=== PATIENT | male | born 1965 | race Caucasian/White ===

== ENCOUNTER 2017-06-10 13:47 | Observation (INO) | payer MEDICAID ==
[2017-06-10] MEDS ORDERED: Ondansetron 4 MG/2 ML SDV IVPUSH ONE (14:48)
[2017-06-10] MEDS ORDERED: HYDROmorphone 0.5 MG/0.5 ML Syringe IVPUSH ONE ×2 (14:48→16:19)
[2017-06-10] MEDS ORDERED: LORazepam 2 MG/ML SDV IVPUSH ONE (14:49)
--- NOTE | 2017-06-10 14:57 | EDM.PDOC ---
ED HPI GENERAL MEDICAL PROBLEM - General Chief Complaint: Abdominal Pain Stated Complaint: [facility] Time Seen by Provider: 06/10/17 14:57 Source of Information: Reports: Patient History Limitations: Reports: No Limitations - History of Present Illness INITIAL COMMENTS - FREE TEXT/NARRATIVE: pt was diagnosed with influ b 6-7 days ago and is just finishing his tamaflu. He also has been drinking very heavily He has pain in the rt upper abdoman. He was doing some vomiting. He feels quite ill. He has not run a temp recently. Onset: Gradual Duration: Day(s):, Other (pt had not drank since wed am. ) Location: Reports: Abdomen, Other (Pt is having pain in the rt upper abdoman. ) Associated Symptoms: Reports: Nausea/Vomiting Right Upper Abdomen Pain Score (Numeric/FACES): 8 - Related Data Allergies Allergy/AdvReac Type Severity Reaction Status Date / Time No Known Allergies Allergy Verified 06/10/17 14:15 Home Meds: Home Meds Ferrous Sulfate 325 mg PO TID 06/10/17 [History] Insulin Glarg,Human.Rec.Analog [Lantus] 18 unit SUBCUT DAILY 06/10/17 [History] Insulin Lispro [Humalog] 6 - 8 unit SQ TIDMEALS 06/10/17 [History] Pantoprazole [ProTONIX] 40 mg PO DAILY 06/10/17 [History] Pregabalin [Lyrica] 150 mg PO BID 06/10/17 [History] Propranolol [Inderal] 20 mg PO BID 06/10/17 [History] Past Medical History Cardiovascular History: Reports: Hypertension, MT, Stents Gastrointestinal History: Reports: Pancreatitis, Other (See Below) Other Gastrointestinal History: barrets esophageous, esophageal varisies Neurological History: Reports: Neuropathy, Diabetic Psychiatric History: Reports: Addiction Endocrine/Metabolic History: Reports: Diabetes, Type I Hematologic History: Reports: Blood Transfusion(s) Oncologic (Cancer) History: Reports: Renal - Past Surgical History Cardiovascular Surgical History: Reports: Coronary Artery Stent GI Surgical History: Reports: Cholecystectomy, Colonoscopy, EGD, Small Bowel, Other (See Below) Other GI Surgeries/Procedures: spleenectomy Male Surgical History: Reports: Other (See Below) Other Male Surgeries/Procedures: partial nephrectomy Social & Family History - Tobacco Use Smoking Status *Q: Never Smoker - Caffeine Use Caffeine Use: Reports: Coffee - Alcohol Use Date of Last Drink: 06/09/17 Time of Last Drink: 01:00 - Recreational Drug Use Recreational Drug Use: No ED ROS GENERAL - Review of Systems Review Of Systems: See Below Constitutional: Reports: No Symptoms HEENT: Reports: No Symptoms Respiratory: Reports: No Symptoms Cardiovascular: Reports: No Symptoms Endocrine: Reports: No Symptoms GI/Abdominal: Reports: Abdominal Pain, Other (pt love pain in the rt upper abdoman. ) : Reports: No Symptoms Musculoskeletal: Reports: No Symptoms ED EXAM, GI/ABD - Physical Exam Exam: See Below Text/Narrative:: pt arrived with pain in the rt upper abdoman, history of influ b. He has not finished his tamaflu. He has batsheva doing some vomiting. Exam Limited By: No Limitations General Appearance: Alert, Anxious, Moderate Distress Ears: Normal TMs Nose: Normal Inspection Throat/Mouth: Normal Inspection Head: Atraumatic Neck: Normal Inspection Respiratory/Chest: No Respiratory Distress Cardiovascular: Regular Rate, Rhythm GI/Abdominal Exam: Tender, Other (pt has tenderness in the rt upper abdoman. ) Course - Vital Signs Last Recorded V/S: Last Vital Signs Temp 36.4 C 06/10/17 14:09 Pulse 60 06/10/17 14:09 Resp 16 06/10/17 14:09 BP 151/118 H 06/10/17 17:28 Pulse Ox 96 06/10/17 14:09 - Orders/Labs/Meds Orders: Active Orders 24 hr Category Date Time Status Abdomen Pelvis w Cont [CT] Stat Exams 06/10/17 14:50 Taken DRUG SCREEN, URINE [URCHEM] Stat Lab 06/10/17 15:53 Ordered UA W/MICROSCOPIC [URIN] Urgent Lab 06/10/17 15:53 Ordered Iopamidol [Isovue-300 (61%)] Med 06/10/17 14:59 Active 100 ml IV . DIRECTED PRN LORazepam [Ativan] Med 06/10/17 17:48 Once 0.5 mg PO ONETIME ONE MVI, Adult with Vitamin K [Infuvite Adult] 10 ml Med 06/10/17 18:00 Ordered Thiamine [Vitamin B-1] 100 mg Folic Acid 1 mg Magnesium Sulfate [Magnesium Sulfate 50%] 3 gm Sodium Chloride 0.9% [Normal Saline] 1,000 ml IV ASDIRECTED Sodium Chloride 0.9% [Normal Saline] 1,000 ml Med 06/10/17 15:00 Active IV ASDIRECTED Sodium Chloride 0.9% [Normal Saline] 70 ml Med 06/10/17 15:00 Active IV ASDIRECTED Sodium Chloride 0.9% [Saline Flush] Med 06/10/17 14:59 Active 10 ml FLUSH ONETIME PRN Medication Orders Sodium Chloride (Normal Saline) 1,000 mls @ 999 mls/hr IV ASDIRECTED BORA Last Admin: 06/10/17 15:41 Dose: 999 mls/hr Sodium Chloride (Normal Saline) 70 mls @ 3 mls/sec IV ASDIRECTED BORA Stop: 06/10/17 23:00 Last Admin: 06/10/17 15:29 Dose: 3 mls/sec Multivitamins/Minerals 10 ml/Thiamine HCl 100 mg/ Folic Acid 1 mg/ Magnesium Sulfate 3 gm/ Sodium Chloride 1,017.2 mls @ 250 drops/min IV ASDIRECTED BORA Iopamidol (Isovue-300 (61%)) 100 ml IV . DIRECTED PRN PRN Reason: RADIOLOGY EXAM Stop: 06/11/17 15:00 Last Admin: 06/10/17 15:29 Dose: 100 ml Sodium Chloride (Saline Flush) 10 ml FLUSH ONETIME PRN PRN Reason: per radiology protocol Stop: 06/10/17 23:00 Last Admin: 06/10/17 15:29 Dose: 10 ml Labs: Laboratory Tests 06/10/17 06/10/17 06/10/17 Range/Units 14:00 14:00 14:00 WBC 8.1 (4.5-11.0) K/uL RBC 5.14 (4.30-5.90) M/uL Hgb 15.5 H (12.0-15.0) g/dL Hct 44.6 (40.0-54.0) % MCV 87 (80-98) fL MCH 30 (27-31) pg MCHC 35 (32-36) % Plt Count 206 (150-400) K/uL Neut % (Auto) 72 H (36-66) % Lymph % (Auto) 17 L (24-44) % [place] % (Auto) 9 H (2-6) % Eos % (Auto) 1 L (2-4) % Baso % (Auto) 1 (0-1) % Sodium 136 L (140-148) mmol/L Potassium 4.1 (3.6-5.2) mmol/L Chloride 99 L (100-108) mmol/L Carbon Dioxide 27 (21-32) mmol/L Anion Gap 14.1 H (5.0-14.0) mmol/L BUN 13 (7-18) mg/dL Creatinine 0.8 (0.8-1.3) mg/dL Est Cr Clr Drug Dosing 109.62 mL/min Estimated GFR (MDRD) > 60 (>60) Glucose 249 H (74-106) mg/dL Calcium 8.7 (8.5-10.1) mg/dL Total Bilirubin 1.1 H (0.2-1.0) mg/dL AST 359 H (15-37) U/L ALT 200 H (12-78) U/L Alkaline Phosphatase 264 H (46-116) U/L C-Reactive Protein 0.16 (0.0-0.3) mg/dL Total Protein 7.2 (6.4-8.2) g/dL Albumin 3.2 L (3.4-5.0) g/dL Globulin 4.0 H (2.3-3.5) g/dL Albumin/Globulin Ratio 0.8 L (1.2-2.2) Lipase (73-393) U/L Urine Color Urine Appearance Urine pH (4.5-8.0) Ur Specific [place] (1.008-1.030) Urine Protein (NEGATIVE) mg/dL Urine Glucose (UA) (NEGATIVE) mg/dL Urine Ketones (NEGATIVE) mg/dL Urine Occult Blood (NEGATIVE) Urine Nitrite (NEGAITVE) Urine Bilirubin (NEGATIVE) Urine Urobilinogen (NORMAL) mg/dL Ur Leukocyte Esterase (NEGATIVE) Urine RBC (0-5) Urine WBC (0-5) Ur Epithelial Cells Amorphous Sediment Urine Bacteria Urine Mucus Urine Opiates Screen (NEGATIVE) Ur Oxycodone Screen (NEGATIVE) Urine Methadone Screen (NEGATIVE) Ur Propoxyphene Screen (NEGATIVE) Ur Barbiturates Screen (NEGATIVE) Ur Tricyclics Screen (NEGATIVE) Ur Phencyclidine Scrn (NEGATIVE) Ur Amphetamine Screen (NEGATIVE) U Methamphetamines Scrn (NEGATIVE) Urine MDMA Screen (NEGATIVE) U Benzodiazepines Scrn (NEGATIVE) U Cocaine Metab Screen (NEGATIVE) U Marijuana (THC) Screen (NEGATIVE) Ethyl Alcohol mg/dL 06/10/17 06/10/17 06/10/17 Range/Units 14:00 14:48 15:53 WBC (4.5-11.0) K/uL RBC (4.30-5.90) M/uL Hgb (12.0-15.0) g/dL Hct (40.0-54.0) % MCV (80-98) fL MCH (27-31) pg MCHC (32-36) % Plt Count (150-400) K/uL Neut % (Auto) (36-66) % Lymph % (Auto) (24-44) % [place] % (Auto) (2-6) % Eos % (Auto) (2-4) % Baso % (Auto) (0-1) % Sodium (140-148) mmol/L Potassium (3.6-5.2) mmol/L Chloride (100-108) mmol/L Carbon Dioxide (21-32) mmol/L Anion Gap (5.0-14.0) mmol/L BUN (7-18) mg/dL Creatinine (0.8-1.3) mg/dL Est Cr Clr Drug Dosing mL/min Estimated GFR (MDRD) (>60) Glucose (74-106) mg/dL Calcium (8.5-10.1) mg/dL Total Bilirubin (0.2-1.0) mg/dL AST (15-37) U/L ALT (12-78) U/L Alkaline Phosphatase (46-116) U/L C-Reactive Protein (0.0-0.3) mg/dL Total Protein (6.4-8.2) g/dL Albumin (3.4-5.0) g/dL Globulin (2.3-3.5) g/dL Albumin/Globulin Ratio (1.2-2.2) Lipase 32 L (73-393) U/L Urine Color Yellow Urine Appearance Clear Urine pH 6.0 (4.5-8.0) Ur Specific [place] 1.020 (1.008-1.030) Urine Protein Negative (NEGATIVE) mg/dL Urine Glucose (UA) 1000 H (NEGATIVE) mg/dL Urine Ketones 15 H (NEGATIVE) mg/dL Urine Occult Blood Negative (NEGATIVE) Urine Nitrite Negative (NEGAITVE) Urine Bilirubin Small (NEGATIVE) Urine Urobilinogen 4 (NORMAL) mg/dL Ur Leukocyte Esterase Negative (NEGATIVE) Urine RBC Not seen (0-5) Urine WBC Not seen (0-5) Ur Epithelial Cells Few Amorphous Sediment Not seen Urine Bacteria Rare Urine Mucus Not seen Urine Opiates Screen (NEGATIVE) Ur Oxycodone Screen (NEGATIVE) Urine Methadone Screen (NEGATIVE) Ur Propoxyphene Screen (NEGATIVE) Ur Barbiturates Screen (NEGATIVE) Ur Tricyclics Screen (NEGATIVE) Ur Phencyclidine Scrn (NEGATIVE) Ur Amphetamine Screen (NEGATIVE) U Methamphetamines Scrn (NEGATIVE) Urine MDMA Screen (NEGATIVE) U Benzodiazepines Scrn (NEGATIVE) U Cocaine Metab Screen (NEGATIVE) U Marijuana (THC) Screen (NEGATIVE) Ethyl Alcohol < 3 mg/dL 06/10/17 Range/Units 15:53 WBC (4.5-11.0) K/uL RBC (4.30-5.90) M/uL Hgb (12.0-15.0) g/dL Hct (40.0-54.0) % MCV (80-98) fL MCH (27-31) pg MCHC (32-36) % Plt Count (150-400) K/uL Neut % (Auto) (36-66) % Lymph % (Auto) (24-44) % [place] % (Auto) (2-6) % Eos % (Auto) (2-4) % Baso % (Auto) (0-1) % Sodium (140-148) mmol/L Potassium (3.6-5.2) mmol/L Chloride (100-108) mmol/L Carbon Dioxide (21-32) mmol/L Anion Gap (5.0-14.0) mmol/L BUN (7-18) mg/dL Creatinine (0.8-1.3) mg/dL Est Cr Clr Drug Dosing mL/min Estimated GFR (MDRD) (>60) Glucose (74-106) mg/dL Calcium (8.5-10.1) mg/dL Total Bilirubin (0.2-1.0) mg/dL AST (15-37) U/L ALT (12-78) U/L Alkaline Phosphatase (46-116) U/L C-Reactive Protein (0.0-0.3) mg/dL Total Protein (6.4-8.2) g/dL Albumin (3.4-5.0) g/dL Globulin (2.3-3.5) g/dL Albumin/Globulin Ratio (1.2-2.2) Lipase (73-393) U/L Urine Color Urine Appearance Urine pH (4.5-8.0) Ur Specific [place] (1.008-1.030) Urine Protein (NEGATIVE) mg/dL Urine Glucose (UA) (NEGATIVE) mg/dL Urine Ketones (NEGATIVE) mg/dL Urine Occult Blood (NEGATIVE) Urine Nitrite (NEGAITVE) Urine Bilirubin (NEGATIVE) Urine Urobilinogen (NORMAL) mg/dL Ur Leukocyte Esterase (NEGATIVE) Urine RBC (0-5) Urine WBC (0-5) Ur Epithelial Cells Amorphous Sediment Urine Bacteria Urine Mucus Urine Opiates Screen Negative (NEGATIVE) Ur Oxycodone Screen Negative (NEGATIVE) Urine Methadone Screen Negative (NEGATIVE) Ur Propoxyphene Screen Negative (NEGATIVE) Ur Barbiturates Screen Negative (NEGATIVE) Ur Tricyclics Screen Negative (NEGATIVE) Ur Phencyclidine Scrn Negative (NEGATIVE) Ur Amphetamine Screen Negative (NEGATIVE) U Methamphetamines Scrn Negative (NEGATIVE) Urine MDMA Screen Negative (NEGATIVE) U Benzodiazepines Scrn Negative (NEGATIVE) U Cocaine Metab Screen Negative (NEGATIVE) U Marijuana (THC) Screen Negative (NEGATIVE) Ethyl Alcohol mg/dL Meds: Medications Generic Name Dose Route Start Last Admin Trade Name Freq PRN Reason Stop Dose Admin Sodium Chloride 1,000 mls @ 999 mls/hr 06/10/17 15:00 06/10/17 15:41 Normal Saline IV 999 mls/hr ASDIRECTED BORA Administration Sodium Chloride 70 mls @ 3 mls/sec 06/10/17 15:00 06/10/17 15:29 Normal Saline IV 06/10/17 23:00 3 mls/sec ASDIRECTED BORA Administration Multivitamins/Minerals 10 ml/ 1,017.2 mls @ 250 drops/min 06/10/17 18:00 Thiamine HCl 100 mg/ Folic IV Acid 1 mg/ Magnesium Sulfate 3 ASDIRECTED BORA gm/ Sodium Chloride Iopamidol 100 ml 06/10/17 14:59 06/10/17 15:29 Isovue-300 (61%) IV 06/11/17 15:00 100 ml . DIRECTED PRN Administration RADIOLOGY EXAM Sodium Chloride 10 ml 06/10/17 14:59 06/10/17 15:29 Saline Flush FLUSH 06/10/17 23:00 10 ml ONETIME PRN Administration per radiology protocol Discontinued Medications Generic Name Dose Route Start Last Admin Trade Name Freq PRN Reason Stop Dose Admin Hydromorphone HCl 0.5 mg 06/10/17 14:48 06/10/17 15:22 Dilaudid IVPUSH 06/10/17 14:49 0.5 mg ONETIME ONE Administration Hydromorphone HCl 0.5 mg 06/10/17 16:19 06/10/17 16:54 Dilaudid IVPUSH 06/10/17 16:20 0.5 mg ONETIME ONE Administration Lorazepam 0.5 mg 06/10/17 14:49 06/10/17 15:18 Ativan IVPUSH 06/10/17 14:50 0.5 mg ONETIME ONE Administration Ondansetron HCl 4 mg 06/10/17 14:48 06/10/17 15:43 Zofran IVPUSH 06/10/17 14:49 4 mg ONETIME ONE Administration - Re-Assessments/Exams Free Text/Narrative Re-Assessment/Exam: 06/10/17 17:50 pt arrived with pain in rt upper abdoman. His cat scan was neg for acute findings. His liver enzymes were all elevated. His lipase and amylase were not elevated. Departure - Departure Time of Disposition: 17:51 Disposition: Admitted As Inpatient 65 Condition: Fair Clinical Impression: Dehydration, Influenza B, Hypertension, ETOH abuse - Discharge Information Referrals: PCP,None [Primary Care Provider] - Forms: ED Department Discharge Care Plan Goals: admit to Dr Farnsworth. - My Orders Last 24 Hours: My Active Orders 06/10/17 14:50 Abdomen Pelvis w Cont [CT] Stat 06/10/17 14:59 Iopamidol [Isovue-300 (61%)] 100 ml IV . DIRECTED PRN Sodium Chloride 0.9% [Saline Flush] 10 ml FLUSH ONETIME PRN 06/10/17 15:00 Sodium Chloride 0.9% [Normal Saline] 1,000 ml IV ASDIRECTED Sodium Chloride 0.9% [Normal Saline] 70 ml IV ASDIRECTED 06/10/17 15:53 DRUG SCREEN, URINE [URCHEM] Stat UA W/MICROSCOPIC [URIN] Urgent 06/10/17 17:48 LORazepam [Ativan] 0.5 mg PO ONETIME ONE 06/10/17 18:00 MVI, Adult with Vitamin K [Infuvite Adult] 10 ml Thiamine [Vitamin B-1] 100 mg Folic Acid 1 mg Magnesium Sulfate [Magnesium Sulfate 50%] 3 gm Sodium Chloride 0.9% [Normal Saline] 1,000 ml IV ASDIRECTED - Assessment/Plan Last 24 Hours: My Active Orders 06/10/17 14:50 Abdomen Pelvis w Cont [CT] Stat 06/10/17 14:59 Iopamidol [Isovue-300 (61%)] 100 ml IV . DIRECTED PRN Sodium Chloride 0.9% [Saline Flush] 10 ml FLUSH ONETIME PRN 06/10/17 15:00 Sodium Chloride 0.9% [Normal Saline] 1,000 ml IV ASDIRECTED Sodium Chloride 0.9% [Normal Saline] 70 ml IV ASDIRECTED 06/10/17 15:53 DRUG SCREEN, URINE [URCHEM] Stat UA W/MICROSCOPIC [URIN] Urgent 06/10/17 17:48 LORazepam [Ativan] 0.5 mg PO ONETIME ONE 06/10/17 18:00 MVI, Adult with Vitamin K [Infuvite Adult] 10 ml Thiamine [Vitamin B-1] 100 mg Folic Acid 1 mg Magnesium Sulfate [Magnesium Sulfate 50%] 3 gm Sodium Chloride 0.9% [Normal Saline] 1,000 ml IV ASDIRECTED
[2017-06-10] MEDS ORDERED: Sodium Chloride 0.9% 10 ML Syringe FLUSH PRN ×2 (14:59→20:05)
[2017-06-10] MEDS ORDERED: Iopamidol 612 MG/ML 100 ML Bottle IV PRN (14:59)
[2017-06-10] MEDS ORDERED: Sodium Chloride 0.9% 1,000 ML IV SCH (15:00)
[2017-06-10] MEDS ORDERED: LORazepam 0.5 MG Tab PO ONE (17:48)
[2017-06-10] MEDS ORDERED: MVI, Adult with Vitamin K 10 ML, Thiamine 100 MG, Folic Acid 1 MG, Magnesium Sulfate 3 ... IV SCH ×5 (18:00)
--- NOTE | 2017-06-10 18:51 | PCM.HP ---
H&P History of Present Illness - General Date of Service: 06/10/17 Admit Problem/Dx: Admission Diagnosis/Problem Admission Diagnosis/Problem Right upper quadrant abdominal pain Source of Information: Patient, Provider, RN Notes Reviewed History Limitations: Reports: No Limitations - History of Present Illness Initial Comments - Free Text/Narative: Mr. Munguia severe 52-year-old gentleman who is admitted through the emergency department to observation status with right upper quadrant abdominal pain. He has a long-standing history of alcohol abuse and dependence, reports that he was abstinent for 2 years up until 5 days prior to admission when he went on a 4 day drinking binge. Prior to the drinking binge had been diagnosed with influenza B and received a course of Tamiflu. Over the past 24 hours has felt somewhat weak and unsteady and in addition has developed right upper quadrant abdominal pain. He has had this pain intermittently in the past, with no specific etiology identified. 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 CT scan of the abdomen shows old findings but nothing acute to explain his current symptoms. Right Upper Abdomen Pain Score (Numeric/FACES): 8 - Related Data Allergies/Adverse Reactions: Allergies Allergy/AdvReac Type Severity Reaction Status Date / Time No Known Allergies Allergy Verified 06/10/17 14:15 Home Medications: Home Meds Ferrous Sulfate 325 mg PO TID 06/10/17 [History] Insulin Glarg,Human.Rec.Analog [Lantus] 18 unit SUBCUT DAILY 06/10/17 [History] Insulin Lispro [Humalog] 6 - 8 unit SQ TIDMEALS 06/10/17 [History] Pantoprazole [ProTONIX] 40 mg PO DAILY 06/10/17 [History] Pregabalin [Lyrica] 150 mg PO BID 06/10/17 [History] Propranolol [Inderal] 20 mg PO BID 06/10/17 [History] Past Medical History Cardiovascular History: Reports: Hypertension, [place], Stents Gastrointestinal History: Reports: Pancreatitis, Other (See Below) Other Gastrointestinal History: barrets esophageous, esophageal varisies Neurological History: Reports: Neuropathy, Diabetic Psychiatric History: Reports: Addiction Endocrine/Metabolic History: Reports: Diabetes, Type I Hematologic History: Reports: Blood Transfusion(s) Oncologic (Cancer) History: Reports: Renal - Past Surgical History Cardiovascular Surgical History: Reports: Coronary Artery Stent GI Surgical History: Reports: Cholecystectomy, Colonoscopy, EGD, Small Bowel, Other (See Below) Other GI Surgeries/Procedures: spleenectomy Male Surgical History: Reports: Other (See Below) Other Male Surgeries/Procedures: partial nephrectomy Social & Family History - Tobacco Use Smoking Status *Q: Never Smoker - Caffeine Use Caffeine Use: Reports: Coffee - Alcohol Use Date of Last Drink: 06/09/17 Time of Last Drink: 01:00 - Recreational Drug Use Recreational Drug Use: No H&P Review of Systems - Review of Systems: Review Of Systems: See Below General: Reports: Weakness. Denies: Fever, Chills, Fatigue HEENT: Reports: No Symptoms Pulmonary: Reports: No Symptoms Cardiovascular: Reports: No Symptoms Gastrointestinal: Reports: Abdominal Pain. Denies: Black Stool, Bloody Stool, Constipation, Diarrhea, Difficulty Swallowing, Distension, Nausea, Vomiting Genitourinary: Reports: No Symptoms Musculoskeletal: Reports: No Symptoms Skin: Reports: No Symptoms Psychiatric: Reports: No Symptoms Neurological: Reports: No Symptoms Hematologic/Lymphatic: Reports: No Symptoms Immunologic: Reports: No Symptoms Exam - Exam Exam: See Below - Vital Signs Vital Signs: Last Vital Signs Temp 97.5 F 06/10/17 14:09 Pulse 60 06/10/17 14:09 Resp 16 06/10/17 14:09 BP 151/118 H 06/10/17 17:28 Pulse Ox 96 06/10/17 14:09 Weight: 160 lb - Exam Quality Assessment: DVT Prophylaxis General: Alert, Oriented, Cooperative, Mild Distress HEENT: Conjunctiva Clear, Hearing Intact, Mucosa Moist & [place], Normal Nasal Septum, Posterior Pharynx Clear, Pupils Equal Neck: Supple, Trachea Midline, +2 Carotid Pulse wo Bruit Lungs: Clear to Auscultation, Normal Respiratory Effort Cardiovascular: Regular Rate, Regular Rhythm, Normal S1, Normal S2. No: Systolic Murmur, Diastolic Murmur GI/Abdominal Exam: Soft, Non-Tender, No Organomegaly, No Distention Back Exam: Normal Inspection, Full Range of Motion Extremities: Non-Tender, No Pedal Edema Skin: Warm, Dry, Intact Neurological: Cranial Nerves Intact, Strength Equal Bilateral, Normal Speech, Normal Tone, Sensation Intact. No: Focal Deficit Neuro Extensive - Mental Status: Alert, Oriented x3, Normal Mood/Affect, Normal Cognition, Memory Intact - Patient Data Lab Results Last 24 hrs: Laboratory Results - last 24 hr 06/10/17 06/10/17 06/10/17 Range/Units 14:00 14:00 14:00 WBC 8.1 (4.5-11.0) K/uL RBC 5.14 (4.30-5.90) M/uL Hgb 15.5 H (12.0-15.0) g/dL Hct 44.6 (40.0-54.0) % MCV 87 (80-98) fL MCH 30 (27-31) pg MCHC 35 (32-36) % Plt Count 206 (150-400) K/uL Neut % (Auto) 72 H (36-66) % Lymph % (Auto) 17 L (24-44) % [place] % (Auto) 9 H (2-6) % Eos % (Auto) 1 L (2-4) % Baso % (Auto) 1 (0-1) % Sodium 136 L (140-148) mmol/L Potassium 4.1 (3.6-5.2) mmol/L Chloride 99 L (100-108) mmol/L Carbon Dioxide 27 (21-32) mmol/L Anion Gap 14.1 H (5.0-14.0) mmol/L BUN 13 (7-18) mg/dL Creatinine 0.8 (0.8-1.3) mg/dL Est Cr Clr Drug Dosing 109.62 mL/min Estimated GFR (MDRD) > 60 (>60) Glucose 249 H (74-106) mg/dL Calcium 8.7 (8.5-10.1) mg/dL Total Bilirubin 1.1 H (0.2-1.0) mg/dL AST 359 H (15-37) U/L ALT 200 H (12-78) U/L Alkaline Phosphatase 264 H (46-116) U/L C-Reactive Protein 0.16 (0.0-0.3) mg/dL Total Protein 7.2 (6.4-8.2) g/dL Albumin 3.2 L (3.4-5.0) g/dL Globulin 4.0 H (2.3-3.5) g/dL Albumin/Globulin Ratio 0.8 L (1.2-2.2) Lipase (73-393) U/L Urine Color Urine Appearance Urine pH (4.5-8.0) Ur Specific [place] (1.008-1.030) Urine Protein (NEGATIVE) mg/dL Urine Glucose (UA) (NEGATIVE) mg/dL Urine Ketones (NEGATIVE) mg/dL Urine Occult Blood (NEGATIVE) Urine Nitrite (NEGAITVE) Urine Bilirubin (NEGATIVE) Urine Urobilinogen (NORMAL) mg/dL Ur Leukocyte Esterase (NEGATIVE) Urine RBC (0-5) Urine WBC (0-5) Ur Epithelial Cells Amorphous Sediment Urine Bacteria Urine Mucus Urine Opiates Screen (NEGATIVE) Ur Oxycodone Screen (NEGATIVE) Urine Methadone Screen (NEGATIVE) Ur Propoxyphene Screen (NEGATIVE) Ur Barbiturates Screen (NEGATIVE) Ur Tricyclics Screen (NEGATIVE) Ur Phencyclidine Scrn (NEGATIVE) Ur Amphetamine Screen (NEGATIVE) U Methamphetamines Scrn (NEGATIVE) Urine MDMA Screen (NEGATIVE) U Benzodiazepines Scrn (NEGATIVE) U Cocaine Metab Screen (NEGATIVE) U Marijuana (THC) Screen (NEGATIVE) Ethyl Alcohol mg/dL 06/10/17 06/10/17 06/10/17 Range/Units 14:00 14:48 15:53 WBC (4.5-11.0) K/uL RBC (4.30-5.90) M/uL Hgb (12.0-15.0) g/dL Hct (40.0-54.0) % MCV (80-98) fL MCH (27-31) pg MCHC (32-36) % Plt Count (150-400) K/uL Neut % (Auto) (36-66) % Lymph % (Auto) (24-44) % [place] % (Auto) (2-6) % Eos % (Auto) (2-4) % Baso % (Auto) (0-1) % Sodium (140-148) mmol/L Potassium (3.6-5.2) mmol/L Chloride (100-108) mmol/L Carbon Dioxide (21-32) mmol/L Anion Gap (5.0-14.0) mmol/L BUN (7-18) mg/dL Creatinine (0.8-1.3) mg/dL Est Cr Clr Drug Dosing mL/min Estimated GFR (MDRD) (>60) Glucose (74-106) mg/dL Calcium (8.5-10.1) mg/dL Total Bilirubin (0.2-1.0) mg/dL AST (15-37) U/L ALT (12-78) U/L Alkaline Phosphatase (46-116) U/L C-Reactive Protein (0.0-0.3) mg/dL Total Protein (6.4-8.2) g/dL Albumin (3.4-5.0) g/dL Globulin (2.3-3.5) g/dL Albumin/Globulin Ratio (1.2-2.2) Lipase 32 L (73-393) U/L Urine Color Yellow Urine Appearance Clear Urine pH 6.0 (4.5-8.0) Ur Specific [place] 1.020 (1.008-1.030) Urine Protein Negative (NEGATIVE) mg/dL Urine Glucose (UA) 1000 H (NEGATIVE) mg/dL Urine Ketones 15 H (NEGATIVE) mg/dL Urine Occult Blood Negative (NEGATIVE) Urine Nitrite Negative (NEGAITVE) Urine Bilirubin Small (NEGATIVE) Urine Urobilinogen 4 (NORMAL) mg/dL Ur Leukocyte Esterase Negative (NEGATIVE) Urine RBC Not seen (0-5) Urine WBC Not seen (0-5) Ur Epithelial Cells Few Amorphous Sediment Not seen Urine Bacteria Rare Urine Mucus Not seen Urine Opiates Screen (NEGATIVE) Ur Oxycodone Screen (NEGATIVE) Urine Methadone Screen (NEGATIVE) Ur Propoxyphene Screen (NEGATIVE) Ur Barbiturates Screen (NEGATIVE) Ur Tricyclics Screen (NEGATIVE) Ur Phencyclidine Scrn (NEGATIVE) Ur Amphetamine Screen (NEGATIVE) U Methamphetamines Scrn (NEGATIVE) Urine MDMA Screen (NEGATIVE) U Benzodiazepines Scrn (NEGATIVE) U Cocaine Metab Screen (NEGATIVE) U Marijuana (THC) Screen (NEGATIVE) Ethyl Alcohol < 3 mg/dL 06/10/17 Range/Units 15:53 WBC (4.5-11.0) K/uL RBC (4.30-5.90) M/uL Hgb (12.0-15.0) g/dL Hct (40.0-54.0) % MCV (80-98) fL MCH (27-31) pg MCHC (32-36) % Plt Count (150-400) K/uL Neut % (Auto) (36-66) % Lymph % (Auto) (24-44) % [place] % (Auto) (2-6) % Eos % (Auto) (2-4) % Baso % (Auto) (0-1) % Sodium (140-148) mmol/L Potassium (3.6-5.2) mmol/L Chloride (100-108) mmol/L Carbon Dioxide (21-32) mmol/L Anion Gap (5.0-14.0) mmol/L BUN (7-18) mg/dL Creatinine (0.8-1.3) mg/dL Est Cr Clr Drug Dosing mL/min Estimated GFR (MDRD) (>60) Glucose (74-106) mg/dL Calcium (8.5-10.1) mg/dL Total Bilirubin (0.2-1.0) mg/dL AST (15-37) U/L ALT (12-78) U/L Alkaline Phosphatase (46-116) U/L C-Reactive Protein (0.0-0.3) mg/dL Total Protein (6.4-8.2) g/dL Albumin (3.4-5.0) g/dL Globulin (2.3-3.5) g/dL Albumin/Globulin Ratio (1.2-2.2) Lipase (73-393) U/L Urine Color Urine Appearance Urine pH (4.5-8.0) Ur Specific [place] (1.008-1.030) Urine Protein (NEGATIVE) mg/dL Urine Glucose (UA) (NEGATIVE) mg/dL Urine Ketones (NEGATIVE) mg/dL Urine Occult Blood (NEGATIVE) Urine Nitrite (NEGAITVE) Urine Bilirubin (NEGATIVE) Urine Urobilinogen (NORMAL) mg/dL Ur Leukocyte Esterase (NEGATIVE) Urine RBC (0-5) Urine WBC (0-5) Ur Epithelial Cells Amorphous Sediment Urine Bacteria Urine Mucus Urine Opiates Screen Negative (NEGATIVE) Ur Oxycodone Screen Negative (NEGATIVE) Urine Methadone Screen Negative (NEGATIVE) Ur Propoxyphene Screen Negative (NEGATIVE) Ur Barbiturates Screen Negative (NEGATIVE) Ur Tricyclics Screen Negative (NEGATIVE) Ur Phencyclidine Scrn Negative (NEGATIVE) Ur Amphetamine Screen Negative (NEGATIVE) U Methamphetamines Scrn Negative (NEGATIVE) Urine MDMA Screen Negative (NEGATIVE) U Benzodiazepines Scrn Negative (NEGATIVE) U Cocaine Metab Screen Negative (NEGATIVE) U Marijuana (THC) Screen Negative (NEGATIVE) Ethyl Alcohol mg/dL Result Diagrams: 06/10/17 14:00 06/10/17 14:00 *Q Meaningful Use (ADM) - VTE Risk Assess *Q Each Risk Factor Represents 1 Point: Age 41 - 59 years Total Score 1 Point Risk Factors: 1 Each Risk Factor Represents 2 Points: None Total Score 2 Point Risk Factors: 0 Each Risk Factor Represents 3 Points: None Total Score 3 Point Risk Factors: 0 Each Risk Factor Represents 5 Points: None Total Score 5 Point Risk Factors: 0 Venous Thromboembolism Risk Factor Score *Q: 1 Problem List Initiated/Reviewed/Updated: Yes Orders Last 24hrs: Active Orders 24 hr Category Date Time Status Patient Status Manage Transfer [TRANSFER] Routine ADT 06/10/17 18:27 Ordered Abdomen Pelvis w Cont [CT] Stat Exams 06/10/17 14:50 Taken DRUG SCREEN, URINE [URCHEM] Stat Lab 06/10/17 15:53 Ordered UA W/MICROSCOPIC [URIN] Urgent Lab 06/10/17 15:53 Ordered Iopamidol [Isovue-300 (61%)] Med 06/10/17 14:59 Active 100 ml IV . DIRECTED PRN MVI, Adult with Vitamin K [Infuvite Adult] 10 ml Med 06/10/17 18:00 Active Thiamine [Vitamin B-1] 100 mg Folic Acid 1 mg Magnesium Sulfate [Magnesium Sulfate 50%] 3 gm Sodium Chloride 0.9% [Normal Saline] 1,000 ml IV ASDIRECTED Sodium Chloride 0.9% [Normal Saline] 1,000 ml Med 06/10/17 15:00 Active IV ASDIRECTED Sodium Chloride 0.9% [Normal Saline] 70 ml Med 06/10/17 15:00 Active IV ASDIRECTED Sodium Chloride 0.9% [Saline Flush] Med 06/10/17 14:59 Active 10 ml FLUSH ONETIME PRN Resuscitation Status Routine Resus Stat 06/10/17 18:32 Ordered Medication Orders Sodium Chloride (Normal Saline) 1,000 mls @ 999 mls/hr IV ASDIRECTED BORA Last Admin: 06/10/17 15:41 Dose: 999 mls/hr Sodium Chloride (Normal Saline) 70 mls @ 3 mls/sec IV ASDIRECTED BORA Stop: 06/10/17 23:00 Last Admin: 06/10/17 15:29 Dose: 3 mls/sec Multivitamins/Minerals 10 ml/Thiamine HCl 100 mg/ Folic Acid 1 mg/ Magnesium Sulfate 3 gm/ Sodium Chloride 1,017.2 mls @ 250 drops/min IV ASDIRECTED BORA Iopamidol (Isovue-300 (61%)) 100 ml IV . DIRECTED PRN PRN Reason: RADIOLOGY EXAM Stop: 06/11/17 15:00 Last Admin: 06/10/17 15:29 Dose: 100 ml Sodium Chloride (Saline Flush) 10 ml FLUSH ONETIME PRN PRN Reason: per radiology protocol Stop: 06/10/17 23:00 Last Admin: 06/10/17 15:29 Dose: 10 ml Assessment/Plan Comment:: ASSESSMENT AND PLAN RIGHT UPPER QUADRANT ABDOMINAL PAIN-likely secondary to gastritis/duodenitis versus hepatic inflammation from alcohol use. No other specific etiology identified on relatively extensive evaluation in the emergency department -Protonix 40 mg by mouth twice a day -pain medication and antiemetic therapy as needed HYPERTENSION-blood pressure significantly elevated during emergency room visit -discontinue propranolol -Metoprolol 50 mg by mouth twice a day TYPE 2 DIABETES MELLITUS -continue usual dose of long-acting insulin -NovoLog 6 units with meals -NovoLog sliding scale low-dose -4 times a day glucometers ALCOHOL ABUSE -alcohol withdrawal protocol MAINTENANCE ISSUES -DVT prophylaxis; ambulation -GI prophylaxis;Protonix as above -Touss[place] catheter; not indicated -Nutrition; regular diet -Nicotine dependence; not required CODE STATUS-FULL CODE ADMISSION STATUS-this patient will be admitted to observation status, expect no more than a one night hospital stay for evaluation and management of problems as outlined above. DISPOSITION-anticipate discharge to home after the hospital stay. PRIMARY CARE PROVIDER-
[2017-06-10] MEDS ORDERED: oxyCODONE 5 MG Tab PO PRN (20:05)
[2017-06-10] MEDS ORDERED: 50% Dextrose in Water 50 ML Syringe IV PRN (20:05)
[2017-06-10] MEDS ORDERED: Glucose Gel 15 GM in 37.5 GM Tube PO PRN (20:05)
[2017-06-10] MEDS ORDERED: LORazepam 1 MG Tab PO SCH (20:05)
[2017-06-10] MEDS ORDERED: Pantoprazole 40 MG Tab.CR PO SCH (21:00)
[2017-06-10] MEDS: Thiamine 100 MG Tab PO SCH (21:08)
[2017-06-10] MEDS: Folic Acid 1 MG Tab PO SCH (21:09)
[2017-06-10] MEDS: Metoprolol Tartrate 50 MG Tab PO SCH (21:10)
[2017-06-10] MEDS: Acetaminophen 325 MG Tab PO PRN (21:11)
[2017-06-10] MEDS: Insulin Aspart 100 Units/ML 3 ML Pen SUBCUT SCH (21:13)
[2017-06-10] MEDS: Ondansetron 4 MG/2 ML SDV IV PRN (21:23)
[2017-06-10] MEDS ORDERED: oxyCODONE 5 MG Tab PO ONE (22:20)
[2017-06-10] MEDS: Pregabalin 75 MG Cap PO SCH (22:26)
[2017-06-11] MEDS: oxyCODONE 5 MG Tab PO PRN ×3 (02:28→11:39)
[2017-06-11] MEDS: Acetaminophen 325 MG Tab PO PRN (02:29)
[2017-06-11] MEDS ORDERED: diphenhydrAMINE 25 MG Cap PO PRN (02:41)
[2017-06-11] MEDS: Ondansetron 4 MG/2 ML SDV IV PRN ×2 (02:53→06:54)
[2017-06-11] MEDS ORDERED: Pantoprazole 40 MG Tab.CR PO SCH (08:00)
[2017-06-11] MEDS: Insulin Aspart 100 Units/ML 3 ML Pen SUBCUT SCH ×4 (08:14→11:54)
[2017-06-11] MEDS: Pregabalin 75 MG Cap PO SCH (08:26)
[2017-06-11] MEDS: Folic Acid 1 MG Tab PO SCH (08:26)
[2017-06-11] MEDS: Thiamine 100 MG Tab PO SCH (08:26)
[2017-06-11] MEDS: Metoprolol Tartrate 50 MG Tab PO SCH (08:26)
[2017-06-11] MEDS ORDERED: Insulin Detemir 100 Units/ML 3 ML Pen SUBCUT SCH ×2 (09:00)
--- NOTE | 2017-06-11 12:13 | PCM.DCSUM1 ---
Discharge Summary - Hospital Course Brief History: Mr. Munguia is a 52-year-old gentleman who was admitted to observation status through the emergency department with possible alcohol withdrawal and right upper quadrant abdominal pain. - Discharge Data Discharge Date: 06/11/17 Discharge Disposition: Home, Self-Care 01 Condition: Stable - Discharge Diagnosis/Problem(s) (1) Dehydration SNOMED Code(s): 28565620 ICD Code: E86.0 - DEHYDRATION Status: Acute Current Visit: Yes (2) Hypertension SNOMED Code(s): 11161171 ICD Code: I10 - ESSENTIAL (PRIMARY) HYPERTENSION Status: Acute Current Visit: Yes (3) ETOH abuse SNOMED Code(s): 07087708 ICD Code: F10.10 - ALCOHOL ABUSE, UNCOMPLICATED Status: Acute Current Visit: Yes - Patient Summary/Data Hospital Course: Mr. Munguia severe 52-year-old gentleman who is admitted through the emergency department to observation status with right upper quadrant abdominal pain. He has a long-standing history of alcohol abuse and dependence, reports that he was abstinent for 2 years up until 5 days prior to admission when he went on a 4 day drinking binge. Prior to the drinking binge had been diagnosed with influenza B and received a course of Tamiflu. Over the past 24 hours has felt somewhat weak and unsteady and in addition has developed right upper quadrant abdominal pain. He has had this pain intermittently in the past, with no specific etiology identified. 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 CT scan of the abdomen shows old findings but nothing acute to explain his current symptoms. He received IV fluids in the emergency department for hydration, at the time of admission was not felt that he required further fluids as he was eating and drinking without significant difficulty. He remained stable throughout the course of his overnight hospital stay. On the day of discharge continued to experience nasal congestion, postnasal drainage, and upper respiratory symptoms. Right upper quadrant abdominal pain had improved but not totally resolved. Was felt likely secondary to liver inflammation versus gastritis to tinnitus related to alcohol use. He will be discharged home on his usual therapy with Protonix. He is instructed to avoid all alcohol use in the future. Activity will be as tolerated and he will resume his usual diet. Appointment will be scheduled with primary care provider within one week. - Patient Instructions Diet: Usual Diet as Tolerated Diet, Other: Avoid all alcohol use Activity: As Tolerated Other/Special Instructions: Schedule follow-up appointment with primary care provider within one week. - Discharge Plan Home Medications: Home Meds Ferrous Sulfate 325 mg PO TID 06/10/17 [History] Insulin Glarg,Human.Rec.Analog [Lantus] 18 unit SUBCUT DAILY 06/10/17 [History] Insulin Lispro [Humalog] 6 - 8 unit SQ TIDMEALS 06/10/17 [History] Pantoprazole [ProTONIX] 40 mg PO DAILY 06/10/17 [History] Pregabalin [Lyrica] 150 mg PO BID 06/10/17 [History] Propranolol [Inderal] 20 mg PO BID 06/10/17 [History] Forms: ED Department Discharge Referrals: PCP,None [Primary Care Provider] - - Discharge Summary/Plan Comment DC Time >30 min.: No - Patient Data Vitals - Most Recent: Last Vital Signs Temp 95.7 F 06/11/17 08:00 Pulse 62 06/11/17 08:26 Resp 16 06/11/17 08:00 BP 165/102 H 06/11/17 08:26 Pulse Ox 98 06/11/17 08:00 Weight - Most Recent: 158 lb 15.993 oz I&O - Last 24 hours: Intake & Output 06/10/17 06/11/17 06/11/17 22:59 06:59 14:59 Intake Total 740 Balance 740 Lab Results - Last 24 hrs: Laboratory Results - last 24 hr 06/10/17 06/10/17 06/10/17 Range/Units 14:00 14:00 14:00 WBC 8.1 (4.5-11.0) K/uL RBC 5.14 (4.30-5.90) M/uL Hgb 15.5 H (12.0-15.0) g/dL Hct 44.6 (40.0-54.0) % MCV 87 (80-98) fL MCH 30 (27-31) pg MCHC 35 (32-36) % Plt Count 206 (150-400) K/uL Neut % (Auto) 72 H (36-66) % Lymph % (Auto) 17 L (24-44) % [place] % (Auto) 9 H (2-6) % Eos % (Auto) 1 L (2-4) % Baso % (Auto) 1 (0-1) % Sodium 136 L (140-148) mmol/L Potassium 4.1 (3.6-5.2) mmol/L Chloride 99 L (100-108) mmol/L Carbon Dioxide 27 (21-32) mmol/L Anion Gap 14.1 H (5.0-14.0) mmol/L BUN 13 (7-18) mg/dL Creatinine 0.8 (0.8-1.3) mg/dL Est Cr Clr Drug Dosing 109.62 mL/min Estimated GFR (MDRD) > 60 (>60) Glucose 249 H (74-106) mg/dL Calcium 8.7 (8.5-10.1) mg/dL Total Bilirubin 1.1 H (0.2-1.0) mg/dL AST 359 H (15-37) U/L ALT 200 H (12-78) U/L Alkaline Phosphatase 264 H (46-116) U/L C-Reactive Protein 0.16 (0.0-0.3) mg/dL Total Protein 7.2 (6.4-8.2) g/dL Albumin 3.2 L (3.4-5.0) g/dL Globulin 4.0 H (2.3-3.5) g/dL Albumin/Globulin Ratio 0.8 L (1.2-2.2) Lipase (73-393) U/L Urine Color Urine Appearance Urine pH (4.5-8.0) Ur Specific [place] (1.008-1.030) Urine Protein (NEGATIVE) mg/dL Urine Glucose (UA) (NEGATIVE) mg/dL Urine Ketones (NEGATIVE) mg/dL Urine Occult Blood (NEGATIVE) Urine Nitrite (NEGAITVE) Urine Bilirubin (NEGATIVE) Urine Urobilinogen (NORMAL) mg/dL Ur Leukocyte Esterase (NEGATIVE) Urine RBC (0-5) Urine WBC (0-5) Ur Epithelial Cells Amorphous Sediment Urine Bacteria Urine Mucus Urine Opiates Screen (NEGATIVE) Ur Oxycodone Screen (NEGATIVE) Urine Methadone Screen (NEGATIVE) Ur Propoxyphene Screen (NEGATIVE) Ur Barbiturates Screen (NEGATIVE) Ur Tricyclics Screen (NEGATIVE) Ur Phencyclidine Scrn (NEGATIVE) Ur Amphetamine Screen (NEGATIVE) U Methamphetamines Scrn (NEGATIVE) Urine MDMA Screen (NEGATIVE) U Benzodiazepines Scrn (NEGATIVE) U Cocaine Metab Screen (NEGATIVE) U Marijuana (THC) Screen (NEGATIVE) Ethyl Alcohol mg/dL 06/10/17 06/10/17 06/10/17 Range/Units 14:00 14:48 15:53 WBC (4.5-11.0) K/uL RBC (4.30-5.90) M/uL Hgb (12.0-15.0) g/dL Hct (40.0-54.0) % MCV (80-98) fL MCH (27-31) pg MCHC (32-36) % Plt Count (150-400) K/uL Neut % (Auto) (36-66) % Lymph % (Auto) (24-44) % [place] % (Auto) (2-6) % Eos % (Auto) (2-4) % Baso % (Auto) (0-1) % Sodium (140-148) mmol/L Potassium (3.6-5.2) mmol/L Chloride (100-108) mmol/L Carbon Dioxide (21-32) mmol/L Anion Gap (5.0-14.0) mmol/L BUN (7-18) mg/dL Creatinine (0.8-1.3) mg/dL Est Cr Clr Drug Dosing mL/min Estimated GFR (MDRD) (>60) Glucose (74-106) mg/dL Calcium (8.5-10.1) mg/dL Total Bilirubin (0.2-1.0) mg/dL AST (15-37) U/L ALT (12-78) U/L Alkaline Phosphatase (46-116) U/L C-Reactive Protein (0.0-0.3) mg/dL Total Protein (6.4-8.2) g/dL Albumin (3.4-5.0) g/dL Globulin (2.3-3.5) g/dL Albumin/Globulin Ratio (1.2-2.2) Lipase 32 L (73-393) U/L Urine Color Yellow Urine Appearance Clear Urine pH 6.0 (4.5-8.0) Ur Specific [place] 1.020 (1.008-1.030) Urine Protein Negative (NEGATIVE) mg/dL Urine Glucose (UA) 1000 H (NEGATIVE) mg/dL Urine Ketones 15 H (NEGATIVE) mg/dL Urine Occult Blood Negative (NEGATIVE) Urine Nitrite Negative (NEGAITVE) Urine Bilirubin Small (NEGATIVE) Urine Urobilinogen 4 (NORMAL) mg/dL Ur Leukocyte Esterase Negative (NEGATIVE) Urine RBC Not seen (0-5) Urine WBC Not seen (0-5) Ur Epithelial Cells Few Amorphous Sediment Not seen Urine Bacteria Rare Urine Mucus Not seen Urine Opiates Screen (NEGATIVE) Ur Oxycodone Screen (NEGATIVE) Urine Methadone Screen (NEGATIVE) Ur Propoxyphene Screen (NEGATIVE) Ur Barbiturates Screen (NEGATIVE) Ur Tricyclics Screen (NEGATIVE) Ur Phencyclidine Scrn (NEGATIVE) Ur Amphetamine Screen (NEGATIVE) U Methamphetamines Scrn (NEGATIVE) Urine MDMA Screen (NEGATIVE) U Benzodiazepines Scrn (NEGATIVE) U Cocaine Metab Screen (NEGATIVE) U Marijuana (THC) Screen (NEGATIVE) Ethyl Alcohol < 3 mg/dL 06/10/17 Range/Units 15:53 WBC (4.5-11.0) K/uL RBC (4.30-5.90) M/uL Hgb (12.0-15.0) g/dL Hct (40.0-54.0) % MCV (80-98) fL MCH (27-31) pg MCHC (32-36) % Plt Count (150-400) K/uL Neut % (Auto) (36-66) % Lymph % (Auto) (24-44) % [place] % (Auto) (2-6) % Eos % (Auto) (2-4) % Baso % (Auto) (0-1) % Sodium (140-148) mmol/L Potassium (3.6-5.2) mmol/L Chloride (100-108) mmol/L Carbon Dioxide (21-32) mmol/L Anion Gap (5.0-14.0) mmol/L BUN (7-18) mg/dL Creatinine (0.8-1.3) mg/dL Est Cr Clr Drug Dosing mL/min Estimated GFR (MDRD) (>60) Glucose (74-106) mg/dL Calcium (8.5-10.1) mg/dL Total Bilirubin (0.2-1.0) mg/dL AST (15-37) U/L ALT (12-78) U/L Alkaline Phosphatase (46-116) U/L C-Reactive Protein (0.0-0.3) mg/dL Total Protein (6.4-8.2) g/dL Albumin (3.4-5.0) g/dL Globulin (2.3-3.5) g/dL Albumin/Globulin Ratio (1.2-2.2) Lipase (73-393) U/L Urine Color Urine Appearance Urine pH (4.5-8.0) Ur Specific [place] (1.008-1.030) Urine Protein (NEGATIVE) mg/dL Urine Glucose (UA) (NEGATIVE) mg/dL Urine Ketones (NEGATIVE) mg/dL Urine Occult Blood (NEGATIVE) Urine Nitrite (NEGAITVE) Urine Bilirubin (NEGATIVE) Urine Urobilinogen (NORMAL) mg/dL Ur Leukocyte Esterase (NEGATIVE) Urine RBC (0-5) Urine WBC (0-5) Ur Epithelial Cells Amorphous Sediment Urine Bacteria Urine Mucus Urine Opiates Screen Negative (NEGATIVE) Ur Oxycodone Screen Negative (NEGATIVE) Urine Methadone Screen Negative (NEGATIVE) Ur Propoxyphene Screen Negative (NEGATIVE) Ur Barbiturates Screen Negative (NEGATIVE) Ur Tricyclics Screen Negative (NEGATIVE) Ur Phencyclidine Scrn Negative (NEGATIVE) Ur Amphetamine Screen Negative (NEGATIVE) U Methamphetamines Scrn Negative (NEGATIVE) Urine MDMA Screen Negative (NEGATIVE) U Benzodiazepines Scrn Negative (NEGATIVE) U Cocaine Metab Screen Negative (NEGATIVE) U Marijuana (THC) Screen Negative (NEGATIVE) Ethyl Alcohol mg/dL Med Orders - Current: Current Medications Acetaminophen (Tylenol) 650 mg PO Q4H PRN PRN Reason: Pain (Mild 1-3)/fever Last Admin: 06/11/17 02:29 Dose: 650 mg Dextrose (Glutose 15) 15 gm PO ONETIME PRN PRN Reason: Hypoglycemia Dextrose/Water (Dextrose 50% In Water) 50 ml IV ONETIME PRN PRN Reason: Hypoglycemia Diphenhydramine HCl (Benadryl) 25 mg PO Q6H PRN PRN Reason: Allergies Last Admin: 06/11/17 02:53 Dose: 25 mg Folic Acid (Folic Acid) 1 mg PO DAILY [facility] Last Admin: 06/11/17 08:26 Dose: 1 mg Insulin Aspart (Novolog) 0 unit SUBCUT QIDACANDBED [facility]; Protocol Last Admin: 06/11/17 11:54 Dose: Not Given Insulin Aspart (Novolog) 6 unit SUBCUT TIDMEALS [facility] Last Admin: 06/11/17 11:54 Dose: Not Given Insulin Detemir (Levemir) 9 unit SUBCUT BID [facility] Last Admin: 06/11/17 08:27 Dose: 9 units Lorazepam (Ativan) 0 mg PO ASDIRECTED [facility]; Protocol Last Admin: 06/10/17 21:07 Dose: 1 mg Metoprolol Tartrate (Lopressor) 50 mg PO BID [facility] Last Admin: 06/11/17 08:26 Dose: 50 mg Ondansetron HCl (Zofran) 4 mg IV Q4H PRN PRN Reason: Nausea/Vomiting Last Admin: 06/11/17 06:54 Dose: 4 mg Oxycodone HCl (Oxycodone) 5 - 10 mg PO Q4H PRN PRN Reason: Pain Last Admin: 06/11/17 11:39 Dose: 10 mg [facility] Admin: 06/11/17 08:26 Dose: 40 mg Pregabalin (Lyrica) 150 mg PO BID [facility] Last Admin: 06/11/17 08:26 Dose: 150 mg Sodium Chloride (Saline Flush) 10 ml FLUSH ASDIRECTED PRN PRN Reason: Keep Vein Open Thiamine HCl (Vitamin B-1) 100 mg PO DAILY [facility] Last Admin: 06/11/17 08:26 Dose: 100 mg Discontinued Medications Hydromorphone HCl (Dilaudid) 0.5 mg IVPUSH ONETIME ONE Stop: 06/10/17 14:49 Last Admin: 06/10/17 15:22 Dose: 0.5 mg Hydromorphone HCl (Dilaudid) 0.5 mg IVPUSH ONETIME ONE Stop: 06/10/17 16:20 Last Admin: 06/10/17 16:54 Dose: 0.5 mg Sodium Chloride (Normal Saline) 1,000 mls @ 999 mls/hr IV ASDIRECTED [facility] Last Admin: 06/10/17 15:41 Dose: 999 mls/hr Sodium Chloride (Normal Saline) 70 mls @ 3 mls/sec IV ASDIRECTED [facility] Stop: 06/10/17 23:00 Last Admin: 06/10/17 15:29 Dose: 3 mls/sec Multivitamins/Minerals 10 ml/Thiamine HCl 100 mg/ Folic Acid 1 mg/ Magnesium Sulfate 3 gm/ Sodium Chloride 1,017.2 mls @ 250 drops/min IV ASDIRECTED [facility] Last Admin: 06/10/17 18:56 Dose: 250 drops/min Iopamidol (Isovue-300 (61%)) 100 ml IV . DIRECTED PRN PRN Reason: RADIOLOGY EXAM Stop: 06/11/17 15:00 Last Admin: 06/10/17 15:29 Dose: 100 ml Lorazepam (Ativan) 0.5 mg IVPUSH ONETIME ONE Stop: 06/10/17 14:50 Last Admin: 06/10/17 15:18 Dose: 0.5 mg Lorazepam (Ativan) 0.5 mg PO ONETIME ONE Stop: 06/10/17 17:49 Last Admin: 06/10/17 18:30 Dose: 0.5 mg Ondansetron HCl (Zofran) 4 mg IVPUSH ONETIME ONE Stop: 06/10/17 14:49 Last Admin: 06/10/17 15:43 Dose: 4 mg Oxycodone HCl (Oxycodone) 5 mg PO Q4H PRN PRN Reason: Pain (moderate 4-6) Last Admin: 06/10/17 21:09 Dose: 5 mg Oxycodone HCl (Oxycodone) 5 mg PO ONETIME ONE Stop: 06/10/17 22:21 Last Admin: 06/10/17 22:38 Dose: 5 mg Pantoprazole Sodium (Protonix) 40 mg PO BID [facility] Last Admin: 06/10/17 22:25 Dose: 40 mg Sodium Chloride (Saline Flush) 10 ml FLUSH ONETIME PRN PRN Reason: per radiology protocol Stop: 06/10/17 23:00 Last Admin: 06/10/17 15:29 Dose: 10 ml - Exam General: Reports: Alert, Oriented, Cooperative, No Acute Distress Lungs: Reports: Clear to Auscultation, Normal Respiratory Effort Cardiovascular: Reports: Regular Rate, Regular Rhythm, No Murmurs GI/Abdominal Exam: Soft, No Organomegaly, No Distention, Tender (Mild right upper quadrant tenderness)
== END 2017-06-11 12:20 | disposition home or self-care (01) ==
LOC: JP.ED 13:47 → JP.MS 18:27
PROVIDERS: ADMIT Hospitalist; ATTEND Hospitalist
DX: R10.11 Right upper quadrant pain (principal); F10.20 Alcohol dependence, uncomplicated; E86.0 Dehydration; I10 Essential (primary) hypertension; Y90.0 Blood alcohol level of less than 20 mg/100 ml; I25.2 Old myocardial infarction; E11.40 Type 2 diabetes mellitus with diabetic neuropathy, unspecified; Z79.4 Long term (current) use of insulin; Z79.899 Other long term (current) drug therapy; Z95.5 Presence of coronary angioplasty implant and graft; Z90.49 Acquired absence of other specified parts of digestive tract; Z90.81 Acquired absence of spleen; Z90.5 Acquired absence of kidney
CPT/HCPCS: 36415; 74177; 80053; 80305; 81001; 82962; 83690; 85025; 86140; 96374; 96375; 96376; 99285; A9270; G0480; J1170; J2060; J2405; J3411; J3475; J7030; J7040; J7050; Q9967; J3490

== ENCOUNTER 2017-06-21 20:53 | Inpatient (IN) | payer MEDICAID ==
[2017-06-21] MEDS ORDERED: MVI, Adult with Vitamin K 10 ML, Thiamine 200 MG, Folic Acid 1 MG, Magnesium Sulfate 2 ... IV ONE ×5 (21:34)
[2017-06-21] MEDS ORDERED: HYDROmorphone 1 MG/ML Syringe IM ONE (21:34)
[2017-06-21] MEDS ORDERED: LORazepam 2 MG/ML SDV IVPUSH ONE (21:35)
--- NOTE | 2017-06-21 21:45 | EDM.PDOC ---
ED HPI GENERAL MEDICAL PROBLEM - General Chief Complaint: Drug or Alcohol Abuse Stated Complaint: ILLNESS Time Seen by Provider: 06/21/17 21:29 Source of Information: Reports: Patient, RN Notes Reviewed History Limitations: Reports: No Limitations - History of Present Illness INITIAL COMMENTS - FREE TEXT/NARRATIVE: 52-year-old gentleman presents emergency department today with alcohol withdrawal he has been on a for 5 day ferrell of alcohol has had some issues with blood sugar EMS services were called initial sugar in the 40s was provided sugar on scene. 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, he is quite anxious, EtOH on scene was 390 Right Flank Pain Score (Numeric/FACES): 9 - Related Data Allergies Allergy/AdvReac Type Severity Reaction Status Date / Time ibuprofen Allergy Bleeding Verified 06/21/17 20:56 Home Meds: Home Meds Ferrous Sulfate 325 mg PO TID 06/10/17 [History] Insulin Glarg,Human.Rec.Analog [Lantus] 18 unit SUBCUT QAM 06/10/17 [History] Insulin Lispro [Humalog] 6 - 8 unit SQ TIDMEALS 06/10/17 [History] Pantoprazole [ProTONIX] 40 mg PO DAILY 06/10/17 [History] Pregabalin [Lyrica] 150 mg PO BID 06/10/17 [History] Propranolol [Inderal] 20 mg PO BID 06/10/17 [History] Past Medical History Cardiovascular History: Reports: CAD, Hypertension, AL, Stents Gastrointestinal History: Reports: Pancreatitis, Other (See Below) Other Gastrointestinal History: barrets esophageous, esophageal varisies Neurological History: Reports: Neuropathy, Diabetic, Seizure Psychiatric History: Reports: Addiction Endocrine/Metabolic History: Reports: Diabetes, Type I Hematologic History: Reports: Blood Transfusion(s) Oncologic (Cancer) History: Reports: Renal - Past Surgical History Cardiovascular Surgical History: Reports: Coronary Artery Stent GI Surgical History: Reports: Cholecystectomy, Colonoscopy, EGD, Small Bowel, Other (See Below) Other GI Surgeries/Procedures: spleenectomy Male Surgical History: Reports: Other (See Below) Other Male Surgeries/Procedures: partial nephrectomy Social & Family History - Tobacco Use Smoking Status *Q: Current Some Day Smoker Years of Tobacco use: 1 Packs/Tins Daily: 0 Used Tobacco, but Quit: No Second Hand Smoke Exposure: No - Caffeine Use Caffeine Use: Reports: None Caffeine Use Comment: couple cups of coffee each da - Alcohol Use Days Per Week of Alcohol Use: 0 Date of Last Drink: 06/21/17 - Recreational Drug Use Recreational Drug Use: No ED ROS GENERAL - Review of Systems Review Of Systems: See Below Constitutional: Reports: No Symptoms HEENT: Reports: No Symptoms Respiratory: Reports: No Symptoms Cardiovascular: Reports: No Symptoms GI/Abdominal: Reports: Abdominal Pain. Denies: Nausea, Vomiting : Reports: No Symptoms Musculoskeletal: Reports: No Symptoms Skin: Reports: No Symptoms Neurological: Reports: No Symptoms ED EXAM, GENERAL - Physical Exam Exam: See Below Free Text/Narrative:: General: Male, moderate discomfort secondary to abdominal pain, alert and oriented x3 HEENT: head is atraumatic normocephalic, eyes pupils equal round reactive to light, sclera clear no conjunctivitis appreciated. Ears tympanic membranes clear and garza landmarks and light reflex are present bilaterally canals are clear. Nose no septal deviation, nares are clear, no blood present. Mouth mucosa is moist and pink no erythema or exudate noted in soft palate, tongue is midline uvula is midline, dentition is intact. Neck: Supple no thyromegaly no tracheal deviation. Nodes: Cervical nodes subclavicular nodes nontender no palpable lymphadenopathy noted. Lungs: clear to auscultation bilaterally with symmetrical respirations, no adventitious noise appreciated. CV: Regular rate and rhythm S1 and S2 appreciated no murmurs rubs or gallops noted. Abdomen: Soft, generalized tenderness to palpation, no palpable masses or organomegaly appreciated, no distention no guarding bowel sounds are present, multiple surgical scars clean dry and intact. Neuro: Cranial nerves II through XII grossly intact Skin: Warm and dry, intact Extremities: No lower extremity edema appreciated, pedal pulse is +2. Course - Vital Signs Last Recorded V/S: Last Vital Signs Temp 97.5 F 06/21/17 23:56 Pulse 94 06/21/17 23:56 Resp 16 06/21/17 23:56 BP 124/87 06/21/17 23:56 Pulse Ox 95 06/21/17 23:56 - Orders/Labs/Meds Orders: Active Orders 24 hr Category Date Time Status Abdomen Pelvis w Cont [CT] Stat Exams 06/21/17 21:45 Taken UA W/MICROSCOPIC [URIN] Urgent Lab 06/21/17 21:34 Ordered Iopamidol [Isovue-300 (61%)] Med 06/21/17 23:15 Active 100 ml IV . DIRECTED Sodium Chloride 0.9% [Normal Saline] 80 ml Med 06/21/17 23:15 Active IV ASDIRECTED Medication Orders Sodium Chloride (Normal Saline) 80 mls @ 3 mls/sec IV ASDIRECTED [facility] Last Admin: 06/21/17 23:18 Dose: 3 mls/sec Iopamidol (Isovue-300 (61%)) 100 ml IV . DIRECTED [facility] Last Admin: 06/21/17 23:18 Dose: 100 ml Labs: Laboratory Tests 06/21/17 06/21/17 06/21/17 Range/Units 21:50 21:50 21:50 WBC 5.8 (4.5-11.0) K/uL RBC 5.28 (4.30-5.90) M/uL Hgb 15.9 H (12.0-15.0) g/dL Hct 46.2 (40.0-54.0) % MCV 88 (80-98) fL MCH 30 (27-31) pg MCHC 34 (32-36) % Plt Count 229 (150-400) K/uL Neut % (Auto) 70 H (36-66) % Lymph % (Auto) 21 L (24-44) % [place] % (Auto) 7 H (2-6) % Eos % (Auto) 0 L (2-4) % Baso % (Auto) 2 H (0-1) % PT 12.0 (9.5-12.0) sec INR 1.12 (0.80-1.20) Sodium 141 (140-148) mmol/L Potassium 4.3 (3.6-5.2) mmol/L Chloride 100 (100-108) mmol/L Carbon Dioxide 15 L (21-32) mmol/L Anion Gap 30.3 H (5.0-14.0) mmol/L BUN 12 (7-18) mg/dL Creatinine 0.8 (0.8-1.3) mg/dL Est Cr Clr Drug Dosing 109.62 mL/min Estimated GFR (MDRD) > 60 (>60) Glucose 130 H (74-106) mg/dL Lactic Acid (0.4-2.0) mmol/L Calcium 7.3 L D (8.5-10.1) mg/dL Total Bilirubin 0.7 (0.2-1.0) mg/dL AST 304 H (15-37) U/L ALT 145 H (12-78) U/L Alkaline Phosphatase 209 H (46-116) U/L Troponin I (0.000-0.056) ng/mL Total Protein 7.0 (6.4-8.2) g/dL Albumin 2.9 L (3.4-5.0) g/dL Globulin 4.1 H (2.3-3.5) g/dL Albumin/Globulin Ratio 0.7 L (1.2-2.2) Lipase 43 L (73-393) U/L Ethyl Alcohol mg/dL 06/21/17 06/21/17 06/21/17 Range/Units 21:50 21:50 21:50 WBC (4.5-11.0) K/uL RBC (4.30-5.90) M/uL Hgb (12.0-15.0) g/dL Hct (40.0-54.0) % MCV (80-98) fL MCH (27-31) pg MCHC (32-36) % Plt Count (150-400) K/uL Neut % (Auto) (36-66) % Lymph % (Auto) (24-44) % [place] % (Auto) (2-6) % Eos % (Auto) (2-4) % Baso % (Auto) (0-1) % PT (9.5-12.0) sec INR (0.80-1.20) Sodium (140-148) mmol/L Potassium (3.6-5.2) mmol/L Chloride (100-108) mmol/L Carbon Dioxide (21-32) mmol/L Anion Gap (5.0-14.0) mmol/L BUN (7-18) mg/dL Creatinine (0.8-1.3) mg/dL Est Cr Clr Drug Dosing mL/min Estimated GFR (MDRD) (>60) Glucose (74-106) mg/dL Lactic Acid 5.7 H (0.4-2.0) mmol/L Calcium (8.5-10.1) mg/dL Total Bilirubin (0.2-1.0) mg/dL AST (15-37) U/L ALT (12-78) U/L Alkaline Phosphatase (46-116) U/L Troponin I < 0.017 (0.000-0.056) ng/mL Total Protein (6.4-8.2) g/dL Albumin (3.4-5.0) g/dL Globulin (2.3-3.5) g/dL Albumin/Globulin Ratio (1.2-2.2) Lipase (73-393) U/L Ethyl Alcohol 380 mg/dL Meds: Medications Generic Name Dose Route Start Last Admin Trade Name Freq PRN Reason Stop Dose Admin Sodium Chloride 80 mls @ 3 mls/sec 06/21/17 23:15 06/21/17 23:18 Normal Saline IV 3 mls/sec ASDIRECTED [facility] Administration Iopamidol 100 ml 06/21/17 23:15 06/21/17 23:18 Isovue-300 (61%) IV 100 ml . DIRECTED [facility] Administration Discontinued Medications Generic Name Dose Route Start Last Admin Trade Name Freq PRN Reason Stop Dose Admin Hydromorphone HCl 1 mg 06/21/17 21:34 06/21/17 22:05 Dilaudid IM 06/21/17 21:35 Not Given ONETIME ONE Hydromorphone HCl 1 mg 06/21/17 21:49 06/21/17 21:50 Dilaudid IVPUSH 06/21/17 21:50 1 mg ONETIME ONE Administration Hydromorphone HCl 1 mg 06/21/17 23:45 06/21/17 23:53 Dilaudid IVPUSH 06/21/17 23:46 1 mg ONETIME ONE Administration Multivitamins/Minerals 10 ml/ 1,016.2 mls @ 500 mls/hr 06/21/17 21:34 22:46 Thiamine HCl 200 mg/ Folic IV 06/21/17 23:35 500 mls/hr Acid 1 mg/ Magnesium Sulfate 2 ONETIME ONE Administration gm/ Dextrose/Lactated Ringer' s Lorazepam 1 mg 06/21/17 21:35 06/21/17 22:00 Ativan IVPUSH 06/21/17 21:36 1 mg ONETIME ONE Administration Lorazepam 1 mg 06/22/17 01:02 06/22/17 01:11 Ativan IVPUSH 06/22/17 01:03 1 mg ONETIME ONE Administration Departure - Departure Time of Disposition: 01:43 Disposition: Admitted As Inpatient 65 Condition: Fair Clinical Impression: ETOH abuse Abdominal pain Qualifiers: Abdominal location: generalized Qualified Code(s): R10.84 - Generalized abdominal pain - Discharge Information Referrals: PCP,None [Primary Care Provider] - Forms: ED Department Discharge - My Orders Last 24 Hours: My Active Orders 06/21/17 21:34 UA W/MICROSCOPIC [URIN] Urgent 06/21/17 21:45 Abdomen Pelvis w Cont [CT] Stat 06/21/17 23:15 Iopamidol [Isovue-300 (61%)] 100 ml IV . DIRECTED Sodium Chloride 0.9% [Normal Saline] 80 ml IV ASDIRECTED - Assessment/Plan Last 24 Hours: My Active Orders 06/21/17 21:34 UA W/MICROSCOPIC [URIN] Urgent 06/21/17 21:45 Abdomen Pelvis w Cont [CT] Stat 06/21/17 23:15 Iopamidol [Isovue-300 (61%)] 100 ml IV . DIRECTED Sodium Chloride 0.9% [Normal Saline] 80 ml IV ASDIRECTED Plan: Assessment Acuity = acute Site and laterality = abdominal pain complicated patient with known history of alcohol abuse and dependence Etiology = unclear etiology Manifestations = none Location of injury = Home Lab values = CBC unremarkable, INR within normal limits, lactic acid elevated at 5.7 consistent with lactic acidosis but probably related to alcohol use, AST elevated 304 ALTs elevated 145 consists with elevated liver enzymes, albumin low at 2.9 consistent with hypoalbuminemia, EtOH 380, CT scan describes thickened rugae gastric area with antrum sparing cannot rule out neoplasm Plan Called and discussed case with hospitalist on-call they agreed to come and evaluate the patient emergency department for admission This note was dictated using [employer] voice recognition software please call with any questions on syntax or [email or web address].
[2017-06-21] MEDS ORDERED: HYDROmorphone 1 MG/ML Syringe IVPUSH ONE ×2 (21:49→23:45)
[2017-06-21] MEDS ORDERED: Iopamidol 612 MG/ML 100 ML Bottle IV SCH (23:15)
[2017-06-21] MEDS ORDERED: Sodium Chloride 0.9% 80 ML IV SCH (23:15)
[2017-06-22] MEDS ORDERED: LORazepam 2 MG/ML SDV IVPUSH ONE ×2 (01:02→03:51)
[2017-06-22] MEDS ORDERED: HYDROmorphone 1 MG/ML Syringe IVPUSH ONE (02:08)
--- NOTE | 2017-06-22 02:26 | PCM.HP ---
H&P History of Present Illness - General Date of Service: 06/21/17 Admit Problem/Dx: Admission Diagnosis/Problem Admission Diagnosis/Problem Abdominal pain of unknown cause Source of Information: Patient History Limitations: Reports: No Limitations - History of Present Illness Initial Comments - Free Text/Narative: ER progress 52-year-old gentleman presents emergency department today with alcohol withdrawal he has been on a for 5 day ferrell of alcohol has had some issues with blood sugar EMS services were called initial sugar in the 40s was provided sugar on scene. 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 daily for the 5 to 6 days) Associated Symptoms: Reports: Weakness Right Flank Pain Score (Numeric/FACES): 9 - Related Data Allergies/Adverse Reactions: Allergies Allergy/AdvReac Type Severity Reaction Status Date / Time ibuprofen Allergy Bleeding Verified 06/21/17 20:56 Home Medications: Home Meds Ferrous Sulfate 325 mg PO TID 06/10/17 [History] Insulin Glarg,Human.Rec.Analog [Lantus] 18 unit SUBCUT QAM 06/10/17 [History] Insulin Lispro [Humalog] 6 - 8 unit SQ TIDMEALS 06/10/17 [History] Pantoprazole [ProTONIX] 40 mg PO DAILY 06/10/17 [History] Pregabalin [Lyrica] 150 mg PO BID 06/10/17 [History] Propranolol [Inderal] 20 mg PO BID 06/10/17 [History] Past Medical History Cardiovascular History: Reports: CAD, Hypertension, CT, Stents Gastrointestinal History: Reports: Pancreatitis, Other (See Below) Other Gastrointestinal History: barrets esophageous, esophageal varisies Neurological History: Reports: Neuropathy, Diabetic, Seizure Psychiatric History: Reports: Addiction Endocrine/Metabolic History: Reports: Diabetes, Type I Hematologic History: Reports: Blood Transfusion(s) Oncologic (Cancer) History: Reports: Renal - Past Surgical History Cardiovascular Surgical History: Reports: Coronary Artery Stent GI Surgical History: Reports: Cholecystectomy, Colonoscopy, EGD, Small Bowel, Other (See Below) Other GI Surgeries/Procedures: spleenectomy Male Surgical History: Reports: Other (See Below) Other Male Surgeries/Procedures: partial nephrectomy Social & Family History - Tobacco Use Smoking Status *Q: Current Some Day Smoker Years of Tobacco use: 1 Packs/Tins Daily: 0 Used Tobacco, but Quit: No Second Hand Smoke Exposure: No - Caffeine Use Caffeine Use: Reports: None Caffeine Use Comment: couple cups of coffee each da - Alcohol Use Days Per Week of Alcohol Use: 0 Date of Last Drink: 06/21/17 - Recreational Drug Use Recreational Drug Use: No - Living Situation & Occupation Living situation: Reports: Single ( from of 30 years, recent moved to [facility] from [place], [place].) H&P Review of Systems - Review of Systems: Review Of Systems: See Below General: Reports: Other (report severe abdominal pain) HEENT: Reports: No Symptoms Pulmonary: Reports: No Symptoms Cardiovascular: Reports: No Symptoms Gastrointestinal: Reports: Abdominal Pain Genitourinary: Reports: No Symptoms Musculoskeletal: Reports: No Symptoms Skin: Reports: No Symptoms Psychiatric: Reports: Anxiety, Other (acute and chronic alcohol abuse. report sober for a long time then drank for 5 or 6 days continue. 1.1 liter of vodka ) Neurological: Reports: No Symptoms Hematologic/Lymphatic: Reports: No Symptoms Immunologic: Reports: No Symptoms Exam - Exam Exam: See Below - Vital Signs Vital Signs: Last Vital Signs Temp 36.4 C 06/21/17 23:56 Pulse 94 06/21/17 23:56 Resp 16 06/21/17 23:56 BP 124/87 06/21/17 23:56 Pulse Ox 95 06/21/17 23:56 Weight: 72.575 kg - Exam General: Alert, Oriented, Cooperative, Mild Distress HEENT: PERRLA, Conjunctiva Clear, EACs Clear, EOMI, Hearing Intact, Pupils Equal , Pupils Reactive, TMs Clear Neck: Supple, Trachea Midline Lungs: Clear to Auscultation, Normal Respiratory Effort Cardiovascular: Regular Rate, Regular Rhythm GI/Abdominal Exam: Normal Bowel Sounds, Soft, Tender (generalized abdominal pain ) (Male) Exam: Deferred Rectal (Males) Exam: Deferred Back Exam: Normal Inspection, Full Range of Motion, NT Extremities: Normal Inspection, Normal Range of Motion, Non-Tender, No Pedal Edema, Normal Capillary Refill Skin: Warm, Dry, Intact Neurological: Reflexes Equal Bilateral, Strength Equal Bilateral, Normal Speech , Normal Tone Neuro Extensive - Mental Status: Alert, Oriented x3, Normal Mood/Affect, Normal Cognition Psychiatric: Alert, Anxious - Patient Data Lab Results Last 24 hrs: Laboratory Results - last 24 hr 06/21/17 06/21/17 06/21/17 Range/Units 21:50 21:50 21:50 WBC 5.8 (4.5-11.0) K/uL RBC 5.28 (4.30-5.90) M/uL Hgb 15.9 H (12.0-15.0) g/dL Hct 46.2 (40.0-54.0) % MCV 88 (80-98) fL MCH 30 (27-31) pg MCHC 34 (32-36) % Plt Count 229 (150-400) K/uL Neut % (Auto) 70 H (36-66) % Lymph % (Auto) 21 L (24-44) % Bonner % (Auto) 7 H (2-6) % Eos % (Auto) 0 L (2-4) % Baso % (Auto) 2 H (0-1) % PT 12.0 (9.5-12.0) sec INR 1.12 (0.80-1.20) Sodium 141 (140-148) mmol/L Potassium 4.3 (3.6-5.2) mmol/L Chloride 100 (100-108) mmol/L Carbon Dioxide 15 L (21-32) mmol/L Anion Gap 30.3 H (5.0-14.0) mmol/L BUN 12 (7-18) mg/dL Creatinine 0.8 (0.8-1.3) mg/dL Est Cr Clr Drug Dosing 109.62 mL/min Estimated GFR (MDRD) > 60 (>60) Glucose 130 H (74-106) mg/dL Lactic Acid (0.4-2.0) mmol/L Calcium 7.3 L D (8.5-10.1) mg/dL Total Bilirubin 0.7 (0.2-1.0) mg/dL AST 304 H (15-37) U/L ALT 145 H (12-78) U/L Alkaline Phosphatase 209 H (46-116) U/L Troponin I (0.000-0.056) ng/mL Total Protein 7.0 (6.4-8.2) g/dL Albumin 2.9 L (3.4-5.0) g/dL Globulin 4.1 H (2.3-3.5) g/dL Albumin/Globulin Ratio 0.7 L (1.2-2.2) Lipase 43 L (73-393) U/L Ethyl Alcohol mg/dL 06/21/17 06/21/17 06/21/17 Range/Units 21:50 21:50 21:50 WBC (4.5-11.0) K/uL RBC (4.30-5.90) M/uL Hgb (12.0-15.0) g/dL Hct (40.0-54.0) % MCV (80-98) fL MCH (27-31) pg MCHC (32-36) % Plt Count (150-400) K/uL Neut % (Auto) (36-66) % Lymph % (Auto) (24-44) % Bonner % (Auto) (2-6) % Eos % (Auto) (2-4) % Baso % (Auto) (0-1) % PT (9.5-12.0) sec INR (0.80-1.20) Sodium (140-148) mmol/L Potassium (3.6-5.2) mmol/L Chloride (100-108) mmol/L Carbon Dioxide (21-32) mmol/L Anion Gap (5.0-14.0) mmol/L BUN (7-18) mg/dL Creatinine (0.8-1.3) mg/dL Est Cr Clr Drug Dosing mL/min Estimated GFR (MDRD) (>60) Glucose (74-106) mg/dL Lactic Acid 5.7 H (0.4-2.0) mmol/L Calcium (8.5-10.1) mg/dL Total Bilirubin (0.2-1.0) mg/dL AST (15-37) U/L ALT (12-78) U/L Alkaline Phosphatase (46-116) U/L Troponin I < 0.017 (0.000-0.056) ng/mL Total Protein (6.4-8.2) g/dL Albumin (3.4-5.0) g/dL Globulin (2.3-3.5) g/dL Albumin/Globulin Ratio (1.2-2.2) Lipase (73-393) U/L Ethyl Alcohol 380 mg/dL Result Diagrams: 06/21/17 21:50 06/21/17 21:50 - Problem List (1) Abdominal pain SNOMED Code(s): 79244179 ICD Code: R10.9 - UNSPECIFIED ABDOMINAL PAIN Status: Acute Priority: High Current Visit: Yes Qualifiers: Abdominal location: generalized Qualified Code(s): R10.84 - Generalized abdominal pain (2) ETOH abuse SNOMED Code(s): 73549602 ICD Code: F10.10 - ALCOHOL ABUSE, UNCOMPLICATED Status: Acute Priority: High Current Visit: Yes (3) Diabetes mellitus type 2, insulin dependent SNOMED Code(s): 872875337 ICD Code: E11.9 - TYPE 2 DIABETES MELLITUS WITHOUT COMPLICATIONS; Z79.4 - [employer] (CURRENT) USE OF INSULIN Status: Acute Priority: Medium Current Visit: Yes Problem List Initiated/Reviewed/Updated: Yes Orders Last 24hrs: Active Orders 24 hr Category Date Time Status Patient Status Manage Transfer [TRANSFER] Routine ADT 06/22/17 02:10 Ordered Abdomen Pelvis w Cont [CT] Stat Exams 06/21/17 21:45 Taken UA W/MICROSCOPIC [URIN] Urgent Lab 06/21/17 21:34 Ordered Iopamidol [Isovue-300 (61%)] Med 06/21/17 23:15 Active 100 ml IV . DIRECTED Sodium Chloride 0.9% [Normal Saline] 80 ml Med 06/21/17 23:15 Active IV ASDIRECTED Resuscitation Status Routine Resus Stat 06/22/17 02:11 Ordered Medication Orders Sodium Chloride (Normal Saline) 80 mls @ 3 mls/sec IV ASDIRECTED BORA Last Admin: 06/21/17 23:18 Dose: 3 mls/sec Iopamidol (Isovue-300 (61%)) 100 ml IV . DIRECTED [facility] Last Admin: 06/21/17 23:18 Dose: 100 ml Assessment/Plan Comment:: ASSESSMENT AND PLAN - 52-year-old gentleman presents emergency department today with alcohol withdrawal he has been on a for 5 day ferrell of alcohol has had some issues with blood sugar EMS services were called initial sugar in the 40s was provided sugar on scene. 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 further evaluation iw endoscopy is recommended to exclude menetrier disease or gastric neoplasm. The ascending colon s collapsed and difficult to evaluate but there is suspected mild wall thickening present. clinical correlation is recommended to exclude colitis or inflammatory bowel disease. -Pain control -IV fluids -consider consult to Surgery service Diabetes Type 2, insulin dependent Hypoglycemia - poor intake recently. -Lantus 18units subcut -medium dose sliding scale coverage acute and chronic ETOH use/abuse -CIWAA protocol Maintenance issues - - DVT prophylaxis - SCD - GI prophylaxis - PPI - Nutrition - Nothing by mouth for now, can have sips or ice chips - Toussaint catheter - Not indicated at this time but could be considered -consult to [facility] Care CODE STATUS - Full code Admission justification - This patient will be admitted for inpatient services and is medically appropriate meeting medical necessity for inpatient admission as outlined in my documentation. I reasonably expect the patient will require inpatient services that span a period time over 2 midnights. I reasonably expect this patient to be discharged or transferred within 96 hours [facility]. Disposition - Anticipate discharge to home after the hospital stay or Treatment Center Primary care physician - none listed, receives care from [place], [place] Hospitalist: Otto Farnsworth M.D.
[2017-06-22] MEDS ORDERED: Albuterol 0.083% 2.5 MG/3 ML Neb Soln NEB PRN (03:23)
[2017-06-22] MEDS ORDERED: HYDROmorphone/Normal Saline 15 MG/30 ML PCA IV PRN (03:23)
[2017-06-22] MEDS ORDERED: Ondansetron 4 MG/2 ML SDV IV PRN (03:23)
[2017-06-22] MEDS ORDERED: Naloxone 0.4 MG/ML SDV IVPUSH PRN (03:23)
[2017-06-22] MEDS ORDERED: Acetaminophen 325 MG Tab PO PRN (03:23)
[2017-06-22] MEDS ORDERED: Ondansetron 4 MG Tab.DIS PO PRN (03:23)
[2017-06-22] MEDS ORDERED: Zolpidem 5 MG Tab PO PRN (03:23)
[2017-06-22] MEDS ORDERED: Sodium Chloride 0.9% 1,000 ML IV SCH ×3 (03:23→16:30)
[2017-06-22] MEDS ORDERED: Pantoprazole 40 MG Vial ONE (04:07)
[2017-06-22] MEDS ORDERED: fentaNYL 100 MCG/2 ML SDV ONE (07:45)
[2017-06-22] MEDS ORDERED: Propofol 200 MG/20 ML SDV ONE (07:46)
[2017-06-22] MEDS ORDERED: Midazolam 1 MG/ML 2 ML SDV ONE (07:46)
[2017-06-22] MEDS: Insulin Aspart 100 Units/ML 3 ML Pen SUBCUT SCH ×4 (07:57→20:49)
[2017-06-22] MEDS: oxyCODONE 5 MG Tab PO PRN ×4 (08:03→20:55)
[2017-06-22] MEDS ORDERED: Pantoprazole 40 MG Vial IV SCH (09:00)
[2017-06-22] MEDS ORDERED: Pregabalin 75 MG Cap PO SCH (09:00)
[2017-06-22] MEDS ORDERED: Pregabalin 50 MG Cap PO SCH (09:00)
[2017-06-22] MEDS ORDERED: Insulin Detemir 100 Units/ML 3 ML Pen SUBCUT SCH (09:00)
[2017-06-22] MEDS ORDERED: Glycopyrrolate 0.2 MG/ML 2 ML SDV IVPUSH ONE (09:00)
[2017-06-22] MEDS: LORazepam 1 MG Tab PO SCH ×4 (09:23→20:54)
[2017-06-22] MEDS: Propranolol 10 MG Tab PO SCH ×2 (10:04→20:56)
[2017-06-22] MEDS: Ferrous Sulfate 325 MG Tab PO SCH ×3 (12:04→20:55)
[2017-06-22] MEDS: Thiamine 100 MG Tab PO SCH (12:04)
[2017-06-22] MEDS: Folic Acid 1 MG Tab PO SCH (12:04)
[2017-06-22] MEDS: Enoxaparin 40 MG/0.4 ML Syringe SUBCUT SCH (12:17)
[2017-06-22] MEDS: Gabapentin 400 MG Cap PO SCH ×2 (12:17→20:38)
[2017-06-22] MEDS: Insulin Detemir 100 Units/ML 3 ML Pen SUBCUT SCH (12:18)
--- NOTE | 2017-06-22 12:35 | PCM.PN ---
- General Info Date of Service: 06/22/17 Subjective Update: Mr. Munguia is a 52-year-old gentleman who was admitted through the emergency department last night with epigastric abdominal pain, nausea vomiting, and alcohol intoxication. Since admission he has developed evidence of alcohol withdrawal, requiring management per alcohol withdrawal protocol. EGD was performed today by Dr. Grimes and shows evidence of gastritis and duodenitis likely related to his alcohol use. Lactic acid level noted to be elevated, no evidence of infection or sepsis. Likely secondary to alcohol use and dehydration. Functional Status: Reports: New Symptoms (Alcohol withdrawal) - Review of Systems General: Reports: Weakness. Denies: Fever, Chills Pulmonary: Reports: No Symptoms Cardiovascular: Reports: No Symptoms Gastrointestinal: Reports: Abdominal Pain, Decreased Appetite, Nausea. Denies: Difficulty Swallowing, Hematochezia, Melena, Vomiting - Patient Data Vitals - Most Recent: Last Vital Signs Temp 97.0 F 06/22/17 11:29 Pulse 85 06/22/17 12:15 Resp 16 06/22/17 12:15 BP 171/98 H 06/22/17 12:15 Pulse Ox 97 06/22/17 12:15 Weight - Most Recent: 151 lb 12.789 oz I&O - Last 24 Hours: Intake & Output 06/21/17 06/22/17 06/22/17 22:59 06:59 14:59 Output Total 100 350 Balance -100 -350 Lab Results Last 24 Hours: Laboratory Results - last 24 hr 06/21/17 06/21/17 06/21/17 Range/Units 21:50 21:50 21:50 WBC 5.8 (4.5-11.0) K/uL RBC 5.28 (4.30-5.90) M/uL Hgb 15.9 H (12.0-15.0) g/dL Hct 46.2 (40.0-54.0) % MCV 88 (80-98) fL MCH 30 (27-31) pg MCHC 34 (32-36) % Plt Count 229 (150-400) K/uL Neut % (Auto) 70 H (36-66) % Lymph % (Auto) 21 L (24-44) % Scott % (Auto) 7 H (2-6) % Eos % (Auto) 0 L (2-4) % Baso % (Auto) 2 H (0-1) % PT 12.0 (9.5-12.0) sec INR 1.12 (0.80-1.20) Sodium 141 (140-148) mmol/L Potassium 4.3 (3.6-5.2) mmol/L Chloride 100 (100-108) mmol/L Carbon Dioxide 15 L (21-32) mmol/L Anion Gap 30.3 H (5.0-14.0) mmol/L BUN 12 (7-18) mg/dL Creatinine 0.8 (0.8-1.3) mg/dL Est Cr Clr Drug Dosing 109.62 mL/min Estimated GFR (MDRD) > 60 (>60) Glucose 130 H (74-106) mg/dL Lactic Acid (0.4-2.0) mmol/L Calcium 7.3 L D (8.5-10.1) mg/dL Total Bilirubin 0.7 (0.2-1.0) mg/dL AST 304 H (15-37) U/L ALT 145 H (12-78) U/L Alkaline Phosphatase 209 H (46-116) U/L Troponin I (0.000-0.056) ng/mL Total Protein 7.0 (6.4-8.2) g/dL Albumin 2.9 L (3.4-5.0) g/dL Globulin 4.1 H (2.3-3.5) g/dL Albumin/Globulin Ratio 0.7 L (1.2-2.2) Lipase 43 L (73-393) U/L Urine Color Urine Appearance Urine pH (4.5-8.0) Ur Specific [place] (1.008-1.030) Urine Protein (NEGATIVE) mg/dL Urine Glucose (UA) (NEGATIVE) mg/dL Urine Ketones (NEGATIVE) mg/dL Urine Occult Blood (NEGATIVE) Urine Nitrite (NEGAITVE) Urine Bilirubin (NEGATIVE) Urine Urobilinogen (NORMAL) mg/dL Ur Leukocyte Esterase (NEGATIVE) Urine RBC (0-5) Urine WBC (0-5) Ur Epithelial Cells Amorphous Sediment Urine Bacteria Urine Mucus Urine Other Ethyl Alcohol mg/dL 06/21/17 06/21/17 06/21/17 Range/Units 21:50 21:50 21:50 WBC (4.5-11.0) K/uL RBC (4.30-5.90) M/uL Hgb (12.0-15.0) g/dL Hct (40.0-54.0) % MCV (80-98) fL MCH (27-31) pg MCHC (32-36) % Plt Count (150-400) K/uL Neut % (Auto) (36-66) % Lymph % (Auto) (24-44) % Scott % (Auto) (2-6) % Eos % (Auto) (2-4) % Baso % (Auto) (0-1) % PT (9.5-12.0) sec INR (0.80-1.20) Sodium (140-148) mmol/L Potassium (3.6-5.2) mmol/L Chloride (100-108) mmol/L Carbon Dioxide (21-32) mmol/L Anion Gap (5.0-14.0) mmol/L BUN (7-18) mg/dL Creatinine (0.8-1.3) mg/dL Est Cr Clr Drug Dosing mL/min Estimated GFR (MDRD) (>60) Glucose (74-106) mg/dL Lactic Acid 5.7 H (0.4-2.0) mmol/L Calcium (8.5-10.1) mg/dL Total Bilirubin (0.2-1.0) mg/dL AST (15-37) U/L ALT (12-78) U/L Alkaline Phosphatase (46-116) U/L Troponin I < 0.017 (0.000-0.056) ng/mL Total Protein (6.4-8.2) g/dL Albumin (3.4-5.0) g/dL Globulin (2.3-3.5) g/dL Albumin/Globulin Ratio (1.2-2.2) Lipase (73-393) U/L Urine Color Urine Appearance Urine pH (4.5-8.0) Ur Specific [place] (1.008-1.030) Urine Protein (NEGATIVE) mg/dL Urine Glucose (UA) (NEGATIVE) mg/dL Urine Ketones (NEGATIVE) mg/dL Urine Occult Blood (NEGATIVE) Urine Nitrite (NEGAITVE) Urine Bilirubin (NEGATIVE) Urine Urobilinogen (NORMAL) mg/dL Ur Leukocyte Esterase (NEGATIVE) Urine RBC (0-5) Urine WBC (0-5) Ur Epithelial Cells Amorphous Sediment Urine Bacteria Urine Mucus Urine Other Ethyl Alcohol 380 mg/dL 06/22/17 06/22/17 06/22/17 Range/Units 04:00 04:30 04:30 WBC 7.4 (4.5-11.0) K/uL RBC 5.32 (4.30-5.90) M/uL Hgb 16.3 H (12.0-15.0) g/dL Hct 46.5 (40.0-54.0) % MCV 87 (80-98) fL MCH 31 (27-31) pg MCHC 35 (32-36) % Plt Count 225 (150-400) K/uL Neut % (Auto) 57 (36-66) % Lymph % (Auto) 36 (24-44) % Scott % (Auto) 6 (2-6) % Eos % (Auto) 0 L (2-4) % Baso % (Auto) 1 (0-1) % PT (9.5-12.0) sec INR (0.80-1.20) Sodium 141 (140-148) mmol/L Potassium 4.4 (3.6-5.2) mmol/L Chloride 99 L (100-108) mmol/L Carbon Dioxide 21 (21-32) mmol/L Anion Gap 25.4 H (5.0-14.0) mmol/L BUN 11 (7-18) mg/dL Creatinine 0.8 (0.8-1.3) mg/dL Est Cr Clr Drug Dosing 104.00 mL/min Estimated GFR (MDRD) > 60 (>60) Glucose 264 H (74-106) mg/dL Lactic Acid 4.0 H (0.4-2.0) mmol/L Calcium 7.4 L (8.5-10.1) mg/dL Total Bilirubin (0.2-1.0) mg/dL AST (15-37) U/L ALT (12-78) U/L Alkaline Phosphatase (46-116) U/L Troponin I (0.000-0.056) ng/mL Total Protein (6.4-8.2) g/dL Albumin (3.4-5.0) g/dL Globulin (2.3-3.5) g/dL Albumin/Globulin Ratio (1.2-2.2) Lipase (73-393) U/L Urine Color Urine Appearance Urine pH (4.5-8.0) Ur Specific [place] (1.008-1.030) Urine Protein (NEGATIVE) mg/dL Urine Glucose (UA) (NEGATIVE) mg/dL Urine Ketones (NEGATIVE) mg/dL Urine Occult Blood (NEGATIVE) Urine Nitrite (NEGAITVE) Urine Bilirubin (NEGATIVE) Urine Urobilinogen (NORMAL) mg/dL Ur Leukocyte Esterase (NEGATIVE) Urine RBC (0-5) Urine WBC (0-5) Ur Epithelial Cells Amorphous Sediment Urine Bacteria Urine Mucus Urine Other Ethyl Alcohol mg/dL 06/22/17 Range/Units 09:47 WBC (4.5-11.0) K/uL RBC (4.30-5.90) M/uL Hgb (12.0-15.0) g/dL Hct (40.0-54.0) % MCV (80-98) fL MCH (27-31) pg MCHC (32-36) % Plt Count (150-400) K/uL Neut % (Auto) (36-66) % Lymph % (Auto) (24-44) % Scott % (Auto) (2-6) % Eos % (Auto) (2-4) % Baso % (Auto) (0-1) % PT (9.5-12.0) sec INR (0.80-1.20) Sodium (140-148) mmol/L Potassium (3.6-5.2) mmol/L Chloride (100-108) mmol/L Carbon Dioxide (21-32) mmol/L Anion Gap (5.0-14.0) mmol/L BUN (7-18) mg/dL Creatinine (0.8-1.3) mg/dL Est Cr Clr Drug Dosing mL/min Estimated GFR (MDRD) (>60) Glucose (74-106) mg/dL Lactic Acid (0.4-2.0) mmol/L Calcium (8.5-10.1) mg/dL Total Bilirubin (0.2-1.0) mg/dL AST (15-37) U/L ALT (12-78) U/L Alkaline Phosphatase (46-116) U/L Troponin I (0.000-0.056) ng/mL Total Protein (6.4-8.2) g/dL Albumin (3.4-5.0) g/dL Globulin (2.3-3.5) g/dL Albumin/Globulin Ratio (1.2-2.2) Lipase (73-393) U/L Urine Color Yellow Urine Appearance Slightly cloudy Urine pH 5.0 (4.5-8.0) Ur Specific [place] 1.020 (1.008-1.030) Urine Protein 30 H (NEGATIVE) mg/dL Urine Glucose (UA) 250 H (NEGATIVE) mg/dL Urine Ketones 50 H (NEGATIVE) mg/dL Urine Occult Blood Negative (NEGATIVE) Urine Nitrite Negative (NEGAITVE) Urine Bilirubin Small (NEGATIVE) Urine Urobilinogen 4 (NORMAL) mg/dL Ur Leukocyte Esterase Negative (NEGATIVE) Urine RBC 0-5 (0-5) Urine WBC Not seen (0-5) Ur Epithelial Cells Rare Amorphous Sediment Not seen Urine Bacteria Not seen Urine Mucus Many Urine Other Ethyl Alcohol mg/dL Med Orders - Current: Current Medications Acetaminophen (Tylenol) 650 mg PO Q4H PRN PRN Reason: Pain (Mild 1-3)/fever Albuterol (Proventil Neb Soln) 2.5 mg NEB Q4H PRN PRN Reason: Shortness Of Breath/wheezing Enoxaparin Sodium (Lovenox) 40 mg SUBCUT DAILY [facility] Last Admin: 06/22/17 12:17 Dose: 40 mg Ferrous Sulfate (Ferrous Sulfate) 325 mg PO TID [facility] Last Admin: 06/22/17 12:04 Dose: 325 mg Folic Acid (Folic Acid) 1 mg PO DAILY [facility] Last Admin: 06/22/17 12:04 Dose: 1 mg Gabapentin (Neurontin) 400 mg PO Q8H [facility] Last Admin: 06/22/17 12:17 Dose: 400 mg Insulin Aspart (Novolog) 0 unit SUBCUT QIDACANDBED [facility]; Protocol Last Admin: 06/22/17 07:57 Dose: 5 units Insulin Detemir (Levemir) 18 unit SUBCUT QAM [facility] Last Admin: 06/22/17 12:18 Dose: 18 unit Lorazepam (Ativan) 0 mg IV ASDIRECTED [facility]; Protocol Lorazepam (Ativan) 0 mg PO ASDIRECTED [facility]; Protocol Last Admin: 06/22/17 12:10 Dose: 1 mg Naloxone HCl (Narcan) 0.4 mg IVPUSH Q2M PRN PRN Reason: Respiratory Distress Ondansetron HCl (Zofran Odt) 4 mg PO Q6H PRN PRN Reason: Nausea able to take PO Ondansetron HCl (Zofran) 4 mg IV Q4H PRN PRN Reason: Nausea/Vomiting Last Admin: 06/22/17 08:08 Dose: 4 mg Oxycodone HCl (Oxycodone) 5 mg PO Q4H PRN PRN Reason: Pain (moderate 4-6) Last Admin: 06/22/17 08:03 Dose: 5 mg Pantoprazole Sodium (Protonix Iv) 40 mg IV Q12H [facility] Propranolol HCl (Inderal) 20 mg PO BID B[facility] Last Admin: 06/22/17 10:04 Dose: 20 mg Thiamine HCl (Vitamin B-1) 100 mg PO DAILY [facility] Last Admin: 06/22/17 12:04 Dose: 100 mg Zolpidem Tartrate (Ambien) 5 mg PO BEDTIME PRN PRN Reason: Sleep Discontinued Medications Fentanyl (Sublimaze) Confirm Administered Dose 100 mcg .ROUTE .STK-MED ONE Stop: 06/22/17 07:46 Glycopyrrolate (Glycopyrrolate) 0.4 mg IVPUSH ONCALL ONE Stop: 06/22/17 09:01 Last Admin: 06/22/17 11:05 Dose: 0.4 mg Hydromorphone HCl (Dilaudid) 1 mg IM ONETIME ONE Stop: 06/21/17 21:35 Last Admin: 06/21/17 22:05 Dose: Not Given Hydromorphone HCl (Dilaudid) 1 mg IVPUSH ONETIME ONE Stop: 06/21/17 21:50 Last Admin: 06/21/17 21:50 Dose: 1 mg Hydromorphone HCl (Dilaudid) 1 mg IVPUSH ONETIME ONE Stop: 06/21/17 23:46 Last Admin: 06/21/17 23:53 Dose: 1 mg Hydromorphone HCl (Dilaudid) 1 mg IVPUSH ONETIME ONE Stop: 06/22/17 02:09 Last Admin: 06/22/17 02:19 Dose: 1 mg Hydromorphone HCl (Dilaudid Proofsheet Corrector 15 Mg In Ns 30 Ml) 0 mg IV ASDIRECTED PRN; Protocol PRN Reason: Pain Last Admin: 06/22/17 03:50 Dose: 15 mg Multivitamins/Minerals 10 ml/Thiamine HCl 200 mg/ Folic Acid 1 mg/ Magnesium Sulfate 2 gm/ Dextrose/Lactated Ringer' s 1,016.2 mls @ 500 mls/hr IV ONETIME ONE Stop: 06/21/17 23:35 Last Admin: 06/21/17 22:46 Dose: 500 mls/hr Sodium Chloride (Normal Saline) 80 mls @ 3 mls/sec IV ASDIRECTED [facility] Last Admin: 06/21/17 23:18 Dose: 3 mls/sec Sodium Chloride (Normal Saline) 1,000 mls @ 125 mls/hr IV ASDIRECTED [facility] Last Admin: 06/22/17 04:13 Dose: 125 mls/hr Iopamidol (Isovue-300 (61%)) 100 ml IV . DIRECTED [facility] Last Admin: 06/21/17 23:18 Dose: 100 ml Lorazepam (Ativan) 1 mg IVPUSH ONETIME ONE Stop: 06/21/17 21:36 Last Admin: 06/21/17 22:00 Dose: 1 mg Lorazepam (Ativan) 1 mg IVPUSH ONETIME ONE Stop: 06/22/17 01:03 Last Admin: 06/22/17 01:11 Dose: 1 mg Lorazepam (Ativan) 2 mg IVPUSH ONETIME ONE Stop: 06/22/17 03:52 Last Admin: 06/22/17 04:21 Dose: 2 mg Midazolam HCl (Versed 1 Mg/Ml) Confirm Administered Dose 2 mg .ROUTE .STK-MED ONE Stop: 06/22/17 07:47 Pantoprazole Sodium (Protonix Iv) 40 mg IV DAILY [facility] Pantoprazole Sodium (Protonix Iv) Confirm Administered Dose 40 mg .ROUTE .STK -MED ONE Stop: 06/22/17 04:08 Last Admin: 06/22/17 04:17 Dose: 40 mg Pregabalin (Lyrica) 150 mg PO BID [facility] Last Admin: 06/22/17 12:28 Dose: Not Given Propofol (Diprivan 20 Ml) Confirm Administered Dose 200 mg .ROUTE .STK-MED ONE Stop: 06/22/17 07:47 - Exam Quality Assessment: DVT Prophylaxis General: Alert, Oriented, Cooperative, Mild Distress Lungs: Clear to Auscultation, Normal Respiratory Effort Cardiovascular: Regular Rhythm, No Murmurs, Tachycardia GI/Abdominal Exam: Soft, No Organomegaly, Tender. No: Distended, Guarding, Rigid, Rebound Extremities: Non-Tender, No Pedal Edema Skin: Warm, Dry, Intact Psy/Mental Status: Hallucinations, Other (Tremulous) - Problem List Review Problem List Initiated/Reviewed/Updated: Yes - My Orders Last 24 Hours: My Active Orders 06/22/17 07:06 Consult to Physician [CONS] Routine 06/22/17 07:09 Notify Provider Consults [RC] ASDIRECTED 06/22/17 08:00 LORazepam [Ativan] See Protocol IV ASDIRECTED LORazepam [Ativan] See Protocol PO ASDIRECTED 06/22/17 09:00 Folic Acid 1 mg PO DAILY Thiamine [Vitamin B-1] 100 mg PO DAILY 06/22/17 11:30 Enoxaparin [Lovenox] 40 mg SUBCUT DAILY 06/22/17 12:00 Gabapentin [Neurontin] 400 mg PO Q8H 06/22/17 12:12 Convert IV to Saline Lock [OM.PC] Routine 06/22/17 16:00 Pantoprazole [ProTONIX IV] 40 mg IV Q12H 06/22/17 Lunch GI Soft Low Fiber [Soft Diet] [DIET] - Plan Plan:: ASSESSMENT AND PLAN Acute and chronic abdominal pain - CT scan severe rugal fold thickening is seen within the fundus and body of the stomach with relative sparing of the gastric antrum. EGD performed today shows evidence of gastritis and duodenitis. -Pain control -IV fluids -Protonix 40 mg IV every 12 hours Diabetes Type 2, insulin dependent Hypoglycemia - poor intake recently. -Lantus 18units subcut -medium dose sliding scale coverage Lactic acidosis-likely secondary to dehydration and alcohol use, lactic acid level has improved modestly since admission but remains elevated. No evidence of underlying infection or sepsis -Continue vigorous IV fluid replacement -Recheck lactic acid later today and again in a.m. acute and chronic ETOH use/abuse -CIWAA protocol -Gabapentin 400 mg by mouth every 8 hours 4 days, then 200 mg by mouth every 8 hours 4 days -Transfer to ICU for more aggressive management of alcohol withdrawal Maintenance issues - - DVT prophylaxis - SCD - GI prophylaxis - PPI - Nutrition - Nothing by mouth for now, can have sips or ice chips - Toussaint catheter - Not indicated at this time but could be considered -consult to Spiritual Care CODE STATUS - Full code Admission justification - This patient will be admitted for inpatient services and is medically appropriate meeting medical necessity for inpatient admission as outlined in my documentation. I reasonably expect the patient will require inpatient services that span a period time over 2 midnights. I reasonably expect this patient to be discharged or transferred within 96 hours after admission to the [facility]. Disposition - Anticipate discharge to home after the hospital stay or Treatment Center Primary care physician - none listed, receives care from [place], [place] Hospitalist: Otto Farnsworth M.D.
[2017-06-22] MEDS: LORazepam 2 MG/ML SDV IV SCH ×2 (14:26→15:50)
[2017-06-22] MEDS: Metoclopramide 10 MG/2 ML SDV IVPUSH SCH ×2 (14:43→20:38)
[2017-06-22] MEDS: Pantoprazole 40 MG Vial IV SCH (15:25)
[2017-06-22] MEDS: Sucralfate Suspension 1 GM/10 ML Cup PO SCH ×2 (16:27→20:38)
[2017-06-22] MEDS: LORazepam 2 MG/ML SDV IVPUSH PRN ×2 (18:00→23:23)
[2017-06-22] MEDS: Sodium Chloride 0.9% 1,000 ML IV SCH (18:39)
[2017-06-22] MEDS ORDERED: 50% Dextrose in Water 50 ML Syringe IVPUSH ONE (19:51)
[2017-06-23] MEDS: LORazepam 1 MG Tab PO SCH ×2 (01:36→05:12)
[2017-06-23] MEDS: Metoclopramide 10 MG/2 ML SDV IVPUSH SCH ×3 (01:36→13:52)
[2017-06-23] MEDS: Sodium Chloride 0.9% 1,000 ML IV SCH (02:48)
[2017-06-23] MEDS: Pantoprazole 40 MG Vial IV SCH (05:12)
[2017-06-23] MEDS: Gabapentin 400 MG Cap PO SCH ×2 (05:12→12:29)
[2017-06-23] MEDS: Sucralfate Suspension 1 GM/10 ML Cup PO SCH ×2 (07:16→11:34)
[2017-06-23] MEDS: Insulin Aspart 100 Units/ML 3 ML Pen SUBCUT SCH ×2 (07:20→11:34)
[2017-06-23] MEDS: Ferrous Sulfate 325 MG Tab PO SCH ×2 (08:09→13:52)
[2017-06-23] MEDS: Thiamine 100 MG Tab PO SCH (08:09)
[2017-06-23] MEDS: Propranolol 10 MG Tab PO SCH (08:09)
[2017-06-23] MEDS: Folic Acid 1 MG Tab PO SCH (08:09)
[2017-06-23] MEDS: Enoxaparin 40 MG/0.4 ML Syringe SUBCUT SCH (08:09)
[2017-06-23] MEDS: Insulin Detemir 100 Units/ML 3 ML Pen SUBCUT SCH (08:19)
[2017-06-23] MEDS ORDERED: Magnesium Sulfate/Water 2 GM in Premix Bag 1 BAG IV SCH (09:00)
[2017-06-23] MEDS ORDERED: Magnesium Oxide 400 MG Tab PO SCH (09:00)
--- NOTE | 2017-06-23 10:30 | PCM.DCSUM1 ---
Discharge Summary - Hospital Course Brief History: Mr. Munguia is a 52-year-old gentleman who was admitted through the emergency department with alcohol intoxication, upper abdominal pain, nausea and vomiting. - Discharge Data Discharge Date: 06/23/17 Discharge Disposition: Home, Self-Care 01 Condition: Fair - Discharge Diagnosis/Problem(s) (1) Gastritis and duodenitis SNOMED Code(s): 502373560 ICD Code: K29.90 - GASTRODUODENITIS, UNSPECIFIED, WITHOUT BLEEDING Status: Acute Current Visit: Yes (2) Alcohol withdrawal delirium SNOMED Code(s): 4730430 ICD Code: F10.231 - ALCOHOL DEPENDENCE WITH WITHDRAWAL DELIRIUM Status: Acute Current Visit: Yes (3) Diabetes mellitus type 2, insulin dependent SNOMED Code(s): 262037766 ICD Code: E11.9 - TYPE 2 DIABETES MELLITUS WITHOUT COMPLICATIONS; Z79.4 - [employer]ING [employer]HER (CURRENT) USE OF INSULIN Status: Chronic Priority: Medium Current Visit: No (4) ETOH abuse SNOMED Code(s): 16040363 ICD Code: F10.10 - ALCOHOL ABUSE, UNCOMPLICATED Status: Chronic Priority : High Current Visit: No - Patient Summary/Data Consults: Consultations 06/22/17 03:23 Consult to Spiritual Care [CONS] Routine 06/22/17 07:06 Consult to Physician [CONS] Routine Consulting Provider: Abel Grimes Call Completed to Consulting Physician: Yes Reason for Consult: RUQ abdominal pain, stomach abnl on CT Hospital Course: Mr. Munguia is a 52-year-old gentleman who was admitted through the emergency department with epigastric abdominal pain, nausea vomiting, and alcohol intoxication. He has a history of long-standing alcohol use and abuse. He was hospitalized at this facility within the past few weeks with similar symptoms. Since discharge from that admission he has continued to consume alcohol and now has developed significant abdominal pain over the past few days associated with nausea and vomiting. Alcohol level was significantly elevated in the emergency department. CT scan was obtained and showed no new or acute findings. He was admitted to the hospital and given IV fluids for hydration as well as pain medication as needed via [employer]. Alcohol withdrawal protocol was initiated and he was started on gabapentin 400 mg every 8 hours. He was seen and evaluated on the day after admission by Dr. Grimes and EGD was performed which showed evidence of diffuse gastritis and duodenitis likely secondary to alcohol use. He had been treated with Protonix 40 mg IV twice daily on admission. Symptoms improved over the next 24 hours and he was able to tolerate a soft diet prior to discharge. He did require management per alcohol withdrawal protocol and was transferred to the intensive care unit when it appeared that he was going to develop more intense withdrawal. He stabilized relatively quickly after transfer and did not require further aggressive management. He was offered placement in detox unit after discharge which he refused. He has been given information concerning community resources including AA groups. He will be discharged on Protonix twice daily as well as gabapentin 400 mg 3 times a day for an additional 3 days, followed by 200 mg 3 times a day for 4 days. Follow-up appointment will be scheduled with his primary care provider within one week. Glucose levels were monitored during his hospital stay and he was treated with supplemental insulins as needed. Activity will be as tolerated and he will resume his usual diet. He is strongly encouraged to avoid all future alcohol use. - Patient Instructions Diet: Diabetic Diet Activity: As Tolerated Other/Special Instructions: Please schedule follow-up appointment with primary care provider within one week. - Discharge Plan Prescriptions/Med Rec: Gabapentin [Neurontin] 400 mg PO Q8H #60 capsule Pantoprazole [ProTONIX] 40 mg PO BID #30 tab.cr Home Medications: Home Meds Ferrous Sulfate 325 mg PO TID 06/10/17 [History] Insulin Glarg,Human.Rec.Analog [Lantus] 18 unit SUBCUT QAM 06/10/17 [History] Insulin Lispro [Humalog] 6 - 8 unit SQ TIDMEALS 06/10/17 [History] Pregabalin [Lyrica] 150 mg PO BID 06/10/17 [History] Propranolol [Inderal] 20 mg PO BID 06/10/17 [History] Gabapentin [Neurontin] 400 mg PO Q8H #60 capsule 06/23/17 [Rx] Pantoprazole [ProTONIX] 40 mg PO BID #30 tab.cr 06/23/17 [Rx] Forms: ED Department Discharge Referrals: Dorie Lloyd PA [Ordering Only Provider] - 06/28/17 11:00 am - Discharge Summary/Plan Comment DC Time >30 min.: No - Patient Data Vitals - Most Recent: Last Vital Signs Temp 96.9 F 06/23/17 07:00 Pulse 81 06/23/17 09:00 Resp 16 06/23/17 09:00 BP 142/76 H 06/23/17 09:00 Pulse Ox 91 L 06/23/17 09:00 Weight - Most Recent: 151 lb 12.789 oz I&O - Last 24 hours: Intake & Output 06/22/17 06/23/17 06/23/17 22:59 06:59 14:59 Intake Total 2265 2125 360 Output Total 350 1000 Balance 1915 1125 360 Lab Results - Last 24 hrs: Laboratory Results - last 24 hr 06/22/17 06/22/17 06/23/17 Range/Units 15:58 21:55 05:19 WBC (4.5-11.0) K/uL RBC (4.30-5.90) M/uL Hgb (12.0-15.0) g/dL Hct (40.0-54.0) % MCV (80-98) fL MCH (27-31) pg MCHC (32-36) % Plt Count (150-400) K/uL Neut % (Auto) (36-66) % Lymph % (Auto) (24-44) % [place] % (Auto) (2-6) % Eos % (Auto) (2-4) % Baso % (Auto) (0-1) % Sodium (140-148) mmol/L Potassium (3.6-5.2) mmol/L Chloride (100-108) mmol/L Carbon Dioxide (21-32) mmol/L Anion Gap (5.0-14.0) mmol/L BUN (7-18) mg/dL Creatinine (0.8-1.3) mg/dL Est Cr Clr Drug Dosing mL/min Estimated GFR (MDRD) (>60) Glucose (74-106) mg/dL Lactic Acid 5.0 H 1.7 0.8 (0.4-2.0) mmol/L Calcium (8.5-10.1) mg/dL Magnesium (1.8-2.4) mg/dL Total Bilirubin (0.2-1.0) mg/dL AST (15-37) U/L ALT (12-78) U/L Alkaline Phosphatase (46-116) U/L Total Protein (6.4-8.2) g/dL Albumin (3.4-5.0) g/dL Globulin (2.3-3.5) g/dL Albumin/Globulin Ratio (1.2-2.2) 06/23/17 06/23/17 Range/Units 05:19 05:19 WBC 6.7 (4.5-11.0) K/uL RBC 4.49 (4.30-5.90) M/uL Hgb 13.3 D (12.0-15.0) g/dL Hct 39.8 L (40.0-54.0) % MCV 89 (80-98) fL MCH 30 (27-31) pg MCHC 33 (32-36) % Plt Count 164 (150-400) K/uL Neut % (Auto) 69 H (36-66) % Lymph % (Auto) 22 L (24-44) % [place] % (Auto) 7 H (2-6) % Eos % (Auto) 1 L (2-4) % Baso % (Auto) 1 (0-1) % Sodium 140 (140-148) mmol/L Potassium 3.8 (3.6-5.2) mmol/L Chloride 103 (100-108) mmol/L Carbon Dioxide 33 H (21-32) mmol/L Anion Gap 7.8 (5.0-14.0) mmol/L BUN 6 L (7-18) mg/dL Creatinine 0.6 L (0.8-1.3) mg/dL Est Cr Clr Drug Dosing 138.67 mL/min Estimated GFR (MDRD) > 60 (>60) Glucose 64 L (74-106) mg/dL Lactic Acid (0.4-2.0) mmol/L Calcium 7.8 L (8.5-10.1) mg/dL Magnesium 1.4 L (1.8-2.4) mg/dL Total Bilirubin 1.1 H D (0.2-1.0) mg/dL AST 133 H (15-37) U/L ALT 88 H (12-78) U/L Alkaline Phosphatase 159 H (46-116) U/L Total Protein 5.8 L (6.4-8.2) g/dL Albumin 2.5 L (3.4-5.0) g/dL Globulin 3.3 (2.3-3.5) g/dL Albumin/Globulin Ratio 0.8 L (1.2-2.2) Med Orders - Current: Current Medications Acetaminophen (Tylenol) 650 mg PO Q4H PRN PRN Reason: Pain (Mild 1-3)/fever Last Admin: 06/22/17 16:55 Dose: 650 mg Albuterol (Proventil Neb Soln) 2.5 mg NEB Q4H PRN PRN Reason: Shortness Of Breath/wheezing Enoxaparin Sodium (Lovenox) 40 mg SUBCUT DAILY [facility] Last Admin: 06/23/17 08:09 Dose: 40 mg Ferrous Sulfate (Ferrous Sulfate) 325 mg PO TID [facility] Last Admin: 06/23/17 08:09 Dose: 325 mg Folic Acid (Folic Acid) 1 mg PO DAILY [facility] Last Admin: 06/23/17 08:09 Dose: 1 mg Gabapentin (Neurontin) 400 mg PO Q8H [facility] Last Admin: 06/23/17 05:12 Dose: 400 mg Sodium Chloride (Normal Saline) 1,000 mls @ 125 mls/hr IV ASDIRECTED [facility] Last Admin: 06/23/17 02:48 Dose: 125 mls/hr Magnesium Sulfate 2 gm/ Premix 50 mls @ 25 mls/hr IV Q6H [facility] Stop: 06/23/17 16:59 Last Admin: 06/23/17 08:29 Dose: 25 mls/hr Insulin Aspart (Novolog) 0 unit SUBCUT QIDACANDBED [facility]; Protocol Last Admin: 06/23/17 07:20 Dose: Not Given Insulin Detemir (Levemir) 18 unit SUBCUT QAM [facility] Last Admin: 06/23/17 08:19 Dose: Not Given Lorazepam (Ativan) 0 mg IV ASDIRECTED [facility]; Protocol Last Admin: 06/22/17 15:50 Dose: 1 mg Lorazepam (Ativan) 0 mg PO ASDIRECTED [facility]; Protocol Last Admin: 06/23/17 05:12 Dose: 1 mg Lorazepam (Ativan) 2 mg IVPUSH Q1H PRN PRN Reason: Other Last Admin: 06/22/17 23:23 Dose: 2 mg Magnesium Oxide (Magnesium Oxide) 400 mg PO BID [facility] Last Admin: 06/23/17 08:29 Dose: 400 mg Metoclopramide HCl (Reglan) 10 mg IVPUSH Q6H [facility] Last Admin: 06/23/17 07:16 Dose: 10 mg Naloxone HCl (Narcan) 0.4 mg IVPUSH Q2M PRN PRN Reason: Respiratory Distress Ondansetron HCl (Zofran Odt) 4 mg PO Q6H PRN PRN Reason: Nausea able to take PO Last Admin: 06/22/17 15:46 Dose: 4 mg Ondansetron HCl (Zofran) 4 mg IV Q4H PRN PRN Reason: Nausea/Vomiting Last Admin: 06/22/17 08:08 Dose: 4 mg Oxycodone HCl (Oxycodone) 5 mg PO Q4H PRN PRN Reason: Pain (moderate 4-6) Last Admin: 06/22/17 20:55 Dose: 5 mg Pantoprazole Sodium (Protonix Iv) 40 mg IV Q12H [facility] Last Admin: 06/23/17 05:12 Dose: 40 mg Propranolol HCl (Inderal) 20 mg PO BID [facility] Last Admin: 06/23/17 08:09 Dose: 20 mg Sucralfate (Carafate) 1 gm PO QIDACANDBED [facility] Last Admin: 06/23/17 07:16 Dose: 1 gm Thiamine HCl (Vitamin B-1) 100 mg PO DAILY [facility] Last Admin: 06/23/17 08:09 Dose: 100 mg Zolpidem Tartrate (Ambien) 5 mg PO BEDTIME PRN PRN Reason: Sleep Discontinued Medications Dextrose/Water (Dextrose 50% In Water) 25 ml IVPUSH ONETIME ONE Stop: 06/22/17 19:52 Last Admin: 06/22/17 20:01 Dose: 25 ml Fentanyl (Sublimaze) Confirm Administered Dose 100 mcg .ROUTE .STK-MED ONE Stop: 06/22/17 07:46 Glycopyrrolate (Glycopyrrolate) 0.4 mg IVPUSH ONCALL ONE Stop: 06/22/17 09:01 Last Admin: 06/22/17 11:05 Dose: 0.4 mg Hydromorphone HCl (Dilaudid) 1 mg IM ONETIME ONE Stop: 06/21/17 21:35 Last Admin: 06/21/17 22:05 Dose: Not Given Hydromorphone HCl (Dilaudid) 1 mg IVPUSH ONETIME ONE Stop: 06/21/17 21:50 Last Admin: 06/21/17 21:50 Dose: 1 mg Hydromorphone HCl (Dilaudid) 1 mg IVPUSH ONETIME ONE Stop: 06/21/17 23:46 Last Admin: 06/21/17 23:53 Dose: 1 mg Hydromorphone HCl (Dilaudid) 1 mg IVPUSH ONETIME ONE Stop: 06/22/17 02:09 Last Admin: 06/22/17 02:19 Dose: 1 mg Hydromorphone HCl (Dilaudid Scarf And Anneal Operator 15 Mg In Ns 30 Ml) 0 mg IV ASDIRECTED PRN; Protocol PRN Reason: Pain Last Admin: 06/22/17 03:50 Dose: 15 mg Multivitamins/Minerals 10 ml/Thiamine HCl 200 mg/ Folic Acid 1 mg/ Magnesium Sulfate 2 gm/ Dextrose/Lactated Ringer' s 1,016.2 mls @ 500 mls/hr IV ONETIME ONE Stop: 06/21/17 23:35 Last Admin: 06/21/17 22:46 Dose: 500 mls/hr Sodium Chloride (Normal Saline) 80 mls @ 3 mls/sec IV ASDIRECTED [facility] Last Admin: 06/21/17 23:18 Dose: 3 mls/sec Sodium Chloride (Normal Saline) 1,000 mls @ 125 mls/hr IV ASDIRECTED [facility] Last Admin: 06/22/17 04:13 Dose: 125 mls/hr Sodium Chloride (Normal Saline) 1,000 mls @ 125 mls/hr IV ASDIRECTED [facility] Sodium Chloride (Normal Saline) 1,000 mls @ 500 mls/hr IV ASDIRECTED [facility] Stop: 06/22/17 18:31 Last Admin: 06/22/17 16:44 Dose: 500 mls/hr Iopamidol (Isovue-300 (61%)) 100 ml IV . DIRECTED [facility] Last Admin: 06/21/17 23:18 Dose: 100 ml Lorazepam (Ativan) 1 mg IVPUSH ONETIME ONE Stop: 06/21/17 21:36 Last Admin: 06/21/17 22:00 Dose: 1 mg Lorazepam (Ativan) 1 mg IVPUSH ONETIME ONE Stop: 06/22/17 01:03 Last Admin: 06/22/17 01:11 Dose: 1 mg Lorazepam (Ativan) 2 mg IVPUSH ONETIME ONE Stop: 06/22/17 03:52 Last Admin: 06/22/17 04:21 Dose: 2 mg Midazolam HCl (Versed 1 Mg/Ml) Confirm Administered Dose 2 mg .ROUTE .STK-MED ONE Stop: 06/22/17 07:47 Pantoprazole Sodium (Protonix Iv) 40 mg IV DAILY [facility] Pantoprazole Sodium (Protonix Iv) Confirm Administered Dose 40 mg .ROUTE .STK -MED ONE Stop: 06/22/17 04:08 Last Admin: 06/22/17 04:17 Dose: 40 mg Pregabalin (Lyrica) 150 mg PO BID [facility] Last Admin: 06/22/17 12:28 Dose: Not Given Propofol (Diprivan 20 Ml) Confirm Administered Dose 200 mg .ROUTE .STK-MED ONE Stop: 06/22/17 07:47 - Exam General: Reports: Alert, Oriented, Cooperative, Mild Distress Lungs: Reports: Clear to Auscultation, Normal Respiratory Effort Cardiovascular: Reports: Regular Rate, Regular Rhythm, No Murmurs GI/Abdominal Exam: Soft, No Organomegaly, Tender. No: Distended, Guarding, Rigid, Rebound Extremities: Non-Tender, No Pedal Edema Skin: Reports: Warm, Dry, Intact
--- NOTE | 2017-07-01 22:57 | OR ---
DATE OF PROCEDURE: 06/22/2017 PREOPERATIVE DIAGNOSIS: Probable recent upper gastrointestinal bleeding. POSTOPERATIVE DIAGNOSES: 1. Severe diffuse esophagitis, severe diffuse gastritis, and moderate duodenitis involving the duodenal bulb. 2. A large amount of "coffee-ground" type fluid in the stomach (around 600 mL). OPERATIVE PROCEDURES: Esophagogastroduodenoscopy with 1. Evacuation of large volume gastric fluid. 2. Biopsies of antrum for CLOtest. ANESTHESIA: IV sedation. INDICATIONS FOR PROCEDURE: This is a 52-year-old admitted with some probable GI blood loss. He is having some upper abdominal discomfort, the plan was to proceed with upper GI endoscopy with biopsies as indicated. Potential risks including bleeding and perforation were discussed, and the patient wished to proceed. DETAILS OF PROCEDURE: The patient was taken to the operating room and placed in a left lateral decubitus position. IV sedation was administered, after which the upper GI endoscope was passed orally through the length of the esophagus and into the stomach with retroflexion view of the fundus, and thereafter through the pyloric channel and into the proximal duodenum. Findings included quite extensive esophagitis beginning in the mid-esophagus. This was dissected, then continued down toward the EG junction. There were extensive erosions and ulceration present. No active bleeding was seen. These areas were covered with a fibrinous exudate. In the stomach, there was a severe diffuse gastritis with multiple erosions present. These were actively bleeding, but there was a large amount of coffee-ground type material in the stomach. Around 600 mL of this fluid was evacuated. The duodenum showed some [id number] duodenitis in the duodenal bulb with duodenal findings normalizing beyond that point. Following completion of evacuation of fluid, biopsies were obtained from the antrum and sent for CLOtest for H. pylori. Minimal bleeding from the biopsy sites was seen. The procedure was then concluded. CONDITION: The patient was taken to the recovery room in a satisfactory condition. RECOMMENDATIONS: It will be best to treat the patient with proton pump inhibitors. He probably should have a repeat endoscopy in 4 to 6 weeks while on medical management to ascertain whether or not healing has been occurring. Abel Grimes MD /[id number]
== END 2017-06-23 15:00 | disposition home or self-care (01) | DRG 327 ==
LOC: JP.ED 20:53 → JP.MS 06-22 02:10 → JP.ICU 06-22 17:15
PROVIDERS: ADMIT Hospitalist; ATTEND Hospitalist
PROC: 0DB68ZX Excision of Stomach, Via Natural or Artificial Opening Endoscopic, Diagnostic (ICD-10-PCS; principal; 2017-06-22)
PROC: 0D968ZZ Drainage of Stomach, Via Natural or Artificial Opening Endoscopic (ICD-10-PCS; 2017-06-22)
DX: K29.90 Gastroduodenitis, unspecified, without bleeding (principal); F10.231 Alcohol dependence with withdrawal delirium; E87.2 Acidosis; F10.229 Alcohol dependence with intoxication, unspecified; K29.20 Alcoholic gastritis without bleeding; K20.9 Esophagitis, unspecified; Y90.8 Blood alcohol level of 240 mg/100 ml or more; I10 Essential (primary) hypertension; I25.10 Atherosclerotic heart disease of native coronary artery without angina pectoris; Z95.5 Presence of coronary angioplasty implant and graft; E11.40 Type 2 diabetes mellitus with diabetic neuropathy, unspecified; Z79.4 Long term (current) use of insulin; F17.210 Nicotine dependence, cigarettes, uncomplicated; Z85.528 Personal history of other malignant neoplasm of kidney; Z88.6 Allergy status to analgesic agent; Z90.5 Acquired absence of kidney; Z90.81 Acquired absence of spleen
CPT/HCPCS: 36415; 74177; 80048; 80053; 81001; 82962; 83605; 83690; 83735; 84484; 85025; 85610; 87081; 96365; 96366; 96375; 96376; 99284; 99285-25; A9270-GY; C9113; G0480; J1170; J1650; J2060; J2250; J2405; J2704; J2765; J3010; J3411; J3475; J3490; J7030; J7040; J7042; Q9967

== ENCOUNTER 2017-08-15 00:16 | Emergency (ER) | payer MEDICAID ==
--- NOTE | 2017-08-15 01:13 | EDM.PDOC ---
ED HPI GENERAL MEDICAL PROBLEM - General Chief Complaint: Drug or Alcohol Abuse Stated Complaint: MEDICAL [facility] Time Seen by Provider: 08/15/17 00:37 Source of Information: Reports: Patient, RN Notes Reviewed History Limitations: Reports: Intoxication - History of Present Illness INITIAL COMMENTS - FREE TEXT/NARRATIVE: 52-year-old gentleman presents to the emergency department with complaint of abdominal pain by EMS, he has known history of alcohol abuse and dependence states he has been consuming alcohol today he has had abdominal pain for the last couple of days however due to his intoxication it's difficult to get a good history or review of systems from, he states he does not want treatment and does not want to go to detox RUQ Pain Score (Numeric/FACES): 9 - Related Data Allergies Allergy/AdvReac Type Severity Reaction Status Date / Time ibuprofen Allergy Bleeding Verified 08/15/17 00:24 Home Meds: Home Meds Ferrous Sulfate 325 mg PO TID 06/10/17 [History] Insulin Glarg,Human.Rec.Analog [Lantus] 18 unit SUBCUT QAM 06/10/17 [History] Insulin Lispro [Humalog] 6 - 8 unit SQ TIDMEALS 06/10/17 [History] Pregabalin [Lyrica] 150 mg PO BID 06/10/17 [History] Propranolol [Inderal] 20 mg PO BID 06/10/17 [History] Pantoprazole [ProTONIX] 40 mg PO BID #30 tab.cr 06/23/17 [Rx] Past Medical History Cardiovascular History: Reports: CAD, Hypertension, [place], Stents Gastrointestinal History: Reports: Pancreatitis, Other (See Below) Other Gastrointestinal History: barrets esophageous, esophageal varisies Neurological History: Reports: Neuropathy, Diabetic, Seizure Psychiatric History: Reports: Addiction Endocrine/Metabolic History: Reports: Diabetes, Type I Hematologic History: Reports: Blood Transfusion(s) Oncologic (Cancer) History: Reports: Renal - Infectious Disease History Infectious Disease History: Reports: Chicken Pox, Influenza - Past Surgical History Cardiovascular Surgical History: Reports: Coronary Artery Stent GI Surgical History: Reports: Cholecystectomy, Colonoscopy, EGD, Small Bowel, Other (See Below) Other GI Surgeries/Procedures: spleenectomy Male Surgical History: Reports: Other (See Below) Other Male Surgeries/Procedures: partial nephrectomy Social & Family History - Family History Family Medical History: Noncontributory - Tobacco Use Smoking Status *Q: Current Some Day Smoker Years of Tobacco use: 25 Packs/Tins Daily: 0.1 - Caffeine Use Caffeine Use: Reports: Coffee Caffeine Use Comment: couple cups of coffee each da - Alcohol Use Days Per Week of Alcohol Use: 7 Number of Drinks Per Day: 10 Total Drinks Per Week: 70 - Recreational Drug Use Recreational Drug Use: No - Living Situation & Occupation Living situation: Reports: Single ( from of 30 years, recent moved to [place], [place]. from [place], [place] ED ROS GENERAL - Review of Systems Review Of Systems: Unable To Obtain ED EXAM, GI/ABD - Physical Exam Exam: See Below Text/Narrative:: General: Male, intoxicated but not in any distress, alert and oriented x3 HEENT: head is atraumatic normocephalic, eyes pupils equal round reactive to light, sclera clear no conjunctivitis appreciated. Ears tympanic membranes blocked by cerumen bilaterally canals are clear. Nose no septal deviation, nares are clear , no blood present. Mouth mucosa is moist and pink no erythema or exudate noted in soft palate, tongue is midline uvula is midline, dentition is intact. Neck: Supple no thyromegaly no tracheal deviation. Nodes: Cervical nodes subclavicular nodes nontender no palpable lymphadenopathy noted. Lungs: clear to auscultation bilaterally with symmetrical respirations, no adventitious noise appreciated. CV: Regular rate and rhythm S1 and S2 appreciated no murmurs rubs or gallops noted. Abdomen: Soft, tender right upper quadrant, no palpable masses or organomegaly appreciated, no distention no guarding bowel sounds are present, multiple surgical scars present. Neuro: Cranial nerves II through XII grossly intact Skin: Warm and dry, intact Extremities: No lower extremity edema appreciated, Course - Vital Signs Last Recorded V/S: Last Vital Signs Temp 96 F 08/15/17 02:46 Pulse 68 08/15/17 03:30 Resp 16 08/15/17 03:30 BP 135/78 08/15/17 03:30 Pulse Ox 93 L 08/15/17 03:30 - Orders/Labs/Meds Orders: Active Orders 24 hr Category Date Time Status Abdomen Pelvis w Cont [CT] Urgent Exams 08/15/17 01:01 Taken DRUG SCREEN, URINE [URCHEM] Urgent Lab 08/15/17 01:21 Ordered UA W/MICROSCOPIC [URIN] Urgent Lab 08/15/17 01:21 Ordered Iopamidol [Isovue-300 (61%)] Med 08/15/17 01:15 Active 100 ml IV . DIRECTED Lactated Ringers [Ringers, Lactated] 1,000 ml Med 08/15/17 01:15 Active IV ASDIRECTED Sodium Chloride 0.9% [Normal Saline] 80 ml Med 08/15/17 01:15 Active IV ASDIRECTED Sodium Chloride 0.9% [Saline Flush] Med 08/15/17 01:11 Active 10 ml FLUSH ASDIRECTED PRN Medication Orders Lactated Ringer's (Ringers, Lactated) 1,000 mls @ 999 mls/hr IV ASDIRECTED BORA Last Admin: 08/15/17 01:16 Dose: 999 mls/hr Sodium Chloride (Normal Saline) 80 mls @ 3 mls/sec IV ASDIRECTED BORA Last Admin: 08/15/17 01:55 Dose: 3 mls/sec Iopamidol (Isovue-300 (61%)) 100 ml IV . DIRECTED BORA Last Admin: 08/15/17 01:55 Dose: 100 ml Sodium Chloride (Saline Flush) 10 ml FLUSH ASDIRECTED PRN PRN Reason: Keep Vein Open Last Admin: 08/15/17 01:55 Dose: 10 ml Admin: 08/15/17 01:22 Dose: 10 ml Labs: Laboratory Tests 08/15/17 08/15/17 08/15/17 Range/Units 01:20 01:20 01:20 WBC 5.0 (4.5-11.0) K/uL RBC 4.32 (4.30-5.90) M/uL Hgb 15.0 (12.0-15.0) g/dL Hct 42.4 (40.0-54.0) % MCV 98 (80-98) fL MCH 35 H (27-31) pg MCHC 35 (32-36) % Plt Count 340 (150-400) K/uL Neut % (Auto) 47 (36-66) % Lymph % (Auto) 39 (24-44) % [place] % (Auto) 11 H (2-6) % Eos % (Auto) 1 L (2-4) % Baso % (Auto) 3 H (0-1) % Sodium 139 L (140-148) mmol/L Potassium 4.2 (3.6-5.2) mmol/L Chloride 104 (100-108) mmol/L Carbon Dioxide 23 (21-32) mmol/L Anion Gap 16.2 H (5.0-14.0) mmol/L BUN 4 L (7-18) mg/dL Creatinine 0.7 L (0.8-1.3) mg/dL Est Cr Clr Drug Dosing 125.28 mL/min Estimated GFR (MDRD) > 60 (>60) Glucose 342 H (74-106) mg/dL Lactic Acid 4.1 H (0.4-2.0) mmol/L Calcium 7.7 L (8.5-10.1) mg/dL Total Bilirubin 0.5 D (0.2-1.0) mg/dL AST 142 H (15-37) U/L ALT 82 H (12-78) U/L Alkaline Phosphatase 190 H (46-116) U/L Troponin I (0.000-0.056) ng/mL Total Protein 6.8 (6.4-8.2) g/dL Albumin 2.4 L (3.4-5.0) g/dL Globulin 4.4 H (2.3-3.5) g/dL Albumin/Globulin Ratio 0.6 L (1.2-2.2) Lipase 24 L (73-393) U/L Urine Color Urine Appearance Urine pH (4.5-8.0) Ur Specific [place] (1.008-1.030) Urine Protein (NEGATIVE) mg/dL Urine Glucose (UA) (NEGATIVE) mg/dL Urine Ketones (NEGATIVE) mg/dL Urine Occult Blood (NEGATIVE) Urine Nitrite (NEGAITVE) Urine Bilirubin (NEGATIVE) Urine Urobilinogen (NORMAL) mg/dL Ur Leukocyte Esterase (NEGATIVE) Urine RBC (0-5) Urine WBC (0-5) Ur Epithelial Cells Amorphous Sediment Urine Bacteria Urine Mucus Urine Opiates Screen (NEGATIVE) Ur Oxycodone Screen (NEGATIVE) Urine Methadone Screen (NEGATIVE) Ur Propoxyphene Screen (NEGATIVE) Ur Barbiturates Screen (NEGATIVE) Ur Tricyclics Screen (NEGATIVE) Ur Phencyclidine Scrn (NEGATIVE) Ur Amphetamine Screen (NEGATIVE) U Methamphetamines Scrn (NEGATIVE) Urine MDMA Screen (NEGATIVE) U Benzodiazepines Scrn (NEGATIVE) U Cocaine Metab Screen (NEGATIVE) U Marijuana (THC) Screen (NEGATIVE) Ethyl Alcohol mg/dL 08/15/17 08/15/17 08/15/17 Range/Units 01:20 01:20 01:21 WBC (4.5-11.0) K/uL RBC (4.30-5.90) M/uL Hgb (12.0-15.0) g/dL Hct (40.0-54.0) % MCV (80-98) fL MCH (27-31) pg MCHC (32-36) % Plt Count (150-400) K/uL Neut % (Auto) (36-66) % Lymph % (Auto) (24-44) % [place] % (Auto) (2-6) % Eos % (Auto) (2-4) % Baso % (Auto) (0-1) % Sodium (140-148) mmol/L Potassium (3.6-5.2) mmol/L Chloride (100-108) mmol/L Carbon Dioxide (21-32) mmol/L Anion Gap (5.0-14.0) mmol/L BUN (7-18) mg/dL Creatinine (0.8-1.3) mg/dL Est Cr Clr Drug Dosing mL/min Estimated GFR (MDRD) (>60) Glucose (74-106) mg/dL Lactic Acid (0.4-2.0) mmol/L Calcium (8.5-10.1) mg/dL Total Bilirubin (0.2-1.0) mg/dL AST (15-37) U/L ALT (12-78) U/L Alkaline Phosphatase (46-116) U/L Troponin I < 0.017 (0.000-0.056) ng/mL Total Protein (6.4-8.2) g/dL Albumin (3.4-5.0) g/dL Globulin (2.3-3.5) g/dL Albumin/Globulin Ratio (1.2-2.2) Lipase (73-393) U/L Urine Color Yellow Urine Appearance Clear Urine pH 6.0 (4.5-8.0) Ur Specific [place] 1.010 (1.008-1.030) Urine Protein Negative (NEGATIVE) mg/dL Urine Glucose (UA) >1000 H (NEGATIVE) mg/dL Urine Ketones Negative (NEGATIVE) mg/dL Urine Occult Blood Negative (NEGATIVE) Urine Nitrite Negative (NEGAITVE) Urine Bilirubin Negative (NEGATIVE) Urine Urobilinogen Normal (NORMAL) mg/dL Ur Leukocyte Esterase Negative (NEGATIVE) Urine RBC 0-5 (0-5) Urine WBC 0-5 (0-5) Ur Epithelial Cells Rare Amorphous Sediment Not seen Urine Bacteria Few Urine Mucus Not seen Urine Opiates Screen (NEGATIVE) Ur Oxycodone Screen (NEGATIVE) Urine Methadone Screen (NEGATIVE) Ur Propoxyphene Screen (NEGATIVE) Ur Barbiturates Screen (NEGATIVE) Ur Tricyclics Screen (NEGATIVE) Ur Phencyclidine Scrn (NEGATIVE) Ur Amphetamine Screen (NEGATIVE) U Methamphetamines Scrn (NEGATIVE) Urine MDMA Screen (NEGATIVE) U Benzodiazepines Scrn (NEGATIVE) U Cocaine Metab Screen (NEGATIVE) U Marijuana (THC) Screen (NEGATIVE) Ethyl Alcohol 350 mg/dL 08/15/17 Range/Units 01:21 WBC (4.5-11.0) K/uL RBC (4.30-5.90) M/uL Hgb (12.0-15.0) g/dL Hct (40.0-54.0) % MCV (80-98) fL MCH (27-31) pg MCHC (32-36) % Plt Count (150-400) K/uL Neut % (Auto) (36-66) % Lymph % (Auto) (24-44) % [place] % (Auto) (2-6) % Eos % (Auto) (2-4) % Baso % (Auto) (0-1) % Sodium (140-148) mmol/L Potassium (3.6-5.2) mmol/L Chloride (100-108) mmol/L Carbon Dioxide (21-32) mmol/L Anion Gap (5.0-14.0) mmol/L BUN (7-18) mg/dL Creatinine (0.8-1.3) mg/dL Est Cr Clr Drug Dosing mL/min Estimated GFR (MDRD) (>60) Glucose (74-106) mg/dL Lactic Acid (0.4-2.0) mmol/L Calcium (8.5-10.1) mg/dL Total Bilirubin (0.2-1.0) mg/dL AST (15-37) U/L ALT (12-78) U/L Alkaline Phosphatase (46-116) U/L Troponin I (0.000-0.056) ng/mL Total Protein (6.4-8.2) g/dL Albumin (3.4-5.0) g/dL Globulin (2.3-3.5) g/dL Albumin/Globulin Ratio (1.2-2.2) Lipase (73-393) U/L Urine Color Urine Appearance Urine pH (4.5-8.0) Ur Specific [place] (1.008-1.030) Urine Protein (NEGATIVE) mg/dL Urine Glucose (UA) (NEGATIVE) mg/dL Urine Ketones (NEGATIVE) mg/dL Urine Occult Blood (NEGATIVE) Urine Nitrite (NEGAITVE) Urine Bilirubin (NEGATIVE) Urine Urobilinogen (NORMAL) mg/dL Ur Leukocyte Esterase (NEGATIVE) Urine RBC (0-5) Urine WBC (0-5) Ur Epithelial Cells Amorphous Sediment Urine Bacteria Urine Mucus Urine Opiates Screen Negative (NEGATIVE) Ur Oxycodone Screen Negative (NEGATIVE) Urine Methadone Screen Negative (NEGATIVE) Ur Propoxyphene Screen Negative (NEGATIVE) Ur Barbiturates Screen Negative (NEGATIVE) Ur Tricyclics Screen Negative (NEGATIVE) Ur Phencyclidine Scrn Negative (NEGATIVE) Ur Amphetamine Screen Negative (NEGATIVE) U Methamphetamines Scrn Negative (NEGATIVE) Urine MDMA Screen Negative (NEGATIVE) U Benzodiazepines Scrn Negative (NEGATIVE) U Cocaine Metab Screen Negative (NEGATIVE) U Marijuana (THC) Screen Negative (NEGATIVE) Ethyl Alcohol mg/dL Meds: Medications Generic Name Dose Route Start Last Admin Trade Name Deedee PRN Reason Stop Dose Admin Lactated Ringer's 1,000 mls @ 999 mls/hr 08/15/17 01:15 08/15/17 01:16 Ringers, Lactated IV 999 mls/hr ASDIRECTED BORA Administration Sodium Chloride 80 mls @ 3 mls/sec 08/15/17 01:15 08/15/17 01:55 Normal Saline IV 3 mls/sec ASDIRECTED BORA Administration Iopamidol 100 ml 08/15/17 01:15 08/15/17 01:55 Isovue-300 (61%) IV 100 ml . DIRECTED BORA Administration Sodium Chloride 10 ml 08/15/17 01:11 08/15/17 01:55 Saline Flush FLUSH 10 ml ASDIRECTED PRN Administration Keep Vein Open Discontinued Medications Generic Name Dose Route Start Last Admin Trade Name Deedee PRN Reason Stop Dose Admin Fentanyl 50 mcg 08/15/17 01:21 08/15/17 01:31 Sublimaze IVPUSH 08/15/17 01:22 50 mcg ONETIME ONE Administration Hydromorphone HCl 1 mg 08/15/17 02:40 08/15/17 02:43 Dilaudid IVPUSH 08/15/17 02:41 1 mg ONETIME ONE Administration Hydromorphone HCl Confirm 08/15/17 02:41 08/15/17 03:35 Dilaudid Administered 08/15/17 02:42 Not Given Dose 1 mg .ROUTE .STK-MED ONE Ondansetron HCl 4 mg 08/15/17 01:21 08/15/17 01:29 Zofran IVPUSH 08/15/17 01:22 4 mg ONETIME ONE Administration Departure - Departure Time of Disposition: 03:44 Disposition: DC/Tfer to Acute Hospital 02 Condition: Fair Clinical Impression: Abdominal abscess - Discharge Information Referrals: PCP,None [Primary Care Provider] - Forms: ED Department Discharge - My Orders Last 24 Hours: My Active Orders 08/15/17 01:01 Abdomen Pelvis w Cont [CT] Urgent 08/15/17 01:11 Sodium Chloride 0.9% [Saline Flush] 10 ml FLUSH ASDIRECTED PRN 08/15/17 01:15 Iopamidol [Isovue-300 (61%)] 100 ml IV . DIRECTED Lactated Ringers [Ringers, Lactated] 1,000 ml IV ASDIRECTED Sodium Chloride 0.9% [Normal Saline] 80 ml IV ASDIRECTED 08/15/17 01:21 DRUG SCREEN, URINE [URCHEM] Urgent UA W/MICROSCOPIC [URIN] Urgent - Assessment/Plan Last 24 Hours: My Active Orders 08/15/17 01:01 Abdomen Pelvis w Cont [CT] Urgent 08/15/17 01:11 Sodium Chloride 0.9% [Saline Flush] 10 ml FLUSH ASDIRECTED PRN 08/15/17 01:15 Iopamidol [Isovue-300 (61%)] 100 ml IV . DIRECTED Lactated Ringers [Ringers, Lactated] 1,000 ml IV ASDIRECTED Sodium Chloride 0.9% [Normal Saline] 80 ml IV ASDIRECTED 08/15/17 01:21 DRUG SCREEN, URINE [URCHEM] Urgent UA W/MICROSCOPIC [URIN] Urgent Plan: Assessment Acuity = acute Site and laterality = 2 cm abscess at the anastomosis of small bowel Etiology = unclear etiology Manifestations = abdominal pain Location of injury = Home Lab values = glucose elevated 342 consistent with hyperglycemia lactic acid elevated at 4.1 consistent with lactic acidosis, calcium low at 7.7 consistent hypocalcemia AST elevated 142 ALTs elevated at 87 consistent with elevated liver enzymes, urine drug screen and urinalysis unremarkable, EtOH elevated [address] scan describes abscess above Plan Discussed case with Dr. Wallace general surgery and Dr. Bro hospitalist on-call at [facility] felt his abscess would best be handled by interventional radiology kindly accepted patient in transport he'll be transported via EMS ground This note was dictated using [employer] voice recognition software please call with any questions on syntax or grammar.
[2017-08-15] MEDS ORDERED: Lactated Ringers 1,000 ML IV SCH (01:15)
[2017-08-15] MEDS ORDERED: Iopamidol 612 MG/ML 100 ML Bottle IV SCH (01:15)
[2017-08-15] MEDS ORDERED: Sodium Chloride 0.9% 80 ML IV SCH (01:15)
[2017-08-15] MEDS ORDERED: fentaNYL 100 MCG/2 ML SDV IVPUSH ONE (01:21)
[2017-08-15] MEDS ORDERED: Ondansetron 4 MG/2 ML SDV IVPUSH ONE (01:21)
[2017-08-15] MEDS: Sodium Chloride 0.9% 10 ML Syringe FLUSH PRN ×2 (01:22→01:55)
[2017-08-15] MEDS ORDERED: HYDROmorphone 1 MG/ML Syringe IVPUSH ONE (02:40)
[2017-08-15] MEDS ORDERED: HYDROmorphone 1 MG/ML Syringe ONE (02:41)
[2017-08-15] MEDS ORDERED: Lactated Ringers 1,000 ML IV ONE (03:49)
== END 2017-08-15 04:16 ==
LOC: JP.ED 00:16
DX: L02.211 Cutaneous abscess of abdominal wall (principal); F10.229 Alcohol dependence with intoxication, unspecified; Y90.8 Blood alcohol level of 240 mg/100 ml or more; I10 Essential (primary) hypertension; I25.2 Old myocardial infarction; E10.40 Type 1 diabetes mellitus with diabetic neuropathy, unspecified; F17.210 Nicotine dependence, cigarettes, uncomplicated; Z88.6 Allergy status to analgesic agent; Z79.899 Other long term (current) drug therapy
CPT/HCPCS: 36415; 74177; 80053; 80305; 81001; 83605; 83690; 84484; 85025; 96361; 96374; 96375; 99285; G0480; J1170; J2405; J3010; J7030; J7050; J7120; Q9967

== ENCOUNTER 2018-08-10 19:16 | Emergency (ER) | payer MEDICAID ==
[2018-08-10] MEDS ORDERED: fentaNYL 100 MCG/2 ML SDV IVPUSH ONE (20:03)
--- NOTE | 2018-08-10 20:06 | EDM.PDOC ---
ED HPI GENERAL MEDICAL PROBLEM - General Chief Complaint: Abdominal Pain Stated Complaint: MED[facility] Time Seen by Provider: 08/10/18 20:03 Source of Information: Reports: Patient, EMS, RN Notes Reviewed History Limitations: Reports: No Limitations - History of Present Illness INITIAL COMMENTS - FREE TEXT/NARRATIVE: 53-year-old gentleman presents to the emergency department today via EMS services for abdominal pain and weakness, he states the pain just started earlier today has progressively gotten worse he has has chest pain as well no shortness of breath no fevers felt nauseated in route was given aspirin and Zofran right side abd Pain Score (Numeric/FACES): 9 - Related Data Allergies Allergy/AdvReac Type Severity Reaction Status Date / Time ibuprofen AdvReac Bleeding Verified 08/10/18 19:18 Home Meds: Home Meds Ferrous Sulfate 325 mg PO TID 06/10/17 [History] Insulin Glarg,Human.Rec.Analog [Lantus] 18 unit SUBCUT QAM 06/10/17 [History] Insulin Lispro [Humalog] 6 - 8 unit SQ TIDMEALS 06/10/17 [History] Propranolol [Inderal] 20 mg PO BID 06/10/17 [History] Pantoprazole [ProTONIX] 40 mg PO BID #30 tab.cr 06/23/17 [Rx] Gabapentin [Neurontin] 300 mg PO BEDTIME 08/10/18 [History] Gabapentin [Neurontin] 800 mg PO TID 08/10/18 [History] Past Medical History Cardiovascular History: Reports: CAD, Hypertension, [place], Stents Gastrointestinal History: Reports: Pancreatitis, Other (See Below) Other Gastrointestinal History: barrets esophageous, esophageal varisies Neurological History: Reports: Neuropathy, Diabetic, Seizure Psychiatric History: Reports: Addiction Endocrine/Metabolic History: Reports: Diabetes, Type I Hematologic History: Reports: Blood Transfusion(s) Oncologic (Cancer) History: Reports: Renal - Infectious Disease History Infectious Disease History: Reports: Chicken Pox - Past Surgical History Cardiovascular Surgical History: Reports: Coronary Artery Stent GI Surgical History: Reports: Cholecystectomy, Colonoscopy, EGD, Small Bowel, Other (See Below) Other GI Surgeries/Procedures: spleenectomy Male Surgical History: Reports: Other (See Below) Other Male Surgeries/Procedures: partial nephrectomy Social & Family History - Family History Family Medical History: Noncontributory - Caffeine Use Caffeine Use: Reports: Coffee Caffeine Use Comment: couple cups of coffee each da - Living Situation & Occupation Living situation: Reports: Single ( from of 30 years, recent moved to [place], [place]. from [place], [place].) ED ROS GENERAL - Review of Systems Review Of Systems: See Below Constitutional: Reports: Weakness. Denies: Fever, Chills HEENT: Reports: No Symptoms Respiratory: Reports: No Symptoms Cardiovascular: Reports: Chest Pain GI/Abdominal: Reports: Abdominal Pain, Flatus, Nausea. Denies: Vomiting : Reports: No Symptoms Musculoskeletal: Reports: No Symptoms Skin: Reports: No Symptoms ED EXAM, GI/ABD - Physical Exam Exam: See Below Text/Narrative:: General: Male, not in any distress, alert and oriented x3 HEENT: head is atraumatic normocephalic, eyes pupils equal round reactive to light, sclera clear no conjunctivitis appreciated. Ears tympanic membranes clear and garza landmarks and light reflex are present bilaterally canals are clear. Nose no septal deviation, nares are clear, no blood present. Mouth mucosa is moist and pink no erythema or exudate noted in soft palate, tongue is midline uvula is midline, dentition is intact. Neck: Supple no thyromegaly no tracheal deviation. Nodes: Cervical nodes subclavicular nodes nontender no palpable lymphadenopathy noted. Lungs: clear to auscultation bilaterally with symmetrical respirations, no adventitious noise appreciated. CV: Regular rate and rhythm S1 and S2 appreciated no murmurs rubs or gallops noted. Abdomen: Soft, tender right upper quadrant, no palpable masses or organomegaly appreciated, no distention no guarding bowel sounds are present, Neuro: GCS of 15 Skin: Warm and dry, intact Extremities: No lower extremity edema appreciated, pedal pulse is +2. Course - Vital Signs Last Recorded V/S: Last Vital Signs Temp 96.4 F 08/10/18 21:14 Pulse 67 08/10/18 21:14 Resp 11 L 08/10/18 21:14 BP 146/99 H 08/10/18 21:14 Pulse Ox 99 08/10/18 21:14 - Orders/Labs/Meds Orders: Active Orders 24 hr Category Date Time Status UA W/MICROSCOPIC [URIN] Urgent Lab 08/10/18 20:03 Ordered Iopamidol [Isovue-300 (61%)] Med 08/10/18 21:45 Active 100 ml IV . DIRECTED Sodium Chloride 0.9% [Normal Saline] 1,000 ml Med 08/10/18 20:15 Active IV ASDIRECTED Sodium Chloride 0.9% [Normal Saline] 80 ml Med 08/10/18 21:45 Active IV ASDIRECTED Sodium Chloride 0.9% [Saline Flush] Med 08/10/18 21:39 Active 10 ml FLUSH ASDIRECTED PRN Medication Orders Sodium Chloride (Normal Saline) 1,000 mls @ 500 mls/hr IV ASDIRECTED BORA Last Admin: 08/10/18 21:10 Dose: 500 mls/hr Sodium Chloride (Normal Saline) 80 mls @ 3 mls/sec IV ASDIRECTED BORA Last Admin: 08/10/18 21:48 Dose: 3 mls/sec Iopamidol (Isovue-300 (61%)) 100 ml IV . DIRECTED BORA Last Admin: 08/10/18 21:48 Dose: 100 ml Sodium Chloride (Saline Flush) 10 ml FLUSH ASDIRECTED PRN PRN Reason: Keep Vein Open Last Admin: 08/10/18 21:48 Dose: 10 ml Labs: Laboratory Tests 08/10/18 08/10/18 08/10/18 Range/Units 20:10 20:10 20:10 WBC 7.4 (4.5-11.0) K/uL RBC 4.73 (4.30-5.90) M/uL Hgb 14.2 D (12.0-15.0) g/dL Hct 41.9 (40.0-54.0) % MCV 89 (80-98) fL MCH 30 (27-31) pg MCHC 34 (32-36) % Plt Count 390 (150-400) K/uL Neut % (Auto) 73 H (36-66) % Lymph % (Auto) 17 L (24-44) % [place] % (Auto) 8 H (2-6) % Eos % (Auto) 0 L (2-4) % Baso % (Auto) 1 (0-1) % PT 11.8 (9.5-12.0) sec INR 1.08 (0.80-1.20) Sodium 127 L (140-148) mmol/L Potassium 4.1 (3.6-5.2) mmol/L Chloride 87 L (100-108) mmol/L Carbon Dioxide 22 (21-32) mmol/L Anion Gap 22.1 H (5.0-14.0) mmol/L BUN 11 D (7-18) mg/dL Creatinine 0.8 (0.8-1.3) mg/dL Est Cr Clr Drug Dosing 94.81 mL/min Estimated GFR (MDRD) > 60 (>60) Glucose 363 H (74-106) mg/dL Lactic Acid (0.4-2.0) mmol/L Calcium 9.0 D (8.5-10.1) mg/dL Total Bilirubin 1.2 H (0.2-1.0) mg/dL AST 154 H (15-37) U/L ALT 116 H (12-78) U/L Alkaline Phosphatase 139 H (46-116) U/L Troponin I < 0.017 (0.000-0.056) ng/mL Total Protein 7.4 (6.4-8.2) g/dL Albumin 3.0 L (3.4-5.0) g/dL Globulin 4.4 H (2.3-3.5) g/dL Albumin/Globulin Ratio 0.7 L (1.2-2.2) Lipase 45 L (73-393) U/L 08/10/18 Range/Units 20:10 WBC (4.5-11.0) K/uL RBC (4.30-5.90) M/uL Hgb (12.0-15.0) g/dL Hct (40.0-54.0) % MCV (80-98) fL MCH (27-31) pg MCHC (32-36) % Plt Count (150-400) K/uL Neut % (Auto) (36-66) % Lymph % (Auto) (24-44) % [place] % (Auto) (2-6) % Eos % (Auto) (2-4) % Baso % (Auto) (0-1) % PT (9.5-12.0) sec INR (0.80-1.20) Sodium (140-148) mmol/L Potassium (3.6-5.2) mmol/L Chloride (100-108) mmol/L Carbon Dioxide (21-32) mmol/L Anion Gap (5.0-14.0) mmol/L BUN (7-18) mg/dL Creatinine (0.8-1.3) mg/dL Est Cr Clr Drug Dosing mL/min Estimated GFR (MDRD) (>60) Glucose (74-106) mg/dL Lactic Acid 1.2 (0.4-2.0) mmol/L Calcium (8.5-10.1) mg/dL Total Bilirubin (0.2-1.0) mg/dL AST (15-37) U/L ALT (12-78) U/L Alkaline Phosphatase (46-116) U/L Troponin I (0.000-0.056) ng/mL Total Protein (6.4-8.2) g/dL Albumin (3.4-5.0) g/dL Globulin (2.3-3.5) g/dL Albumin/Globulin Ratio (1.2-2.2) Lipase (73-393) U/L Meds: Medications Generic Name Dose Route Start Last Admin Trade Name Freq PRN Reason Stop Dose Admin Sodium Chloride 1,000 mls @ 500 mls/hr 08/10/18 20:15 08/10/18 21:10 Normal Saline IV 500 mls/hr ASDIRECTED BORA Administration Sodium Chloride 80 mls @ 3 mls/sec 08/10/18 21:45 08/10/18 21:48 Normal Saline IV 3 mls/sec ASDIRECTED BORA Administration Iopamidol 100 ml 08/10/18 21:45 08/10/18 21:48 Isovue-300 (61%) IV 100 ml . DIRECTED BORA Administration Sodium Chloride 10 ml 08/10/18 21:39 08/10/18 21:48 Saline Flush FLUSH 10 ml ASDIRECTED PRN Administration Keep Vein Open Discontinued Medications Generic Name Dose Route Start Last Admin Trade Name Freq PRN Reason Stop Dose Admin Fentanyl 50 mcg 08/10/18 20:03 08/10/18 20:22 Sublimaze IVPUSH 08/10/18 20:04 50 mcg ONETIME ONE Administration Hydromorphone HCl 1 mg 08/10/18 21:00 08/10/18 21:11 Dilaudid IVPUSH 08/10/18 21:01 1 mg ONETIME ONE Administration Hydromorphone HCl 1 mg 08/10/18 22:39 Dilaudid IVPUSH 08/10/18 22:40 ONETIME ONE Ketorolac Tromethamine 60 mg 08/10/18 22:31 Toradol IM 08/10/18 22:32 ONETIME ONE Ondansetron HCl 4 mg 08/10/18 21:00 08/10/18 21:09 Zofran IVPUSH 08/10/18 21:01 4 mg ONETIME ONE Administration Departure - Departure Time of Disposition: 22:45 Disposition: Home, Self-Care 01 Condition: Poor Clinical Impression: Pancreatitis Qualifiers: Chronicity: chronic Pancreatitis type: alcohol induced Qualified Code(s): K86.0 - Alcohol-induced chronic pancreatitis Gastritis Qualifiers: Gastritis type: alcoholic Chronicity: chronic Gastritis bleeding: without bleeding Qualified Code(s): K29.20 - Alcoholic gastritis without bleeding - Discharge Information Referrals: PCP,None [Primary Care Provider] - Forms: ED Department Discharge Additional Instructions: Continue with your regular medications, please follow-up with your primary care and her GI specialist in the next 3-5 days for reevaluation - My Orders Last 24 Hours: My Active Orders 08/10/18 20:03 UA W/MICROSCOPIC [URIN] Urgent 08/10/18 20:15 Sodium Chloride 0.9% [Normal Saline] 1,000 ml IV ASDIRECTED 08/10/18 21:39 Sodium Chloride 0.9% [Saline Flush] 10 ml FLUSH ASDIRECTED PRN 08/10/18 21:45 Iopamidol [Isovue-300 (61%)] 100 ml IV . DIRECTED Sodium Chloride 0.9% [Normal Saline] 80 ml IV ASDIRECTED - Assessment/Plan Last 24 Hours: My Active Orders 08/10/18 20:03 UA W/MICROSCOPIC [URIN] Urgent 08/10/18 20:15 Sodium Chloride 0.9% [Normal Saline] 1,000 ml IV ASDIRECTED 08/10/18 21:39 Sodium Chloride 0.9% [Saline Flush] 10 ml FLUSH ASDIRECTED PRN 08/10/18 21:45 Iopamidol [Isovue-300 (61%)] 100 ml IV . DIRECTED Sodium Chloride 0.9% [Normal Saline] 80 ml IV ASDIRECTED Plan: Assessment Acuity = acute on chronic Site and laterality = pancreatitis and gastritis Etiology = probably secondary to alcohol use Manifestations = continued abdominal pain Location of injury = Home Lab values = CBC unremarkable, sodium low at 127 consistent hyponatremia glucose elevated at 363 consistent hyperglycemia total bilirubin elevated 1.2 consistent hyperbilirubinemia AST elevated 154 AOT elevated [address] scan describes process above Plan I did review lab work CT scan results with him plan is discharge home have a follow-up with primary care he is also following with a GI specialist This note was dictated using [employer] voice recognition software please call with any questions on syntax or grammar.
[2018-08-10] MEDS ORDERED: Sodium Chloride 0.9% 1,000 ML IV SCH (20:15)
[2018-08-10] MEDS ORDERED: HYDROmorphone 1 MG/ML Syringe IVPUSH ONE ×2 (21:00→22:39)
[2018-08-10] MEDS ORDERED: Ondansetron 4 MG/2 ML SDV IVPUSH ONE (21:00)
[2018-08-10] MEDS ORDERED: Sodium Chloride 0.9% 10 ML Syringe FLUSH PRN (21:39)
[2018-08-10] MEDS ORDERED: Iopamidol 612 MG/ML 100 ML Bottle IV SCH (21:45)
[2018-08-10] MEDS ORDERED: Sodium Chloride 0.9% 80 ML IV SCH (21:45)
--- NOTE | 2018-08-10 22:21 | CRLCT ---
INDICATION: Right upper quadrant pain TECHNIQUE: CT abdomen and pelvis acquired with 100 cc Isovue-300 intravenous contrast. COMPARISON: Abdomen and pelvis CT 09/20/2017 FINDINGS: Lower chest: Prominent coronary atherosclerosis. Liver: Diffusely decreased in density without focal lesion. Metal density redemonstrated within the liver. Gallbladder and bile ducts: Status post cholecystectomy. Common duct normal in diameter. Pancreas: Status post resection of the body and tail of the pancreas with prominent calcifications within the residual head consistent with chronic pancreatitis. Spleen: Status post splenectomy. Adrenal glands: Unremarkable. No nodules. Kidneys: Symmetric renal enhancement with exophytic cyst at the lower pole of the left kidney. GI tract: Prominent gastric fold thickening redemonstrated prominent involving the fundus and body of the stomach. Small bowel anastomosis noted within the right flank with the nondilated loops of large or small intestine. Mild colonic diverticulosis noted. Vasculature: Atherosclerosis without abdominal aortic aneurysm. Omentum/Peritoneum/Abdominal Wall: Small gastroesophageal varices. Pelvis: Unremarkable. Bones: Mild degenerative disc disease lumbar spine. IMPRESSION: 1. Status post small bowel resection without evidence of obstruction. 2. Prominent gastric fold thickening involving the body and fundus of the stomach which is similar to the prior examination. Differential diagnosis includes chronic gastritis or Menetrier`s disease. 3. Colonic diverticulosis without marleny diverticulitis. 4. Chronic pancreatitis status post splenectomy and distal pancreatectomy. 5. Status post cholecystectomy. 6. Fatty infiltration of the liver. Please note that all CT scans at this facility use dose modulation, iterative reconstruction, and/or weight-based dosing when appropriate to reduce radiation dose to as low as reasonably achievable. Dictated by Yonis Astudillo MD @ Aug 10 2018 10:01PM Signed by Dr. Yonis Astudillo @ Aug 10 2018 10:20PM
[2018-08-10] MEDS ORDERED: Ketorolac 60 MG/2 ML SDV IM ONE (22:31)
== END 2018-08-11 10:00 | disposition home or self-care (01) ==
LOC: JP.ED 19:16
DX: K86.0 Alcohol-induced chronic pancreatitis (principal); K29.20 Alcoholic gastritis without bleeding; I10 Essential (primary) hypertension; I25.2 Old myocardial infarction; I25.10 Atherosclerotic heart disease of native coronary artery without angina pectoris; E10.40 Type 1 diabetes mellitus with diabetic neuropathy, unspecified; Z79.899 Other long term (current) drug therapy; Z88.6 Allergy status to analgesic agent
CPT/HCPCS: 36415; 74177; 80053; 83605; 83690; 84484; 85025; 85610; 96361; 96374; 96375; 96376; 99284; J1170; J2405; J3010; J7030; Q9967

== ENCOUNTER 2018-10-01 13:08 | Emergency (ER) | payer MEDICAID ==
[2018-10-01] MEDS ORDERED: Insulin Regular, Human 100 Units/ML 3 ML Vial SUBCUT ONE ×2 (14:00→14:54)
[2018-10-01] MEDS ORDERED: HYDROmorphone 0.5 MG/0.5 ML Syringe IVPUSH ONE (14:01)
--- NOTE | 2018-10-01 14:07 | EDM.PDOC ---
ED HPI GENERAL MEDICAL PROBLEM - General Chief Complaint: Neuro Symptoms/Deficits Stated Complaint: SEIZURE Time Seen by Provider: 10/01/18 13:50 Source of Information: Reports: Patient, EMS, Old Records History Limitations: Reports: No Limitations - History of Present Illness INITIAL COMMENTS - FREE TEXT/NARRATIVE: 53 yo male with IDDM, epilepsy, and chronic, recurrent pancreatitis was transported from his neighbors apartment today by EMS after a 1.5 min duration generalized seizure. EMS noted that his BS was 400 en route. He is complaining of RUQ pain now that he is here in the ER. Was incontinent of stool with his seizure. Doesn't think he's eaten yet today. His last seizure was 1-1.5 yrs ago. No recent alcohol consumption for over a month. Onset: Today Onset Date: 10/01/18 Onset Time: 12:55 Duration: Minutes: (1.5), Resolved Prior to Arrival Location: Reports: Generalized Quality: Reports: Burning, Other (RUQ pain, burning) Severity: Moderate Improves with: Reports: None Worsens with: Reports: None Context: Reports: Other (Hx of seizures and pancreatitis) Associated Symptoms: Reports: Seizure. 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: Other (see below) (none) Abdominal Pain Score (Numeric/FACES): 8 - Related Data Allergies Allergy/AdvReac Type Severity Reaction Status Date / Time ibuprofen AdvReac Bleeding Verified 08/10/18 19:18 Home Meds: Home Meds Ferrous Sulfate 325 mg PO TID 06/10/17 [History] Insulin Glarg,Human.Rec.Analog [Lantus] 18 unit SUBCUT QAM 06/10/17 [History] Insulin Lispro [Humalog] 6 - 8 unit SQ TIDMEALS 06/10/17 [History] Propranolol [Inderal] 20 mg PO BID 06/10/17 [History] Pantoprazole [ProTONIX] 40 mg PO BID #30 tab.cr 06/23/17 [Rx] Gabapentin [Neurontin] 300 mg PO BEDTIME 08/10/18 [History] Gabapentin [Neurontin] 800 mg PO TID 08/10/18 [History] Past Medical History Cardiovascular History: Reports: CAD, Hypertension, [place], Stents Gastrointestinal History: Reports: Pancreatitis, Other (See Below) Other Gastrointestinal History: barrets esophageous, esophageal varisies Neurological History: Reports: Neuropathy, Diabetic, Seizure Psychiatric History: Reports: Addiction Endocrine/Metabolic History: Reports: Diabetes, Type I Hematologic History: Reports: Blood Transfusion(s) Oncologic (Cancer) History: Reports: Renal - Infectious Disease History Infectious Disease History: Reports: Chicken Pox - Past Surgical History Cardiovascular Surgical History: Reports: Coronary Artery Stent GI Surgical History: Reports: Cholecystectomy, Colonoscopy, EGD, Small Bowel, Other (See Below) Other GI Surgeries/Procedures: spleenectomy Male Surgical History: Reports: Other (See Below) Other Male Surgeries/Procedures: partial nephrectomy Social & Family History - Family History Family Medical History: Noncontributory - Tobacco Use Smoking Status *Q: Unknown Ever Smoked - Caffeine Use Caffeine Use: Reports: Coffee Other Caffeine Use: 2-3 cups per day Caffeine Use Comment: couple cups of coffee each da - Living Situation & Occupation Living situation: Reports: Single ( from of 30 years, recent moved to [facility] from [place], [place].) ED ROS GENERAL - Review of Systems Review Of Systems: See Below Constitutional: Reports: No Symptoms HEENT: Reports: No Symptoms Respiratory: Reports: No Symptoms Cardiovascular: Reports: No Symptoms Endocrine: Reports: High Glucose GI/Abdominal: Reports: Abdominal Pain (RUQ), Stool Incontinence (with seizure). Denies: Black Stool, Bloody Stool, Constipation, Diarrhea, Decreased Appetite , Distension, Flatus, Hematemesis, Hematochezia, Melena, Vomiting : Reports: No Symptoms Musculoskeletal: Reports: No Symptoms Skin: Reports: No Symptoms Neurological: Reports: Seizure - Physical Exam Exam: See Below Exam Limited By: No Limitations General Appearance: Alert, WD/WN, No Apparent Distress Eye Exam: Bilateral Eye: Normal Inspection Ears: Normal External Exam, Normal Canal, Hearing Grossly Normal, Normal TMs Nose: Normal Inspection, No Blood Throat/Mouth: Normal Inspection, Normal Lips, Normal Oropharynx, No Airway Compromise, Other (tongue atraumatic) Head Exam: Atraumatic, Normocephalic Neck: Normal Inspection Respiratory/Chest: No Respiratory Distress, Lungs Clear, Normal Breath Sounds, No Accessory Muscle Use, Chest Non-Tender Cardiovascular: Regular Rate, Rhythm, No Edema GI/Abdominal: Normal Bowel Sounds, Soft, No Distention, Tender (under R anterior ribs). No: Non-Tender, Distended, Guarding, Rigid, Rebound Neuro Exam (Abbreviated): Alert, Oriented, CN II-XII Intact, Normal Cognition, No Motor/Sensory Deficits Back Exam: Normal Inspection. No: CVA Tenderness (R), CVA Tenderness (L) Extremities: Normal Inspection, Normal Range of Motion, Non-Tender, No Pedal Edema Psychiatric: Normal Affect, Normal Mood Skin Exam: Warm, Dry, Intact, Normal Color, No Rash Course - Vital Signs Last Recorded V/S: Last Vital Signs Temp 36.6 C 10/01/18 13:15 Pulse 78 10/01/18 15:29 Resp 16 10/01/18 15:29 BP 134/82 10/01/18 15:29 Pulse Ox 99 10/01/18 15:29 - Orders/Labs/Meds Orders: Active Orders 24 hr Category Date Time Status Orthostatic Vital Signs [RC] ASDIRECTED Care 10/01/18 14:10 Inactive UA W/MICROSCOPIC [URIN] Stat Lab 10/01/18 15:25 Received Labs: Laboratory Tests 10/01/18 10/01/18 Range/Units 14:16 14:16 WBC 10.4 (4.5-11.0) K/uL RBC 4.37 (4.30-5.90) M/uL Hgb 13.7 (12.0-15.0) g/dL Hct 39.7 L (40.0-54.0) % MCV 91 (80-98) fL MCH 31 (27-31) pg MCHC 35 (32-36) % Plt Count 399 (150-400) K/uL Sodium 131 L (140-148) mmol/L Potassium 3.9 (3.6-5.2) mmol/L Chloride 95 L (100-108) mmol/L Carbon Dioxide 26 (21-32) mmol/L Anion Gap 13.9 (5.0-14.0) mmol/L BUN 9 (7-18) mg/dL Creatinine 0.8 (0.8-1.3) mg/dL Est Cr Clr Drug Dosing 94.81 mL/min Estimated GFR (MDRD) > 60 (>60) Glucose 249 H (74-106) mg/dL Calcium 8.5 (8.5-10.1) mg/dL Total Bilirubin 1.2 H (0.2-1.0) mg/dL AST 79 H (15-37) U/L ALT 59 (12-78) U/L Alkaline Phosphatase 138 H (46-116) U/L Total Protein 7.5 (6.4-8.2) g/dL Albumin 3.1 L (3.4-5.0) g/dL Globulin 4.4 H (2.3-3.5) g/dL Albumin/Globulin Ratio 0.7 L (1.2-2.2) Lipase 23 L (73-393) U/L Meds: Medications Discontinued Medications Generic Name Dose Route Start Last Admin Trade Name Freq PRN Reason Stop Dose Admin Hydromorphone HCl 0.5 mg 10/01/18 14:01 10/01/18 14:06 Dilaudid IVPUSH 10/01/18 14:02 0.5 mg ONETIME ONE Administration Insulin Human Regular 12 unit 10/01/18 14:00 10/01/18 15:10 Humulin R SUBCUT 10/01/18 14:01 Not Given ONETIME ONE Insulin Human Regular 3 unit 10/01/18 14:54 10/01/18 14:57 Humulin R SUBCUT 10/01/18 14:55 3 units ONETIME ONE Administration Ketorolac Tromethamine 30 mg 10/01/18 14:54 10/01/18 15:00 Toradol IVPUSH 10/01/18 14:55 30 mg ONETIME ONE Administration Departure - Departure Time of Disposition: 15:45 Disposition: Home, Self-Care 01 Condition: Fair Clinical Impression: Seizure, Elevated blood sugar, RUQ abdominal pain - Discharge Information *PRESCRIPTION DRUG MONITORING PROGRAM REVIEWED*: No *COPY OF PRESCRIPTION DRUG MONITORING REPORT IN PATIENT FABIOLA: No Referrals: PCP,None [Primary Care Provider] - Forms: ED Department Discharge Additional Instructions: No driving until cleared by your provider. Use acetaminophen OR [place] for pain relief as needed. Recheck in the [facility] early this next week, return as needed. Watch your blood sugars and adjust your insulin accordingly. - My Orders Last 24 Hours: My Active Orders 10/01/18 14:10 Orthostatic Vital Signs [RC] ASDIRECTED 10/01/18 15:25 UA W/MICROSCOPIC [URIN] Stat - Assessment/Plan Last 24 Hours: My Active Orders 10/01/18 14:10 Orthostatic Vital Signs [RC] ASDIRECTED 10/01/18 15:25 UA W/MICROSCOPIC [URIN] Stat
[2018-10-01] MEDS ORDERED: Ketorolac 30 MG/ML SDV IVPUSH ONE (14:54)
== END 2018-10-01 17:04 | disposition home or self-care (01) ==
LOC: JP.ED 13:08
DX: G40.909 Epilepsy, unspecified, not intractable, without status epilepticus (principal); R10.11 Right upper quadrant pain; E10.40 Type 1 diabetes mellitus with diabetic neuropathy, unspecified; I10 Essential (primary) hypertension; I25.10 Atherosclerotic heart disease of native coronary artery without angina pectoris; Z88.6 Allergy status to analgesic agent; Z79.899 Other long term (current) drug therapy; Z95.5 Presence of coronary angioplasty implant and graft; Z90.49 Acquired absence of other specified parts of digestive tract
CPT/HCPCS: 36415; 80053; 81001; 83690; 85027; 96374; 96375; 99284; J1170; J1815; J1885

== ENCOUNTER 2018-12-05 15:09 | Emergency (ER) | payer MEDICAID ==
[2018-12-05] MEDS ORDERED: Ketorolac 60 MG/2 ML SDV IM ONE (16:28)
[2018-12-05] MEDS ORDERED: Acetaminophen/HYDROcodone 325-5 MG Tab PO ONE ×2 (16:29→20:41)
--- NOTE | 2018-12-05 16:54 | EDM.PDOC ---
<Theresa Webber - Last Filed: 12/05/18 17:49> ED HPI GENERAL MEDICAL PROBLEM - General Chief Complaint: General Stated Complaint: BODY PAIN ABD LOWER BACK Time Seen by Provider: 12/05/18 16:54 Source of Information: Reports: Patient History Limitations: Reports: No Limitations - History of Present Illness INITIAL COMMENTS - FREE TEXT/NARRATIVE: pt arrived hurting all over. He is particularly having pain in the lower extremities. He is a diabetic and does deal with neuropathy. Onset: Other ( The pain is worse today. ) Duration: Hour(s): Location: Reports: Lower Extremity, Left, Lower Extremity, Right, Generalized Associated Symptoms: Reports: Weakness Generalized Pain Score (Numeric/FACES): 9 - Related Data Allergies Allergy/AdvReac Type Severity Reaction Status Date / Time ibuprofen AdvReac Bleeding Verified 12/05/18 15:53 Home Meds: Home Meds Ferrous Sulfate 325 mg PO TID 06/10/17 [History] Insulin Glarg,Human.Rec.Analog [Lantus] 18 unit SUBCUT QAM 06/10/17 [History] Insulin Lispro [Humalog] 6 - 8 unit SQ TIDMEALS 06/10/17 [History] Propranolol [Inderal] 20 mg PO BID 06/10/17 [History] Pantoprazole [ProTONIX] 40 mg PO BID #30 tab.cr 06/23/17 [Rx] Gabapentin [Neurontin] 300 mg PO BEDTIME 08/10/18 [History] Gabapentin [Neurontin] 800 mg PO TID 08/10/18 [History] FLUoxetine HCl [Prozac] 40 mg PO DAILY 12/05/18 [History] Past Medical History HEENT History: Reports: Impaired Vision Cardiovascular History: Reports: CAD, Hypertension, [place], Stents Gastrointestinal History: Reports: Pancreatitis, Other (See Below) Other Gastrointestinal History: barrets esophageous, esophageal varisies Genitourinary History: Reports: Diabetic Nephropathy Musculoskeletal History: Reports: Arthritis Neurological History: Reports: Neuropathy, Diabetic, Seizure Psychiatric History: Reports: Addiction Endocrine/Metabolic History: Reports: Diabetes, Type I Hematologic History: Reports: Blood Transfusion(s) Oncologic (Cancer) History: Reports: Renal Dermatologic History: Reports: Other (See Below) - Infectious Disease History Infectious Disease History: Reports: Chicken Pox - Past Surgical History Head Surgeries/Procedures: Reports: None Cardiovascular Surgical History: Reports: Coronary Artery Stent GI Surgical History: Reports: Cholecystectomy, Colonoscopy, EGD, Small Bowel, Other (See Below) Other GI Surgeries/Procedures: spleenectomy Male Surgical History: Reports: Other (See Below) Other Male Surgeries/Procedures: partial nephrectomy Endocrine Surgical History: Reports: None Neurological Surgical History: Reports: None Musculoskeletal Surgical History: Reports: None Oncologic Surgical History: Reports: None Dermatological Surgical History: Reports: None Social & Family History - Family History Family Medical History: Noncontributory - Tobacco Use Smoking Status *Q: Current Every Day Smoker Years of Tobacco use: 2 Packs/Tins Daily: 1 Used Tobacco, but Quit: No - Caffeine Use Caffeine Use: Reports: Coffee Other Caffeine Use: 2-3 cups per day Caffeine Use Comment: couple cups of coffee each da - Recreational Drug Use Recreational Drug Use: No - Living Situation & Occupation Living situation: Reports: Single ( from of 30 years, recent moved to [place], [place]. from [place], [place].) ED ROS GENERAL - Review of Systems Review Of Systems: See Below Constitutional: Reports: Weakness, Fatigue HEENT: Reports: No Symptoms Respiratory: Reports: No Symptoms Cardiovascular: Reports: No Symptoms Endocrine: Reports: High Glucose, Other (pt has a bs over 500. ) GI/Abdominal: Reports: No Symptoms : Reports: No Symptoms Musculoskeletal: Reports: Hand Pain, Muscle Stiffness, Other (pt has generalized muscle pain He describes a burning sensation. ) Neurological: Reports: Tingling, Other ( burning sensation. ) Psychiatric: Reports: Anxiety ED EXAM, GENERAL - Physical Exam Exam: See Below Free Text/Narrative:: pt is a pt that just moved to the area. He is from his . He has a history of addiction. He has a history of neuropathy and muscle pain. Exam Limited By: No Limitations General Appearance: Alert, Anxious, Moderate Distress, Other (pupils equal and reactive. ) Ears: Normal TMs Nose: Normal Inspection Throat/Mouth: Normal Inspection Head: Atraumatic Neck: Normal Inspection Respiratory/Chest: No Respiratory Distress Cardiovascular: Regular Rate, Rhythm GI/Abdominal: Soft, Other ( diffuse tenderness no true guarding. ) (Male) Exam: Deferred Rectal (Males) Exam: Deferred Back Exam: Normal Inspection Extremities: Other (increased pain) Neurological: Alert, Normal Cognition Course - Vital Signs Last Recorded V/S: Last Vital Signs Temp 37.0 C 12/05/18 15:56 Pulse 76 12/05/18 15:56 Resp 18 12/05/18 15:56 BP 118/82 12/05/18 15:56 Pulse Ox 99 12/05/18 15:56 - Orders/Labs/Meds Orders: Active Orders 24 hr Category Date Time Status HUMAN GRANULOCYTIC GERARD-HGE Stat Lab 12/05/18 16:03 Received LYME, TOTAL AB TEST/REFLEX Stat Lab 12/05/18 16:03 Received Magnesium Sulfate/Water [Magnesium Sulfate in Water Med 12/05/18 17:43 Active Premix] 2 gm Premix Bag 1 bag IV ONETIME Sodium Chloride 0.9% [Normal Saline] 1,000 ml Med 12/05/18 17:45 Active IV ASDIRECTED Medication Orders Sodium Chloride (Normal Saline) 1,000 mls @ 999 mls/hr IV ASDIRECTED BORA Last Admin: 12/05/18 18:26 Dose: 999 mls/hr Magnesium Sulfate 2 gm/ Premix 50 mls @ 12.5 mls/hr IV ONETIME ONE Stop: 12/05/18 21:42 Last Admin: 12/05/18 18:28 Dose: 12.5 mls/hr Labs: Laboratory Tests 12/05/18 12/05/18 12/05/18 Range/Units 16:05 16:05 16:05 WBC 7.6 (4.5-11.0) K/uL RBC 4.20 L (4.30-5.90) M/uL Hgb 12.7 (12.0-15.0) g/dL Hct 39.1 L (40.0-54.0) % MCV 93 (80-98) fL MCH 30 (27-31) pg MCHC 33 (32-36) % Plt Count 363 (150-400) K/uL Neut % (Auto) 62 (36-66) % Lymph % (Auto) 23 L (24-44) % [place] % (Auto) 11 H (2-6) % Eos % (Auto) 2 (2-4) % Baso % (Auto) 2 H (0-1) % Sodium 130 L (140-148) mmol/L Potassium 4.5 (3.6-5.2) mmol/L Chloride 97 L (100-108) mmol/L Carbon Dioxide 24 (21-32) mmol/L Anion Gap 13.5 (5.0-14.0) mmol/L BUN 9 (7-18) mg/dL Creatinine 0.9 (0.8-1.3) mg/dL Est Cr Clr Drug Dosing 88.79 mL/min Estimated GFR (MDRD) > 60 (>60) Glucose 515 H* (74-106) mg/dL Calcium 8.6 (8.5-10.1) mg/dL Magnesium (1.8-2.4) mg/dL Total Bilirubin 0.4 D (0.2-1.0) mg/dL AST 96 H (15-37) U/L ALT 76 (12-78) U/L Alkaline Phosphatase 230 H (46-116) U/L C-Reactive Protein 0.07 (0.0-0.3) mg/dL Total Protein 7.4 (6.4-8.2) g/dL Albumin 3.0 L (3.4-5.0) g/dL Globulin 4.4 H (2.3-3.5) g/dL Albumin/Globulin Ratio 0.7 L (1.2-2.2) Lipase (73-393) U/L TSH, Ultra Sensitive (0.358-3.740) uIU/mL Urine Color (YELLOW) Urine Appearance (CLEAR) Urine pH (5.0-8.0) Ur Specific [place] (1.008-1.030) Urine Protein (NEGATIVE) mg/dL Urine Glucose (UA) (NEGATIVE) mg/dL Urine Ketones (NEGATIVE) mg/dL Urine Occult Blood (NEGATIVE) Urine Nitrite (NEGATIVE) Urine Bilirubin (NEGATIVE) Urine Urobilinogen (0.2-1.0) EU/dL Ur Leukocyte Esterase (NEGATIVE) Urine RBC (0-5) Urine WBC (0-5) Ur Epithelial Cells Amorphous Sediment Urine Bacteria Urine Mucus Urine Opiates Screen (NEGATIVE) Ur Oxycodone Screen (NEGATIVE) Urine Methadone Screen (NEGATIVE) Ur Propoxyphene Screen (NEGATIVE) Ur Barbiturates Screen (NEGATIVE) Ur Tricyclics Screen (NEGATIVE) Ur Phencyclidine Scrn (NEGATIVE) Ur Amphetamine Screen (NEGATIVE) U Methamphetamines Scrn (NEGATIVE) Urine MDMA Screen (NEGATIVE) U Benzodiazepines Scrn (NEGATIVE) U Cocaine Metab Screen (NEGATIVE) U Marijuana (THC) Screen (NEGATIVE) 12/05/18 12/05/18 12/05/18 Range/Units 16:06 16:22 16:51 WBC (4.5-11.0) K/uL RBC (4.30-5.90) M/uL Hgb (12.0-15.0) g/dL Hct (40.0-54.0) % MCV (80-98) fL MCH (27-31) pg MCHC (32-36) % Plt Count (150-400) K/uL Neut % (Auto) (36-66) % Lymph % (Auto) (24-44) % [place] % (Auto) (2-6) % Eos % (Auto) (2-4) % Baso % (Auto) (0-1) % Sodium (140-148) mmol/L Potassium (3.6-5.2) mmol/L Chloride (100-108) mmol/L Carbon Dioxide (21-32) mmol/L Anion Gap (5.0-14.0) mmol/L BUN (7-18) mg/dL Creatinine (0.8-1.3) mg/dL Est Cr Clr Drug Dosing mL/min Estimated GFR (MDRD) (>60) Glucose (74-106) mg/dL Calcium (8.5-10.1) mg/dL Magnesium 1.5 L (1.8-2.4) mg/dL Total Bilirubin (0.2-1.0) mg/dL AST (15-37) U/L ALT (12-78) U/L Alkaline Phosphatase (46-116) U/L C-Reactive Protein (0.0-0.3) mg/dL Total Protein (6.4-8.2) g/dL Albumin (3.4-5.0) g/dL Globulin (2.3-3.5) g/dL Albumin/Globulin Ratio (1.2-2.2) Lipase 21 L (73-393) U/L TSH, Ultra Sensitive (0.358-3.740) uIU/mL Urine Color Yellow (YELLOW) Urine Appearance Clear (CLEAR) Urine pH 5.5 (5.0-8.0) Ur Specific [place] 1.010 (1.008-1.030) Urine Protein Negative (NEGATIVE) mg/dL Urine Glucose (UA) 500 H (NEGATIVE) mg/dL Urine Ketones Negative (NEGATIVE) mg/dL Urine Occult Blood Negative (NEGATIVE) Urine Nitrite Negative (NEGATIVE) Urine Bilirubin Negative (NEGATIVE) Urine Urobilinogen 0.2 (0.2-1.0) EU/dL Ur Leukocyte Esterase Negative (NEGATIVE) Urine RBC Not seen (0-5) Urine WBC Not seen (0-5) Ur Epithelial Cells Not seen Amorphous Sediment Rare Urine Bacteria Not seen Urine Mucus Not seen Urine Opiates Screen (NEGATIVE) Ur Oxycodone Screen (NEGATIVE) Urine Methadone Screen (NEGATIVE) Ur Propoxyphene Screen (NEGATIVE) Ur Barbiturates Screen (NEGATIVE) Ur Tricyclics Screen (NEGATIVE) Ur Phencyclidine Scrn (NEGATIVE) Ur Amphetamine Screen (NEGATIVE) U Methamphetamines Scrn (NEGATIVE) Urine MDMA Screen (NEGATIVE) U Benzodiazepines Scrn (NEGATIVE) U Cocaine Metab Screen (NEGATIVE) U Marijuana (THC) Screen (NEGATIVE) 12/05/18 12/05/18 Range/Units 17:42 17:47 WBC (4.5-11.0) K/uL RBC (4.30-5.90) M/uL Hgb (12.0-15.0) g/dL Hct (40.0-54.0) % MCV (80-98) fL MCH (27-31) pg MCHC (32-36) % Plt Count (150-400) K/uL Neut % (Auto) (36-66) % Lymph % (Auto) (24-44) % [place] % (Auto) (2-6) % Eos % (Auto) (2-4) % Baso % (Auto) (0-1) % Sodium (140-148) mmol/L Potassium (3.6-5.2) mmol/L Chloride (100-108) mmol/L Carbon Dioxide (21-32) mmol/L Anion Gap (5.0-14.0) mmol/L BUN (7-18) mg/dL Creatinine (0.8-1.3) mg/dL Est Cr Clr Drug Dosing mL/min Estimated GFR (MDRD) (>60) Glucose (74-106) mg/dL Calcium (8.5-10.1) mg/dL Magnesium (1.8-2.4) mg/dL Total Bilirubin (0.2-1.0) mg/dL AST (15-37) U/L ALT (12-78) U/L Alkaline Phosphatase (46-116) U/L C-Reactive Protein (0.0-0.3) mg/dL Total Protein (6.4-8.2) g/dL Albumin (3.4-5.0) g/dL Globulin (2.3-3.5) g/dL Albumin/Globulin Ratio (1.2-2.2) Lipase (73-393) U/L TSH, Ultra Sensitive 1.840 (0.358-3.740) uIU/mL Urine Color (YELLOW) Urine Appearance (CLEAR) Urine pH (5.0-8.0) Ur Specific [place] (1.008-1.030) Urine Protein (NEGATIVE) mg/dL Urine Glucose (UA) (NEGATIVE) mg/dL Urine Ketones (NEGATIVE) mg/dL Urine Occult Blood (NEGATIVE) Urine Nitrite (NEGATIVE) Urine Bilirubin (NEGATIVE) Urine Urobilinogen (0.2-1.0) EU/dL Ur Leukocyte Esterase (NEGATIVE) Urine RBC (0-5) Urine WBC (0-5) Ur Epithelial Cells Amorphous Sediment Urine Bacteria Urine Mucus Urine Opiates Screen Negative (NEGATIVE) Ur Oxycodone Screen Negative (NEGATIVE) Urine Methadone Screen Negative (NEGATIVE) Ur Propoxyphene Screen Negative (NEGATIVE) Ur Barbiturates Screen Negative (NEGATIVE) Ur Tricyclics Screen Negative (NEGATIVE) Ur Phencyclidine Scrn Negative (NEGATIVE) Ur Amphetamine Screen Negative (NEGATIVE) U Methamphetamines Scrn Negative (NEGATIVE) Urine MDMA Screen Negative (NEGATIVE) U Benzodiazepines Scrn Negative (NEGATIVE) U Cocaine Metab Screen Negative (NEGATIVE) U Marijuana (THC) Screen Negative (NEGATIVE) Meds: Medications Generic Name Dose Route Start Last Admin Trade Name Freq PRN Reason Stop Dose Admin Sodium Chloride 1,000 mls @ 999 mls/hr 12/05/18 17:45 12/05/18 18:26 Normal Saline IV 999 mls/hr ASDIRECTED BORA Administration Magnesium Sulfate 2 gm/ Premix 50 mls @ 12.5 mls/hr 12/05/18 17:43 12/05/18 18:28 IV 12/05/18 21:42 12.5 mls/hr ONETIME ONE Administration Discontinued Medications Generic Name Dose Route Start Last Admin Trade Name Freq PRN Reason Stop Dose Admin Hydrocodone Bitart/Acetaminophen 1 tab 12/05/18 16:29 12/05/18 16:35 [place] 325-5 Mg PO 12/05/18 16:30 1 tab ONETIME ONE Administration Hydrocodone Bitart/Acetaminophen 1 tab 12/05/18 20:41 [place] 325-5 Mg PO 12/05/18 20:42 ONETIME ONE Hydromorphone HCl 0.5 mg 12/05/18 17:40 12/05/18 18:27 Dilaudid IM 12/05/18 17:41 0.5 mg ONETIME ONE Administration Insulin Human Regular 6 unit 12/05/18 16:56 12/05/18 18:35 Humulin R SUBCUT 12/05/18 16:57 6 units ONETIME ONE Administration Ketorolac Tromethamine 60 mg 12/05/18 16:28 12/05/18 16:36 Toradol IM 12/05/18 16:29 60 mg ONETIME ONE Administration Magnesium Oxide 800 mg 12/05/18 17:43 12/05/18 18:26 Magnesium Oxide PO 12/05/18 17:44 800 mg ONETIME ONE Administration Departure - Departure Disposition: Home, Self-Care 01 Clinical Impression: Peripheral neuropathy, Polyarthralgia - Discharge Information Referrals: PCP,None [Primary Care Provider] - Forms: ED Department Discharge Additional Instructions: Continue your usual medications. Contact your Dr. tomorrow. When you see the doctor be sure to bring your lab work <Moise Uribe - Last Filed: 12/05/18 21:14> Course - Re-Assessments/Exams Free Text/Narrative Re-Assessment/Exam: 12/05/18 21:05 Blood sugar 157 at 1835. Glucose by lab at 1857 was 394. The 1835 was probably erroneous. Patient asking for something for pain before being discharged. He says he has neuropathy and now his joints or beginning to hurt. Departure - Departure Time of Disposition: 21:13 Condition: Fair
[2018-12-05] MEDS ORDERED: Insulin Regular, Human 100 Units/ML 3 ML Vial SUBCUT ONE (16:56)
[2018-12-05] MEDS ORDERED: HYDROmorphone 0.5 MG/0.5 ML Syringe IM ONE (17:40)
[2018-12-05] MEDS ORDERED: Magnesium Oxide 400 MG Tab PO ONE (17:43)
[2018-12-05] MEDS ORDERED: Magnesium Sulfate/Water 2 GM in Premix Bag 1 BAG IV ONE (17:43)
[2018-12-05] MEDS ORDERED: Sodium Chloride 0.9% 1,000 ML IV SCH (17:45)
[2018-12-05] MEDS ORDERED: HYDROmorphone 1 MG/ML Syringe IVPUSH ONE (21:14)
[2018-12-08 10:09] LABS: LYME IGG/IGM AB <0.91 ISR (0.00-0.90)
[2018-12-08 13:09] LABS: HGE IGG TITER Negative (Neg:<1:64); HGE IGM TITER Negative (Neg:<1:20)
== END 2018-12-05 21:27 | disposition home or self-care (01) ==
LOC: JP.ED 15:09
DX: E10.42 Type 1 diabetes mellitus with diabetic polyneuropathy (principal); M25.549 Pain in joints of unspecified hand; I25.10 Atherosclerotic heart disease of native coronary artery without angina pectoris; I10 Essential (primary) hypertension; I25.2 Old myocardial infarction; E10.21 Type 1 diabetes mellitus with diabetic nephropathy; F17.210 Nicotine dependence, cigarettes, uncomplicated; Z88.6 Allergy status to analgesic agent; Z79.4 Long term (current) use of insulin; Z95.5 Presence of coronary angioplasty implant and graft; Z79.899 Other long term (current) drug therapy
CPT/HCPCS: 36415; 80053; 80305; 81001; 82962; 83690; 83735; 84443; 85025; 86140; 86666; 96365; 96366; 96372; 96375; 99284; A9270; J1170; J1885; J3475; J7030; 86618; J1815-GY

== ENCOUNTER 2019-04-17 18:06 | Emergency (ER) | payer MEDICAID ==
[2019-04-17] MEDS ORDERED: Lactated Ringers 1,000 ML IV SCH (18:45)
[2019-04-17] MEDS ORDERED: HYDROmorphone 1 MG/ML Syringe IVPUSH ONE (18:46)
[2019-04-17] MEDS ORDERED: Ondansetron 4 MG/2 ML SDV IVPUSH ONE (18:46)
--- NOTE | 2019-04-17 18:51 | EDM.PDOC ---
ED HPI GENERAL MEDICAL PROBLEM - General Chief Complaint: Gastrointestinal Problem Stated Complaint: abd pain Time Seen by Provider: 04/17/19 18:38 Source of Information: Reports: Patient, RN Notes Reviewed History Limitations: Reports: No Limitations - History of Present Illness INITIAL COMMENTS - FREE TEXT/NARRATIVE: 54-year-old gentleman presents emergency department today complaint of abdominal pain. He states he was doing fine this morning and then about noon the pain started to increase it has progressively gotten worse he arrived by EMS services. No nausea or vomiting no shortness of breath or chest pain does have a history of multiple abdominal surgeries, did receive 1 mg Dilaudid by EMS which he states it did not provide any relief for his pain Abdomen Pain Score (Numeric/FACES): 8 - Related Data Allergies Allergy/AdvReac Type Severity Reaction Status Date / Time ibuprofen AdvReac Bleeding Verified 04/17/19 18:11 Home Meds: Home Meds Ferrous Sulfate 325 mg PO TID 06/10/17 [History] Insulin Glarg,Human.Rec.Analog [Lantus] 18 unit SUBCUT QAM 06/10/17 [History] Insulin Lispro [Humalog] 6 - 8 unit SQ TIDMEALS 06/10/17 [History] Propranolol [Inderal] 20 mg PO BID 06/10/17 [History] Gabapentin [Neurontin] 300 mg PO BEDTIME 08/10/18 [History] Gabapentin [Neurontin] 800 mg PO TID 08/10/18 [History] Omeprazole 40 mg PO ACBREAKFAST 04/17/19 [History] Past Medical History HEENT History: Reports: Impaired Vision Cardiovascular History: Reports: CAD, Hypertension, NE, Stents Gastrointestinal History: Reports: Pancreatitis, Other (See Below) Other Gastrointestinal History: barrets esophageous, esophageal varisies Genitourinary History: Reports: Diabetic Nephropathy Musculoskeletal History: Reports: Arthritis Neurological History: Reports: Neuropathy, Diabetic, Seizure Psychiatric History: Reports: Addiction Endocrine/Metabolic History: Reports: Diabetes, Type I Hematologic History: Reports: Blood Transfusion(s) Oncologic (Cancer) History: Reports: Renal Dermatologic History: Reports: Eczema, Other (See Below) Other Dermatologic History: rash on arm - Infectious Disease History Infectious Disease History: Reports: Chicken Pox - Past Surgical History Head Surgeries/Procedures: Reports: None HEENT Surgical History: Reports: None Cardiovascular Surgical History: Reports: Coronary Artery Stent GI Surgical History: Reports: Cholecystectomy, Colonoscopy, EGD, Small Bowel, Other (See Below) Other GI Surgeries/Procedures: spleenectomy Male Surgical History: Reports: Other (See Below) Other Male Surgeries/Procedures: partial nephrectomy Endocrine Surgical History: Reports: None Neurological Surgical History: Reports: None Musculoskeletal Surgical History: Reports: None Oncologic Surgical History: Reports: None Dermatological Surgical History: Reports: None Social & Family History - Family History Family Medical History: Noncontributory - Tobacco Use Smoking Status *Q: Never Smoker - Caffeine Use Caffeine Use: Reports: Coffee, Soda, Tea Other Caffeine Use: 2-3 cups per day Caffeine Use Comment: couple cups of coffee each da - Recreational Drug Use Recreational Drug Use: No - Living Situation & Occupation Living situation: Reports: Single ( from of 30 years, recent moved to [facility] from [facility]) ED ROS GENERAL - Review of Systems Review Of Systems: See Below Constitutional: Denies: Fever, Chills HEENT: Reports: No Symptoms Respiratory: Reports: No Symptoms Cardiovascular: Reports: No Symptoms GI/Abdominal: Reports: Abdominal Pain, Flatus. Denies: Nausea, Vomiting : Reports: No Symptoms ED EXAM, GI/ABD - Physical Exam Exam: See Below Exam Limited By: No Limitations General Appearance: Alert, WD/WN, No Apparent Distress, Other (Resting comfortably states his pain is 8 out of 10) Neck: Normal Inspection, Supple, Non-Tender, Full Range of Motion Respiratory/Chest: No Respiratory Distress, Lungs Clear, Normal Breath Sounds, No Accessory Muscle Use, Chest Non-Tender Cardiovascular: Regular Rate, Rhythm, No Murmur GI/Abdominal Exam: Guarding, Rigid, Tender (Right upper quadrant) Back Exam: Normal Inspection, Full Range of Motion. No: CVA Tenderness (R), CVA Tenderness (L) Extremities: Normal Inspection, No Pedal Edema Course - Vital Signs Last Recorded V/S: Last Vital Signs Temp 95.1 F L 04/17/19 18:07 Pulse 74 04/17/19 18:07 Resp 16 04/17/19 18:07 BP 116/74 04/17/19 18:07 Pulse Ox 100 04/17/19 18:07 - Orders/Labs/Meds Orders: Active Orders 24 hr Category Date Time Status Iopamidol [Isovue-300 (61%)] Med 04/17/19 19:00 Active 100 ml IV . DIRECTED Lactated Ringers [Ringers, Lactated] 1,000 ml Med 04/17/19 18:45 Active IV ASDIRECTED Sodium Chloride 0.9% [Normal Saline] 80 ml Med 04/17/19 19:00 Active IV ASDIRECTED Sodium Chloride 0.9% [Saline Flush] Med 04/17/19 18:55 Active 10 ml FLUSH ASDIRECTED PRN Medication Orders Lactated Ringer's (Ringers, Lactated) 1,000 mls @ 999 mls/hr IV ASDIRECTED BORA Last Admin: 04/17/19 18:54 Dose: 999 mls/hr Sodium Chloride (Normal Saline) 80 mls @ 3 mls/sec IV ASDIRECTED BORA Last Admin: 04/17/19 19:24 Dose: 3 mls/sec Iopamidol (Isovue-300 (61%)) 100 ml IV . DIRECTED BORA Last Admin: 04/17/19 19:24 Dose: 100 ml Sodium Chloride (Saline Flush) 10 ml FLUSH ASDIRECTED PRN PRN Reason: Keep Vein Open Last Admin: 04/17/19 21:13 Dose: 10 ml Admin: 04/17/19 19:24 Dose: 10 ml Labs: Laboratory Tests 04/17/19 04/17/19 04/17/19 Range/Units 18:58 18:58 18:58 WBC 5.7 (4.5-11.0) K/uL RBC 3.33 L (4.30-5.90) M/uL Hgb 8.1 L D (12.0-15.0) g/dL Hct 26.8 L (40.0-54.0) % MCV 81 (80-98) fL MCH 24 L (27-31) pg MCHC 30 L (32-36) % Plt Count 617 H (150-400) K/uL Neut % (Auto) 60 (36-66) % Lymph % (Auto) 25 (24-44) % [place] % (Auto) 12 H (2-6) % Eos % (Auto) 1 L (2-4) % Baso % (Auto) 2 H (0-1) % Sodium 137 L (140-148) mmol/L Potassium 3.5 L (3.6-5.2) mmol/L Chloride 98 L (100-108) mmol/L Carbon Dioxide 29 (21-32) mmol/L Anion Gap 13.5 (5.0-14.0) mmol/L BUN 5 L (7-18) mg/dL Creatinine 0.6 L (0.8-1.3) mg/dL Est Cr Clr Drug Dosing 126.73 mL/min Estimated GFR (MDRD) > 60 (>60) Glucose 66 L (74-106) mg/dL Lactic Acid 1.9 (0.4-2.0) mmol/L Calcium 7.9 L (8.5-10.1) mg/dL Total Bilirubin 0.6 (0.2-1.0) mg/dL AST 83 H (15-37) U/L ALT 54 (12-78) U/L Alkaline Phosphatase 150 H (46-116) U/L Troponin I (0.000-0.056) ng/mL Total Protein 6.7 (6.4-8.2) g/dL Albumin 2.8 L (3.4-5.0) g/dL Globulin 3.9 H (2.3-3.5) g/dL Albumin/Globulin Ratio 0.7 L (1.2-2.2) Lipase 16 L (73-393) U/L Urine Color (YELLOW) Urine Appearance (CLEAR) Urine pH (5.0-8.0) Ur Specific [place] (1.008-1.030) Urine Protein (NEGATIVE) mg/dL Urine Glucose (UA) (NEGATIVE) mg/dL Urine Ketones (NEGATIVE) mg/dL Urine Occult Blood (NEGATIVE) Urine Nitrite (NEGATIVE) Urine Bilirubin (NEGATIVE) Urine Urobilinogen (0.2-1.0) EU/dL Ur Leukocyte Esterase (NEGATIVE) Urine RBC (0-5) Urine WBC (0-5) Ur Epithelial Cells Amorphous Sediment Urine Bacteria Urine Mucus Urine Other Ethyl Alcohol mg/dL 04/17/19 04/17/19 04/17/19 Range/Units 18:58 18:58 21:03 WBC (4.5-11.0) K/uL RBC (4.30-5.90) M/uL Hgb (12.0-15.0) g/dL Hct (40.0-54.0) % MCV (80-98) fL MCH (27-31) pg MCHC (32-36) % Plt Count (150-400) K/uL Neut % (Auto) (36-66) % Lymph % (Auto) (24-44) % [place] % (Auto) (2-6) % Eos % (Auto) (2-4) % Baso % (Auto) (0-1) % Sodium (140-148) mmol/L Potassium (3.6-5.2) mmol/L Chloride (100-108) mmol/L Carbon Dioxide (21-32) mmol/L Anion Gap (5.0-14.0) mmol/L BUN (7-18) mg/dL Creatinine (0.8-1.3) mg/dL Est Cr Clr Drug Dosing mL/min Estimated GFR (MDRD) (>60) Glucose (74-106) mg/dL Lactic Acid (0.4-2.0) mmol/L Calcium (8.5-10.1) mg/dL Total Bilirubin (0.2-1.0) mg/dL AST (15-37) U/L ALT (12-78) U/L Alkaline Phosphatase (46-116) U/L Troponin I < 0.017 (0.000-0.056) ng/mL Total Protein (6.4-8.2) g/dL Albumin (3.4-5.0) g/dL Globulin (2.3-3.5) g/dL Albumin/Globulin Ratio (1.2-2.2) Lipase (73-393) U/L Urine Color Yellow (YELLOW) Urine Appearance Clear (CLEAR) Urine pH 7.0 (5.0-8.0) Ur Specific [place] 1.015 (1.008-1.030) Urine Protein Negative (NEGATIVE) mg/dL Urine Glucose (UA) 100 H (NEGATIVE) mg/dL Urine Ketones Negative (NEGATIVE) mg/dL Urine Occult Blood Negative (NEGATIVE) Urine Nitrite Negative (NEGATIVE) Urine Bilirubin Negative (NEGATIVE) Urine Urobilinogen 1.0 (0.2-1.0) EU/dL Ur Leukocyte Esterase Negative (NEGATIVE) Urine RBC 0-5 (0-5) Urine WBC 0-5 (0-5) Ur Epithelial Cells Rare Amorphous Sediment Not seen Urine Bacteria Not seen Urine Mucus Not seen Urine Other Ethyl Alcohol < 3 mg/dL Meds: Medications Generic Name Dose Route Start Last Admin Trade Name Freq PRN Reason Stop Dose Admin Lactated Ringer's 1,000 mls @ 999 mls/hr 04/17/19 18:45 04/17/19 18:54 Ringers, Lactated IV 999 mls/hr ASDIRECTED BORA Administration Sodium Chloride 80 mls @ 3 mls/sec 04/17/19 19:00 04/17/19 19:24 Normal Saline IV 3 mls/sec ASDIRECTED BORA Administration Iopamidol 100 ml 04/17/19 19:00 04/17/19 19:24 Isovue-300 (61%) IV 100 ml . DIRECTED BORA Administration Sodium Chloride 10 ml 04/17/19 18:55 04/17/19 21:13 Saline Flush FLUSH 10 ml ASDIRECTED PRN Administration Keep Vein Open Discontinued Medications Generic Name Dose Route Start Last Admin Trade Name Freq PRN Reason Stop Dose Admin Dextrose/Water 50 ml 04/17/19 20:08 04/17/19 20:11 Dextrose 50% In Water IVPUSH 04/17/19 20:09 50 ml ONETIME ONE Administration Dextrose/Water Confirm 04/17/19 20:10 04/17/19 20:17 Dextrose 50% In Water Administered 04/17/19 20:11 Not Given Dose 50 ml .ROUTE .STK-MED ONE Hydromorphone HCl 1 mg 04/17/19 18:46 04/17/19 18:55 Dilaudid IVPUSH 04/17/19 18:47 1 mg ONETIME ONE Administration Hydromorphone HCl 0.5 mg 04/17/19 20:53 04/17/19 21:12 Dilaudid IVPUSH 04/17/19 20:54 0.5 mg ONETIME ONE Administration Hydromorphone HCl 0.5 mg 04/17/19 21:45 Dilaudid IVPUSH 04/17/19 21:46 ONETIME ONE Ondansetron HCl 4 mg 04/17/19 18:46 04/17/19 18:56 Zofran IVPUSH 04/17/19 18:47 4 mg ONETIME ONE Administration Departure - Departure Time of Disposition: 21:50 Disposition: Home, Self-Care 01 Condition: Poor Clinical Impression: Pancreatitis, chronic Qualifiers: Pancreatitis type: unspecified pancreatitis type Qualified Code(s): K86.1 - Other chronic pancreatitis - Discharge Information Instructions: Chronic Pancreatitis Referrals: PCP,None [Primary Care Provider] - Forms: ED Department Discharge Additional Instructions: Use Percocet as needed for pain control, please follow-up with your primary care in the next 2 to 3 days for reevaluation of your chronic medical conditions Sepsis Event Note - Evaluation Sepsis Screening Result: No Definite Risk - Focused Exam Vital Signs: Vital Signs Temp Pulse Resp BP Pulse Ox 04/17/19 18:07 95.1 F L 74 16 116/74 100 Date Exam was Performed: 04/17/19 Time Exam was Performed: 21:48 - My Orders Last 24 Hours: My Active Orders 04/17/19 18:45 Lactated Ringers [Ringers, Lactated] 1,000 ml IV ASDIRECTED 04/17/19 18:55 Sodium Chloride 0.9% [Saline Flush] 10 ml FLUSH ASDIRECTED PRN 04/17/19 19:00 Iopamidol [Isovue-300 (61%)] 100 ml IV . DIRECTED Sodium Chloride 0.9% [Normal Saline] 80 ml IV ASDIRECTED - Assessment/Plan Last 24 Hours: My Active Orders 04/17/19 18:45 Lactated Ringers [Ringers, Lactated] 1,000 ml IV ASDIRECTED 04/17/19 18:55 Sodium Chloride 0.9% [Saline Flush] 10 ml FLUSH ASDIRECTED PRN 04/17/19 19:00 Iopamidol [Isovue-300 (61%)] 100 ml IV . DIRECTED Sodium Chloride 0.9% [Normal Saline] 80 ml IV ASDIRECTED Plan: Assessment Acuity = acute Site and laterality = chronic pancreatitis Etiology = unknown suspicious for underlying alcohol Manifestations = none Location of injury = Home Lab values = hemoglobin low at 8.1 consistent with normochromic anemia platelets elevated 617 consistent with thrombocytosis sodium low at 137 consistent hyponatremia potassium low at 3.5 consistent hypokalemia troponin was negative urinalysis negative CT scan shows no acute process alcohol was negative Plan I did review lab work with him he is reluctant to go home asked to be admitted to the hospital for observation however I do not have a medical reason to admit him to the hospital. He arrived by EMS and is having difficulty finding his ride back to [place]. I did provide him Percocet 5/ 1 tab p.o. 3 times daily total #6 for pain control with his chronic pancreatitis rest and follow- up with his primary care in the next 2 to 3 days for further evaluation of his chronic medical conditions This note was dictated using Clear[employer] voice recognition software please call with any questions on syntax or grammar.
[2019-04-17] MEDS ORDERED: Sodium Chloride 0.9% 80 ML IV SCH (19:00)
[2019-04-17] MEDS ORDERED: Iopamidol 612 MG/ML 100 ML Bottle IV SCH (19:00)
[2019-04-17] MEDS: Sodium Chloride 0.9% 10 ML Syringe FLUSH PRN ×2 (19:24→21:13)
[2019-04-17] MEDS ORDERED: 50% Dextrose in Water 50 ML Syringe IVPUSH ONE (20:08)
[2019-04-17] MEDS ORDERED: 50% Dextrose in Water 50 ML Syringe ONE (20:10)
--- NOTE | 2019-04-17 20:15 | CRLCT ---
INDICATION: Right upper quadrant abdominal pain. Multiple surgeries. COMPARISON: 08/10/2018. TECHNIQUE: CT abdomen and pelvis with IV contrast. 100 cc of Isovue-300. FINDINGS: Imaged lung bases are unremarkable. Severe hepatic steatosis is again present. Status post cholecystectomy. 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 Pancreatic parenchymal calcifications in the residual pancreatic head are again noted likely sequelae of chronic pancreatitis. Extensive gastric fold thickening in the body and fundus of the stomach is similar to prior exam. Circumscribed hypoattenuating renal lesions are stable, some of which are consistent with cysts and some of which are too small to characterize. No obstructing renal calculus or hydronephrosis. Adrenal glands are unremarkable. Atherosclerosis of the abdominal aorta which is nonaneurysmal. No free fluid or free air. Prostate is mildly enlarged. Urinary bladder is unremarkable. Colonic diverticulosis. Appendix is not visualized but no secondary evidence of acute appendicitis. Small bowel anastomosis is again present. No lymphadenopathy in the abdomen or pelvis. Degenerative changes in the spine most pronounced at L4-L5 and L5-S1. IMPRESSION: 1. Severe hepatic steatosis, similar to prior. 2. Redemonstration of changes status post small bowel resection. No evidence of bowel obstruction. 3. Redemonstration of gastric fold thickening, similar to prior examination. This could be due to chronic gastritis or Menetrier`s disease. 4. Mild colonic diverticulosis, similar to prior. 5. Chronic pancreatitis, and changes status post distal pancreatectomy/splenectomy, similar to prior. Please note that all CT scans at this facility use dose modulation, iterative reconstruction, and/or weight-based dosing when appropriate to reduce radiation dose to as low as reasonably achievable. Dictated by Yefri Guerrero MD @ Apr 17 2019 7:57PM Signed by Dr. Yefri Guerrero @ Apr 17 2019 8:13PM
[2019-04-17] MEDS ORDERED: HYDROmorphone 0.5 MG/0.5 ML Syringe IVPUSH ONE ×2 (20:53→21:45)
== END 2019-04-17 22:04 | disposition home or self-care (01) ==
LOC: JP.ED 18:06
DX: K86.1 Other chronic pancreatitis (principal); I10 Essential (primary) hypertension; E10.21 Type 1 diabetes mellitus with diabetic nephropathy; E10.42 Type 1 diabetes mellitus with diabetic polyneuropathy; I25.10 Atherosclerotic heart disease of native coronary artery without angina pectoris; Z79.899 Other long term (current) drug therapy; Z88.6 Allergy status to analgesic agent
CPT/HCPCS: 36415; 74177; 80053; 80307; 81001; 82962; 83605; 83690; 84484; 85025; 96361; 96374; 96375; 96376; 99285; J1170; J2405; J7050; J7120; Q9967

== ENCOUNTER 2019-05-05 14:51 | Inpatient (IN) | payer MEDICAID ==
[2019-05-05] MEDS ORDERED: HYDROmorphone 1 MG/ML Syringe IVPUSH ONE (15:05)
--- NOTE | 2019-05-05 15:13 | EDM.PDOC ---
ED HPI GENERAL MEDICAL PROBLEM - General Chief Complaint: Abdominal Pain Stated Complaint: [facility] Time Seen by Provider: 05/05/19 15:00 Source of Information: Reports: Patient, Old Records, Provider History Limitations: Reports: No Limitations - History of Present Illness INITIAL COMMENTS - FREE TEXT/NARRATIVE: 54 yo male with chronic pancreatitis presents via EMS from the [facility] for abdominal pain and low BP. Patient relates that he has had no diarrhea, fever or vomiting and has been drinking well. EMS gave 500 ml of IV fluids en route with a significant improvement in his BP. Was seen here 2.5 weeks ago for an exacerbation of his chronic pancreatitis. Onset: Today Onset Date: 05/05/19 Duration: Hour(s): Location: Reports: Abdomen Quality: Reports: Ache Severity: Moderate Improves with: Reports: Medication Worsens with: Reports: Other (uncertain) Context: Reports: Other (See HPI) Associated Symptoms: Reports: Other (light-headed). 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 (see below) (NS 500 ml IV) - Related Data Allergies Allergy/AdvReac Type Severity Reaction Status Date / Time ibuprofen AdvReac Mild Bleeding Verified 05/05/19 14:54 Home Meds: Home Meds Insulin Glarg,Human.Rec.Analog [Lantus] 20 unit SUBCUT QAM 06/10/17 [History] Propranolol [Inderal] 20 mg PO TID 06/10/17 [History] Gabapentin [Neurontin] 300 mg PO BEDTIME 08/10/18 [History] Gabapentin [Neurontin] 800 mg PO TID 08/10/18 [History] Omeprazole 40 mg PO ACBREAKFAST 04/17/19 [History] Amitriptyline [Elavil] 25 mg PO BEDTIME PRN 05/05/19 [History] Amylase/Lipase/Protease [Shawna MATTHEWS 24,000 Unit] 3 cap PO TIDAC 05/05/19 [History] DULoxetine [Cymbalta] 60 mg PO DAILY 05/05/19 [History] Ferrous Gluconate 240 mg PO BID 05/05/19 [History] Folic Acid 1 mg PO DAILY 05/05/19 [History] Furosemide [Lasix] 20 mg PO DAILY PRN 05/05/19 [History] Insulin Aspart [NovoLOG] 0 unit SUBCUT WITHMEALSANDBED 05/05/19 [History] Magnesium Chloride [Mag-64] 128 mg PO BID 05/05/19 [History] Melatonin/Pyridoxine HCl (B6) [Melatonin 5 mg Tablet] 1 each PO BEDTIME PRN [History] Thiamine [Vitamin B-1] 100 mg PO DAILY 05/05/19 [History] amLODIPine [Norvasc] 5 mg PO DAILY 05/05/19 [History] diphenhydrAMINE [Benadryl] 25 mg PO BEDTIME PRN 05/05/19 [History] Past Medical History HEENT History: Reports: Impaired Vision Cardiovascular History: Reports: CAD, Hypertension, [place], Stents Gastrointestinal History: Reports: Pancreatitis, Other (See Below) Other Gastrointestinal History: barrets esophageous, esophageal varisies Genitourinary History: Reports: Diabetic Nephropathy Musculoskeletal History: Reports: Arthritis Neurological History: Reports: Neuropathy, Diabetic, Seizure Psychiatric History: Reports: Addiction Endocrine/Metabolic History: Reports: Diabetes, Type I Hematologic History: Reports: Blood Transfusion(s) Oncologic (Cancer) History: Reports: Renal Dermatologic History: Reports: Eczema, Other (See Below) Other Dermatologic History: rash on arm - Infectious Disease History Infectious Disease History: Reports: Chicken Pox - Past Surgical History Head Surgeries/Procedures: Reports: None HEENT Surgical History: Reports: None Cardiovascular Surgical History: Reports: Coronary Artery Stent GI Surgical History: Reports: Cholecystectomy, Colonoscopy, EGD, Small Bowel, Other (See Below) Other GI Surgeries/Procedures: spleenectomy Male Surgical History: Reports: Other (See Below) Other Male Surgeries/Procedures: partial nephrectomy Endocrine Surgical History: Reports: None Neurological Surgical History: Reports: None Musculoskeletal Surgical History: Reports: None Oncologic Surgical History: Reports: None Dermatological Surgical History: Reports: None Social & Family History - Family History Family Medical History: Noncontributory - Caffeine Use Caffeine Use: Reports: Coffee, Soda, Tea Other Caffeine Use: 2-3 cups per day Caffeine Use Comment: couple cups of coffee each da - Living Situation & Occupation Living situation: Reports: Single ( from of 30 years, recent moved to [facility] from [place], [place].) ED ROS GENERAL - Review of Systems Review Of Systems: See Below Constitutional: Reports: No Symptoms HEENT: Reports: No Symptoms Respiratory: Reports: No Symptoms Cardiovascular: Reports: Lightheadedness GI/Abdominal: Reports: Abdominal Pain. Denies: Black Stool, Bloody Stool, Diarrhea, Distension, Hematemesis, Hematochezia, Nausea, Vomiting : Reports: No Symptoms Musculoskeletal: Reports: No Symptoms Skin: Reports: No Symptoms Neurological: Reports: No Symptoms ED EXAM, GI/ABD - Physical Exam Exam: See Below Exam Limited By: No Limitations General Appearance: Alert, WD/WN, No Apparent Distress Eyes: Bilateral: Normal Appearance Ears: Normal External Exam, Normal Canal, Hearing Grossly Normal, Normal TMs Nose: Normal Inspection, No Blood Throat/Mouth: Normal Inspection, Normal Lips, Normal Oropharynx, Normal Voice, No Airway Compromise Head: Atraumatic, Normocephalic Neck: Normal Inspection, Non-Tender. No: Lymphadenopathy (R), Lymphadenopathy ( L) Respiratory/Chest: No Respiratory Distress, Lungs Clear, Normal Breath Sounds, No Accessory Muscle Use Cardiovascular: Regular Rate, Rhythm, No Edema GI/Abdominal Exam: Soft, No Distention, Tender (central/epigastric), Abnormal Bowel Sounds (decreased). No: Non-Tender, Distended Extremities: Normal Inspection, Normal Range of Motion, Non-Tender, No Pedal Edema Neurological: Alert, Oriented, CN II-XII Intact, Normal Cognition, No Motor/ Sensory Deficits Psychiatric: Normal Affect, Normal Mood Skin Exam: Warm, Dry, Intact, Normal Color, No Rash Course - Vital Signs Text/Narrative:: Dr. Sandoval called @ 1615h Last Recorded V/S: Last Vital Signs Temp 36.6 C 05/05/19 15:13 Pulse 70 05/05/19 15:13 Resp 16 05/05/19 15:13 BP 116/70 05/05/19 15:13 Pulse Ox 98 05/05/19 15:13 - Orders/Labs/Meds Orders: Active Orders 24 hr Category Date Time Status UA W/MICROSCOPIC [URIN] Stat Lab 05/05/19 14:57 Ordered Magnesium Sulfate/Water [Magnesium Sulfate in Water Med 05/05/19 16:10 Active Premix] 2 gm Premix Bag 1 bag IV ONETIME NS + KCl 20mEq/L [Normal Saline with 20 mEq KCl] 1,000 Med 05/05/19 16:00 Active ml IV ASDIRECTED Medication Orders Potassium Chloride/Sodium Chloride (Normal Saline With 20 Meq Kcl) 1,000 mls @ 1,000 mls/hr IV ASDIRECTED BORA Last Admin: 05/05/19 16:16 Dose: 1,000 mls/hr Magnesium Sulfate 2 gm/ Premix 50 mls @ 12.5 mls/hr IV ONETIME ONE Stop: 05/05/19 20:09 Labs: Laboratory Tests 05/05/19 05/05/19 05/05/19 Range/Units 14:57 14:57 14:58 WBC 5.2 (4.5-11.0) K/uL RBC 3.22 L (4.30-5.90) M/uL Hgb 7.7 L (12.0-15.0) g/dL Hct 25.6 L (40.0-54.0) % MCV 80 (80-98) fL MCH 24 L (27-31) pg MCHC 30 L (32-36) % Plt Count 236 (150-400) K/uL Sodium 131 L (140-148) mmol/L Potassium 2.9 L* (3.6-5.2) mmol/L Chloride 96 L (100-108) mmol/L Carbon Dioxide 27 (21-32) mmol/L Anion Gap 10.9 (5.0-14.0) mmol/L BUN 3 L (7-18) mg/dL Creatinine 0.7 L (0.8-1.3) mg/dL Est Cr Clr Drug Dosing 107.10 mL/min Estimated GFR (MDRD) > 60 (>60) Glucose 258 H (74-106) mg/dL Calcium 7.5 L (8.5-10.1) mg/dL Magnesium (1.8-2.4) mg/dL Lipase 18 L (73-393) U/L 05/05/19 Range/Units 15:54 WBC (4.5-11.0) K/uL RBC (4.30-5.90) M/uL Hgb (12.0-15.0) g/dL Hct (40.0-54.0) % MCV (80-98) fL MCH (27-31) pg MCHC (32-36) % Plt Count (150-400) K/uL Sodium (140-148) mmol/L Potassium (3.6-5.2) mmol/L Chloride (100-108) mmol/L Carbon Dioxide (21-32) mmol/L Anion Gap (5.0-14.0) mmol/L BUN (7-18) mg/dL Creatinine (0.8-1.3) mg/dL Est Cr Clr Drug Dosing mL/min Estimated GFR (MDRD) (>60) Glucose (74-106) mg/dL Calcium (8.5-10.1) mg/dL Magnesium 1.1 L (1.8-2.4) mg/dL Lipase (73-393) U/L Meds: Medications Generic Name Dose Route Start Last Admin Trade Name Freq PRN Reason Stop Dose Admin Potassium Chloride/Sodium Chloride 1,000 mls @ 1,000 mls/hr 05/05/19 16:00 16:16 Normal Saline With 20 Meq Kcl IV 1,000 mls/hr ASDIRECTED BORA Administration Magnesium Sulfate 2 gm/ Premix 50 mls @ 12.5 mls/hr 05/05/19 16:10 IV 05/05/19 20:09 ONETIME ONE Discontinued Medications Generic Name Dose Route Start Last Admin Trade Name Freq PRN Reason Stop Dose Admin Hydromorphone HCl 1 mg 05/05/19 15:05 05/05/19 15:19 Dilaudid IVPUSH 05/05/19 15:06 1 mg ONETIME ONE Administration Magnesium Oxide 800 mg 05/05/19 16:10 Magnesium Oxide PO 05/05/19 16:11 ONETIME ONE Potassium Chloride 40 meq 05/05/19 15:47 05/05/19 15:58 Potassium Chloride PO 05/05/19 15:48 40 meq ONETIME ONE Administration Departure - Departure Time of Disposition: 16:40 Disposition: Refer to Observation Condition: Fair Clinical Impression: Hypokalemia, Hypomagnesemia Chronic pancreatitis Qualifiers: Pancreatitis type: unspecified pancreatitis type Qualified Code(s): K86.1 - Other chronic pancreatitis Anemia Qualifiers: Anemia type: unspecified type Qualified Code(s): D64.9 - Anemia, unspecified - Discharge Information *PRESCRIPTION DRUG MONITORING PROGRAM REVIEWED*: Not Applicable *COPY OF PRESCRIPTION DRUG MONITORING REPORT IN PATIENT FABIOLA: Not Applicable Referrals: PCP,None [Primary Care Provider] - Forms: ED Department Discharge Sepsis Event Note - Focused Exam Vital Signs: Vital Signs Temp Pulse Resp BP Pulse Ox 05/05/19 15:13 36.6 C 70 16 116/70 98 05/05/19 14:52 36.6 C 70 16 116/70 98 Date Exam was Performed: 05/05/19 Time Exam was Performed: 16:21 - My Orders Last 24 Hours: My Active Orders 05/05/19 14:57 UA W/MICROSCOPIC [URIN] Stat 05/05/19 16:00 NS + KCl 20mEq/L [Normal Saline with 20 mEq KCl] 1,000 ml IV ASDIRECTED 05/05/19 16:10 Magnesium Sulfate/Water [Magnesium Sulfate in Water Premix] 2 gm Premix Bag 1 bag IV ONETIME - Assessment/Plan Last 24 Hours: My Active Orders 05/05/19 14:57 UA W/MICROSCOPIC [URIN] Stat 05/05/19 16:00 NS + KCl 20mEq/L [Normal Saline with 20 mEq KCl] 1,000 ml IV ASDIRECTED 05/05/19 16:10 Magnesium Sulfate/Water [Magnesium Sulfate in Water Premix] 2 gm Premix Bag 1 bag IV ONETIME
[2019-05-05] MEDS ORDERED: Potassium Chloride 10 MEQ Cap.ER PO ONE (15:47)
[2019-05-05] MEDS ORDERED: NS + KCl 20mEq/L 1,000 ML IV SCH (16:00)
[2019-05-05] MEDS ORDERED: Magnesium Oxide 400 MG Tab PO ONE (16:10)
[2019-05-05] MEDS ORDERED: Magnesium Sulfate/Water 2 GM in Premix Bag 1 BAG IV ONE (16:10)
[2019-05-05] MEDS: HYDROmorphone 0.5 MG/0.5 ML Syringe IVPUSH ONE ×2 (16:31→16:32)
[2019-05-05] MEDS ORDERED: Pantoprazole 40 MG Vial IVPUSH ONE (17:12)
[2019-05-05] MEDS ORDERED: HYDROmorphone 0.5 MG/0.5 ML Syringe IVPUSH ONE (17:12)
--- NOTE | 2019-05-05 17:29 | PCM.HP.2 ---
H&P History of Present Illness - General Date of Service: 05/05/19 Admit Problem/Dx: Admission Diagnosis/Problem Admission Diagnosis/Problem Anemia due to blood loss Source of Information: Patient, Provider History Limitations: Reports: No Limitations - History of Present Illness Initial Comments - Free Text/Narative: CC: I was wobbly HPI: Bautista presents to the emergency room today with weakness fatigue and acute on chronic right-sided abdominal pain. Weakness has been off and on over the past few days but more impressive over the past 24 hours. He has had several falls at home because of the unsteadiness/dizziness. He feels lightheaded but does not have the sensation of vertigo. His legs have given out on him on several occasions. He does not have any pain in his legs and does not have an increase in his neuropathy symptoms. No headache or blurry vision. He has noted that his right-sided abdominal pain which usually runs about 3 out of 10 on the pain scale has increased to 7 or 8. This is a deep achy pain with some sharp shooting pains. It radiates from the right upper quadrant to the epigastrium and around to the back. No obvious triggers to make it worse. Seems to come and go in waves. The IV pain medications have helped reduce the pain. This feels like his usual chronic pancreatitis pain only worse. He has not had any nausea, vomiting or diarrhea. No fevers or chills. He has had excellent intake of both solid foods and liquids. No sick contacts. He has not noticed any blood in his stool or melena. He was initially seen in the clinic today and his blood pressure was noted to be in the upper 70s for systolic pressure. An ambulance was summoned. Blood pressure did improve after a 500 mL fluid bolus in the ambulance. In the emergency room he was found to be borderline hypotensive but improving with IV fluids. Potassium was quite low and his hemoglobin is only 7.7. Magnesium is also very low at 1.1. He will be admitted for electrolyte replacement as well as work-up and management of his anemia that is suspected to be related to GI losses. Right Abdomen Pain Score (Numeric/FACES): 7 - Related Data Allergies/Adverse Reactions: Allergies Allergy/AdvReac Type Severity Reaction Status Date / Time ibuprofen AdvReac Mild Bleeding Verified 05/05/19 14:54 Home Medications: Home Meds Insulin Glarg,Human.Rec.Analog [Lantus] 20 unit SUBCUT QAM 06/10/17 [History] Propranolol [Inderal] 20 mg PO TID 06/10/17 [History] Gabapentin [Neurontin] 300 mg PO BEDTIME 08/10/18 [History] Gabapentin [Neurontin] 800 mg PO TID 08/10/18 [History] Omeprazole 40 mg PO ACBREAKFAST 04/17/19 [History] Amitriptyline [Elavil] 25 mg PO BEDTIME PRN 05/05/19 [History] Amylase/Lipase/Protease [Shawna MATTHEWS 24,000 Unit] 3 cap PO TIDAC 05/05/19 [History] DULoxetine [Cymbalta] 60 mg PO DAILY 05/05/19 [History] Ferrous Gluconate 240 mg PO BID 05/05/19 [History] Folic Acid 1 mg PO DAILY 05/05/19 [History] Furosemide [Lasix] 20 mg PO DAILY PRN 05/05/19 [History] Insulin Aspart [NovoLOG] 0 unit SUBCUT WITHMEALSANDBED 05/05/19 [History] Magnesium Chloride [Mag-64] 128 mg PO BID 05/05/19 [History] Melatonin/Pyridoxine HCl (B6) [Melatonin 5 mg Tablet] 1 each PO BEDTIME PRN [History] Thiamine [Vitamin B-1] 100 mg PO DAILY 05/05/19 [History] amLODIPine [Norvasc] 5 mg PO DAILY 05/05/19 [History] diphenhydrAMINE [Benadryl] 25 mg PO BEDTIME PRN 05/05/19 [History] Past Medical History HEENT History: Reports: Impaired Vision Cardiovascular History: Reports: CAD, Hypertension, [place], Stents Gastrointestinal History: Reports: Pancreatitis, Other (See Below) Other Gastrointestinal History: barrets esophageous, esophageal varisies Genitourinary History: Reports: Diabetic Nephropathy Musculoskeletal History: Reports: Arthritis Neurological History: Reports: Neuropathy, Diabetic, Seizure Psychiatric History: Reports: Addiction Endocrine/Metabolic History: Reports: Diabetes, Type I Hematologic History: Reports: Blood Transfusion(s) Oncologic (Cancer) History: Reports: Renal Dermatologic History: Reports: Eczema, Other (See Below) Other Dermatologic History: rash on arm - Infectious Disease History Infectious Disease History: Reports: Chicken Pox - Past Surgical History Head Surgeries/Procedures: Reports: None HEENT Surgical History: Reports: None Cardiovascular Surgical History: Reports: Coronary Artery Stent GI Surgical History: Reports: Cholecystectomy, Colonoscopy, EGD, Small Bowel, Other (See Below) Other GI Surgeries/Procedures: spleenectomy Male Surgical History: Reports: Other (See Below) Other Male Surgeries/Procedures: partial nephrectomy Endocrine Surgical History: Reports: None Neurological Surgical History: Reports: None Musculoskeletal Surgical History: Reports: None Oncologic Surgical History: Reports: None Dermatological Surgical History: Reports: None Social & Family History - Family History Family Medical History: Noncontributory - Tobacco Use Smoking Status *Q: Current Every Day Smoker Years of Tobacco use: 2 Packs/Tins Daily: 0 Used Tobacco, but Quit: No Second Hand Smoke Exposure: No - Caffeine Use Caffeine Use: Reports: Coffee, Soda, Tea Other Caffeine Use: 2-3 cups per day Caffeine Use Comment: couple cups of coffee each da - Alcohol Use Alcohol Use History: Yes Date/Time of Last Drink Comment: no alcohol for a year - Recreational Drug Use Recreational Drug Use: No - Living Situation & Occupation Living situation: Reports: Single ( from of 30 years, recent moved to [place], [place]. from [place], [place].) H&P Review of Systems - Review of Systems: Review Of Systems: See Below Free Text/Narrative: A complete 12 point review of systems was obtained. Pertinent positives and negatives are noted in the history of present illness. All other systems were reviewed and were negative except as noted. Exam - Exam Exam: See Below - Vital Signs Vital Signs: Last Vital Signs Temp 36.6 C 05/05/19 15:13 Pulse 70 05/05/19 15:13 Resp 16 05/05/19 15:13 BP 116/70 05/05/19 15:13 Pulse Ox 98 05/05/19 15:13 Weight: 63.503 kg - Exam Quality Assessment: No: Supplemental Oxygen General: Alert, Oriented, Cooperative. No: Mild Distress HEENT: Conjunctiva Clear, Mucosa Moist & [place]. No: Scleral Icterus Neck: Supple, Trachea Midline. No: Lymphadenopathy Lungs: Clear to Auscultation, Normal Respiratory Effort Cardiovascular: Regular Rate, Regular Rhythm, Systolic Murmur GI/Abdominal Exam: Normal Bowel Sounds, Soft, No Distention, Tender (moderate RUQ and epigastrium ) Extremities: No Pedal Edema. No: Increased Warmth Peripheral Pulses: 2+: Dorsalis Pedis (L), Dorsalis Pedis (R) Skin: Warm, Dry Neuro Extensive - Mental Status: Alert, Oriented x3, Nl Response to Commands Neuro Extensive - Motor, Sensory, Reflexes: No: Dysarthria, Abnormal Motor, Tremor Psychiatric: Alert, Normal Affect - Patient Data Lab Results Last 24 hrs: Laboratory Results - last 24 hr 05/05/19 05/05/19 05/05/19 Range/Units 14:57 14:57 14:57 WBC 5.2 (4.5-11.0) K/uL RBC 3.22 L (4.30-5.90) M/uL Hgb 7.7 L (12.0-15.0) g/dL Hct 25.6 L (40.0-54.0) % MCV 80 (80-98) fL MCH 24 L (27-31) pg MCHC 30 L (32-36) % Plt Count 236 (150-400) K/uL Sodium 131 L (140-148) mmol/L Potassium 2.9 L* (3.6-5.2) mmol/L Chloride 96 L (100-108) mmol/L Carbon Dioxide 27 (21-32) mmol/L Anion Gap 10.9 (5.0-14.0) mmol/L BUN 3 L (7-18) mg/dL Creatinine 0.7 L (0.8-1.3) mg/dL Est Cr Clr Drug Dosing 107.10 mL/min Estimated GFR (MDRD) > 60 (>60) Glucose 258 H (74-106) mg/dL Calcium 7.5 L (8.5-10.1) mg/dL Magnesium (1.8-2.4) mg/dL Lipase (73-393) U/L Urine Color Yellow (YELLOW) Urine Appearance Clear (CLEAR) Urine pH 6.5 (5.0-8.0) Ur Specific [place] 1.010 (1.008-1.030) Urine Protein Negative (NEGATIVE) mg/dL Urine Glucose (UA) Negative (NEGATIVE) mg/dL Urine Ketones Negative (NEGATIVE) mg/dL Urine Occult Blood Negative (NEGATIVE) Urine Nitrite Negative (NEGATIVE) Urine Bilirubin Negative (NEGATIVE) Urine Urobilinogen 2.0 H (0.2-1.0) EU/dL Ur Leukocyte Esterase Negative (NEGATIVE) Urine RBC Not seen (0-5) Urine WBC Not seen (0-5) Ur Epithelial Cells Rare Amorphous Sediment Not seen Urine Bacteria Not seen Urine Mucus Not seen 05/05/19 05/05/19 Range/Units 14:58 15:54 WBC (4.5-11.0) K/uL RBC (4.30-5.90) M/uL Hgb (12.0-15.0) g/dL Hct (40.0-54.0) % MCV (80-98) fL MCH (27-31) pg MCHC (32-36) % Plt Count (150-400) K/uL Sodium (140-148) mmol/L Potassium (3.6-5.2) mmol/L Chloride (100-108) mmol/L Carbon Dioxide (21-32) mmol/L Anion Gap (5.0-14.0) mmol/L BUN (7-18) mg/dL Creatinine (0.8-1.3) mg/dL Est Cr Clr Drug Dosing mL/min Estimated GFR (MDRD) (>60) Glucose (74-106) mg/dL Calcium (8.5-10.1) mg/dL Magnesium 1.1 L (1.8-2.4) mg/dL Lipase 18 L (73-393) U/L Urine Color (YELLOW) Urine Appearance (CLEAR) Urine pH (5.0-8.0) Ur Specific [place] (1.008-1.030) Urine Protein (NEGATIVE) mg/dL Urine Glucose (UA) (NEGATIVE) mg/dL Urine Ketones (NEGATIVE) mg/dL Urine Occult Blood (NEGATIVE) Urine Nitrite (NEGATIVE) Urine Bilirubin (NEGATIVE) Urine Urobilinogen (0.2-1.0) EU/dL Ur Leukocyte Esterase (NEGATIVE) Urine RBC (0-5) Urine WBC (0-5) Ur Epithelial Cells Amorphous Sediment Urine Bacteria Urine Mucus Result Diagrams: 05/05/19 14:57 05/05/19 14:57 Hong Results Last 24 hrs: Microbiology 05/05/19 15:33 Stool Occult Blood (HONG) - Final Stool / Feces - Stool, Formed Sepsis Event Note - Evaluation Sepsis Screening Result: No Definite Risk - Focused Exam Vital Signs: Vital Signs Temp Pulse Resp BP Pulse Ox 05/05/19 15:13 36.6 C 70 16 116/70 98 05/05/19 14:52 36.6 C 70 16 116/70 98 Date Exam was Performed: 05/05/19 Time Exam was Performed: 17:35 *Q Meaningful Use (ADM) - VTE *Q VTE Pharmacological Contraindications *Q: Active Hemorrhage - VTE Risk Assess *Q Each Risk Factor Represents 1 Point: Age 41 - 59 years Total Score 1 Point Risk Factors: 1 Each Risk Factor Represents 2 Points: None Total Score 2 Point Risk Factors: 0 Each Risk Factor Represents 3 Points: None Total Score 3 Point Risk Factors: 0 Each Risk Factor Represents 5 Points: None Total Score 5 Point Risk Factors: 0 Venous Thromboembolism Risk Factor Score *Q: 1 - Problem List (1) Anemia due to blood loss, acute SNOMED Code(s): 576755314 ICD Code: D62 - ACUTE POSTHEMORRHAGIC ANEMIA Status: Acute Current Visit : Yes (2) Hypokalemia SNOMED Code(s): 35452220 ICD Code: E87.6 - HYPOKALEMIA Status: Acute Current Visit: Yes (3) Hypomagnesemia SNOMED Code(s): 736386808 ICD Code: E83.42 - HYPOMAGNESEMIA Status: Acute Current Visit: Yes (4) Pancreatitis, chronic SNOMED Code(s): 777873183 ICD Code: K86.1 - OTHER CHRONIC PANCREATITIS Status: Chronic Current Visit: Yes Qualifiers: Pancreatitis type: alcohol induced Qualified Code(s): K86.0 - Alcohol- induced chronic pancreatitis (5) IDDM (insulin dependent diabetes mellitus) SNOMED Code(s): 61042457 ICD Code: [id number] - Status: Chronic Current Visit: Yes Problem List Initiated/Reviewed/Updated: Yes Orders Last 24hrs: Active Orders 24 hr Category Date Time Status Patient Status Manage Transfer [TRANSFER] Routine ADT 05/05/19 17:14 Ordered FERRITIN [CHEM] Stat Lab 05/05/19 16:31 Ordered IRON/TIBC [CHEM] Stat Lab 05/05/19 16:31 Ordered Magnesium Sulfate/Water [Magnesium Sulfate in Water Med 05/05/19 16:10 Active Premix] 2 gm Premix Bag 1 bag IV ONETIME NS + KCl 20mEq/L [Normal Saline with 20 mEq KCl] 1,000 Med 05/05/19 16:00 Active ml IV ASDIRECTED Resuscitation Status Routine Resus Stat 05/05/19 17:17 Ordered Medication Orders Potassium Chloride/Sodium Chloride (Normal Saline With 20 Meq Kcl) 1,000 mls @ 1,000 mls/hr IV ASDIRECTED [facility] Last Admin: 05/05/19 16:16 Dose: 1,000 mls/hr Magnesium Sulfate 2 gm/ Premix 50 mls @ 12.5 mls/hr IV ONETIME ONE Stop: 05/05/19 20:09 Last Admin: 05/05/19 16:39 Dose: 12.5 mls/hr Assessment/Plan Comment:: ASSESSMENT AND PLAN - Anemia due to blood loss, suspected-history of gastritis and duodenitis. Also history of bleeding esophageal varices but these were treated with embolectomy years ago. No varices seen on the last EGD 2 years ago. Hemoglobin has dropped from 12 down to around 8 over the past several months with no obvious source of bleeding but I suspect he has a gastrointestinal source. I believe he is significantly symptomatic from his anemia and would benefit from a blood transfusion. -Transfuse 1 unit of packed red blood cells -Check iron and ferritin prior to transfusion -IV PPI -EGD with Dr. Lowery in the morning -Repeat hemoglobin in the morning after transfusion Acute on chronic pancreatitis-increase in pain from baseline. Recent CT was unremarkable. Feels like usual pancreatitis pain. -Symptomatic management -IV fluids Hypokalemia-significant decrease in his potassium from baseline with no obvious cause. Could be poor absorption. Intake has been reported to be adequate. No obvious source of loss. He has received 60 mEq in the emergency room. -IV fluids with potassium overnight -Repeat level in the morning Hypomagnesemia-no recent diarrhea. May be poor intake or poor absorption. He received 2 g in the emergency room. -Supplement over the next 24 hours Insulin-dependent diabetes mellitus-sugars have been acceptable recently. -Continue long-acting insulin in the morning -Sliding scale insulin per carbohydrate count -4 times daily Accu-Cheks Maintenance issues - - DVT prophylaxis -mechanical with active hemorrhage suspected - GI prophylaxis -IV PPI - Nutrition - full liquids today, nothing by mouth after midnight - Toussaint catheter -not indicated CODE STATUS -full code Admission justification -this patient will be admitted for inpatient services and is medically appropriate meeting medical necessity for inpatient admission as outlined in my documentation. I reasonably expect the patient will require inpatient services that span a period time over 2 midnights. I reasonably expect this patient to be discharged or transferred within 96 hours after admission to the [facility]. Disposition -anticipate discharge home after the hospital stay Primary care physician -Dorie Sandoval M.D. - Mortality Measure Prognosis:: Good
[2019-05-05] MEDS ORDERED: Amitriptyline 25 MG Tab PO PRN (18:08)
[2019-05-05] MEDS ORDERED: Ondansetron 4 MG/2 ML SDV IV PRN (18:08)
[2019-05-05] MEDS ORDERED: LORazepam 2 MG/ML SDV IVPUSH PRN (18:08)
[2019-05-05] MEDS ORDERED: Melatonin 3 MG Tab PO PRN (18:08)
[2019-05-05] MEDS ORDERED: Albuterol 0.083% 2.5 MG/3 ML Neb Soln NEB PRN (18:08)
[2019-05-05] MEDS ORDERED: Ondansetron 4 MG Tab.DIS PO PRN (18:08)
[2019-05-05] MEDS ORDERED: Magnesium Hydroxide 400 MG/5 ML Susp 30 ML Cup PO PRN (18:08)
[2019-05-05] MEDS ORDERED: Acetaminophen 325 MG Tab PO PRN (18:08)
[2019-05-05] MEDS: Sodium Chloride 0.9% with KCl 1,000 ML IV SCH (18:53)
[2019-05-05] MEDS: Insulin Lispro 100 Unit/ML 3 ML KwikPen SUBCUT SCH (20:08)
[2019-05-05] MEDS: Gabapentin 300 MG Cap PO SCH (20:10)
[2019-05-05] MEDS: HYDROmorphone 1 MG/ML Syringe IVPUSH PRN ×2 (20:22→23:31)
[2019-05-05] MEDS ORDERED: Hypromellose 0.3% Ophth Soln 15 ML Bottle EYEBOTH PRN (20:31)
[2019-05-05] MEDS: Magnesium Sulfate/Water 2 GM in Premix Bag 1 BAG IV SCH (21:47)
[2019-05-06] MEDS ORDERED: diphenhydrAMINE 50 MG/ML SDV IVPUSH PRN (00:25)
[2019-05-06] MEDS: Magnesium Sulfate/Water 2 GM in Premix Bag 1 BAG IV SCH ×3 (03:29→17:14)
[2019-05-06] MEDS: Sodium Chloride 0.9% with KCl 1,000 ML IV SCH (03:33)
[2019-05-06] MEDS: HYDROmorphone 1 MG/ML Syringe IVPUSH PRN ×4 (03:42→11:20)
[2019-05-06] MEDS ORDERED: Pantoprazole 40 MG Vial IV SCH ×2 (07:00→08:00)
[2019-05-06] MEDS ORDERED: Gabapentin 400 MG Cap PO SCH (08:00)
[2019-05-06] MEDS ORDERED: Propofol 200 MG/20 ML SDV ONE (08:47)
[2019-05-06] MEDS ORDERED: fentaNYL 100 MCG/2 ML SDV ONE (08:47)
[2019-05-06] MEDS ORDERED: Midazolam 1 MG/ML 2 ML SDV ONE (08:47)
[2019-05-06] MEDS: Amylase/Lipase/Protease 12,000 Unit Cap.CR PO SCH ×3 (08:56→17:13)
[2019-05-06] MEDS: DULoxetine 30 MG Cap PO SCH ×2 (08:56→11:34)
[2019-05-06] MEDS: Folic Acid 1 MG Tab PO SCH (08:56)
[2019-05-06] MEDS: Thiamine 100 MG Tab PO SCH (08:56)
[2019-05-06] MEDS: Gabapentin 400 MG Cap PO SCH ×3 (08:56→17:15)
[2019-05-06] MEDS ORDERED: Lactated Ringers 1,000 ML ONE (09:50)
--- NOTE | 2019-05-06 11:09 | PCM.PN ---
- General Info Date of Service: 05/06/19 Subjective Update: No acute events overnight. No episodes of hematemesis or melena. Hemoglobin did improve after blood transfusion yesterday. Abdominal pain is slightly more intense today. No nausea or vomiting. EGD revealed some duodenal varices but was otherwise unremarkable with no source of active or recent bleeding identified. Functional Status: Reports: Pain Controlled - Review of Systems General: Denies: Fever Gastrointestinal: Reports: Abdominal Pain. Denies: Diarrhea, Nausea - Patient Data Vitals - Most Recent: Last Vital Signs Temp 35.9 C L 05/06/19 10:33 Pulse 71 05/06/19 10:33 Resp 18 05/06/19 10:33 BP 139/83 05/06/19 10:33 Pulse Ox 96 05/06/19 10:33 Weight - Most Recent: 72.575 kg I&O - Last 24 Hours: Intake & Output 05/05/19 05/06/19 05/06/19 22:59 06:59 14:59 Intake Total 530 1495 Output Total 250 700 Balance 530 1245 -700 Lab Results Last 24 Hours: Laboratory Results - last 24 hr 05/05/19 05/05/19 05/05/19 Range/Units 14:57 14:57 14:57 WBC 5.2 (4.5-11.0) K/uL RBC 3.22 L (4.30-5.90) M/uL Hgb 7.7 L (12.0-15.0) g/dL Hct 25.6 L (40.0-54.0) % MCV 80 (80-98) fL MCH 24 L (27-31) pg MCHC 30 L (32-36) % Plt Count 236 (150-400) K/uL Sodium 131 L (140-148) mmol/L Potassium 2.9 L* (3.6-5.2) mmol/L Chloride 96 L (100-108) mmol/L Carbon Dioxide 27 (21-32) mmol/L Anion Gap 10.9 (5.0-14.0) mmol/L BUN 3 L (7-18) mg/dL Creatinine 0.7 L (0.8-1.3) mg/dL Est Cr Clr Drug Dosing 107.10 mL/min Estimated GFR (MDRD) > 60 (>60) Glucose 258 H (74-106) mg/dL Calcium 7.5 L (8.5-10.1) mg/dL Magnesium (1.8-2.4) mg/dL Iron (65-175) ug/dL TIBC (250-450) ug/dl % Saturation (20-55) % Ferritin (8-388) ng/ml Lipase (73-393) U/L Urine Color Yellow (YELLOW) Urine Appearance Clear (CLEAR) Urine pH 6.5 (5.0-8.0) Ur Specific [place] 1.010 (1.008-1.030) Urine Protein Negative (NEGATIVE) mg/dL Urine Glucose (UA) Negative (NEGATIVE) mg/dL Urine Ketones Negative (NEGATIVE) mg/dL Urine Occult Blood Negative (NEGATIVE) Urine Nitrite Negative (NEGATIVE) Urine Bilirubin Negative (NEGATIVE) Urine Urobilinogen 2.0 H (0.2-1.0) EU/dL Ur Leukocyte Esterase Negative (NEGATIVE) Urine RBC Not seen (0-5) Urine WBC Not seen (0-5) Ur Epithelial Cells Rare Amorphous Sediment Not seen Urine Bacteria Not seen Urine Mucus Not seen Blood Type Gel Antibody Screen Crossmatch 05/05/19 05/05/19 05/05/19 Range/Units 14:58 15:54 16:31 WBC (4.5-11.0) K/uL RBC (4.30-5.90) M/uL Hgb (12.0-15.0) g/dL Hct (40.0-54.0) % MCV (80-98) fL MCH (27-31) pg MCHC (32-36) % Plt Count (150-400) K/uL Sodium (140-148) mmol/L Potassium (3.6-5.2) mmol/L Chloride (100-108) mmol/L Carbon Dioxide (21-32) mmol/L Anion Gap (5.0-14.0) mmol/L BUN (7-18) mg/dL Creatinine (0.8-1.3) mg/dL Est Cr Clr Drug Dosing mL/min Estimated GFR (MDRD) (>60) Glucose (74-106) mg/dL Calcium (8.5-10.1) mg/dL Magnesium 1.1 L (1.8-2.4) mg/dL Iron 10 L (65-175) ug/dL TIBC 317 (250-450) ug/dl % Saturation 3 L (20-55) % Ferritin (8-388) ng/ml Lipase 18 L (73-393) U/L Urine Color (YELLOW) Urine Appearance (CLEAR) Urine pH (5.0-8.0) Ur Specific [place] (1.008-1.030) Urine Protein (NEGATIVE) mg/dL Urine Glucose (UA) (NEGATIVE) mg/dL Urine Ketones (NEGATIVE) mg/dL Urine Occult Blood (NEGATIVE) Urine Nitrite (NEGATIVE) Urine Bilirubin (NEGATIVE) Urine Urobilinogen (0.2-1.0) EU/dL Ur Leukocyte Esterase (NEGATIVE) Urine RBC (0-5) Urine WBC (0-5) Ur Epithelial Cells Amorphous Sediment Urine Bacteria Urine Mucus Blood Type Gel Antibody Screen Crossmatch 05/05/19 05/05/19 05/06/19 Range/Units 16:31 17:15 04:10 WBC 6.1 (4.5-11.0) K/uL RBC 3.86 L (4.30-5.90) M/uL Hgb 9.3 L (12.0-15.0) g/dL Hct 30.6 L (40.0-54.0) % MCV 79 L (80-98) fL MCH 24 L (27-31) pg MCHC 30 L (32-36) % Plt Count (150-400) K/uL Sodium (140-148) mmol/L Potassium (3.6-5.2) mmol/L Chloride (100-108) mmol/L Carbon Dioxide (21-32) mmol/L Anion Gap (5.0-14.0) mmol/L BUN (7-18) mg/dL Creatinine (0.8-1.3) mg/dL Est Cr Clr Drug Dosing mL/min Estimated GFR (MDRD) (>60) Glucose (74-106) mg/dL Calcium (8.5-10.1) mg/dL Magnesium (1.8-2.4) mg/dL Iron (65-175) ug/dL TIBC (250-450) ug/dl % Saturation (20-55) % Ferritin 45 (8-388) ng/ml Lipase (73-393) U/L Urine Color (YELLOW) Urine Appearance (CLEAR) Urine pH (5.0-8.0) Ur Specific [place] (1.008-1.030) Urine Protein (NEGATIVE) mg/dL Urine Glucose (UA) (NEGATIVE) mg/dL Urine Ketones (NEGATIVE) mg/dL Urine Occult Blood (NEGATIVE) Urine Nitrite (NEGATIVE) Urine Bilirubin (NEGATIVE) Urine Urobilinogen (0.2-1.0) EU/dL Ur Leukocyte Esterase (NEGATIVE) Urine RBC (0-5) Urine WBC (0-5) Ur Epithelial Cells Amorphous Sediment Urine Bacteria Urine Mucus Blood Type O NEGATIVE Gel Antibody Screen Negative Crossmatch See Detail 05/06/19 Range/Units 04:10 WBC (4.5-11.0) K/uL RBC (4.30-5.90) M/uL Hgb (12.0-15.0) g/dL Hct (40.0-54.0) % MCV (80-98) fL MCH (27-31) pg MCHC (32-36) % Plt Count (150-400) K/uL Sodium 131 L (140-148) mmol/L Potassium 5.0 (3.6-5.2) mmol/L Chloride 100 (100-108) mmol/L Carbon Dioxide 23 (21-32) mmol/L Anion Gap 13.0 (5.0-14.0) mmol/L BUN 2 L (7-18) mg/dL Creatinine 0.5 L (0.8-1.3) mg/dL Est Cr Clr Drug Dosing 171.36 mL/min Estimated GFR (MDRD) > 60 (>60) Glucose 217 H (74-106) mg/dL Calcium 7.2 L (8.5-10.1) mg/dL Magnesium (1.8-2.4) mg/dL Iron (65-175) ug/dL TIBC (250-450) ug/dl % Saturation (20-55) % Ferritin (8-388) ng/ml Lipase (73-393) U/L Urine Color (YELLOW) Urine Appearance (CLEAR) Urine pH (5.0-8.0) Ur Specific [place] (1.008-1.030) Urine Protein (NEGATIVE) mg/dL Urine Glucose (UA) (NEGATIVE) mg/dL Urine Ketones (NEGATIVE) mg/dL Urine Occult Blood (NEGATIVE) Urine Nitrite (NEGATIVE) Urine Bilirubin (NEGATIVE) Urine Urobilinogen (0.2-1.0) EU/dL Ur Leukocyte Esterase (NEGATIVE) Urine RBC (0-5) Urine WBC (0-5) Ur Epithelial Cells Amorphous Sediment Urine Bacteria Urine Mucus Blood Type Gel Antibody Screen Crossmatch [place] Results Last 24 Hours: Microbiology 05/05/19 15:33 Stool Occult Blood (HONG) - Final Stool / Feces - Stool, Formed Med Orders - Current: Current Medications Acetaminophen (Tylenol) 650 mg PO Q4H PRN PRN Reason: Pain (Mild 1-3)/fever Albuterol (Proventil Neb Soln) 2.5 mg NEB Q4H PRN PRN Reason: Shortness Of Breath/wheezing Amitriptyline HCl (Elavil) 25 mg PO BEDTIME PRN PRN Reason: Sleep Lipase/Protease/Amylase (Creon Dr 12,000 Units) 6 cap PO TIDAC [facility] Last Admin: 05/06/19 08:56 Dose: Not Given Artificial Tears (Genteal Mild To Moderate Ophth Soln) 0 ml EYEBOTH Q1H PRN PRN Reason: Dry Eyes Last Admin: 05/05/19 20:59 Dose: 1 drop Bisacodyl (Dulcolax) 10 mg PO ONETIME ONE Stop: 05/06/19 13:01 Diphenhydramine HCl (Benadryl) 25 - 50 mg IVPUSH Q6H PRN PRN Reason: Itching Last Admin: 05/06/19 00:55 Dose: 50 mg Duloxetine HCl (Cymbalta) 60 mg PO DAILY [facility] Last Admin: 05/06/19 08:56 Dose: Not Given Folic Acid (Folic Acid) 1 mg PO DAILY [facility] Last Admin: 05/06/19 08:56 Dose: Not Given Gabapentin (Neurontin) 300 mg PO BEDTIME [facility] Last Admin: 05/05/19 20:10 Dose: 300 mg Gabapentin (Neurontin) 800 mg PO TID@0800,1200,1600 [facility] Last Admin: 05/06/19 08:56 Dose: Not Given Hydromorphone HCl (Dilaudid) 1 mg IVPUSH Q2H PRN PRN Reason: Pain (severe 7-10) Last Admin: 05/06/19 08:44 Dose: 1 mg Hydromorphone HCl (Dilaudid) 2 mg PO Q3H PRN PRN Reason: Pain (moderate 4-6) Magnesium Sulfate 2 gm/ Premix 50 mls @ 12.5 mls/hr IV Q6H [facility] Stop: 05/06/19 19:59 Last Admin: 05/06/19 03:29 Dose: 12.5 mls/hr Insulin Glargine (Lantus Solostar) 20 units SUBCUT DAILY [facility] Insulin Human Lispro (Humalog) 0 unit SUBCUT QIDACANDBED [facility]; Protocol Last Admin: 05/05/19 20:08 Dose: 4 units Lorazepam (Ativan) 0.5 mg IVPUSH Q4H PRN PRN Reason: Nausea/Vomiting Magnesium Hydroxide (Milk Of Magnesia) 30 ml PO Q12H PRN PRN Reason: Constipation Melatonin (Melatonin) 9 mg PO BEDTIME PRN PRN Reason: Sleep Ondansetron HCl (Zofran Odt) 4 mg PO Q6H PRN PRN Reason: Nausea able to take PO Ondansetron HCl (Zofran) 4 mg IV Q6H PRN PRN Reason: Nausea/Vomiting Pantoprazole Sodium (Protonix) 40 mg PO DAILY@0730 [facility] Polyethylene Glycol (Miralax) 238 gm PO ONETIME ONE Stop: 05/06/19 13:01 Senna/Docusate Sodium (Senna Plus) 1 tab PO BID PRN PRN Reason: Constipation Thiamine HCl (Vitamin B-1) 100 mg PO DAILY [facility] Last Admin: 05/06/19 08:56 Dose: Not Given Discontinued Medications Fentanyl (Sublimaze) Confirm Administered Dose 100 mcg .ROUTE .STK-MED ONE Stop: 05/06/19 08:48 Hydromorphone HCl (Dilaudid) 1 mg IVPUSH ONETIME ONE Stop: 05/05/19 15:06 Last Admin: 05/05/19 15:19 Dose: 1 mg Hydromorphone HCl (Dilaudid) 0.5 mg IVPUSH ONETIME ONE Stop: 05/05/19 16:27 Last Admin: 05/05/19 16:32 Dose: 0.5 mg Hydromorphone HCl (Dilaudid) 0.5 mg IVPUSH ONETIME ONE Stop: 05/05/19 17:13 Last Admin: 05/05/19 17:31 Dose: 0.5 mg Potassium Chloride/Sodium Chloride (Normal Saline With 20 Meq Kcl) 1,000 mls @ 1,000 mls/hr IV ASDIRECTED [facility] Last Admin: 05/05/19 16:16 Dose: 1,000 mls/hr Magnesium Sulfate 2 gm/ Premix 50 mls @ 12.5 mls/hr IV ONETIME ONE Stop: 05/05/19 20:09 Last Admin: 05/05/19 16:39 Dose: 12.5 mls/hr Potassium Chloride/Sodium Chloride (Normal Saline With 40 Meq Kcl) 1,000 mls @ 125 mls/hr IV ASDIRECTED [facility] Last Admin: 05/06/19 03:33 Dose: 125 mls/hr Lactated Ringer's (Ringers, Lactated) Confirm Administered Dose 1,000 mls @ as directed .ROUTE .STK-MED ONE Stop: 05/06/19 09:51 Magnesium Oxide (Magnesium Oxide) 800 mg PO ONETIME ONE Stop: 05/05/19 16:11 Last Admin: 05/05/19 16:30 Dose: 800 mg Midazolam HCl (Versed 1 Mg/Ml) Confirm Administered Dose 2 mg .ROUTE .STK-MED ONE Stop: 05/06/19 08:48 Pantoprazole Sodium (Protonix Iv) 40 mg IVPUSH ONETIME ONE Stop: 05/05/19 17:13 Last Admin: 05/05/19 17:32 Dose: 40 mg Pantoprazole Sodium (Protonix Iv) 40 mg IV Q12H [facility] Last Admin: 05/06/19 08:16 Dose: 40 mg Potassium Chloride (Potassium Chloride) 40 meq PO ONETIME ONE Stop: 05/05/19 15:48 Last Admin: 05/05/19 15:58 Dose: 40 meq Propofol (Diprivan 20 Ml) Confirm Administered Dose 200 mg .ROUTE .STK-MED ONE Stop: 05/06/19 08:48 - Exam Quality Assessment: No: Supplemental Oxygen General: Alert, Oriented, Cooperative, No Acute Distress Lungs: Normal Respiratory Effort Cardiovascular: Regular Rate, Regular Rhythm GI/Abdominal Exam: Soft, No Distention Extremities: No Pedal Edema Psy/Mental Status: Alert, Normal Affect Sepsis Event Note - Evaluation Sepsis Screening Result: No Definite Risk - Focused Exam Vital Signs: Vital Signs Temp Temp Temp Pulse Pulse Resp BP 05/06/19 10:33 35.9 C L 71 18 05/06/19 07:38 35.7 C L 89 12 05/06/19 03:00 35.5 C L 83 16 130/83 05/05/19 23:30 35.3 C L 73 16 126/78 05/05/19 23:10 35.7 C L 72 16 125/78 BP Pulse Ox 05/06/19 10:33 139/83 96 05/06/19 07:38 146/96 H 99 05/06/19 03:00 100 05/05/19 23:30 97 05/05/19 23:10 Date Exam was Performed: 05/06/19 Time Exam was Performed: 13:30 - Problem List & Annotations (1) Anemia due to blood loss, acute SNOMED Code(s): 732122197 Code(s): D62 - ACUTE POSTHEMORRHAGIC ANEMIA Status: Acute Current Visit: Yes (2) Hypokalemia SNOMED Code(s): 25782563 Code(s): E87.6 - HYPOKALEMIA Status: Acute Current Visit: Yes (3) Hypomagnesemia SNOMED Code(s): 653260542 Code(s): E83.42 - HYPOMAGNESEMIA Status: Acute Current Visit: Yes (4) Pancreatitis, chronic SNOMED Code(s): 121094458 Code(s): K86.1 - OTHER CHRONIC PANCREATITIS Status: Chronic Current Visit : Yes Qualifiers: Pancreatitis type: alcohol induced Qualified Code(s): K86.0 - Alcohol- induced chronic pancreatitis (5) IDDM (insulin dependent diabetes mellitus) SNOMED Code(s): 91834061 Code(s): VXP8409 - Status: Chronic Current Visit: Yes (6) Iron deficiency SNOMED Code(s): 84817834 Code(s): E61.1 - IRON DEFICIENCY Status: Acute Current Visit: Yes - Problem List Review Problem List Initiated/Reviewed/Updated: Yes - My Orders Last 24 Hours: My Active Orders 05/05/19 17:15 PATIENT RETYPE [BBK] Stat RED BLOOD CELLS LP [BBK] Stat TYPE AND SCREEN [BBK] Stat 05/05/19 17:17 Resuscitation Status Routine 05/05/19 18:08 Patient Status [ADT] Routine Antiembolic Devices [RC] .Routine Communication Order [RC] PRN Communication Order [RC] PRN Diabetes Education [RC] Click to Edit Intake and Output [RC] QSHIFT Notify Provider Consults [RC] ASDIRECTED Notify Provider Vital Signs [RC] ASDIRECTED Notify Provider [RC] PRN Oxygen Therapy [RC] PRN RT Aerosol Therapy [RC] ASDIRECTED Up With Assistance [RC] ASDIRECTED VTE/DVT Education [RC] Per Unit Routine Vital Signs [RC] Q4H Consult to Physician [CONS] Routine Acetaminophen [Tylenol] 650 mg PO Q4H PRN Albuterol [Proventil Neb Soln] 2.5 mg NEB Q4H PRN Amitriptyline [Elavil] 25 mg PO BEDTIME PRN Docusate Sodium/Sennosides [Senna Plus] 1 tab PO BID PRN HYDROmorphone [Dilaudid] 1 mg IVPUSH Q2H PRN HYDROmorphone [Dilaudid] 2 mg PO Q3H PRN LORazepam [Ativan] 0.5 mg IVPUSH Q4H PRN Magnesium Hydroxide [Milk of Magnesia] 30 ml PO Q12H PRN Melatonin 9 mg PO BEDTIME PRN Ondansetron [Zofran ODT] 4 mg PO Q6H PRN Ondansetron [Zofran] 4 mg IV Q6H PRN Sequential Compression Device [OM.PC] Routine Transfuse Red Blood Cells [COMM] Routine VTE Pharmacological Contraindications [AST] Routine 05/05/19 20:00 Insulin Lispro [HumaLOG] See Protocol SUBCUT QIDACANDBED 05/05/19 20:31 Hypromellose [GenTeal Mild to Moderate Ophth Soln] 0 ml EYEBOTH Q1H PRN 05/05/19 21:00 Gabapentin [Neurontin] 300 mg PO BEDTIME 05/05/19 22:00 Magnesium Sulfate/Water [Magnesium Sulfate in Water Premix] 2 gm Premix Bag 1 bag IV Q6H 05/06/19 07:30 Amylase/Lipase/Protease [Shawna MATTHEWS 12,000 Units] 6 cap PO TIDAC 05/06/19 08:00 Gabapentin [Neurontin] 800 mg PO TID@0800,1200,1600 05/06/19 09:00 DULoxetine [Cymbalta] 60 mg PO DAILY Folic Acid 1 mg PO DAILY Thiamine [Vitamin B-1] 100 mg PO DAILY 05/06/19 10:00 Insulin Glarg,Human.Rec.Analog [LantUS Solostar] 20 units SUBCUT DAILY 05/06/19 10:39 Convert IV to Saline Lock [OM.PC] Routine 05/06/19 10:40 Discontinue Telemetry Monitoring [Cardiac Monitoring Discontinue] [RC] Click to Edit 05/06/19 13:00 bisacodyL [Dulcolax] 10 mg PO ONETIME ONE polyethylene glycoL 3350 [MiraLAX] 238 gm PO ONETIME ONE 05/06/19 Dinner Nothing per Oral After Midnight Diet [DIET] 05/06/19 Lunch Clear Liquid Diet [DIET] 05/07/19 05:00 BASIC METABOLIC PANEL,BMP [CHEM] Timed CBC W/O DIFF,HEMOGRAM [HEME] Timed (1) 05/07/19 07:30 Pantoprazole [ProTONIX] 40 mg PO DAILY@0730 - Plan Plan:: ASSESSMENT AND PLAN - Anemia due to blood loss with iron deficiency-responded well to transfusion of 1 unit of packed red blood cells yesterday. No evidence for hematemesis or melena since hospital admission. EGD today did not reveal source of bleeding. -Colon prep today and colonoscopy in the morning -Hemoglobin in the morning -Continue PPI Acute on chronic pancreatitis-pain slightly more intense today but otherwise he has been stable. -Symptomatic management -Saline lock IV Hypokalemia-impressive improvement with supplementation overnight. -Saline lock IV -Repeat level in the morning Hypomagnesemia-no recent diarrhea. Tolerating supplementation since admission. -Continue supplementation Insulin-dependent diabetes mellitus-sugars have been acceptable. -Continue long-acting insulin in the morning -Sliding scale insulin per carbohydrate count -4 times daily Accu-Cheks Maintenance issues - - DVT prophylaxis -mechanical with active hemorrhage suspected - GI prophylaxis -PPI - Nutrition -clear liquids today, nothing by mouth after midnight Disposition -anticipate discharge home after the hospital stay Shahzad Sandoval M.D.
[2019-05-06] MEDS: Insulin Lispro 100 Unit/ML 3 ML KwikPen SUBCUT SCH ×4 (11:13→20:53)
[2019-05-06] MEDS: Insulin Glargine,Human Rec. Analog 100 Units/ML 3 ML Pen SUBCUT SCH (11:36)
[2019-05-06] MEDS ORDERED: Bisacodyl 5 MG Tab PO ONE (13:00)
[2019-05-06] MEDS ORDERED: Polyethylene Glycol 3350 Powder 238 GM Bot PO ONE (13:00)
[2019-05-06] MEDS: HYDROmorphone 2 MG Tab PO PRN ×3 (14:39→20:52)
[2019-05-06] MEDS: Gabapentin 300 MG Cap PO SCH (20:52)
[2019-05-07] MEDS: HYDROmorphone 1 MG/ML Syringe IVPUSH PRN ×3 (01:21→08:16)
[2019-05-07] MEDS ORDERED: Pantoprazole 40 MG Tab.CR PO SCH (07:30)
[2019-05-07] MEDS: Amylase/Lipase/Protease 12,000 Unit Cap.CR PO SCH ×2 (08:02→11:58)
[2019-05-07] MEDS: Gabapentin 400 MG Cap PO SCH ×2 (08:02→12:01)
[2019-05-07] MEDS: Folic Acid 1 MG Tab PO SCH (08:02)
[2019-05-07] MEDS: DULoxetine 30 MG Cap PO SCH (08:02)
[2019-05-07] MEDS: Thiamine 100 MG Tab PO SCH (08:03)
[2019-05-07] MEDS ORDERED: fentaNYL 100 MCG/2 ML SDV ONE (08:29)
[2019-05-07] MEDS ORDERED: Midazolam 1 MG/ML 2 ML SDV ONE (08:29)
[2019-05-07] MEDS ORDERED: Propofol 200 MG/20 ML SDV ONE (08:29)
[2019-05-07] MEDS ORDERED: Lactated Ringers 1,000 ML ONE (08:55)
[2019-05-07] MEDS ORDERED: Potassium Chloride 20 MEQ Tab.ER PO ONE (10:00)
[2019-05-07] MEDS: Insulin Glargine,Human Rec. Analog 100 Units/ML 3 ML Pen SUBCUT SCH (11:37)
[2019-05-07] MEDS: Insulin Lispro 100 Unit/ML 3 ML KwikPen SUBCUT SCH ×2 (11:37→12:44)
[2019-05-07] MEDS: HYDROmorphone 2 MG Tab PO PRN ×2 (11:57→14:26)
--- NOTE | 2019-05-07 13:26 | PCM.DCSUM1 ---
Discharge Summary - Hospital Course Brief History: 54-year-old male with history of chronic pancreatitis who presented with weakness and fatigue. He was admitted for management of iron deficient anemia as well as hypokalemia and hypomagnesemia. Diagnosis: Stroke: No - Discharge Data Discharge Date: 05/07/19 Discharge Disposition: Home, Self-Care 01 Condition: Good - Referral to Home Health Primary Care Physician: PCP None - Discharge Diagnosis/Problem(s) (1) Anemia due to blood loss, acute SNOMED Code(s): 754861748 ICD Code: D62 - ACUTE POSTHEMORRHAGIC ANEMIA Status: Acute Current Visit : Yes (2) Hypokalemia SNOMED Code(s): 53181060 ICD Code: E87.6 - HYPOKALEMIA Status: Acute Current Visit: Yes (3) Hypomagnesemia SNOMED Code(s): 920080977 ICD Code: E83.42 - HYPOMAGNESEMIA Status: Acute Current Visit: Yes (4) Pancreatitis, chronic SNOMED Code(s): 874517059 ICD Code: K86.1 - OTHER CHRONIC PANCREATITIS Status: Chronic Current Visit: Yes Qualifiers: Pancreatitis type: alcohol induced Qualified Code(s): K86.0 - Alcohol- induced chronic pancreatitis (5) IDDM (insulin dependent diabetes mellitus) SNOMED Code(s): 99139626 ICD Code: [id number] - Status: Chronic Current Visit: Yes (6) Iron deficiency SNOMED Code(s): 63450136 ICD Code: E61.1 - IRON DEFICIENCY Status: Acute Current Visit: Yes - Patient Summary/Data Consults: Consultations 05/05/19 18:08 Consult to Physician [CONS] Routine Consulting Provider: Ed Lowery Call Completed to Consulting Physician: Yes Reason for Consult: anemia, supect GI loss Person Notified: RW Date Notified: 05/05/19 Special Instructions: EGD in am Hospital Course: Bautista presented to the emergency room with generalized weakness and fatigue. Work-up in the emergency room revealed hemoglobin of less than 8 and iron deficiency as well as significant hypokalemia and hypomagnesemia. He did receive some potassium and magnesium supplementation in the emergency room but was admitted for further management and work-up. There was no evidence for hemolysis at the time of presentation. I suspected his anemia was related to acute and/or chronic blood loss versus potentially an absorption issue. We did continue to supplement his abnormal electrolytes after admission. We did end up transfusing 1 unit of packed red blood cells given his significant weakness as well as his initial hypotension. His blood pressure did respond nicely to the blood transfusion. Anemia improved with the blood transfusion as well. There has been no obvious bleeding during the course of the hospital stay. His hemoglobin has remained stable. We did perform an EGD in the morning after admission which showed some duodenal varices but no gastric varices. There is no evidence for active or recent bleeding. With the normal EGD we did prep him for colonoscopy and on the second morning he had a colonoscopy which was unremarkable. There is no evidence for recent or current bleeding. His electrolytes have improved with supplementation. His hemoglobin has been stable. There is no evidence for ongoing bleeding. I do not have a definite source for the bleeding. The patient feels comfortable going home at this time. His weakness has essentially resolved. He is not on any blood thinning medications. His hemoglobin was low 2 and half weeks ago and this event leading to blood loss may have happened several weeks ago. If he has additional difficulties upper GI capsule endoscopy could be considered versus a tagged red blood cell scan if he is actively bleeding. For now he feels well and everything seems to be stable so is going to be going home. He will be on a regular diet. I did increase his iron supplement to 325 mg twice daily. He has follow-up scheduled tomorrow. - Patient Instructions Diet: Regular Diet as Tolerated Activity: As Tolerated Driving: Do Not Drive (if taking pain pills) Showering/Bathing: May Shower Notify Provider of: Fever, Increased Pain, Nausea and/or Vomiting Other/Special Instructions: 1. You were in the hospital for management of iron deficiency anemia that is thought secondary to acute and/or chronic blood loss from your gastrointestinal tract. We did not find a definite source of bleeding. Both your colonoscopy and EGD did not show any evidence of recent or active bleeding. Your hemoglobin has been stable for the past couple of days. You should have your hemoglobin rechecked in approximately 1 week. 2. Start taking ferrous sulfate 325 mg twice daily. This should replace your old iron supplement. 3. Continue your usual home medications as previously prescribed. 4. Follow up as scheduled with your primary care provider tomorrow. - Discharge Plan *PRESCRIPTION DRUG MONITORING PROGRAM REVIEWED*: Not Applicable *COPY OF PRESCRIPTION DRUG MONITORING REPORT IN PATIENT FABIOLA: Not Applicable Prescriptions/Med Rec: Ferrous Sulfate 325 mg PO BIDAC #60 tablet Hydrocodone/Acetaminophen [Hydrocodon-Acetaminophen 5-325] 1 each PO Q4H PRN # 10 tablet PRN Reason: Pain Home Medications: Home Meds Insulin Glarg,Human.Rec.Analog [Lantus] 20 unit SUBCUT QAM 06/10/17 [History] Propranolol [Inderal] 20 mg PO TID 06/10/17 [History] Gabapentin [Neurontin] 300 mg PO BEDTIME 08/10/18 [History] Gabapentin [Neurontin] 800 mg PO TID 08/10/18 [History] Omeprazole 40 mg PO ACBREAKFAST 04/17/19 [History] Amitriptyline [Elavil] 25 mg PO BEDTIME PRN 05/05/19 [History] Amylase/Lipase/Protease [Shawna MATTHEWS 24,000 Unit] 3 cap PO TIDAC 05/05/19 [History] DULoxetine [Cymbalta] 60 mg PO DAILY 05/05/19 [History] Folic Acid 1 mg PO DAILY 05/05/19 [History] Furosemide [Lasix] 20 mg PO DAILY PRN 05/05/19 [History] Insulin Aspart [NovoLOG] 0 unit SUBCUT WITHMEALSANDBED 05/05/19 [History] Magnesium Chloride [Mag-64] 128 mg PO BID 05/05/19 [History] Melatonin/Pyridoxine HCl (B6) [Melatonin 5 mg Tablet] 1 each PO BEDTIME PRN [History] Thiamine [Vitamin B-1] 100 mg PO DAILY 05/05/19 [History] amLODIPine [Norvasc] 5 mg PO DAILY 05/05/19 [History] diphenhydrAMINE [Benadryl] 25 mg PO BEDTIME PRN 05/05/19 [History] Ferrous Sulfate 325 mg PO BIDAC #60 tablet 05/07/19 [Rx] Hydrocodone/Acetaminophen [Hydrocodon-Acetaminophen 5-325] 1 each PO Q4H PRN # 10 tablet 05/07/19 [Rx] Oxygen Therapy Mode: Room Air Patient Handouts: Preventing Iron Deficiency Anemia, Adult Referrals: Ed Lowery MD [Physician] - (Follow up EGD in 1 month ) PCP,None [Primary Care Provider] - (f/u as scheduled tomorrow ) - Discharge Summary/Plan Comment DC Time >30 min.: No - Patient Data Vitals - Most Recent: Last Vital Signs Temp 35.1 C L 05/07/19 12:06 Pulse 74 05/07/19 12:06 Resp 16 05/07/19 12:06 BP 156/85 H 05/07/19 12:06 Pulse Ox 100 05/07/19 12:06 Weight - Most Recent: 72.575 kg I&O - Last 24 hours: Intake & Output 05/06/19 05/07/19 05/07/19 22:59 06:59 14:59 Intake Total 1132 Balance 1132 Lab Results - Last 24 hrs: Laboratory Results - last 24 hr 05/07/19 05/07/19 Range/Units 04:00 04:00 WBC 6.7 (4.5-11.0) K/uL RBC 3.74 L (4.30-5.90) M/uL Hgb 8.9 L (12.0-15.0) g/dL Hct 30.6 L (40.0-54.0) % MCV 82 (80-98) fL MCH 24 L (27-31) pg MCHC 29 L (32-36) % Plt Count 221 (150-400) K/uL Sodium 137 L (140-148) mmol/L Potassium 3.5 L (3.6-5.2) mmol/L Chloride 102 (100-108) mmol/L Carbon Dioxide 29 (21-32) mmol/L Anion Gap 9.5 (5.0-14.0) mmol/L BUN 2 L (7-18) mg/dL Creatinine 0.4 L (0.8-1.3) mg/dL Est Cr Clr Drug Dosing 214.20 mL/min Estimated GFR (MDRD) > 60 (>60) Glucose 131 H (74-106) mg/dL Calcium 7.7 L (8.5-10.1) mg/dL Med Orders - Current: Current Medications Acetaminophen (Tylenol) 650 mg PO Q4H PRN PRN Reason: Pain (Mild 1-3)/fever Albuterol (Proventil Neb Soln) 2.5 mg NEB Q4H PRN PRN Reason: Shortness Of Breath/wheezing Amitriptyline HCl (Elavil) 25 mg PO BEDTIME PRN PRN Reason: Sleep Lipase/Protease/Amylase (Creon Dr 12,000 Units) 6 cap PO TIDAC [facility] Last Admin: 05/07/19 11:58 Dose: 6 cap Artificial Tears (Genteal Mild To Moderate Ophth Soln) 0 ml EYEBOTH Q1H PRN PRN Reason: Dry Eyes Last Admin: 05/05/19 20:59 Dose: 1 drop Diphenhydramine HCl (Benadryl) 25 - 50 mg IVPUSH Q6H PRN PRN Reason: Itching Last Admin: 05/06/19 00:55 Dose: 50 mg Duloxetine HCl (Cymbalta) 60 mg PO DAILY [facility] Last Admin: 05/07/19 08:02 Dose: Not Given Folic Acid (Folic Acid) 1 mg PO DAILY [facility] Last Admin: 05/07/19 08:02 Dose: Not Given Gabapentin (Neurontin) 300 mg PO BEDTIME [facility] Last Admin: 05/06/19 20:52 Dose: 300 mg Gabapentin (Neurontin) 800 mg PO TID@0800,1200,1600 [facility] Last Admin: 05/07/19 12:01 Dose: 800 mg Hydromorphone HCl (Dilaudid) 1 mg IVPUSH Q2H PRN PRN Reason: Pain (severe 7-10) Last Admin: 05/07/19 08:16 Dose: 1 mg Hydromorphone HCl (Dilaudid) 2 mg PO Q3H PRN PRN Reason: Pain (moderate 4-6) Last Admin: 05/07/19 11:57 Dose: 2 mg Insulin Glargine (Lantus Solostar) 20 units SUBCUT DAILY [facility] Last Admin: 05/07/19 11:37 Dose: Not Given Insulin Human Lispro (Humalog) 0 unit SUBCUT QIDACANDBED [facility]; Protocol Last Admin: 05/07/19 12:44 Dose: Not Given Lorazepam (Ativan) 0.5 mg IVPUSH Q4H PRN PRN Reason: Nausea/Vomiting Magnesium Hydroxide (Milk Of Magnesia) 30 ml PO Q12H PRN PRN Reason: Constipation Melatonin (Melatonin) 9 mg PO BEDTIME PRN PRN Reason: Sleep Ondansetron HCl (Zofran Odt) 4 mg PO Q6H PRN PRN Reason: Nausea able to take PO Ondansetron HCl (Zofran) 4 mg IV Q6H PRN PRN Reason: Nausea/Vomiting Pantoprazole Sodium (Protonix) 40 mg PO DAILY@0730 [facility] Last Admin: 05/07/19 08:02 Dose: Not Given Senna/Docusate Sodium (Senna Plus) 1 tab PO BID PRN PRN Reason: Constipation Thiamine HCl (Vitamin B-1) 100 mg PO DAILY [facility] Last Admin: 05/07/19 08:03 Dose: Not Given Discontinued Medications Bisacodyl (Dulcolax) 10 mg PO ONETIME ONE Stop: 05/06/19 13:01 Last Admin: 05/06/19 14:39 Dose: 10 mg Fentanyl (Sublimaze) Confirm Administered Dose 100 mcg .ROUTE .STK-MED ONE Stop: 05/06/19 08:48 Fentanyl (Sublimaze) Confirm Administered Dose 100 mcg .ROUTE .STK-MED ONE Stop: 05/07/19 08:30 Hydromorphone HCl (Dilaudid) 1 mg IVPUSH ONETIME ONE Stop: 05/05/19 15:06 Last Admin: 05/05/19 15:19 Dose: 1 mg Hydromorphone HCl (Dilaudid) 0.5 mg IVPUSH ONETIME ONE Stop: 05/05/19 16:27 Last Admin: 05/05/19 16:32 Dose: 0.5 mg Hydromorphone HCl (Dilaudid) 0.5 mg IVPUSH ONETIME ONE Stop: 05/05/19 17:13 Last Admin: 05/05/19 17:31 Dose: 0.5 mg Potassium Chloride/Sodium Chloride (Normal Saline With 20 Meq Kcl) 1,000 mls @ 1,000 mls/hr IV ASDIRECTED [facility] Last Admin: 05/05/19 16:16 Dose: 1,000 mls/hr Magnesium Sulfate 2 gm/ Premix 50 mls @ 12.5 mls/hr IV ONETIME ONE Stop: 05/05/19 20:09 Last Admin: 05/05/19 16:39 Dose: 12.5 mls/hr Magnesium Sulfate 2 gm/ Premix 50 mls @ 12.5 mls/hr IV Q6H [facility] Stop: 05/06/19 19:59 Last Admin: 05/06/19 17:14 Dose: 12.5 mls/hr Potassium Chloride/Sodium Chloride (Normal Saline With 40 Meq Kcl) 1,000 mls @ 125 mls/hr IV ASDIRECTED [facility] Last Admin: 05/06/19 03:33 Dose: 125 mls/hr Lactated Ringer's (Ringers, Lactated) Confirm Administered Dose 1,000 mls @ as directed .ROUTE .STK-MED ONE Stop: 05/06/19 09:51 Lactated Ringer's (Ringers, Lactated) Confirm Administered Dose 1,000 mls @ as directed .ROUTE .STK-MED ONE Stop: 05/07/19 08:56 Magnesium Oxide (Magnesium Oxide) 800 mg PO ONETIME ONE Stop: 05/05/19 16:11 Last Admin: 05/05/19 16:30 Dose: 800 mg Midazolam HCl (Versed 1 Mg/Ml) Confirm Administered Dose 2 mg .ROUTE .STK-MED ONE Stop: 05/06/19 08:48 Midazolam HCl (Versed 1 Mg/Ml) Confirm Administered Dose 2 mg .ROUTE .STK-MED ONE Stop: 05/07/19 08:30 Pantoprazole Sodium (Protonix Iv) 40 mg IVPUSH ONETIME ONE Stop: 05/05/19 17:13 Last Admin: 05/05/19 17:32 Dose: 40 mg Pantoprazole Sodium (Protonix Iv) 40 mg IV Q12H [facility] Last Admin: 05/06/19 08:16 Dose: 40 mg Polyethylene Glycol (Miralax) 238 gm PO ONETIME ONE Stop: 05/06/19 13:01 Last Admin: 05/06/19 14:39 Dose: 238 gm Potassium Chloride (Potassium Chloride) 40 meq PO ONETIME ONE Stop: 05/05/19 15:48 Last Admin: 05/05/19 15:58 Dose: 40 meq Potassium Chloride (Klor-Con M20) 40 meq PO ONETIME ONE Stop: 05/07/19 10:01 Last Admin: 05/07/19 11:57 Dose: 40 meq Propofol (Diprivan 20 Ml) Confirm Administered Dose 200 mg .ROUTE .STK-MED ONE Stop: 05/06/19 08:48 Propofol (Diprivan 20 Ml) Confirm Administered Dose 200 mg .ROUTE .STK-MED ONE Stop: 05/07/19 08:30 *Q Meaningful Use (DIS) - VTE *Q VTE Pharmacological Contraindications *Q: Active Hemorrhage
--- NOTE | 2019-05-08 08:08 | OR ---
JDATE OF PROCEDURE: 05/05/2019 SURGEON: Ed Lowery MD PROCEDURE: Colonoscopy. FINDINGS: Normal colonoscopy. COMPLICATIONS: None. CONFERENCE MANAGER: None. ANESTHESIA: MAC. PREOPERATIVE DIAGNOSIS: Anemia. POSTOPERATIVE DIAGNOSIS: Anemia. RISKS: Risks, benefits, alternatives, and limitations including, but not limited to infection, bleeding, perforation were explained to the patient, who wished to proceed. PROCEDURE IN DETAIL: The patient was placed in left lateral decubitus position. Digital rectal exam was performed without any abnormality. Scope was introduced and advanced atraumatically to the ileocecal valve. Scope was brought back through the ascending, transverse, descending colon, and retroflexed. No evidence of old or new blood. No masses. No polyps. No abnormalities on retroflexion. No diverticulosis. The patient tolerated the procedure well. Ed Lowery MD /[id number]
--- NOTE | 2019-05-08 08:30 | OR ---
DATE OF PROCEDURE: 05/06/2019 SURGEON: Ed Lowery MD PROCEDURE: Esophagogastroduodenoscopy. FINDINGS: 1. No obvious etiology of anemia. 2. Prominent varices in duodenum, less in the esophagus. 3. Tongue-like reflux consistent with gastroesophageal reflux disease versus Chavez's esophagus. RISKS: Risks, benefits, alternatives, and limitations including, but not limited to infection, bleeding, and perforation were explained to the patient, who then wished to proceed. PROCEDURE IN DETAIL: The patient was placed again in a left lateral decubitus position. EGD scope was introduced and advanced atraumatically to second part of the duodenum. The patient had a very prominent most likely what were duodenal varices. There was no ulceration. Within the stomach itself, there was no gastritis or ulceration. No significant hiatal hernia. The GE junction showed multiple columns of probable reflux versus Chavez's esophagus. These were biopsied in all 4 quadrants using cold biopsy forceps. The remainder of the esophagus was normal. The patient tolerated the procedure well. Ed Lowery MD /[id number]
== END 2019-05-07 15:45 | disposition home or self-care (01) | DRG 811 ==
LOC: JP.ED 14:51 → JP.MS 17:14
PROVIDERS: ADMIT Internal Medicine; ATTEND Internal Medicine
PROC: 30233N1 Transfusion of Nonautologous Red Blood Cells into Peripheral Vein, Percutaneous Approach (ICD-10-PCS; principal; 2019-05-05)
PROC: 0DJD8ZZ Inspection of Lower Intestinal Tract, Via Natural or Artificial Opening Endoscopic (ICD-10-PCS; 2019-05-05)
PROC: 0DB98ZX Excision of Duodenum, Via Natural or Artificial Opening Endoscopic, Diagnostic (ICD-10-PCS; 2019-05-06)
DX: D62 Acute posthemorrhagic anemia (principal); K85.20 Alcohol induced acute pancreatitis without necrosis or infection; K86.0 Alcohol-induced chronic pancreatitis; I86.8 Varicose veins of other specified sites; R29.6 Repeated falls; H54.7 Unspecified visual loss; I25.10 Atherosclerotic heart disease of native coronary artery without angina pectoris; I10 Essential (primary) hypertension; M19.90 Unspecified osteoarthritis, unspecified site; E10.40 Type 1 diabetes mellitus with diabetic neuropathy, unspecified; E10.21 Type 1 diabetes mellitus with diabetic nephropathy; F17.210 Nicotine dependence, cigarettes, uncomplicated; E87.6 Hypokalemia; E83.42 Hypomagnesemia; D50.9 Iron deficiency anemia, unspecified; Z95.818 Presence of other cardiac implants and grafts; I25.2 Old myocardial infarction; Z88.6 Allergy status to analgesic agent; Z85.53 Personal history of malignant neoplasm of renal pelvis; Z90.49 Acquired absence of other specified parts of digestive tract; Z90.81 Acquired absence of spleen; Z90.5 Acquired absence of kidney; Z79.899 Other long term (current) drug therapy
CPT/HCPCS: 36415; 36430; 80048; 81001; 82272; 82728; 82962; 83550; 83690; 83735; 85027; 86850; 86900; 86901; 86920; 86922; 96365; 96375; 96376; 99285-25; A9270-GY; C9113; J1170; J1200; J1815; J1815-GY; J2250; J2704; J3010; J3475; J3480; J7120; P9016

== ENCOUNTER 2019-05-20 23:32 | Inpatient (IN) | payer MEDICAID ==
[2019-05-21] MEDS ORDERED: Lactated Ringers 1,000 ML IV ONE (00:05)
[2019-05-21] MEDS ORDERED: HYDROmorphone 1 MG/ML Syringe IVPUSH ONE (00:10)
--- NOTE | 2019-05-21 00:16 | EDM.PDOC ---
ED HPI GENERAL MEDICAL PROBLEM - General Chief Complaint: Abdominal Pain Stated Complaint: MEDICAL [facility] Time Seen by Provider: 05/21/19 00:00 Source of Information: Reports: Patient, Old Records, RN History Limitations: Reports: No Limitations - History of Present Illness INITIAL COMMENTS - FREE TEXT/NARRATIVE: 54 yo male with a pHx of alcohol abuse, hypokalemia, hypomagnesemia, and pancreatitis presents with 10 hrs of progressive RUQ pain and tremors. No nausea or fevers. Has drank some ETOH recently. Onset: Gradual Onset Date: 05/20/19 Duration: Hour(s): (10), Getting Worse Location: Reports: Abdomen (RUQ) Quality: Reports: Ache Severity: Severe Improves with: Reports: None Worsens with: Reports: Other (time) Context: Denies: Other (See HPI) Associated Symptoms: Denies: Fever/Chills, Nausea/Vomiting, Rash Treatments GLOBAL PRESIDENT: Reports: Other (see below) (none) Right Abdominal Pain Score (Numeric/FACES): 10 - Related Data Allergies Allergy/AdvReac Type Severity Reaction Status Date / Time ibuprofen AdvReac Mild Bleeding Verified 05/05/19 14:54 Home Meds: Home Meds Insulin Glarg,Human.Rec.Analog [Lantus] 20 unit SUBCUT QAM 06/10/17 [History] Propranolol [Inderal] 20 mg PO TID 06/10/17 [History] Gabapentin [Neurontin] 300 mg PO BEDTIME 08/10/18 [History] Gabapentin [Neurontin] 800 mg PO TID 08/10/18 [History] Omeprazole 40 mg PO ACBREAKFAST 04/17/19 [History] Amitriptyline [Elavil] 25 mg PO BEDTIME PRN 05/05/19 [History] Amylase/Lipase/Protease [Shawna MATTHEWS 24,000 Unit] 3 cap PO TIDAC 05/05/19 [History] DULoxetine [Cymbalta] 60 mg PO DAILY 05/05/19 [History] Folic Acid 1 mg PO DAILY 05/05/19 [History] Furosemide [Lasix] 20 mg PO DAILY PRN 05/05/19 [History] Insulin Aspart [NovoLOG] 0 unit SUBCUT WITHMEALSANDBED 05/05/19 [History] Magnesium Chloride [Mag-64] 128 mg PO BID 05/05/19 [History] Melatonin/Pyridoxine HCl (B6) [Melatonin 5 mg Tablet] 1 each PO BEDTIME PRN [History] Thiamine [Vitamin B-1] 100 mg PO DAILY 05/05/19 [History] amLODIPine [Norvasc] 5 mg PO DAILY 05/05/19 [History] diphenhydrAMINE [Benadryl] 25 mg PO BEDTIME PRN 05/05/19 [History] Ferrous Sulfate 325 mg PO BIDAC #60 tablet 05/07/19 [Rx] Past Medical History HEENT History: Reports: Impaired Vision Cardiovascular History: Reports: CAD, Hypertension, CA, Stents Gastrointestinal History: Reports: Pancreatitis, Other (See Below) Other Gastrointestinal History: barrets esophageous, esophageal varisies Genitourinary History: Reports: Diabetic Nephropathy Musculoskeletal History: Reports: Arthritis Neurological History: Reports: Neuropathy, Diabetic, Seizure Psychiatric History: Reports: Addiction Endocrine/Metabolic History: Reports: Diabetes, Type I Hematologic History: Reports: Blood Transfusion(s) Oncologic (Cancer) History: Reports: Renal Dermatologic History: Reports: Eczema, Other (See Below) Other Dermatologic History: rash on arm - Infectious Disease History Infectious Disease History: Reports: Chicken Pox - Past Surgical History Head Surgeries/Procedures: Reports: None HEENT Surgical History: Reports: None Cardiovascular Surgical History: Reports: Coronary Artery Stent GI Surgical History: Reports: Cholecystectomy, Colonoscopy, EGD, Small Bowel, Other (See Below) Other GI Surgeries/Procedures: spleenectomy Male Surgical History: Reports: Other (See Below) Other Male Surgeries/Procedures: partial nephrectomy Endocrine Surgical History: Reports: None Neurological Surgical History: Reports: None Musculoskeletal Surgical History: Reports: None Oncologic Surgical History: Reports: None Dermatological Surgical History: Reports: None Social & Family History - Family History Family Medical History: Noncontributory - Tobacco Use Smoking Status *Q: Current Every Day Smoker Years of Tobacco use: 2 Packs/Tins Daily: 0.5 - Caffeine Use Caffeine Use: Reports: Coffee Other Caffeine Use: 2-3 cups per day Caffeine Use Comment: couple cups of coffee each da - Recreational Drug Use Recreational Drug Use: No - Living Situation & Occupation Living situation: Reports: Single ( from of 30 years, recent moved to [facility] from [place], [place].) ED ROS GENERAL - Review of Systems Review Of Systems: See Below Constitutional: Reports: No Symptoms HEENT: Reports: No Symptoms Respiratory: Reports: No Symptoms Cardiovascular: Reports: No Symptoms Endocrine: Reports: No Symptoms GI/Abdominal: Reports: Abdominal Pain. Denies: Black Stool, Bloody Stool, Constipation, Diarrhea, Distension, Hematemesis, Hematochezia, Nausea, Vomiting : Reports: No Symptoms Musculoskeletal: Reports: No Symptoms Skin: Reports: No Symptoms Neurological: Reports: No Symptoms Psychiatric: Reports: No Symptoms ED EXAM, GI/ABD - Physical Exam Exam: See Below Exam Limited By: No Limitations General Appearance: Alert, WD/WN, No Apparent Distress Eyes: Bilateral: Normal Appearance Ears: Normal External Exam, Normal Canal, Hearing Grossly Normal Nose: Normal Inspection, No Blood Throat/Mouth: Normal Inspection, Normal Lips, Normal Oropharynx, Normal Voice, No Airway Compromise Head: Atraumatic, Normocephalic Neck: Normal Inspection Respiratory/Chest: No Respiratory Distress, Lungs Clear, Normal Breath Sounds, No Accessory Muscle Use Cardiovascular: Regular Rate, Rhythm, No Edema, Tachycardia GI/Abdominal Exam: No Distention, Guarding, Tender. No: Non-Tender, Distended Back Exam: Normal Inspection. No: CVA Tenderness (R), CVA Tenderness (L) Extremities: Normal Inspection, Normal Range of Motion, Non-Tender, No Pedal Edema Neurological: Alert, Oriented, CN II-XII Intact, Normal Cognition, No Motor/ Sensory Deficits Psychiatric: Normal Affect, Normal Mood Skin Exam: Warm, Dry, Intact, Normal Color, No Rash Course - Vital Signs Text/Narrative:: Dr. Sandoval called @ 0130h, will see in ER. Last Recorded V/S: Last Vital Signs Temp 36.0 C L 05/20/19 23:51 Pulse 121 H 05/20/19 23:51 Resp 18 05/20/19 23:51 BP 161/86 H 05/20/19 23:51 Pulse Ox 100 05/20/19 23:51 - Orders/Labs/Meds Orders: Active Orders 24 hr Category Date Time Status Potassium Chloride [KCL 20 MEQ in Water 100 ML] 20 meq Med 05/21/19 00:52 Active Premix Bag 1 bag IV ONETIME Medication Orders Potassium Chloride 20 meq/ (Premix) 100 mls @ 50 mls/hr IV ONETIME ONE Stop: 03/29/20 02:51 Last Admin: 05/21/19 01:19 Dose: 50 mls/hr Labs: Laboratory Tests 05/21/19 05/21/19 05/21/19 Range/Units 00:13 00:17 00:17 WBC 10.7 (4.5-11.0) K/uL RBC 3.52 L (4.30-5.90) M/uL Hgb 8.5 L (12.0-15.0) g/dL Hct 28.7 L (40.0-54.0) % MCV 82 (80-98) fL MCH 24 L (27-31) pg MCHC 30 L (32-36) % Plt Count 382 (150-400) K/uL Sodium (140-148) mmol/L Potassium (3.6-5.2) mmol/L Chloride (100-108) mmol/L Carbon Dioxide (21-32) mmol/L Anion Gap (5.0-14.0) mmol/L BUN (7-18) mg/dL Creatinine (0.8-1.3) mg/dL Est Cr Clr Drug Dosing mL/min Estimated GFR (MDRD) (>60) Glucose (74-106) mg/dL Calcium (8.5-10.1) mg/dL Magnesium (1.8-2.4) mg/dL Total Bilirubin (0.2-1.0) mg/dL AST (15-37) U/L ALT (12-78) U/L Alkaline Phosphatase (46-116) U/L Total Protein (6.4-8.2) g/dL Albumin (3.4-5.0) g/dL Globulin (2.3-3.5) g/dL Albumin/Globulin Ratio (1.2-2.2) Lipase 14 L (73-393) U/L Urine Color Yellow (YELLOW) Urine Appearance Clear (CLEAR) Urine pH 5.5 (5.0-8.0) Ur Specific [place] 1.020 (1.008-1.030) Urine Protein Negative (NEGATIVE) mg/dL Urine Glucose (UA) 500 H (NEGATIVE) mg/dL Urine Ketones Negative (NEGATIVE) mg/dL Urine Occult Blood Trace-intact H (NEGATIVE) Urine Nitrite Negative (NEGATIVE) Urine Bilirubin Negative (NEGATIVE) Urine Urobilinogen 0.2 (0.2-1.0) EU/dL Ur Leukocyte Esterase Negative (NEGATIVE) Urine RBC 0-5 (0-5) Urine WBC Not seen (0-5) Ur Epithelial Cells Rare Amorphous Sediment Not seen Urine Bacteria Not seen Urine Mucus Not seen Ethyl Alcohol mg/dL 05/21/19 05/21/19 05/21/19 Range/Units 00:17 00:17 00:17 WBC (4.5-11.0) K/uL RBC (4.30-5.90) M/uL Hgb (12.0-15.0) g/dL Hct (40.0-54.0) % MCV (80-98) fL MCH (27-31) pg MCHC (32-36) % Plt Count (150-400) K/uL Sodium 150 H (140-148) mmol/L Potassium 3.1 L (3.6-5.2) mmol/L Chloride 105 (100-108) mmol/L Carbon Dioxide 18 L (21-32) mmol/L Anion Gap 30.1 H (5.0-14.0) mmol/L BUN 4 L D (7-18) mg/dL Creatinine 1.1 D (0.8-1.3) mg/dL Est Cr Clr Drug Dosing 78.35 mL/min Estimated GFR (MDRD) > 60 (>60) Glucose 654 H* (74-106) mg/dL Calcium 7.4 L (8.5-10.1) mg/dL Magnesium 1.8 D (1.8-2.4) mg/dL Total Bilirubin 0.9 (0.2-1.0) mg/dL AST 427 H D (15-37) U/L ALT 98 H (12-78) U/L Alkaline Phosphatase 164 H (46-116) U/L Total Protein 6.5 (6.4-8.2) g/dL Albumin 2.6 L (3.4-5.0) g/dL Globulin 3.9 H (2.3-3.5) g/dL Albumin/Globulin Ratio 0.7 L (1.2-2.2) Lipase (73-393) U/L Urine Color (YELLOW) Urine Appearance (CLEAR) Urine pH (5.0-8.0) Ur Specific [place] (1.008-1.030) Urine Protein (NEGATIVE) mg/dL Urine Glucose (UA) (NEGATIVE) mg/dL Urine Ketones (NEGATIVE) mg/dL Urine Occult Blood (NEGATIVE) Urine Nitrite (NEGATIVE) Urine Bilirubin (NEGATIVE) Urine Urobilinogen (0.2-1.0) EU/dL Ur Leukocyte Esterase (NEGATIVE) Urine RBC (0-5) Urine WBC (0-5) Ur Epithelial Cells Amorphous Sediment Urine Bacteria Urine Mucus Ethyl Alcohol 152 mg/dL Meds: Medications Generic Name Dose Route Start Last Admin Trade Name Freq PRN Reason Stop Dose Admin Potassium Chloride 20 meq/ 100 mls @ 50 mls/hr 05/21/19 00:52 05/21/19 01:19 Premix IV 05/21/19 02:51 50 mls/hr ONETIME ONE Administration Discontinued Medications Generic Name Dose Route Start Last Admin Trade Name Freq PRN Reason Stop Dose Admin Hydromorphone HCl 1 mg 05/21/19 00:10 05/21/19 00:30 Dilaudid IVPUSH 05/21/19 00:11 1 mg ONETIME ONE Administration Lactated Ringer's 1,000 mls @ 1,000 mls/hr 05/21/19 00:05 05/21/19 00:30 Ringers, Lactated IV 05/21/19 01:04 1,000 mls/hr BOLUS ONE Administration Insulin Human Regular 20 unit 05/21/19 00:47 05/21/19 01:12 Humulin R SUBCUT 05/21/19 00:48 20 units ONETIME ONE Administration Lidocaine HCl Confirm 05/21/19 01:22 Xylocaine-Mpf 1% Administered 05/21/19 01:23 Dose 5 ml .ROUTE .STK-MED ONE Potassium Chloride 40 meq 05/21/19 00:54 05/21/19 01:15 Potassium Chloride PO 05/21/19 00:55 40 meq ONETIME ONE Administration Thiamine HCl 100 mg 05/21/19 00:54 05/21/19 01:15 Vitamin B-1 PO 05/21/19 00:55 100 mg ONETIME ONE Administration Departure - Departure Time of Disposition: 01:50 Disposition: Admitted As Inpatient 65 Condition: Fair Clinical Impression: Hypokalemia, Chronic anemia, Alcohol abuse, Hyperglycemia, Hypernatremia Alcoholic hepatitis Qualifiers: Ascites presence: without ascites Qualified Code(s): K70.10 - Alcoholic hepatitis without ascites Alcohol intoxication Qualifiers: Complication of substance-induced condition: with unspecified complication Qualified Code(s): F10.929 - Alcohol use, unspecified with intoxication, unspecified - Discharge Information *PRESCRIPTION DRUG MONITORING PROGRAM REVIEWED*: No *COPY OF PRESCRIPTION DRUG MONITORING REPORT IN PATIENT FABIOLA: No Referrals: PCP,None [Primary Care Provider] - Forms: ED Department Discharge Sepsis Event Note - Evaluation Sepsis Screening Result: No Definite Risk - Focused Exam Vital Signs: Vital Signs Temp Pulse Resp BP Pulse Ox 05/20/19 23:51 36.0 C L 121 H 18 161/86 H 100 Date Exam was Performed: 05/21/19 Time Exam was Performed: 01:31 - My Orders Last 24 Hours: My Active Orders 05/21/19 00:52 Potassium Chloride [KCL 20 MEQ in Water 100 ML] 20 meq Premix Bag 1 bag IV ONETIME - Assessment/Plan Last 24 Hours: My Active Orders 05/21/19 00:52 Potassium Chloride [KCL 20 MEQ in Water 100 ML] 20 meq Premix Bag 1 bag IV ONETIME
[2019-05-21] MEDS ORDERED: Insulin Regular, Human 100 Units/ML 3 ML Vial SUBCUT ONE (00:47)
[2019-05-21] MEDS ORDERED: Potassium Chloride 20 MEQ in Premix Bag 1 BAG IV ONE (00:52)
[2019-05-21] MEDS ORDERED: Potassium Chloride 10 MEQ Cap.ER PO ONE (00:54)
[2019-05-21] MEDS ORDERED: Thiamine 100 MG Tab PO ONE (00:54)
[2019-05-21] MEDS ORDERED: HYDROmorphone 0.5 MG/0.5 ML Syringe IVPUSH ONE (01:40)
[2019-05-21] MEDS ORDERED: Sodium Chloride 0.9% 1,000 ML IV SCH (01:45)
--- NOTE | 2019-05-21 02:57 | PCM.HP.2 ---
H&P History of Present Illness - General Date of Service: 05/21/19 Admit Problem/Dx: Admission Diagnosis/Problem Admission Diagnosis/Problem Alcohol withdrawal syndrome Source of Information: Patient, Provider History Limitations: Reports: No Limitations - History of Present Illness Initial Comments - Free Text/Narative: Presents to the emergency room today with acuteRick right upper quadrant abdominal pain. He reports that he had been feeling well up until this morning when he developed acute worsening of his chronic right upper quadrant abdominal pain. He describes progression from his usual level of 2-4 out of 10 pain up to 10 out of 10 pain. This was a severe sharp pain that radiates from the right upper quadrant to the back. Pain remains fairly steady with no obvious triggers to make it worse. Pain did wax and wane some but did remain fairly severe throughout the day. He did not have anything available to take at home to help with the pain. Despite having severe 10 out of 10 pain much of the day he says that his appetite was good and he was able to eat steak for supper. He reports that he had 2 margaritas this evening. He has not had any nausea or vomiting. No diarrhea. He does feel weak, especially in the legs and had to crawl to his neighbor's apartment for help this evening. He denies alcohol use other than the 2 margaritas this evening. He does endorse feeling very shaky and is obviously tremulous. Work-up in the emergency room revealed multiple electrolyte abnormalities with hypernatremia and hypokalemia. He also has a significant elevation of his AST and mild elevation of ALT. He is very tremulous and there is concern for alcohol withdrawal syndrome. Alcohol level is 150. He also has severe hyperglycemia with a blood sugar of more than 600. He will be admitted to the intensive care unit for management of suspected alcohol withdrawal as well as his hyperglycemia and electrolyte abnormalities and pain management. Right Abdominal Pain Score (Numeric/FACES): 10 - Related Data Allergies/Adverse Reactions: Allergies Allergy/AdvReac Type Severity Reaction Status Date / Time ibuprofen AdvReac Mild Bleeding Verified 05/05/19 14:54 Home Medications: Home Meds Insulin Glarg,Human.Rec.Analog [Lantus] 20 unit SUBCUT QAM 06/10/17 [History] Propranolol [Inderal] 20 mg PO TID 06/10/17 [History] Gabapentin [Neurontin] 300 mg PO BEDTIME 08/10/18 [History] Gabapentin [Neurontin] 800 mg PO TID 08/10/18 [History] Omeprazole 40 mg PO ACBREAKFAST 04/17/19 [History] Amitriptyline [Elavil] 25 mg PO BEDTIME PRN 05/05/19 [History] Amylase/Lipase/Protease [Creon DR 24,000 Unit] 3 cap PO TIDAC 05/05/19 [History] DULoxetine [Cymbalta] 60 mg PO DAILY 05/05/19 [History] Folic Acid 1 mg PO DAILY 05/05/19 [History] Furosemide [Lasix] 20 mg PO DAILY PRN 05/05/19 [History] Insulin Aspart [NovoLOG] 0 unit SUBCUT WITHMEALSANDBED 05/05/19 [History] Magnesium Chloride [Mag-64] 128 mg PO BID 05/05/19 [History] Melatonin/Pyridoxine HCl (B6) [Melatonin 5 mg Tablet] 1 each PO BEDTIME PRN [History] Thiamine [Vitamin B-1] 100 mg PO DAILY 05/05/19 [History] amLODIPine [Norvasc] 5 mg PO DAILY 05/05/19 [History] diphenhydrAMINE [Benadryl] 25 mg PO BEDTIME PRN 05/05/19 [History] Ferrous Sulfate 325 mg PO BIDAC #60 tablet 05/07/19 [Rx] Past Medical History HEENT History: Reports: Impaired Vision Cardiovascular History: Reports: CAD, Hypertension, AR, Stents Gastrointestinal History: Reports: Pancreatitis, Other (See Below) Other Gastrointestinal History: barrets esophageous, esophageal varisies Genitourinary History: Reports: Diabetic Nephropathy Musculoskeletal History: Reports: Arthritis Neurological History: Reports: Neuropathy, Diabetic, Seizure Psychiatric History: Reports: Addiction Endocrine/Metabolic History: Reports: Diabetes, Type I Hematologic History: Reports: Blood Transfusion(s) Oncologic (Cancer) History: Reports: Renal Dermatologic History: Reports: Eczema, Other (See Below) Other Dermatologic History: rash on arm - Infectious Disease History Infectious Disease History: Reports: Chicken Pox - Past Surgical History Head Surgeries/Procedures: Reports: None HEENT Surgical History: Reports: None Cardiovascular Surgical History: Reports: Coronary Artery Stent GI Surgical History: Reports: Cholecystectomy, Colonoscopy, EGD, Small Bowel, Other (See Below) Other GI Surgeries/Procedures: spleenectomy Male Surgical History: Reports: Other (See Below) Other Male Surgeries/Procedures: partial nephrectomy Endocrine Surgical History: Reports: None Neurological Surgical History: Reports: None Musculoskeletal Surgical History: Reports: None Oncologic Surgical History: Reports: None Dermatological Surgical History: Reports: None Social & Family History - Family History Family Medical History: Noncontributory - Tobacco Use Smoking Status *Q: Current Every Day Smoker Years of Tobacco use: 2 Packs/Tins Daily: 0.5 - Caffeine Use Caffeine Use: Reports: Coffee Other Caffeine Use: 2-3 cups per day Caffeine Use Comment: couple cups of coffee each da - Alcohol Use Alcohol Use History: Yes Date of Last Drink: 05/20/19 Time of Last Drink: 16:00 - Recreational Drug Use Recreational Drug Use: No - Living Situation & Occupation Living situation: Reports: Single ( from of 30 years, recent moved to [place], [place]. from [place], [place].) H&P Review of Systems - Review of Systems: Review Of Systems: See Below Free Text/Narrative: A complete 12 point review of systems was obtained. Pertinent positives and negatives are noted in the history of present illness. All other systems were reviewed and were negative except as noted. Exam - Exam Exam: See Below - Vital Signs Vital Signs: Last Vital Signs Temp 36.0 C L 05/20/19 23:51 Pulse 124 H 05/21/19 01:43 Resp 20 05/21/19 01:43 BP 163/99 H 05/21/19 01:43 Pulse Ox 100 05/21/19 01:43 Weight: 140 kg - Exam Quality Assessment: No: Supplemental Oxygen General: Alert, Oriented, Cooperative, Mild Distress HEENT: Conjunctiva Clear. No: Mucosa Moist & Underwood (dry), Scleral Icterus Neck: Supple, Trachea Midline Lungs: Clear to Auscultation, Normal Respiratory Effort Cardiovascular: Regular Rhythm, Tachycardia, Systolic Murmur GI/Abdominal Exam: Normal Bowel Sounds, Soft, No Distention, Tender (Moderately severe right upper quadrant) Back Exam: Normal Inspection, Full Range of Motion Extremities: No Pedal Edema. No: Increased Warmth Peripheral Pulses: 2+: Dorsalis Pedis (L), Dorsalis Pedis (R) Skin: Warm, Dry, Petechia (Few scattered on the right forearm and right antecubital fossa area), Wound (Small abrasions both knees) Neuro Extensive - Mental Status: Alert, Oriented x3, Nl Response to Commands Neuro Extensive - Motor, Sensory, Reflexes: Tremor, Other (Tongue fasciculations ). No: Dysarthria, Abnormal Motor Psychiatric: Alert, Anxious - Patient Data Lab Results Last 24 hrs: Laboratory Results - last 24 hr 05/21/19 05/21/19 05/21/19 Range/Units 00:13 00:17 00:17 WBC 10.7 (4.5-11.0) K/uL RBC 3.52 L (4.30-5.90) M/uL Hgb 8.5 L (12.0-15.0) g/dL Hct 28.7 L (40.0-54.0) % MCV 82 (80-98) fL MCH 24 L (27-31) pg MCHC 30 L (32-36) % Plt Count 382 (150-400) K/uL Sodium (140-148) mmol/L Potassium (3.6-5.2) mmol/L Chloride (100-108) mmol/L Carbon Dioxide (21-32) mmol/L Anion Gap (5.0-14.0) mmol/L BUN (7-18) mg/dL Creatinine (0.8-1.3) mg/dL Est Cr Clr Drug Dosing mL/min Estimated GFR (MDRD) (>60) Glucose (74-106) mg/dL Calcium (8.5-10.1) mg/dL Magnesium (1.8-2.4) mg/dL Total Bilirubin (0.2-1.0) mg/dL AST (15-37) U/L ALT (12-78) U/L Alkaline Phosphatase (46-116) U/L Total Protein (6.4-8.2) g/dL Albumin (3.4-5.0) g/dL Globulin (2.3-3.5) g/dL Albumin/Globulin Ratio (1.2-2.2) Lipase 14 L (73-393) U/L Urine Color Yellow (YELLOW) Urine Appearance Clear (CLEAR) Urine pH 5.5 (5.0-8.0) Ur Specific [place] 1.020 (1.008-1.030) Urine Protein Negative (NEGATIVE) mg/dL Urine Glucose (UA) 500 H (NEGATIVE) mg/dL Urine Ketones Negative (NEGATIVE) mg/dL Urine Occult Blood Trace-intact H (NEGATIVE) Urine Nitrite Negative (NEGATIVE) Urine Bilirubin Negative (NEGATIVE) Urine Urobilinogen 0.2 (0.2-1.0) EU/dL Ur Leukocyte Esterase Negative (NEGATIVE) Urine RBC 0-5 (0-5) Urine WBC Not seen (0-5) Ur Epithelial Cells Rare Amorphous Sediment Not seen Urine Bacteria Not seen Urine Mucus Not seen Ethyl Alcohol mg/dL 05/21/19 05/21/19 05/21/19 Range/Units 00:17 00:17 00:17 WBC (4.5-11.0) K/uL RBC (4.30-5.90) M/uL Hgb (12.0-15.0) g/dL Hct (40.0-54.0) % MCV (80-98) fL MCH (27-31) pg MCHC (32-36) % Plt Count (150-400) K/uL Sodium 150 H (140-148) mmol/L Potassium 3.1 L (3.6-5.2) mmol/L Chloride 105 (100-108) mmol/L Carbon Dioxide 18 L (21-32) mmol/L Anion Gap 30.1 H (5.0-14.0) mmol/L BUN 4 L D (7-18) mg/dL Creatinine 1.1 D (0.8-1.3) mg/dL Est Cr Clr Drug Dosing 78.35 mL/min Estimated GFR (MDRD) > 60 (>60) Glucose 654 H* (74-106) mg/dL Calcium 7.4 L (8.5-10.1) mg/dL Magnesium 1.8 D (1.8-2.4) mg/dL Total Bilirubin 0.9 (0.2-1.0) mg/dL AST 427 H D (15-37) U/L ALT 98 H (12-78) U/L Alkaline Phosphatase 164 H (46-116) U/L Total Protein 6.5 (6.4-8.2) g/dL Albumin 2.6 L (3.4-5.0) g/dL Globulin 3.9 H (2.3-3.5) g/dL Albumin/Globulin Ratio 0.7 L (1.2-2.2) Lipase (73-393) U/L Urine Color (YELLOW) Urine Appearance (CLEAR) Urine pH (5.0-8.0) Ur Specific [place] (1.008-1.030) Urine Protein (NEGATIVE) mg/dL Urine Glucose (UA) (NEGATIVE) mg/dL Urine Ketones (NEGATIVE) mg/dL Urine Occult Blood (NEGATIVE) Urine Nitrite (NEGATIVE) Urine Bilirubin (NEGATIVE) Urine Urobilinogen (0.2-1.0) EU/dL Ur Leukocyte Esterase (NEGATIVE) Urine RBC (0-5) Urine WBC (0-5) Ur Epithelial Cells Amorphous Sediment Urine Bacteria Urine Mucus Ethyl Alcohol 152 mg/dL Result Diagrams: 05/21/19 00:17 05/21/19 00:17 Sepsis Event Note - Evaluation Sepsis Screening Result: No Definite Risk - Focused Exam Vital Signs: Vital Signs Temp Pulse Resp BP Pulse Ox 05/21/19 01:43 124 H 20 163/99 H 100 05/20/19 23:51 36.0 C L 121 H 18 161/86 H 100 Date Exam was Performed: 05/21/19 Time Exam was Performed: 03:06 *Q Meaningful Use (ADM) - VTE Risk Assess *Q Each Risk Factor Represents 1 Point: Age 41 - 59 years Total Score 1 Point Risk Factors: 1 Each Risk Factor Represents 2 Points: None Total Score 2 Point Risk Factors: 0 Each Risk Factor Represents 3 Points: None Total Score 3 Point Risk Factors: 0 Each Risk Factor Represents 5 Points: None Total Score 5 Point Risk Factors: 0 Venous Thromboembolism Risk Factor Score *Q: 1 - Problem List (1) Alcohol withdrawal syndrome SNOMED Code(s): 173709176 ICD Code: F10.239 - ALCOHOL DEPENDENCE WITH WITHDRAWAL, UNSPECIFIED Status : Acute Current Visit: Yes Qualifiers: Complication of substance-induced condition: with unspecified complication Qualified Code(s): F10.239 - Alcohol dependence with withdrawal, unspecified (2) Hyperglycemia SNOMED Code(s): 92575215 ICD Code: R73.9 - HYPERGLYCEMIA, UNSPECIFIED Status: Acute Current Visit : Yes (3) Pancreatitis, chronic SNOMED Code(s): 049425457 ICD Code: K86.1 - OTHER CHRONIC PANCREATITIS Status: Chronic Current Visit: No Qualifiers: Pancreatitis type: alcohol induced Qualified Code(s): K86.0 - Alcohol- induced chronic pancreatitis (4) Hypokalemia SNOMED Code(s): 83240226 ICD Code: E87.6 - HYPOKALEMIA Status: Acute Current Visit: Yes (5) Alcoholic hepatitis SNOMED Code(s): 201655673 ICD Code: K70.10 - ALCOHOLIC HEPATITIS WITHOUT ASCITES Status: Acute Current Visit: Yes Qualifiers: Ascites presence: without ascites Qualified Code(s): K70.10 - Alcoholic hepatitis without ascites (6) Chronic anemia SNOMED Code(s): 257794525 ICD Code: D64.9 - ANEMIA, UNSPECIFIED Status: Acute Current Visit: Yes (7) Diabetes mellitus type 2, insulin dependent SNOMED Code(s): 443562110 ICD Code: E11.9 - TYPE 2 DIABETES MELLITUS WITHOUT COMPLICATIONS; Z79.4 - PUBLIC [employer] (CURRENT) USE OF INSULIN Status: Chronic Priority: Medium Current Visit: No Problem List Initiated/Reviewed/Updated: Yes Orders Last 24hrs: Active Orders 24 hr Category Date Time Status Patient Status Manage Transfer [TRANSFER] Routine ADT 05/21/19 02:45 Active Sodium Chloride 0.9% [Normal Saline] 1,000 ml Med 05/21/19 01:45 Active IV ASDIRECTED Resuscitation Status Routine Resus Stat 05/21/19 02:49 Ordered Medication Orders Sodium Chloride (Normal Saline) 1,000 mls @ 150 mls/hr IV ASDIRECTED BORA Last Admin: 05/21/19 01:50 Dose: 150 mls/hr Assessment/Plan Comment:: ASSESSMENT AND PLAN - Acute alcohol withdrawal syndrome-patient is very tremulous and has tongue fasciculations. Alcohol level still elevated at 150. He has a 4-1 AST to ALT ratio strongly suggestive of alcohol use and probable mild alcoholic hepatitis. He endorses only 2 margaritas this evening but displays very strong evidence to support acute alcohol withdrawal and has a history of heavy alcohol use in the past. He is not actively hallucinating. -CIWA protocol -Lorazepam as needed per the protocol -Continue gabapentin -Melatonin at bedtime -Supplement thiamine and folate Insulin-dependent diabetes mellitus with hyperglycemia-significant elevation of blood sugars. Patient does report significant dietary noncompliance today but reports sugars had been doing pretty well prior to that. -Recheck sugar when he gets to the intensive care unit -Continue Lantus -High-dose sliding scale insulin Acute on chronic pancreatitis-significant increase in pain from baseline likely secondary to alcohol abuse. -Pain control -Nothing by mouth other than meds and a few ice chips until pain settles down Hypokalemia-he has received a total of 60 mEq in the emergency room. -Recheck this afternoon Chronic anemia-level low but stable. -Continue iron supplement Maintenance issues - - DVT prophylaxis -mechanical - GI prophylaxis -PPI - Nutrition -n.p.o. until his pain settles down - Toussaint catheter -not indicated CODE STATUS -full code Admission justification -this patient will be admitted for inpatient services and is medically appropriate meeting medical necessity for inpatient admission as outlined in my documentation. I reasonably expect the patient will require inpatient services that span a period time over 2 midnights. I reasonably expect this patient to be discharged or transferred within 96 hours after admission to the [facility]. Disposition -I would anticipate discharge home after the hospital stay Primary care physician -Dorie Sandoval M.D. - Mortality Measure Prognosis:: Good
[2019-05-21] MEDS ORDERED: Magnesium Hydroxide 400 MG/5 ML Susp 30 ML Cup PO PRN (03:12)
[2019-05-21] MEDS ORDERED: NS + KCl 20mEq/L 1,000 ML IV SCH (03:12)
[2019-05-21] MEDS ORDERED: LORazepam 2 MG/ML SDV IVPUSH PRN (03:12)
[2019-05-21] MEDS ORDERED: Albuterol 0.083% 2.5 MG/3 ML Neb Soln NEB PRN (03:12)
[2019-05-21] MEDS ORDERED: LORazepam 1 MG Tab PO SCH (03:12)
[2019-05-21] MEDS ORDERED: Ondansetron 4 MG/2 ML SDV IV PRN (03:12)
[2019-05-21] MEDS ORDERED: Insulin Lispro 100 Unit/ML 3 ML KwikPen SUBCUT ONE (03:21)
[2019-05-21] MEDS: Acetaminophen/HYDROcodone 325-5 MG Tab PO PRN ×2 (03:41→09:17)
[2019-05-21] MEDS: LORazepam 2 MG/ML SDV IV SCH ×6 (04:28→20:45)
[2019-05-21] MEDS ORDERED: LORazepam 2 MG/ML SDV ONE (07:03)
[2019-05-21] MEDS: NS + KCl 20mEq/L 1,000 ML IV SCH ×2 (07:27→15:37)
[2019-05-21] MEDS ORDERED: Ferrous Sulfate 325 MG Tab PO SCH (07:30)
[2019-05-21] MEDS ORDERED: Amylase/Lipase/Protease 12,000 Unit Cap.CR PO SCH (07:30)
[2019-05-21] MEDS: Insulin Lispro 100 Unit/ML 3 ML KwikPen SUBCUT SCH ×4 (07:50→20:26)
[2019-05-21] MEDS: Insulin Glargine,Human Rec. Analog 100 Units/ML 3 ML Pen SUBCUT SCH (09:03)
[2019-05-21] MEDS: DULoxetine 30 MG Cap PO SCH (09:04)
[2019-05-21] MEDS: Gabapentin 400 MG Cap PO SCH ×3 (09:05→20:12)
[2019-05-21] MEDS: Folic Acid 1 MG Tab PO SCH (09:05)
[2019-05-21] MEDS: Propranolol 40 MG Tab PO SCH ×3 (09:05→20:12)
[2019-05-21] MEDS: amLODIPine 5 MG Tab PO SCH (09:05)
[2019-05-21] MEDS: Thiamine 100 MG Tab PO SCH (09:05)
[2019-05-21] MEDS: Ferrous Sulfate 325 MG Tab PO SCH ×2 (09:06→18:10)
[2019-05-21] MEDS: Pantoprazole 40 MG Tab.CR PO SCH (09:06)
[2019-05-21] MEDS: Amylase/Lipase/Protease 12,000 Unit Cap.CR PO SCH ×3 (09:06→18:10)
[2019-05-21] MEDS: Melatonin 3 MG Tab PO SCH (20:12)
[2019-05-21] MEDS ORDERED: Melatonin 3 MG Tab PO SCH (21:00)
[2019-05-21] MEDS: Gabapentin 300 MG Cap PO SCH (21:00)
[2019-05-21] MEDS: D5 1/2 NS w/ 20 mEq/L KCl 1,000 ML IV SCH (21:58)
[2019-05-22] MEDS: LORazepam 2 MG/ML SDV IV SCH ×2 (00:50→04:00)
[2019-05-22] MEDS: Acetaminophen/HYDROcodone 325-5 MG Tab PO PRN (03:59)
[2019-05-22] MEDS ORDERED: Sodium Chloride 0.9% 100 ML IV STA (04:47)
[2019-05-22] MEDS ORDERED: Iopamidol 755 Mg/ML 100 ML Bottle IV STA (04:47)
[2019-05-22] MEDS ORDERED: Piperacillin/Tazobactam 3.375 GM in Sodium Chloride 0.9% 50 ML IV SCH (06:00)
--- NOTE | 2019-05-22 06:06 | CRLCT ---
INDICATION: Hypoxia TECHNIQUE: CT chest pulmonary PE protocol acquired with IV contrast. 100 mL of Isovue 370 administered. COMPARISON: None FINDINGS: Cardiovascular structures: Limited evaluation of some subsegmental pulmonary arteries due to inadequate opacification. No large, central or segmental pulmonary embolus. Normal cardiac size. A dilated ascending aorta measuring 4.2 cm. Atherosclerotic changes including coronary artery calcifications. Mediastinum and honey: Ill-defined increased left hilar and infrahilar soft tissue density surrounding the central bronchi which could represent combination of peribronchial edema and shotty lymph nodes. Small debris in the esophagus. A small hiatal hernia is not excluded. Lungs: Consolidation of the majority of the left lower lobe with adjacent ill-defined patchy and nodular ground-glass infiltrates. Patchy ill-defined ground-glass infiltrates in the left upper lobe, right lower lobe and right middle lobe. Opacification of some left lower lobe bronchi compatible with mucous plugging or aspiration. Small debris at the sana and left mainstem bronchus. Pleura and pericardium: A small left pleural effusion and tiny right pleural fluid. Chest wall and axilla: No mass or adenopathy. Upper abdomen: Hepatic steatosis. Cholecystectomy. Metallic coils in the right hepatic lobe. Splenectomy. Significant thickening of the proximal to mid gastric wall. Mild thickening of the gastric antrum wall. Multiple small calcifications in the pancreatic head compatible with chronic calcific pancreatitis. The pancreatic body and tail are not seen, atrophic or resected. Bones: A subacute fracture of the anterior right 3rd rib. Acute or early subacute fractures of the anterior right 7th and 8th ribs. A subacute to chronic fracture of the upper sternal body. IMPRESSION: No CT evidence of a large, central or segmental pulmonary embolus. Consolidation in the left lower lobe with opacified bronchi which could represent aspiration pneumonia. Ill-defined ground-glass opacities in the left upper lobe and right lung, which could be related to aspiration pneumonia as well, however can also be seen with viral pneumonia, including COVID 19, although, bronchial opacification and pleural effusions are not typical for COVID 19. Correlate clinically. A small left, and a tiny right pleural effusions. Significant thickening of the gastric wall. Recommend follow-up evaluation. A dilated ascending aorta measuring 4.2 cm. Acute to subacute right rib fractures. A subacute to chronic sternal fracture. Imaging features can be seen with [COVID- 19 pneumonia], though are nonspecific and can occur with a variety of infectious and noninfectious processes. REFERENCE "[employer] Society of [place] Expert Consensus Statement on Reporting Chest CT Findings Related to COVID-19. Endorsed by the Society of Thoracic Radiology, the [place] [employer], and RSNA." RADIOLOGY: Cardiothoracic Imaging volume. 2, No. 2 Published Online: May 17 2019 [email or web address] The pertinent findings were discussed with Dr. Sandoval, by phone, on 05/22/2019 at 5:50 a.m.. Dictated by Ray Diaz MD @ 05/22/2019 6:04:00 AM Please note that all CT scans at this facility use dose modulation, iterative reconstruction, and/or weight-based dosing when appropriate to reduce radiation dose to as low as reasonably achievable. Dictated by: Ray Diaz MD @ 05/22/2019 06:05:22 (Electronically Signed)
[2019-05-22] MEDS: Insulin Lispro 100 Unit/ML 3 ML KwikPen SUBCUT SCH ×4 (07:27→19:53)
[2019-05-22] MEDS: Lactated Ringers 1,000 ML IV SCH ×2 (08:45→17:59)
[2019-05-22] MEDS: D5 1/2 NS w/ 20 mEq/L KCl 1,000 ML IV SCH (09:39)
[2019-05-22] MEDS: Insulin Glargine,Human Rec. Analog 100 Units/ML 3 ML Pen SUBCUT SCH (09:50)
--- NOTE | 2019-05-22 10:24 | PCM.PN ---
- General Info Date of Service: 05/22/19 Subjective Update: Mr. Munguia is a 54-year-old gentleman who was admitted early yesterday morning with abdominal pain and alcohol withdrawal. In the intervening time he is developed severe alcohol withdrawal, very confused and weak. He apparently aspirated early this morning, and developed almost immediate respiratory compromise with increased respiratory rate and hypoxia. He has received supplemental oxygen. CT scan of the chest was obtained showing evidence of pulmonary infiltrates, no pulmonary emboli. He remains lethargic and is unable to provide a meaningful history concerning symptoms or review of systems. - Patient Data Vitals - Most Recent: Last Vital Signs Temp 99.8 F 05/22/19 09:00 Pulse 87 05/22/19 09:00 Resp 16 05/22/19 09:00 BP 117/63 05/22/19 09:00 Pulse Ox 94 L 05/22/19 09:00 Weight - Most Recent: 308 lb 10.354 oz I&O - Last 24 Hours: Intake & Output 05/21/19 05/22/19 05/22/19 22:59 06:59 14:59 Intake Total 2273 1120 Balance 2273 1120 Lab Results Last 24 Hours: Laboratory Results - last 24 hr 05/22/19 05/22/19 05/22/19 Range/Units 04:28 06:35 06:35 WBC 2.8 L (4.5-11.0) K/uL RBC 3.91 L (4.30-5.90) M/uL Hgb 9.6 L (12.0-15.0) g/dL Hct 32.1 L (40.0-54.0) % MCV 82 (80-98) fL MCH 25 L (27-31) pg MCHC 30 L (32-36) % Plt Count 282 (150-400) K/uL Puncture Site Rt brachial ABG pH 7.420 (7.350-7.450) ABG pCO2 45.1 H (35.0-42.0) mmHg ABG pO2 58.7 L (75.0-100.0) mmHg ABG HCO3 28.7 H (22.0-26.0) mmol/L ABG Total CO2 26.7 (23.0-27.0) mmol/L ABG O2 Saturation 89.4 L (95.0-98.0) % ABG O2 Content 11.9 L (15.0-23.0) %vol ABG Base Excess 4.2 mm/L ABG Hemoglobin 9.7 L (13.5-18.0) g/dL ABG Oxyhemoglobin 86.9 % ABG Carboxyhemoglobin 1.7 H (0.0-1.6) % ABG Methemoglobin 1.1 % Toney Test Not performed O2 Delivery Device Non rebr mask Oxygen Flow Rate 10.0 L Sodium 146 (140-148) mmol/L Potassium 4.8 (3.6-5.2) mmol/L Chloride 110 H (100-108) mmol/L Carbon Dioxide 30 (21-32) mmol/L Anion Gap 10.8 (5.0-14.0) mmol/L BUN 5 L (7-18) mg/dL Creatinine 0.7 L (0.8-1.3) mg/dL Est Cr Clr Drug Dosing 123.12 mL/min Estimated GFR (MDRD) > 60 (>60) Glucose 185 H (74-106) mg/dL Calcium 7.2 L (8.5-10.1) mg/dL Med Orders - Current: Current Medications Hydrocodone Bitart/Acetaminophen ([place] 325-5 Mg) 1 - 2 tab PO Q4H PRN PRN Reason: Pain Last Admin: 05/21/19 09:17 Dose: 2 tab Albuterol (Proventil Neb Soln) 2.5 mg NEB Q4H PRN PRN Reason: Shortness Of Breath/wheezing Last Admin: 05/22/19 04:10 Dose: 2.5 mg Amlodipine Besylate (Norvasc) 5 mg PO DAILY [facility] Last Admin: 05/21/19 09:05 Dose: 5 mg Lipase/Protease/Amylase (Shawna Johnson 12,000 Units) 6 cap PO TIDMEALS [facility] Last Admin: 05/21/19 18:10 Dose: 6 cap Duloxetine HCl (Cymbalta) 60 mg PO DAILY [facility] Last Admin: 05/21/19 09:04 Dose: 60 mg Ferrous Sulfate (Ferrous Sulfate) 325 mg PO BIDMEALS [facility] Last Admin: 05/21/19 18:10 Dose: 325 mg Folic Acid (Folic Acid) 1 mg PO DAILY [facility] Last Admin: 05/21/19 09:05 Dose: 1 mg Gabapentin (Neurontin) 300 mg PO BEDTIME [facility] Last Admin: 05/21/19 21:00 Dose: Not Given Gabapentin (Neurontin) 800 mg PO TID [facility] Last Admin: 05/21/19 20:12 Dose: 800 mg Hydromorphone HCl (Dilaudid) 1 mg IVPUSH Q2H PRN PRN Reason: Pain (severe 7-10) Potassium Chloride/Dextrose/Sod Cl (D5 1/2 Ns W/ 20 Meq/L Kcl) 1,000 mls @ 75 mls/hr IV ASDIRECTED [facility] Last Admin: 05/22/19 09:39 Dose: 75 mls/hr Piperacillin/Tazobactam/ (Dextrose 3.375 gm/ Premix) 50 mls @ 100 mls/hr IV Q6H [facility] Lactated Ringer's (Ringers, Lactated) 1,000 mls @ 999 mls/hr IV ASDIRECTED [facility] Last Admin: 05/22/19 08:45 Dose: 999 mls/hr Insulin Glargine (Lantus Solostar) 20 units SUBCUT DAILY [facility] Last Admin: 05/22/19 09:50 Dose: 20 units Insulin Human Lispro (Humalog) 0 unit SUBCUT QIDACANDBED [facility]; Protocol Last Admin: 05/22/19 07:27 Dose: 22 units Lorazepam (Ativan) 0.5 mg IVPUSH Q4H PRN PRN Reason: Nausea/Vomiting Lorazepam (Ativan) 0 mg PO ASDIRECTED [facility]; Protocol Last Admin: 05/21/19 03:30 Dose: 2 mg Lorazepam (Ativan) 0 mg IV ASDIRECTED [facility]; Protocol Last Admin: 05/22/19 04:00 Dose: 2 mg Magnesium Hydroxide (Milk Of Magnesia) 30 ml PO Q12H PRN PRN Reason: Constipation Melatonin (Melatonin) 9 mg PO BEDTIME [facility] Last Admin: 05/21/19 20:12 Dose: 9 mg Methylprednisolone Sodium Succinate (Solu-Medrol) 40 mg IVPUSH Q8H [facility] Ondansetron HCl (Zofran Odt) 4 mg PO Q6H PRN PRN Reason: Nausea able to take PO Ondansetron HCl (Zofran) 4 mg IV Q6H PRN PRN Reason: Nausea/Vomiting Pantoprazole Sodium (Protonix) 40 mg PO ACBREAKFAST [facility] Last Admin: 05/21/19 09:06 Dose: 40 mg Propranolol HCl (Inderal) 20 mg PO TID [facility] Last Admin: 05/21/19 20:12 Dose: 20 mg Senna/Docusate Sodium (Senna Plus) 1 tab PO BID PRN PRN Reason: Constipation Thiamine HCl (Vitamin B-1) 100 mg PO DAILY [facility] Last Admin: 05/21/19 09:05 Dose: 100 mg Discontinued Medications Hydromorphone HCl (Dilaudid) 1 mg IVPUSH ONETIME ONE Stop: 05/21/19 00:11 Last Admin: 05/21/19 00:30 Dose: 1 mg Hydromorphone HCl (Dilaudid) 0.5 mg IVPUSH ONETIME ONE Stop: 05/21/19 01:41 Last Admin: 05/21/19 01:50 Dose: 0.5 mg Lactated Ringer's (Ringers, Lactated) 1,000 mls @ 1,000 mls/hr IV BOLUS ONE Stop: 05/21/19 01:04 Last Admin: 05/21/19 00:30 Dose: 1,000 mls/hr Potassium Chloride 20 meq/ (Premix) 100 mls @ 50 mls/hr IV ONETIME ONE Stop: 05/21/19 02:51 Last Admin: 05/21/19 01:19 Dose: 50 mls/hr Sodium Chloride (Normal Saline) 1,000 mls @ 150 mls/hr IV ASDIRECTED [facility] Last Admin: 05/21/19 01:50 Dose: 150 mls/hr Magnesium Sulfate 2 gm/ (Dextrose/Water) 104 mls @ 100 mls/hr IV ONETIME ONE Stop: 05/21/19 04:14 Last Admin: 05/21/19 03:55 Dose: 100 mls/hr Potassium Chloride/Sodium Chloride (Normal Saline With 20 Meq Kcl) 1,000 mls @ 125 mls/hr IV ASDIRECTED [facility] Potassium Chloride/Sodium Chloride (Normal Saline With 20 Meq Kcl) 1,000 mls @ 125 mls/hr IV ASDIRECTED [facility] Last Admin: 05/21/19 15:37 Dose: 125 mls/hr Sodium Chloride (Normal Saline) 100 mls @ 4 mls/sec IV ASDIRECTED [facility] Stop: 05/22/19 04:48 Last Admin: 05/22/19 05:12 Dose: 4 mls/sec Piperacillin Sod/Tazobactam (Sod 3.375 gm/ Sodium Chloride) 50 mls @ 100 mls/ hr IV Q6H [facility] Last Admin: 05/22/19 06:37 Dose: 100 mls/hr Insulin Human Lispro (Humalog) 0 unit SUBCUT QIDACANDBED [facility]; Protocol Last Admin: 05/21/19 11:54 Dose: 6 units Insulin Human Lispro (Humalog) 6 unit SUBCUT ONETIME ONE Stop: 05/21/19 03:22 Last Admin: 05/21/19 03:30 Dose: 6 unit Insulin Human Regular (Humulin R) 20 unit SUBCUT ONETIME ONE Stop: 05/21/19 00:48 Last Admin: 05/21/19 01:12 Dose: 20 units Iopamidol (Isovue-370 (76%)) 100 ml IV . DIRECTED STA Stop: 05/22/19 04:48 Last Admin: 05/22/19 05:11 Dose: 100 ml Lidocaine HCl (Xylocaine-Mpf 1%) Confirm Administered Dose 5 ml .ROUTE .STK-MED ONE Stop: 05/21/19 01:23 Last Admin: 05/21/19 01:33 Dose: 5 ml Lorazepam (Ativan) Confirm Administered Dose 2 mg .ROUTE .STK-MED ONE Stop: 05/21/19 07:04 Last Admin: 05/21/19 19:11 Dose: Not Given Melatonin (Melatonin) 9 mg PO BEDTIME [facility] Potassium Chloride (Potassium Chloride) 40 meq PO ONETIME ONE Stop: 05/21/19 00:55 Last Admin: 05/21/19 01:15 Dose: 40 meq Thiamine HCl (Vitamin B-1) 100 mg PO ONETIME ONE Stop: 05/21/19 00:55 Last Admin: 05/21/19 01:15 Dose: 100 mg - Exam Quality Assessment: Supplemental Oxygen, DVT Prophylaxis General: Sedated, Lethargic Lungs: Rhonchi, Wheezing. No: Normal Respiratory Effort, Rales, Rub Cardiovascular: Regular Rate, Regular Rhythm, No Murmurs GI/Abdominal Exam: Soft, Non-Tender, No Organomegaly, No Distention Extremities: Non-Tender, No Pedal Edema Sepsis Event Note - Evaluation Sepsis Screening Result: Sepsis Risk - Focused Exam Vital Signs: Vital Signs Temp Temp Pulse Resp BP Pulse Ox Pulse Ox 05/22/19 09:00 99.8 F 87 16 117/63 94 L 05/22/19 08:00 100.7 F H 90 23 H 92/60 91 L 05/22/19 06:00 97.9 F 93 23 H 107/67 99 05/22/19 04:00 97.7 F 85 30 H 160/96 H 84 L 05/22/19 02:02 96 96 05/22/19 01:57 63 13 131/87 96 05/22/19 00:00 96.4 F L 61 12 100/73 96 Date Exam was Performed: 05/22/19 Time Exam was Performed: 10:18 - Problem List Review Problem List Initiated/Reviewed/Updated: Yes - My Orders Last 24 Hours: My Active Orders 05/22/19 09:00 Lactated Ringers [Ringers, Lactated] 1,000 ml IV ASDIRECTED 05/22/19 10:00 methylPREDNISolone Sod Succ [Solu-MEDROL] 40 mg IVPUSH Q8H 05/22/19 11:15 BLOOD GAS ARTERIAL [BG] Stat 05/23/19 05:00 CBC WITH AUTO DIFF [HEME] Timed COMPREHENSIVE METABOLIC PN,CMP [CHEM] Timed MAGNESIUM [CHEM] Timed - Plan Plan:: ASSESSMENT AND PLAN Acute alcohol withdrawal syndrome-very sedated at the present time -CIWA protocol -Lorazepam as needed per the protocol -Continue gabapentin -Melatonin at bedtime -Supplement thiamine and folate Aspiration pneumonia/sepsis-aspirated during the night with water and medications. The scan shows evidence of infiltrate, no pulmonary emboli. Pressure has improved following fluid bolus. Will hold on further fluid bolus to avoid fluid overload. -Cultures pending -Zosyn as ordered Hypoxic respiratory failure-secondary to aspiration and pneumonia -Noninvasive positive pressure ventilation -ABGs in 1 hour -Supplemental oxygen as needed -Nebulizer therapy as needed Insulin-dependent diabetes mellitus with hyperglycemia-levels have come under better control with current management -4 times daily glucometers -Continue Lantus -High-dose sliding scale insulin Acute on chronic pancreatitis-significant increase in pain from baseline likely secondary to alcohol abuse. -Pain control -Nothing by mouth other than meds and a few ice chips until pain settles down Hypokalemia-he has received a total of 60 mEq in the emergency room. -Recheck this afternoon Chronic anemia-level low but stable. -Continue iron supplement Maintenance issues - - DVT prophylaxis -mechanical - GI prophylaxis -PPI - Nutrition -n.p.o. until his pain settles down - Toussaint catheter -not indicated CODE STATUS -full code Admission justification -this patient will be admitted for inpatient services and is medically appropriate meeting medical necessity for inpatient admission as outlined in my documentation. I reasonably expect the patient will require inpatient services that span a period time over 2 midnights. I reasonably expect this patient to be discharged or transferred within 96 hours after admission to the [facility]. Disposition -I would anticipate discharge home after the hospital stay Primary care physician -Dorie FLEMING
[2019-05-22] MEDS: methylPREDNISolone Sodium Succinate 40 MG/1 ML SDV IVPUSH SCH ×2 (10:40→18:04)
[2019-05-22] MEDS ORDERED: 50% Dextrose in Water 50 ML Syringe IVPUSH ONE ×5 (11:11→17:23)
[2019-05-22] MEDS: Pantoprazole 40 MG Tab.CR PO SCH (11:27)
[2019-05-22] MEDS: Gabapentin 400 MG Cap PO SCH ×3 (11:27→20:06)
[2019-05-22] MEDS: Propranolol 40 MG Tab PO SCH ×3 (11:27→20:06)
[2019-05-22] MEDS: Folic Acid 1 MG Tab PO SCH (11:27)
[2019-05-22] MEDS: Amylase/Lipase/Protease 12,000 Unit Cap.CR PO SCH ×3 (11:27→18:00)
[2019-05-22] MEDS: amLODIPine 5 MG Tab PO SCH (11:27)
[2019-05-22] MEDS: DULoxetine 30 MG Cap PO SCH (11:27)
[2019-05-22] MEDS: Ferrous Sulfate 325 MG Tab PO SCH ×2 (11:27→18:00)
[2019-05-22] MEDS: Thiamine 100 MG Tab PO SCH (11:28)
[2019-05-22] MEDS: Piperacillin/Tazobactam/Dext 3.375 GM in Premix Bag 1 BAG IV SCH ×2 (11:55→18:06)
[2019-05-22] MEDS ORDERED: 50% Dextrose in Water 50 ML Syringe ONE ×2 (13:14→19:22)
[2019-05-22] MEDS: Dextrose 5%-Lactated Ringers 1,000 ML IV SCH ×2 (14:31→22:48)
[2019-05-22] MEDS ORDERED: Lactated Ringers 1,000 ML IV SCH (17:15)
[2019-05-22] MEDS ORDERED: 50% Dextrose in Water 50 ML Syringe IVPUSH STA ×2 (19:20→21:10)
[2019-05-22] MEDS: Gabapentin 300 MG Cap PO SCH (20:06)
[2019-05-22] MEDS: Melatonin 3 MG Tab PO SCH (20:06)
[2019-05-22] MEDS: HYDROmorphone 1 MG/ML Syringe IVPUSH PRN (22:18)
[2019-05-23] MEDS: 50% Dextrose in Water 50 ML Syringe IVPUSH PRN ×3 (00:59→03:40)
[2019-05-23] MEDS: methylPREDNISolone Sodium Succinate 40 MG/1 ML SDV IVPUSH SCH ×3 (00:59→17:04)
[2019-05-23] MEDS: HYDROmorphone 1 MG/ML Syringe IVPUSH PRN ×3 (01:10→22:28)
[2019-05-23] MEDS: Piperacillin/Tazobactam/Dext 3.375 GM in Premix Bag 1 BAG IV SCH ×5 (06:03→17:04)
[2019-05-23] MEDS: Insulin Lispro 100 Unit/ML 3 ML KwikPen SUBCUT SCH ×4 (06:08→21:02)
[2019-05-23] MEDS: Dextrose 5%-Lactated Ringers 1,000 ML IV SCH ×2 (07:36→17:12)
[2019-05-23] MEDS: Gabapentin 400 MG Cap PO SCH ×3 (08:40→21:05)
[2019-05-23] MEDS: Amylase/Lipase/Protease 12,000 Unit Cap.CR PO SCH ×3 (08:40→17:01)
[2019-05-23] MEDS: Folic Acid 1 MG Tab PO SCH (08:41)
[2019-05-23] MEDS: DULoxetine 30 MG Cap PO SCH (08:42)
[2019-05-23] MEDS: Pantoprazole 40 MG Tab.CR PO SCH (08:42)
[2019-05-23] MEDS: Ferrous Sulfate 325 MG Tab PO SCH ×2 (08:42→17:03)
[2019-05-23] MEDS: Thiamine 100 MG Tab PO SCH (08:43)
[2019-05-23] MEDS: Propranolol 40 MG Tab PO SCH ×3 (08:59→21:03)
[2019-05-23] MEDS: Magnesium Sulfate/Water 2 GM in Premix Bag 1 BAG IV SCH ×2 (08:59→15:06)
[2019-05-23] MEDS: Magnesium Oxide 400 MG Tab PO SCH ×2 (08:59→21:05)
[2019-05-23] MEDS ORDERED: Insulin Glargine,Human Rec. Analog 100 Units/ML 3 ML Pen SUBCUT SCH (09:00)
[2019-05-23] MEDS: amLODIPine 5 MG Tab PO SCH (09:01)
--- NOTE | 2019-05-23 11:01 | PCM.PN ---
- General Info Date of Service: 05/23/19 Subjective Update: Mr. Munguia is improved since yesterday, remains confused but is more alert and conversant. Respiratory status has stabilized, he has been afebrile. White blood cell count significantly elevated, some of this may be secondary to current glucocorticoid therapy. Continues to experience alcohol withdrawal, other than confusion has not been significantly agitated. He is unable to provide a meaningful history concerning symptoms or review of systems because of his confusion. - Patient Data Vitals - Most Recent: Last Vital Signs Temp 97.9 F 05/23/19 09:00 Pulse 84 05/23/19 10:00 Resp 12 05/23/19 10:00 BP 103/67 05/23/19 10:00 Pulse Ox 92 L 05/23/19 10:00 Weight - Most Recent: 180 lb 14.4 oz I&O - Last 24 Hours: Intake & Output 05/22/19 05/23/19 05/23/19 22:59 06:59 14:59 Intake Total 2775 1521 200 Output Total 125 450 800 Balance 2650 1071 -600 Lab Results Last 24 Hours: Laboratory Results - last 24 hr 05/22/19 05/22/19 05/23/19 Range/Units 11:15 15:29 05:00 WBC 24.2 H (4.5-11.0) K/uL RBC 3.28 L (4.30-5.90) M/uL Hgb 8.4 L (12.0-15.0) g/dL Hct 26.6 L (40.0-54.0) % MCV 81 (80-98) fL MCH 26 L (27-31) pg MCHC 32 (32-36) % Plt Count 157 (150-400) K/uL Add Manual Diff Yes Neutrophils % (Manual) 83 H (36-66) % Band Neutrophils % 6 (5-11) % Lymphocytes % (Manual) 6 L (24-44) % Monocytes % (Manual) 5 (2-6) % Nucleated RBCs 1 Polychromasia Puncture Site Lt brachial Rt radial ABG pH 7.339 L 7.327 L (7.350-7.450) ABG pCO2 58.2 H 56.3 H (35.0-42.0) mmHg ABG pO2 66.8 L 78.5 (75.0-100.0) mmHg ABG HCO3 30.5 H 28.7 H (22.0-26.0) mmol/L ABG Total CO2 28.9 H 27.4 H (23.0-27.0) mmol/L ABG O2 Saturation 90.8 L 94.2 L (95.0-98.0) % ABG O2 Content 12.0 L 11.6 L (15.0-23.0) %vol ABG Base Excess 4.3 2.6 mm/L ABG Hemoglobin 9.6 L 8.9 L (13.5-18.0) g/dL ABG Oxyhemoglobin 88.4 91.9 % ABG Carboxyhemoglobin 1.6 1.6 (0.0-1.6) % ABG Methemoglobin 1.0 0.8 % Toney Test Not performed Passed O2 Delivery Device Bipap Bipap Oxygen Flow Rate L Sodium (140-148) mmol/L Potassium (3.6-5.2) mmol/L Chloride (100-108) mmol/L Carbon Dioxide (21-32) mmol/L Anion Gap (5.0-14.0) mmol/L BUN (7-18) mg/dL Creatinine (0.8-1.3) mg/dL Est Cr Clr Drug Dosing mL/min Estimated GFR (MDRD) (>60) Glucose (74-106) mg/dL Calcium (8.5-10.1) mg/dL Magnesium (1.8-2.4) mg/dL Total Bilirubin (0.2-1.0) mg/dL AST (15-37) U/L ALT (12-78) U/L Alkaline Phosphatase (46-116) U/L Total Protein (6.4-8.2) g/dL Albumin (3.4-5.0) g/dL Globulin (2.3-3.5) g/dL Albumin/Globulin Ratio (1.2-2.2) 05/23/19 Range/Units 05:00 WBC (4.5-11.0) K/uL RBC (4.30-5.90) M/uL Hgb (12.0-15.0) g/dL Hct (40.0-54.0) % MCV (80-98) fL MCH (27-31) pg MCHC (32-36) % Plt Count (150-400) K/uL Add Manual Diff Neutrophils % (Manual) (36-66) % Band Neutrophils % (5-11) % Lymphocytes % (Manual) (24-44) % Monocytes % (Manual) (2-6) % Nucleated RBCs Polychromasia Puncture Site ABG pH (7.350-7.450) ABG pCO2 (35.0-42.0) mmHg ABG pO2 (75.0-100.0) mmHg ABG HCO3 (22.0-26.0) mmol/L ABG Total CO2 (23.0-27.0) mmol/L ABG O2 Saturation (95.0-98.0) % ABG O2 Content (15.0-23.0) %vol ABG Base Excess mm/L ABG Hemoglobin (13.5-18.0) g/dL ABG Oxyhemoglobin % ABG Carboxyhemoglobin (0.0-1.6) % ABG Methemoglobin % Toney Test O2 Delivery Device Oxygen Flow Rate L Sodium 143 (140-148) mmol/L Potassium 4.6 (3.6-5.2) mmol/L Chloride 107 (100-108) mmol/L Carbon Dioxide 26 (21-32) mmol/L Anion Gap 10.3 (5.0-14.0) mmol/L BUN 7 (7-18) mg/dL Creatinine 0.6 L (0.8-1.3) mg/dL Est Cr Clr Drug Dosing 119.59 mL/min Estimated GFR (MDRD) > 60 (>60) Glucose 123 H (74-106) mg/dL Calcium 7.3 L (8.5-10.1) mg/dL Magnesium 1.6 L (1.8-2.4) mg/dL Total Bilirubin 0.9 (0.2-1.0) mg/dL AST 110 H (15-37) U/L ALT 59 (12-78) U/L Alkaline Phosphatase 95 (46-116) U/L Total Protein 4.7 L (6.4-8.2) g/dL Albumin 1.6 L (3.4-5.0) g/dL Globulin 3.1 (2.3-3.5) g/dL Albumin/Globulin Ratio 0.5 L (1.2-2.2) Med Orders - Current: Current Medications Hydrocodone Bitart/Acetaminophen ([place] 325-5 Mg) 1 - 2 tab PO Q4H PRN PRN Reason: Pain Last Admin: 05/21/19 09:17 Dose: 2 tab Albuterol (Proventil Neb Soln) 2.5 mg NEB Q4H PRN PRN Reason: Shortness Of Breath/wheezing Last Admin: 05/22/19 04:10 Dose: 2.5 mg Amlodipine Besylate (Norvasc) 5 mg PO DAILY [facility] Last Admin: 05/23/19 09:01 Dose: 5 mg Lipase/Protease/Amylase (Creon Dr 12,000 Units) 6 cap PO TIDMEALS [facility] Last Admin: 05/23/19 08:40 Dose: 6 cap Dextrose/Water (Dextrose 50% In Water) 25 - 50 ml IVPUSH ASDIRECTED PRN PRN Reason: HYPOGLYCEMIA Last Admin: 05/23/19 03:40 Dose: 50 ml Duloxetine HCl (Cymbalta) 60 mg PO DAILY [facility] Last Admin: 05/23/19 08:42 Dose: 60 mg Ferrous Sulfate (Ferrous Sulfate) 325 mg PO BIDMEALS [facility] Last Admin: 05/23/19 08:42 Dose: 325 mg Folic Acid (Folic Acid) 1 mg PO DAILY [facility] Last Admin: 05/23/19 08:41 Dose: 1 mg Gabapentin (Neurontin) 300 mg PO BEDTIME [facility] Last Admin: 05/22/19 20:06 Dose: Not Given Gabapentin (Neurontin) 800 mg PO TID [facility] Last Admin: 05/23/19 08:40 Dose: 800 mg Hydromorphone HCl (Dilaudid) 1 mg IVPUSH Q2H PRN PRN Reason: Pain (severe 7-10) Last Admin: 05/23/19 01:10 Dose: 1 mg Piperacillin/Tazobactam/ (Dextrose 3.375 gm/ Premix) 50 mls @ 100 mls/hr IV Q6H [facility] Last Admin: 05/23/19 06:03 Dose: 100 mls/hr Magnesium Sulfate 2 gm/ Premix 50 mls @ 25 mls/hr IV Q6H [facility] Stop: 05/23/19 16:59 Last Admin: 05/23/19 08:59 Dose: 25 mls/hr Dextrose/Lactated Ringer's (Dextrose 5%-Lactated Ringers) 1,000 mls @ 75 mls/ hr IV ASDIRECTED [facility] Insulin Human Lispro (Humalog) 0 unit SUBCUT QIDACANDBED [facility]; Protocol Last Admin: 05/23/19 06:08 Dose: Not Given Lorazepam (Ativan) 0.5 mg IVPUSH Q4H PRN PRN Reason: Nausea/Vomiting Lorazepam (Ativan) 0 mg PO ASDIRECTED [facility]; Protocol Last Admin: 05/21/19 03:30 Dose: 2 mg Lorazepam (Ativan) 0 mg IV ASDIRECTED [facility]; Protocol Last Admin: 05/22/19 04:00 Dose: 2 mg Magnesium Hydroxide (Milk Of Magnesia) 30 ml PO Q12H PRN PRN Reason: Constipation Magnesium Oxide (Magnesium Oxide) 400 mg PO BID [facility] Last Admin: 05/23/19 08:59 Dose: 400 mg Melatonin (Melatonin) 9 mg PO BEDTIME [facility] Last Admin: 05/22/19 20:06 Dose: Not Given Methylprednisolone Sodium Succinate (Solu-Medrol) 40 mg IVPUSH Q8H [facility] Last Admin: 05/23/19 09:04 Dose: 40 mg Ondansetron HCl (Zofran Odt) 4 mg PO Q6H PRN PRN Reason: Nausea able to take PO Ondansetron HCl (Zofran) 4 mg IV Q6H PRN PRN Reason: Nausea/Vomiting Pantoprazole Sodium (Protonix) 40 mg PO ACBREAKFAST [facility] Last Admin: 05/23/19 08:42 Dose: 40 mg Propranolol HCl (Inderal) 20 mg PO TID [facility] Last Admin: 05/23/19 08:59 Dose: 20 mg Senna/Docusate Sodium (Senna Plus) 1 tab PO BID PRN PRN Reason: Constipation Thiamine HCl (Vitamin B-1) 100 mg PO DAILY [facility] Last Admin: 05/23/19 08:43 Dose: 100 mg Discontinued Medications Dextrose/Water (Dextrose 50% In Water) 50 ml IVPUSH ONETIME ONE Stop: 05/22/19 11:12 Last Admin: 05/22/19 11:20 Dose: 50 ml Dextrose/Water (Dextrose 50% In Water) Confirm Administered Dose 50 ml .ROUTE .STK-MED ONE Stop: 05/22/19 13:15 Last Admin: 05/22/19 13:27 Dose: Not Given Dextrose/Water (Dextrose 50% In Water) 50 ml IVPUSH ONETIME ONE Stop: 05/22/19 13:19 Last Admin: 05/22/19 13:18 Dose: 50 ml Dextrose/Water (Dextrose 50% In Water) 50 ml IVPUSH ONETIME ONE Stop: 05/22/19 14:46 Last Admin: 05/22/19 14:50 Dose: 50 ml Dextrose/Water (Dextrose 50% In Water) 25 ml IVPUSH ONETIME ONE Stop: 05/22/19 15:53 Last Admin: 05/22/19 16:02 Dose: 25 ml Dextrose/Water (Dextrose 50% In Water) 25 ml IVPUSH ONETIME ONE Stop: 05/22/19 17:24 Last Admin: 05/22/19 17:58 Dose: 25 ml Dextrose/Water (Dextrose 50% In Water) 50 ml IVPUSH ONETIME [facility] Stop: 05/22/19 19:21 Last Admin: 05/22/19 19:25 Dose: 50 ml Dextrose/Water (Dextrose 50% In Water) Confirm Administered Dose 50 ml .ROUTE .STK-MED ONE Stop: 05/22/19 19:23 Last Admin: 05/22/19 19:25 Dose: Not Given Dextrose/Water (Dextrose 50% In Water) 25 ml IVPUSH ONETIME [facility] Stop: 05/22/19 21:11 Last Admin: 05/22/19 21:14 Dose: 25 ml Hydromorphone HCl (Dilaudid) 1 mg IVPUSH ONETIME ONE Stop: 05/21/19 00:11 Last Admin: 05/21/19 00:30 Dose: 1 mg Hydromorphone HCl (Dilaudid) 0.5 mg IVPUSH ONETIME ONE Stop: 05/21/19 01:41 Last Admin: 05/21/19 01:50 Dose: 0.5 mg Lactated Ringer's (Ringers, Lactated) 1,000 mls @ 1,000 mls/hr IV BOLUS ONE Stop: 05/21/19 01:04 Last Admin: 05/21/19 00:30 Dose: 1,000 mls/hr Potassium Chloride 20 meq/ (Premix) 100 mls @ 50 mls/hr IV ONETIME ONE Stop: 05/21/19 02:51 Last Admin: 05/21/19 01:19 Dose: 50 mls/hr Sodium Chloride (Normal Saline) 1,000 mls @ 150 mls/hr IV ASDIRECTED [facility] Last Admin: 05/21/19 01:50 Dose: 150 mls/hr Magnesium Sulfate 2 gm/ (Dextrose/Water) 104 mls @ 100 mls/hr IV ONETIME ONE Stop: 05/21/19 04:14 Last Admin: 05/21/19 03:55 Dose: 100 mls/hr Potassium Chloride/Sodium Chloride (Normal Saline With 20 Meq Kcl) 1,000 mls @ 125 mls/hr IV ASDIRECTED [facility] Potassium Chloride/Sodium Chloride (Normal Saline With 20 Meq Kcl) 1,000 mls @ 125 mls/hr IV ASDIRECTED [facility] Last Admin: 05/21/19 15:37 Dose: 125 mls/hr Potassium Chloride/Dextrose/Sod Cl (D5 1/2 Ns W/ 20 Meq/L Kcl) 1,000 mls @ 75 mls/hr IV ASDIRECTED [facility] Last Admin: 05/22/19 09:39 Dose: 75 mls/hr Sodium Chloride (Normal Saline) 100 mls @ 4 mls/sec IV ASDIRECTED [facility] Stop: 05/22/19 04:48 Last Admin: 05/22/19 05:12 Dose: 4 mls/sec Piperacillin Sod/Tazobactam (Sod 3.375 gm/ Sodium Chloride) 50 mls @ 100 mls/ hr IV Q6H [facility] Last Admin: 05/22/19 06:37 Dose: 100 mls/hr Lactated Ringer's (Ringers, Lactated) 1,000 mls @ 999 mls/hr IV ASDIRECTED [facility] Last Admin: 05/22/19 17:59 Dose: 999 mls/hr Dextrose/Lactated Ringer's (Dextrose 5%-Lactated Ringers) 1,000 mls @ 125 mls/ hr IV ASDIRECTED [facility] Last Admin: 05/23/19 07:36 Dose: 125 mls/hr Lactated Ringer's (Ringers, Lactated) 1,000 mls @ 999 mls/hr IV ASDIRECTED [facility] Insulin Glargine (Lantus Solostar) 20 units SUBCUT DAILY [facility] Last Admin: 05/22/19 09:50 Dose: 20 units Insulin Glargine (Lantus Solostar) 10 units SUBCUT DAILY [facility] Insulin Human Lispro (Humalog) 0 unit SUBCUT QIDACANDBED [facility]; Protocol Last Admin: 05/21/19 11:54 Dose: 6 units Insulin Human Lispro (Humalog) 6 unit SUBCUT ONETIME ONE Stop: 05/21/19 03:22 Last Admin: 05/21/19 03:30 Dose: 6 unit Insulin Human Regular (Humulin R) 20 unit SUBCUT ONETIME ONE Stop: 05/21/19 00:48 Last Admin: 05/21/19 01:12 Dose: 20 units Iopamidol (Isovue-370 (76%)) 100 ml IV . DIRECTED [facility] Stop: 05/22/19 04:48 Last Admin: 05/22/19 05:11 Dose: 100 ml Lidocaine HCl (Xylocaine-Mpf 1%) Confirm Administered Dose 5 ml .ROUTE .STK-MED ONE Stop: 05/21/19 01:23 Last Admin: 05/21/19 01:33 Dose: 5 ml Lorazepam (Ativan) Confirm Administered Dose 2 mg .ROUTE .STK-MED ONE Stop: 05/21/19 07:04 Last Admin: 05/21/19 19:11 Dose: Not Given Melatonin (Melatonin) 9 mg PO BEDTIME [facility] Potassium Chloride (Potassium Chloride) 40 meq PO ONETIME ONE Stop: 05/21/19 00:55 Last Admin: 05/21/19 01:15 Dose: 40 meq Thiamine HCl (Vitamin B-1) 100 mg PO ONETIME ONE Stop: 05/21/19 00:55 Last Admin: 05/21/19 01:15 Dose: 100 mg - Exam Quality Assessment: DVT Prophylaxis. No: Supplemental Oxygen General: Cooperative, Mild Distress, Sedated, Lethargic Lungs: Clear to Auscultation, Normal Respiratory Effort Cardiovascular: Regular Rate, Regular Rhythm, No Murmurs GI/Abdominal Exam: Soft, Non-Tender, No Organomegaly, No Distention Extremities: Non-Tender, No Pedal Edema Sepsis Event Note - Evaluation Sepsis Screening Result: Severe Sepsis Risk - Focused Exam Vital Signs: Vital Signs Temp Pulse Resp BP BP Pulse Ox 05/23/19 10:00 84 12 103/67 92 L 05/23/19 09:01 126/77 05/23/19 09:00 97.9 F 93 19 95/67 94 L 05/23/19 08:00 99 F 96 12 126/77 96 05/23/19 07:00 89 17 93/52 L 95 05/23/19 06:00 92 16 116/75 93 L 05/23/19 05:00 90 14 131/75 90 L 05/23/19 03:57 98.6 F 87 12 100 05/23/19 03:00 90 14 104/67 98 05/23/19 02:00 86 15 117/73 97 05/23/19 01:00 78 12 112/73 98 05/23/19 00:00 98.2 F 82 13 101/66 93 L 05/22/19 23:00 80 14 124/79 99 Date Exam was Performed: 05/23/19 Time Exam was Performed: 10:57 - Problem List Review Problem List Initiated/Reviewed/Updated: Yes - My Orders Last 24 Hours: My Active Orders 05/22/19 10:00 methylPREDNISolone Sod Succ [Solu-MEDROL] 40 mg IVPUSH Q8H 05/22/19 13:47 Communication Order [RC] BID 05/23/19 09:00 Magnesium Oxide 400 mg PO BID Magnesium Sulfate/Water [Magnesium Sulfate in Water Premix] 2 gm Premix Bag 1 bag IV Q6H 05/23/19 09:15 Dextrose 5%-Lactated Ringers 1,000 ml IV ASDIRECTED 05/24/19 05:00 CBC WITH AUTO DIFF [HEME] Timed COMPREHENSIVE METABOLIC PN,CMP [CHEM] Timed MAGNESIUM [CHEM] Timed - Plan Plan:: ASSESSMENT AND PLAN Acute alcohol withdrawal syndrome-more alert today, remains confused -[facility] protocol -Lorazepam as needed per the protocol -Continue gabapentin -Melatonin at bedtime -Supplement thiamine and folate Aspiration pneumonia/sepsis-respiratory status has stabilized since yesterday, good saturations on room air -Cultures pending -Zosyn as ordered Hypoxic respiratory failure-improved since yesterday -Noninvasive positive pressure ventilation -Supplemental oxygen as needed -Nebulizer therapy as needed Insulin-dependent diabetes mellitus with hyperglycemia-has experienced significant hypoglycemia over the last 24 hours -4 times daily glucometers -Lantus, hold today -High-dose sliding scale insulin Acute on chronic pancreatitis -Pain control -Soft diet Hypokalemia-resolved Chronic anemia-level low but stable. -Continue iron supplement Maintenance issues - - DVT prophylaxis -mechanical - GI prophylaxis -PPI - Nutrition -n.p.o. until his pain settles down - Toussaint catheter -not indicated CODE STATUS -full code Admission justification -this patient will be admitted for inpatient services and is medically appropriate meeting medical necessity for inpatient admission as outlined in my documentation. I reasonably expect the patient will require inpatient services that span a period time over 2 midnights. I reasonably expect this patient to be discharged or transferred within 96 hours after admission to the [facility]. Disposition -I would anticipate discharge home after the hospital stay Primary care physician -Dorie FLEMING
[2019-05-23] MEDS: Melatonin 3 MG Tab PO SCH (21:05)
[2019-05-23] MEDS: Gabapentin 300 MG Cap PO SCH (21:06)
[2019-05-24] MEDS: Piperacillin/Tazobactam/Dext 3.375 GM in Premix Bag 1 BAG IV SCH ×5 (00:07→23:59)
[2019-05-24] MEDS: methylPREDNISolone Sodium Succinate 40 MG/1 ML SDV IVPUSH SCH (01:46)
[2019-05-24] MEDS: HYDROmorphone 1 MG/ML Syringe IVPUSH PRN (04:58)
[2019-05-24] MEDS: Pantoprazole 40 MG Tab.CR PO SCH (07:41)
[2019-05-24] MEDS: Insulin Lispro 100 Unit/ML 3 ML KwikPen SUBCUT SCH ×4 (07:59→21:01)
[2019-05-24] MEDS: Amylase/Lipase/Protease 12,000 Unit Cap.CR PO SCH ×3 (08:05→17:35)
[2019-05-24] MEDS: Ferrous Sulfate 325 MG Tab PO SCH ×2 (08:05→17:38)
[2019-05-24] MEDS: Acetaminophen/HYDROcodone 325-5 MG Tab PO PRN (08:05)
[2019-05-24] MEDS: Propranolol 40 MG Tab PO SCH ×3 (08:06→22:07)
[2019-05-24] MEDS: DULoxetine 30 MG Cap PO SCH (08:06)
[2019-05-24] MEDS: Gabapentin 400 MG Cap PO SCH ×3 (08:07→21:03)
[2019-05-24] MEDS: amLODIPine 5 MG Tab PO SCH (08:07)
[2019-05-24] MEDS: Magnesium Oxide 400 MG Tab PO SCH ×2 (08:07→21:03)
[2019-05-24] MEDS: Folic Acid 1 MG Tab PO SCH (08:07)
[2019-05-24] MEDS: Thiamine 100 MG Tab PO SCH (08:07)
[2019-05-24] MEDS: Dextrose 5%-Lactated Ringers 1,000 ML IV SCH (08:18)
--- NOTE | 2019-05-24 09:24 | PCM.PN ---
- General Info Date of Service: 05/24/19 Subjective Update: Mr. Munguia shown further improvement over the last 24 hours, more alert and interactive. Alcohol withdrawal seems to be slowly resolving, less confused and delirious. Reports his chronic right upper quadrant epigastric pain which is thought secondary to his chronic pancreatitis. Respiratory status fairly stable, continues to require intermittent supplemental oxygen. He has remained afebrile. White count is significantly elevated but likely secondary to current glucocorticoid therapy. Functional Status: Reports: Urinating - Review of Systems General: Reports: Weakness. Denies: Fever, Chills Pulmonary: Reports: No Symptoms Cardiovascular: Reports: No Symptoms Gastrointestinal: Reports: Abdominal Pain, Decreased Appetite. Denies: Diarrhea , Difficulty Swallowing, Hematochezia, Melena, Nausea, Vomiting - Patient Data Vitals - Most Recent: Last Vital Signs Temp 98.2 F 05/24/19 02:00 Pulse 67 05/24/19 06:00 Resp 10 L 05/24/19 06:00 BP 109/75 05/24/19 08:07 Pulse Ox 97 05/24/19 06:00 Weight - Most Recent: 180 lb 14.4 oz I&O - Last 24 Hours: Intake & Output 05/23/19 05/24/19 05/24/19 22:59 06:59 14:59 Intake Total 1947 1074 Output Total 400 400 Balance 1547 674 Lab Results Last 24 Hours: Laboratory Results - last 24 hr 05/24/19 05/24/19 Range/Units 04:50 04:50 WBC 27.8 H (4.5-11.0) K/uL RBC 3.09 L (4.30-5.90) M/uL Hgb 7.9 L (12.0-15.0) g/dL Hct 25.0 L (40.0-54.0) % MCV 81 (80-98) fL MCH 26 L (27-31) pg MCHC 32 (32-36) % Plt Count 171 (150-400) K/uL Add Manual Diff Yes Neutrophils % (Manual) 88 H (36-66) % Band Neutrophils % 4 L (5-11) % Lymphocytes % (Manual) 3 L (24-44) % Monocytes % (Manual) 5 (2-6) % Anisocytosis Few Spherocytes Few H Target Cells Moderate H Sodium 135 L (140-148) mmol/L Potassium 5.0 (3.6-5.2) mmol/L Chloride 101 (100-108) mmol/L Carbon Dioxide 26 (21-32) mmol/L Anion Gap 13.0 (5.0-14.0) mmol/L BUN 10 (7-18) mg/dL Creatinine 0.6 L (0.8-1.3) mg/dL Est Cr Clr Drug Dosing 143.99 mL/min Estimated GFR (MDRD) > 60 (>60) Glucose 334 H (74-106) mg/dL Calcium 7.1 L (8.5-10.1) mg/dL Magnesium 2.2 (1.8-2.4) mg/dL Total Bilirubin 0.8 (0.2-1.0) mg/dL AST 68 H (15-37) U/L ALT 51 (12-78) U/L Alkaline Phosphatase 111 (46-116) U/L Total Protein 5.0 L (6.4-8.2) g/dL Albumin 1.6 L (3.4-5.0) g/dL Globulin 3.4 (2.3-3.5) g/dL Albumin/Globulin Ratio 0.5 L (1.2-2.2) Med Orders - Current: Current Medications Albuterol (Proventil Neb Soln) 2.5 mg NEB Q4H PRN PRN Reason: Shortness Of Breath/wheezing Last Admin: 05/22/19 04:10 Dose: 2.5 mg Amlodipine Besylate (Norvasc) 5 mg PO DAILY [facility] Last Admin: 05/24/19 08:07 Dose: 5 mg Lipase/Protease/Amylase (Shawna Johnson 12,000 Units) 6 cap PO TIDMEALS [facility] Last Admin: 05/24/19 08:05 Dose: 6 cap Dextrose/Water (Dextrose 50% In Water) 25 - 50 ml IVPUSH ASDIRECTED PRN PRN Reason: HYPOGLYCEMIA Last Admin: 05/23/19 03:40 Dose: 50 ml Duloxetine HCl (Cymbalta) 60 mg PO DAILY [facility] Last Admin: 05/24/19 08:06 Dose: 60 mg Ferrous Sulfate (Ferrous Sulfate) 325 mg PO BIDMEALS [facility] Last Admin: 05/24/19 08:05 Dose: 325 mg Folic Acid (Folic Acid) 1 mg PO DAILY [facility] Last Admin: 05/24/19 08:07 Dose: 1 mg Furosemide (Lasix) 20 mg IVPUSH NOW ONE Stop: 05/24/19 09:24 Gabapentin (Neurontin) 300 mg PO BEDTIME [facility] Last Admin: 05/23/19 21:06 Dose: 300 mg Gabapentin (Neurontin) 800 mg PO TID [facility] Last Admin: 05/24/19 08:07 Dose: 800 mg Piperacillin/Tazobactam/ (Dextrose 3.375 gm/ Premix) 50 mls @ 100 mls/hr IV Q6H [facility] Last Admin: 05/24/19 06:06 Dose: 100 mls/hr Insulin Glargine (Lantus Solostar) 20 units SUBCUT DAILY [facility] Insulin Human Lispro (Humalog) 0 unit SUBCUT QIDACANDBED [facility]; Protocol Last Admin: 05/24/19 07:59 Dose: 8 units Lorazepam (Ativan) 0 mg PO ASDIRECTED [facility]; Protocol Last Admin: 05/21/19 03:30 Dose: 2 mg Lorazepam (Ativan) 0 mg IV ASDIRECTED [facility]; Protocol Last Admin: 05/22/19 04:00 Dose: 2 mg Magnesium Hydroxide (Milk Of Magnesia) 30 ml PO Q12H PRN PRN Reason: Constipation Magnesium Oxide (Magnesium Oxide) 400 mg PO BID [facility] Last Admin: 05/24/19 08:07 Dose: 400 mg Melatonin (Melatonin) 9 mg PO BEDTIME [facility] Last Admin: 05/23/19 21:05 Dose: 9 mg Ondansetron HCl (Zofran Odt) 4 mg PO Q6H PRN PRN Reason: Nausea able to take PO Ondansetron HCl (Zofran) 4 mg IV Q6H PRN PRN Reason: Nausea/Vomiting Oxycodone HCl (Oxycodone) 10 mg PO Q4H PRN PRN Reason: Pain Pantoprazole Sodium (Protonix) 40 mg PO ACBREAKFAST [facility] Last Admin: 05/24/19 07:41 Dose: 40 mg Propranolol HCl (Inderal) 20 mg PO TID [facility] Last Admin: 05/24/19 08:06 Dose: 20 mg Senna/Docusate Sodium (Senna Plus) 1 tab PO BID PRN PRN Reason: Constipation Thiamine HCl (Vitamin B-1) 100 mg PO DAILY [facility] Last Admin: 05/24/19 08:07 Dose: 100 mg Discontinued Medications Hydrocodone Bitart/Acetaminophen ([place] 325-5 Mg) 1 - 2 tab PO Q4H PRN PRN Reason: Pain Last Admin: 05/24/19 08:05 Dose: 2 tab Dextrose/Water (Dextrose 50% In Water) 50 ml IVPUSH ONETIME ONE Stop: 05/22/19 11:12 Last Admin: 05/22/19 11:20 Dose: 50 ml Dextrose/Water (Dextrose 50% In Water) Confirm Administered Dose 50 ml .ROUTE .STK-MED ONE Stop: 05/22/19 13:15 Last Admin: 05/22/19 13:27 Dose: Not Given Dextrose/Water (Dextrose 50% In Water) 50 ml IVPUSH ONETIME ONE Stop: 05/22/19 13:19 Last Admin: 05/22/19 13:18 Dose: 50 ml Dextrose/Water (Dextrose 50% In Water) 50 ml IVPUSH ONETIME ONE Stop: 05/22/19 14:46 Last Admin: 05/22/19 14:50 Dose: 50 ml Dextrose/Water (Dextrose 50% In Water) 25 ml IVPUSH ONETIME ONE Stop: 05/22/19 15:53 Last Admin: 05/22/19 16:02 Dose: 25 ml Dextrose/Water (Dextrose 50% In Water) 25 ml IVPUSH ONETIME ONE Stop: 05/22/19 17:24 Last Admin: 05/22/19 17:58 Dose: 25 ml Dextrose/Water (Dextrose 50% In Water) 50 ml IVPUSH ONETIME [facility]A Stop: 05/22/19 19:21 Last Admin: 05/22/19 19:25 Dose: 50 ml Dextrose/Water (Dextrose 50% In Water) Confirm Administered Dose 50 ml .ROUTE .STK-MED ONE Stop: 05/22/19 19:23 Last Admin: 05/22/19 19:25 Dose: Not Given Dextrose/Water (Dextrose 50% In Water) 25 ml IVPUSH ONETIME STA Stop: 05/22/19 21:11 Last Admin: 05/22/19 21:14 Dose: 25 ml Hydromorphone HCl (Dilaudid) 1 mg IVPUSH ONETIME ONE Stop: 05/21/19 00:11 Last Admin: 05/21/19 00:30 Dose: 1 mg Hydromorphone HCl (Dilaudid) 0.5 mg IVPUSH ONETIME ONE Stop: 05/21/19 01:41 Last Admin: 05/21/19 01:50 Dose: 0.5 mg Hydromorphone HCl (Dilaudid) 1 mg IVPUSH Q2H PRN PRN Reason: Pain (severe 7-10) Last Admin: 05/24/19 04:58 Dose: 1 mg Lactated Ringer's (Ringers, Lactated) 1,000 mls @ 1,000 mls/hr IV BOLUS ONE Stop: 05/21/19 01:04 Last Admin: 05/21/19 00:30 Dose: 1,000 mls/hr Potassium Chloride 20 meq/ (Premix) 100 mls @ 50 mls/hr IV ONETIME ONE Stop: 05/21/19 02:51 Last Admin: 05/21/19 01:19 Dose: 50 mls/hr Sodium Chloride (Normal Saline) 1,000 mls @ 150 mls/hr IV ASDIRECTED [facility] Last Admin: 05/21/19 01:50 Dose: 150 mls/hr Magnesium Sulfate 2 gm/ (Dextrose/Water) 104 mls @ 100 mls/hr IV ONETIME ONE Stop: 05/21/19 04:14 Last Admin: 05/21/19 03:55 Dose: 100 mls/hr Potassium Chloride/Sodium Chloride (Normal Saline With 20 Meq Kcl) 1,000 mls @ 125 mls/hr IV ASDIRECTED [facility] Potassium Chloride/Sodium Chloride (Normal Saline With 20 Meq Kcl) 1,000 mls @ 125 mls/hr IV ASDIRECTED [facility] Last Admin: 05/21/19 15:37 Dose: 125 mls/hr Potassium Chloride/Dextrose/Sod Cl (D5 1/2 Ns W/ 20 Meq/L Kcl) 1,000 mls @ 75 mls/hr IV ASDIRECTED [facility] Last Admin: 05/22/19 09:39 Dose: 75 mls/hr Sodium Chloride (Normal Saline) 100 mls @ 4 mls/sec IV ASDIRECTED [facility] Stop: 05/22/19 04:48 Last Admin: 05/22/19 05:12 Dose: 4 mls/sec Piperacillin Sod/Tazobactam (Sod 3.375 gm/ Sodium Chloride) 50 mls @ 100 mls/ hr IV Q6H [facility] Last Admin: 05/22/19 06:37 Dose: 100 mls/hr Lactated Ringer's (Ringers, Lactated) 1,000 mls @ 999 mls/hr IV ASDIRECTED [facility] Last Admin: 05/22/19 17:59 Dose: 999 mls/hr Dextrose/Lactated Ringer's (Dextrose 5%-Lactated Ringers) 1,000 mls @ 125 mls/ hr IV ASDIRECTED [facility] Last Admin: 05/23/19 07:36 Dose: 125 mls/hr Lactated Ringer's (Ringers, Lactated) 1,000 mls @ 999 mls/hr IV ASDIRECTED [facility] Magnesium Sulfate 2 gm/ Premix 50 mls @ 25 mls/hr IV Q6H [facility] Stop: 05/23/19 16:59 Last Admin: 05/23/19 15:06 Dose: 25 mls/hr Dextrose/Lactated Ringer's (Dextrose 5%-Lactated Ringers) 1,000 mls @ 75 mls/ hr IV ASDIRECTED [facility] Last Admin: 05/24/19 08:18 Dose: 75 mls/hr Insulin Glargine (Lantus Solostar) 20 units SUBCUT DAILY [facility] Last Admin: 05/22/19 09:50 Dose: 20 units Insulin Glargine (Lantus Solostar) 10 units SUBCUT DAILY [facility] Insulin Human Lispro (Humalog) 0 unit SUBCUT QIDACANDBED [facility]; Protocol Last Admin: 05/21/19 11:54 Dose: 6 units Insulin Human Lispro (Humalog) 6 unit SUBCUT ONETIME ONE Stop: 05/21/19 03:22 Last Admin: 05/21/19 03:30 Dose: 6 unit Insulin Human Regular (Humulin R) 20 unit SUBCUT ONETIME ONE Stop: 05/21/19 00:48 Last Admin: 05/21/19 01:12 Dose: 20 units Iopamidol (Isovue-370 (76%)) 100 ml IV . DIRECTED [facility] Stop: 05/22/19 04:48 Last Admin: 05/22/19 05:11 Dose: 100 ml Lidocaine HCl (Xylocaine-Mpf 1%) Confirm Administered Dose 5 ml .ROUTE .STK-MED ONE Stop: 05/21/19 01:23 Last Admin: 05/21/19 01:33 Dose: 5 ml Lorazepam (Ativan) 0.5 mg IVPUSH Q4H PRN PRN Reason: Nausea/Vomiting Last Admin: 05/24/19 08:04 Dose: 0.5 mg Lorazepam (Ativan) Confirm Administered Dose 2 mg .ROUTE .STK-MED ONE Stop: 05/21/19 07:04 Last Admin: 05/21/19 19:11 Dose: Not Given Melatonin (Melatonin) 9 mg PO BEDTIME [facility] Methylprednisolone Sodium Succinate (Solu-Medrol) 40 mg IVPUSH Q8H [facility] Last Admin: 05/24/19 01:46 Dose: 40 mg Potassium Chloride (Potassium Chloride) 40 meq PO ONETIME ONE Stop: 05/21/19 00:55 Last Admin: 05/21/19 01:15 Dose: 40 meq Thiamine HCl (Vitamin B-1) 100 mg PO ONETIME ONE Stop: 05/21/19 00:55 Last Admin: 05/21/19 01:15 Dose: 100 mg - Exam Quality Assessment: Supplemental Oxygen, DVT Prophylaxis General: Alert, Oriented, Mild Distress Lungs: Decreased Breath Sounds. No: Rales, Rhonchi, Wheezing Cardiovascular: Regular Rate, Regular Rhythm, No Murmurs GI/Abdominal Exam: Soft, No Organomegaly, Tender. No: Distended, Guarding, Rigid, Rebound Extremities: Non-Tender, Pedal Edema Skin: Warm, Dry Sepsis Event Note - Evaluation Sepsis Screening Result: No Definite Risk - Focused Exam Vital Signs: Vital Signs Temp Pulse Resp BP BP Pulse Ox Pulse Ox 05/24/19 08:07 109/75 05/24/19 06:00 67 10 L 114/75 97 05/24/19 04:00 64 10 L 110/73 97 05/24/19 02:00 98.2 F 76 8 L 122/81 95 05/24/19 00:00 75 10 L 116/74 96 96 05/23/19 22:00 84 11 L 99 Date Exam was Performed: 05/24/19 Time Exam was Performed: 09:25 - Problem List Review Problem List Initiated/Reviewed/Updated: Yes - My Orders Last 24 Hours: My Active Orders 05/23/19 09:00 Magnesium Oxide 400 mg PO BID 05/23/19 Dinner Regular Diet [DIET] 05/24/19 09:00 Insulin Glarg,Human.Rec.Analog [LantUS Solostar] 20 units SUBCUT DAILY 05/24/19 09:21 oxyCODONE 10 mg PO Q4H PRN 05/24/19 09:23 Furosemide [Lasix] 20 mg IVPUSH NOW ONE 05/25/19 05:00 CBC WITH AUTO DIFF [HEME] Timed COMPREHENSIVE METABOLIC PN,CMP [CHEM] Timed - Plan Plan:: ASSESSMENT AND PLAN Acute alcohol withdrawal syndrome-more alert today less confused -[facility] protocol -Lorazepam as needed per the protocol -Continue gabapentin -Melatonin at bedtime -Supplement thiamine and folate Aspiration pneumonia/sepsis-respiratory status has stabilized since yesterday, good saturations, continues to require intermittent supplemental oxygen -Cultures pending -Zosyn as ordered Hypoxic respiratory failure-improved -Supplemental oxygen as needed -Nebulizer therapy as needed Insulin-dependent diabetes mellitus with hyperglycemia-has experienced significant hypoglycemia over the last 24 hours -4 times daily glucometers -Lantus 20 units subcu daily -High-dose sliding scale insulin Acute on chronic pancreatitis -Pain control -Soft diet Hypokalemia-resolved Chronic anemia-level low but stable. -Continue iron supplement Maintenance issues - - DVT prophylaxis -mechanical - GI prophylaxis -PPI - Nutrition -n.p.o. until his pain settles down - Toussaint catheter -not indicated CODE STATUS -full code Admission justification -this patient will be admitted for inpatient services and is medically appropriate meeting medical necessity for inpatient admission as outlined in my documentation. I reasonably expect the patient will require inpatient services that span a period time over 2 midnights. I reasonably expect this patient to be discharged or transferred within 96 hours [facility]. Disposition -I would anticipate discharge home after the hospital stay Primary care physician -Dorie FLEMING
[2019-05-24] MEDS ORDERED: Furosemide 40 MG/4 ML VIAL IVPUSH ONE (10:00)
[2019-05-24] MEDS: Insulin Glargine,Human Rec. Analog 100 Units/ML 3 ML Pen SUBCUT SCH (10:24)
[2019-05-24] MEDS: Triamcinolone Acetonide 0.1% Oint 15 GM Tube TOP PRN (12:00)
[2019-05-24] MEDS ORDERED: Dextrose 5%-Lactated Ringers 1,000 ML IV SCH (12:00)
[2019-05-24] MEDS: oxyCODONE 5 MG Tab PO PRN ×3 (12:06→21:36)
[2019-05-24] MEDS: Melatonin 3 MG Tab PO SCH (21:02)
[2019-05-24] MEDS: Gabapentin 300 MG Cap PO SCH (21:03)
[2019-05-25] MEDS: oxyCODONE 5 MG Tab PO PRN ×4 (03:01→23:47)
[2019-05-25] MEDS: Piperacillin/Tazobactam/Dext 3.375 GM in Premix Bag 1 BAG IV SCH (05:40)
[2019-05-25] MEDS: Pantoprazole 40 MG Tab.CR PO SCH (08:12)
[2019-05-25] MEDS: Insulin Lispro 100 Unit/ML 3 ML KwikPen SUBCUT SCH ×4 (08:12→21:37)
[2019-05-25] MEDS: Ferrous Sulfate 325 MG Tab PO SCH ×2 (08:21→18:01)
[2019-05-25] MEDS: Amylase/Lipase/Protease 12,000 Unit Cap.CR PO SCH ×3 (08:21→18:01)
[2019-05-25] MEDS: Gabapentin 400 MG Cap PO SCH ×3 (08:26→21:44)
[2019-05-25] MEDS: Thiamine 100 MG Tab PO SCH (08:27)
[2019-05-25] MEDS: Magnesium Oxide 400 MG Tab PO SCH ×2 (08:27→21:44)
[2019-05-25] MEDS: Propranolol 40 MG Tab PO SCH (08:28)
[2019-05-25] MEDS: amLODIPine 5 MG Tab PO SCH (08:29)
[2019-05-25] MEDS: Folic Acid 1 MG Tab PO SCH (08:30)
[2019-05-25] MEDS: DULoxetine 30 MG Cap PO SCH (08:31)
[2019-05-25] MEDS: Insulin Glargine,Human Rec. Analog 100 Units/ML 3 ML Pen SUBCUT SCH (08:37)
[2019-05-25] MEDS ORDERED: oxyCODONE 5 MG Tab PO PRN (08:53)
[2019-05-25] MEDS ORDERED: Furosemide 20 MG/2 ML VIAL IVPUSH ONE (09:57)
[2019-05-25] MEDS ORDERED: Calcium Gluconate 2 GM in Sodium Chloride 0.9% 100 ML IV ONE (10:00)
--- NOTE | 2019-05-25 10:03 | PCM.PN ---
- General Info Date of Service: 05/25/19 Subjective Update: Mr. Munguia is been stable since yesterday and shown further improvement with overall energy level, appetite seems to be improving. Continues to require intermittent supplemental oxygen, denies significant shortness of breath or other respiratory symptoms. Functional Status: Reports: Tolerating Diet, Ambulating, Urinating - Review of Systems General: Reports: Weakness. Denies: Fever, Chills Pulmonary: Reports: No Symptoms Cardiovascular: Reports: No Symptoms Gastrointestinal: Reports: No Symptoms - Patient Data Vitals - Most Recent: Last Vital Signs Temp 98.8 F 05/25/19 07:47 Pulse 80 05/25/19 07:47 Resp 16 05/25/19 07:47 BP 150/85 H 05/25/19 08:29 Pulse Ox 92 L 05/25/19 07:47 Weight - Most Recent: 180 lb 14.4 oz I&O - Last 24 Hours: Intake & Output 05/24/19 05/25/19 05/25/19 22:59 06:59 14:59 Intake Total 510 Balance 510 Lab Results Last 24 Hours: Laboratory Results - last 24 hr 05/25/19 05/25/19 05/25/19 Range/Units 06:14 06:14 07:56 WBC 16.0 H (4.5-11.0) K/uL RBC 3.43 L (4.30-5.90) M/uL Hgb 8.9 L (12.0-15.0) g/dL Hct 27.6 L (40.0-54.0) % MCV 81 (80-98) fL MCH 26 L (27-31) pg MCHC 32 (32-36) % Plt Count 143 L (150-400) K/uL Add Manual Diff Yes Neutrophils % (Manual) 89 H (36-66) % Lymphocytes % (Manual) 8 L (24-44) % Monocytes % (Manual) 3 (2-6) % Sodium 135 L (140-148) mmol/L Potassium 4.4 (3.6-5.2) mmol/L Chloride 102 (100-108) mmol/L Carbon Dioxide 23 (21-32) mmol/L Anion Gap 14.4 H (5.0-14.0) mmol/L BUN 9 (7-18) mg/dL Creatinine 0.3 L (0.8-1.3) mg/dL Est Cr Clr Drug Dosing 287.97 mL/min Estimated GFR (MDRD) > 60 (>60) Glucose 83 (74-106) mg/dL Calcium 6.9 L* (8.5-10.1) mg/dL POC WB Ioniz Calcium 1.04 L (1.12-1.32) mmol/L Total Bilirubin 0.8 (0.2-1.0) mg/dL AST 140 H D (15-37) U/L ALT 61 (12-78) U/L Alkaline Phosphatase 217 H D (46-116) U/L Total Protein 5.0 L (6.4-8.2) g/dL Albumin 1.5 L (3.4-5.0) g/dL Globulin 3.5 (2.3-3.5) g/dL Albumin/Globulin Ratio 0.4 L (1.2-2.2) Med Orders - Current: Current Medications Albuterol (Proventil Neb Soln) 2.5 mg NEB Q4H PRN PRN Reason: Shortness Of Breath/wheezing Last Admin: 05/22/19 04:10 Dose: 2.5 mg Amlodipine Besylate (Norvasc) 5 mg PO DAILY [facility] Last Admin: 05/25/19 08:29 Dose: 5 mg Amoxicillin/Clavulanate Potassium (Augmentin 875 Mg/125 Mg) 1 tab PO Q12HR [facility] Lipase/Protease/Amylase (Creon Dr 12,000 Units) 6 cap PO TIDMEALS [facility] Last Admin: 05/25/19 08:21 Dose: 6 cap Calcium Carbonate (Caltrate 600+D 1500 Mg-400 Units) 2 tab PO BID [facility] Dextrose/Water (Dextrose 50% In Water) 25 - 50 ml IVPUSH ASDIRECTED PRN PRN Reason: HYPOGLYCEMIA Last Admin: 05/23/19 03:40 Dose: 50 ml Duloxetine HCl (Cymbalta) 60 mg PO DAILY [facility] Last Admin: 05/25/19 08:31 Dose: 60 mg Ferrous Sulfate (Ferrous Sulfate) 325 mg PO BIDMEALS [facility] Last Admin: 05/25/19 08:21 Dose: 325 mg Folic Acid (Folic Acid) 1 mg PO DAILY [facility] Last Admin: 05/25/19 08:30 Dose: 1 mg Gabapentin (Neurontin) 300 mg PO BEDTIME [facility] Last Admin: 05/24/19 21:03 Dose: 300 mg Gabapentin (Neurontin) 800 mg PO TID [facility] Last Admin: 05/25/19 08:26 Dose: 800 mg Calcium Gluconate 2 gm/ Sodium (Chloride) 120 mls @ 100 mls/hr IV ONETIME ONE Stop: 05/25/19 11:11 Last Admin: 05/25/19 09:55 Dose: 100 mls/hr Insulin Glargine (Lantus Solostar) 20 units SUBCUT DAILY [facility] Last Admin: 05/25/19 08:37 Dose: 20 units Insulin Human Lispro (Humalog) 0 unit SUBCUT QIDACANDBED [facility]; Protocol Last Admin: 05/25/19 08:12 Dose: Not Given Magnesium Hydroxide (Milk Of Magnesia) 30 ml PO Q12H PRN PRN Reason: Constipation Magnesium Oxide (Magnesium Oxide) 400 mg PO BID [facility] Last Admin: 05/25/19 08:27 Dose: 400 mg Melatonin (Melatonin) 9 mg PO BEDTIME [facility] Last Admin: 05/24/19 21:02 Dose: 9 mg Ondansetron HCl (Zofran Odt) 4 mg PO Q6H PRN PRN Reason: Nausea able to take PO Ondansetron HCl (Zofran) 4 mg IV Q6H PRN PRN Reason: Nausea/Vomiting Oxycodone HCl (Oxycodone) 5 mg PO Q4H PRN PRN Reason: Pain Pantoprazole Sodium (Protonix) 40 mg PO ACBREAKFAST [facility] Last Admin: 05/25/19 08:12 Dose: 40 mg Senna/Docusate Sodium (Senna Plus) 1 tab PO BID PRN PRN Reason: Constipation Thiamine HCl (Vitamin B-1) 100 mg PO DAILY [facility] Last Admin: 05/25/19 08:27 Dose: 100 mg Triamcinolone Acetonide (Triamcinolone Acetonide 0.1% Oint) 0 gm TOP BID PRN PRN Reason: Other Last Admin: 05/24/19 12:00 Dose: 1 applicful Discontinued Medications Hydrocodone Bitart/Acetaminophen ([place] 325-5 Mg) 1 - 2 tab PO Q4H PRN PRN Reason: Pain Last Admin: 05/24/19 08:05 Dose: 2 tab Dextrose/Water (Dextrose 50% In Water) 50 ml IVPUSH ONETIME ONE Stop: 05/22/19 11:12 Last Admin: 05/22/19 11:20 Dose: 50 ml Dextrose/Water (Dextrose 50% In Water) Confirm Administered Dose 50 ml .ROUTE .STK-MED ONE Stop: 05/22/19 13:15 Last Admin: 05/22/19 13:27 Dose: Not Given Dextrose/Water (Dextrose 50% In Water) 50 ml IVPUSH ONETIME ONE Stop: 05/22/19 13:19 Last Admin: 05/22/19 13:18 Dose: 50 ml Dextrose/Water (Dextrose 50% In Water) 50 ml IVPUSH ONETIME ONE Stop: 05/22/19 14:46 Last Admin: 05/22/19 14:50 Dose: 50 ml Dextrose/Water (Dextrose 50% In Water) 25 ml IVPUSH ONETIME ONE Stop: 05/22/19 15:53 Last Admin: 05/22/19 16:02 Dose: 25 ml Dextrose/Water (Dextrose 50% In Water) 25 ml IVPUSH ONETIME ONE Stop: 05/22/19 17:24 Last Admin: 05/22/19 17:58 Dose: 25 ml Dextrose/Water (Dextrose 50% In Water) 50 ml IVPUSH ONETIME STA Stop: 05/22/19 19:21 Last Admin: 05/22/19 19:25 Dose: 50 ml Dextrose/Water (Dextrose 50% In Water) Confirm Administered Dose 50 ml .ROUTE .STK-MED ONE Stop: 05/22/19 19:23 Last Admin: 05/22/19 19:25 Dose: Not Given Dextrose/Water (Dextrose 50% In Water) 25 ml IVPUSH ONETIME STA Stop: 05/22/19 21:11 Last Admin: 05/22/19 21:14 Dose: 25 ml Furosemide (Lasix) 20 mg IVPUSH NOW ONE Stop: 05/24/19 10:01 Last Admin: 05/24/19 10:23 Dose: 20 mg Furosemide (Lasix) 20 mg IVPUSH NOW ONE Stop: 05/25/19 09:58 Hydromorphone HCl (Dilaudid) 1 mg IVPUSH ONETIME ONE Stop: 05/21/19 00:11 Last Admin: 05/21/19 00:30 Dose: 1 mg Hydromorphone HCl (Dilaudid) 0.5 mg IVPUSH ONETIME ONE Stop: 05/21/19 01:41 Last Admin: 05/21/19 01:50 Dose: 0.5 mg Hydromorphone HCl (Dilaudid) 1 mg IVPUSH Q2H PRN PRN Reason: Pain (severe 7-10) Last Admin: 05/24/19 04:58 Dose: 1 mg Lactated Ringer's (Ringers, Lactated) 1,000 mls @ 1,000 mls/hr IV BOLUS ONE Stop: 05/21/19 01:04 Last Admin: 05/21/19 00:30 Dose: 1,000 mls/hr Potassium Chloride 20 meq/ (Premix) 100 mls @ 50 mls/hr IV ONETIME ONE Stop: 05/21/19 02:51 Last Admin: 05/21/19 01:19 Dose: 50 mls/hr Sodium Chloride (Normal Saline) 1,000 mls @ 150 mls/hr IV ASDIRECTED [facility] Last Admin: 05/21/19 01:50 Dose: 150 mls/hr Magnesium Sulfate 2 gm/ (Dextrose/Water) 104 mls @ 100 mls/hr IV ONETIME ONE Stop: 05/21/19 04:14 Last Admin: 05/21/19 03:55 Dose: 100 mls/hr Potassium Chloride/Sodium Chloride (Normal Saline With 20 Meq Kcl) 1,000 mls @ 125 mls/hr IV ASDIRECTED [facility] Potassium Chloride/Sodium Chloride (Normal Saline With 20 Meq Kcl) 1,000 mls @ 125 mls/hr IV ASDIRECTED [facility] Last Admin: 05/21/19 15:37 Dose: 125 mls/hr Potassium Chloride/Dextrose/Sod Cl (D5 1/2 Ns W/ 20 Meq/L Kcl) 1,000 mls @ 75 mls/hr IV ASDIRECTED [facility] Last Admin: 05/22/19 09:39 Dose: 75 mls/hr Sodium Chloride (Normal Saline) 100 mls @ 4 mls/sec IV ASDIRECTED [facility] Stop: 05/22/19 04:48 Last Admin: 05/22/19 05:12 Dose: 4 mls/sec Piperacillin Sod/Tazobactam (Sod 3.375 gm/ Sodium Chloride) 50 mls @ 100 mls/ hr IV Q6H [facility] Last Admin: 05/22/19 06:37 Dose: 100 mls/hr Piperacillin/Tazobactam/ (Dextrose 3.375 gm/ Premix) 50 mls @ 100 mls/hr IV Q6H [facility] Last Admin: 05/25/19 05:40 Dose: 100 mls/hr Lactated Ringer's (Ringers, Lactated) 1,000 mls @ 999 mls/hr IV ASDIRECTED [facility] Last Admin: 05/22/19 17:59 Dose: 999 mls/hr Dextrose/Lactated Ringer's (Dextrose 5%-Lactated Ringers) 1,000 mls @ 125 mls/ hr IV ASDIRECTED [facility] Last Admin: 05/23/19 07:36 Dose: 125 mls/hr Lactated Ringer's (Ringers, Lactated) 1,000 mls @ 999 mls/hr IV ASDIRECTED [facility] Magnesium Sulfate 2 gm/ Premix 50 mls @ 25 mls/hr IV Q6H [facility] Stop: 05/23/19 16:59 Last Admin: 05/23/19 15:06 Dose: 25 mls/hr Dextrose/Lactated Ringer's (Dextrose 5%-Lactated Ringers) 1,000 mls @ 75 mls/ hr IV ASDIRECTED [facility] Last Admin: 05/24/19 08:18 Dose: 75 mls/hr Dextrose/Lactated Ringer's (Dextrose 5%-Lactated Ringers) 1,000 mls @ 25 mls/ hr IV ASDIRECTED [facility] Insulin Glargine (Lantus Solostar) 20 units SUBCUT DAILY [facility] Last Admin: 05/22/19 09:50 Dose: 20 units Insulin Glargine (Lantus Solostar) 10 units SUBCUT DAILY [facility] Last Admin: 05/25/19 08:35 Dose: 20 units Insulin Human Lispro (Humalog) 0 unit SUBCUT QIDACANDBED [facility]; Protocol Last Admin: 05/21/19 11:54 Dose: 6 units Insulin Human Lispro (Humalog) 6 unit SUBCUT ONETIME ONE Stop: 05/21/19 03:22 Last Admin: 05/21/19 03:30 Dose: 6 unit Insulin Human Regular (Humulin R) 20 unit SUBCUT ONETIME ONE Stop: 05/21/19 00:48 Last Admin: 05/21/19 01:12 Dose: 20 units Iopamidol (Isovue-370 (76%)) 100 ml IV . DIRECTED [facility] Stop: 05/22/19 04:48 Last Admin: 05/22/19 05:11 Dose: 100 ml Lidocaine HCl (Xylocaine-Mpf 1%) Confirm Administered Dose 5 ml .ROUTE .STK-MED ONE Stop: 05/21/19 01:23 Last Admin: 05/21/19 01:33 Dose: 5 ml Lorazepam (Ativan) 0.5 mg IVPUSH Q4H PRN PRN Reason: Nausea/Vomiting Last Admin: 05/24/19 08:04 Dose: 0.5 mg Lorazepam (Ativan) 0 mg PO ASDIRECTED [facility]; Protocol Last Admin: 05/21/19 03:30 Dose: 2 mg Lorazepam (Ativan) 0 mg IV ASDIRECTED [facility]; Protocol Last Admin: 05/22/19 04:00 Dose: 2 mg Lorazepam (Ativan) Confirm Administered Dose 2 mg .ROUTE .STK-MED ONE Stop: 05/21/19 07:04 Last Admin: 05/21/19 19:11 Dose: Not Given Melatonin (Melatonin) 9 mg PO BEDTIME [facility] Methylprednisolone Sodium Succinate (Solu-Medrol) 40 mg IVPUSH Q8H [facility] Last Admin: 05/24/19 01:46 Dose: 40 mg Oxycodone HCl (Oxycodone) 10 mg PO Q4H PRN PRN Reason: Pain Last Admin: 05/25/19 08:17 Dose: 10 mg Potassium Chloride (Potassium Chloride) 40 meq PO ONETIME ONE Stop: 05/21/19 00:55 Last Admin: 05/21/19 01:15 Dose: 40 meq Propranolol HCl (Inderal) 20 mg PO TID [facility] Last Admin: 05/25/19 08:28 Dose: 20 mg Thiamine HCl (Vitamin B-1) 100 mg PO ONETIME ONE Stop: 05/21/19 00:55 Last Admin: 05/21/19 01:15 Dose: 100 mg - Exam Quality Assessment: Supplemental Oxygen, DVT Prophylaxis General: Alert, Oriented, Cooperative, No Acute Distress Lungs: Clear to Auscultation, Normal Respiratory Effort Cardiovascular: Regular Rate, Regular Rhythm, No Murmurs GI/Abdominal Exam: Soft, Non-Tender, No Organomegaly, No Distention Extremities: Non-Tender, Pedal Edema Sepsis Event Note - Evaluation Sepsis Screening Result: No Definite Risk - Focused Exam Vital Signs: Vital Signs Temp Pulse Resp BP BP Pulse Ox 05/25/19 08:29 150/85 H 05/25/19 07:47 98.8 F 80 16 115/75 92 L 05/25/19 03:00 98.2 F 76 16 130/83 94 L 05/25/19 00:00 68 10 L 92 L Date Exam was Performed: 05/25/19 Time Exam was Performed: 10:00 - Problem List Review Problem List Initiated/Reviewed/Updated: Yes - My Orders Last 24 Hours: My Active Orders 05/24/19 10:56 Triamcinolone Acetonide [Triamcinolone Acetonide 0.1% Oint] 0 gm TOP BID PRN 05/25/19 07:30 Convert IV to Saline Lock [OM.PC] Routine 05/25/19 08:53 oxyCODONE 5 mg PO Q4H PRN 05/25/19 09:55 Patient Status [ADT] Routine 05/25/19 10:00 Amoxicillin/Clavulanate K [Augmentin 875 MG/125 MG] 1 tab PO Q12HR Calcium Carbonate/Vitamin D3 [Caltrate 600+D 1500 MG-400 Units] 2 tab PO BID Calcium Gluconate 2 gm Sodium Chloride 0.9% [Normal Saline] 100 ml IV ONETIME - Plan Plan:: ASSESSMENT AND PLAN Acute alcohol withdrawal syndrome-resolved -Continue gabapentin -Melatonin at bedtime -Supplement thiamine and folate Aspiration pneumonia/sepsis-good saturations, continues to require intermittent supplemental oxygen -Cultures pending -Zosyn as ordered Hypoxic respiratory failure-improved -Supplemental oxygen as needed -Nebulizer therapy as needed Insulin-dependent diabetes mellitus with hyperglycemia -4 times daily glucometers -Lantus 20 units subcu daily -High-dose sliding scale insulin Acute on chronic pancreatitis -Pain control -Soft diet Hypokalemia-resolved Chronic anemia-level low but stable. -Continue iron supplement Maintenance issues - - DVT prophylaxis -mechanical - GI prophylaxis -PPI - Nutrition -n.p.o. until his pain settles down - Toussaint catheter -not indicated CODE STATUS -full code Admission justification -this patient will be admitted for inpatient services and is medically appropriate meeting medical necessity for inpatient admission as outlined in my documentation. I reasonably expect the patient will require inpatient services that span a period time over 2 midnights. I reasonably expect this patient to be discharged or transferred within 96 hours after admission to the [facility] [place]. Disposition -I would anticipate discharge home after the hospital stay Primary care physician -Dorie FLEMING
[2019-05-25] MEDS: Triamcinolone Acetonide 0.1% Oint 15 GM Tube TOP PRN ×2 (10:50→21:49)
[2019-05-25] MEDS: Amoxicillin/Clavulanate K 875-125 MG Tab PO SCH ×2 (10:58→21:44)
[2019-05-25] MEDS: Calcium Carbonate/Vitamin D3 1500 MG-400 Units Tab PO SCH ×2 (10:58→21:44)
[2019-05-25] MEDS: Gabapentin 300 MG Cap PO SCH (21:44)
[2019-05-25] MEDS: Melatonin 3 MG Tab PO SCH (21:44)
[2019-05-25] MEDS: Ondansetron 4 MG Tab.DIS PO PRN (22:06)
[2019-05-26] MEDS: oxyCODONE 5 MG Tab PO PRN ×5 (04:20→20:55)
[2019-05-26] MEDS: Ondansetron 4 MG Tab.DIS PO PRN ×2 (04:23→16:45)
[2019-05-26] MEDS: Insulin Lispro 100 Unit/ML 3 ML KwikPen SUBCUT SCH ×6 (07:25→21:35)
[2019-05-26] MEDS: Amylase/Lipase/Protease 12,000 Unit Cap.CR PO SCH ×3 (07:26→16:45)
[2019-05-26] MEDS: Pantoprazole 40 MG Tab.CR PO SCH (07:28)
[2019-05-26] MEDS: Calcium Carbonate/Vitamin D3 1500 MG-400 Units Tab PO SCH ×2 (08:42→20:55)
[2019-05-26] MEDS: DULoxetine 30 MG Cap PO SCH (08:43)
[2019-05-26] MEDS: Ferrous Sulfate 325 MG Tab PO SCH ×2 (08:43→16:45)
[2019-05-26] MEDS: Thiamine 100 MG Tab PO SCH (08:43)
[2019-05-26] MEDS: amLODIPine 5 MG Tab PO SCH (08:43)
[2019-05-26] MEDS: Folic Acid 1 MG Tab PO SCH (08:43)
[2019-05-26] MEDS: Amoxicillin/Clavulanate K 875-125 MG Tab PO SCH ×2 (08:43→20:55)
[2019-05-26] MEDS: Gabapentin 400 MG Cap PO SCH ×3 (08:44→20:55)
[2019-05-26] MEDS: Magnesium Oxide 400 MG Tab PO SCH ×2 (08:44→20:56)
[2019-05-26] MEDS: Insulin Glargine,Human Rec. Analog 100 Units/ML 3 ML Pen SUBCUT SCH (08:46)
--- NOTE | 2019-05-26 10:52 | PCM.PN ---
- General Info Date of Service: 05/26/19 Subjective Update: Mr. Munguia has remained somewhat lethargic and resistant to increased levels of activity. He has been seen by physical therapy and nursing staff has been encouraging ambulation. Continues to require supplemental oxygen. Oxygen saturation today on room air was documented at 87%. Plan will be for discharged home tomorrow with supplemental oxygen. Functional Status: Reports: Tolerating Diet, Ambulating, Urinating - Review of Systems General: Reports: Weakness. Denies: Fever, Chills Pulmonary: Reports: Shortness of Breath. Denies: Pleuritic Chest Pain, Cough, Sputum, Hemoptysis, Wheezing Cardiovascular: Reports: Dyspnea on Exertion. Denies: Chest Pain, Palpitations , Orthopnea, PND, Edema, Lightheadedness Gastrointestinal: Reports: Abdominal Pain. Denies: Difficulty Swallowing, Nausea, Vomiting - Patient Data Vitals - Most Recent: Last Vital Signs Temp 98.2 F 05/26/19 10:42 Pulse 107 H 05/26/19 10:42 Resp 16 05/26/19 10:42 BP 96/63 05/26/19 10:42 Pulse Ox 91 L 05/26/19 10:42 Weight - Most Recent: 180 lb 14.4 oz I&O - Last 24 Hours: Intake & Output 05/25/19 05/26/19 05/26/19 22:59 06:59 14:59 Intake Total 600 360 Output Total 880 500 Balance -280 360 -500 Med Orders - Current: Current Medications Albuterol (Proventil Neb Soln) 2.5 mg NEB Q4H PRN PRN Reason: Shortness Of Breath/wheezing Last Admin: 05/22/19 04:10 Dose: 2.5 mg Amlodipine Besylate (Norvasc) 5 mg PO DAILY [facility] Last Admin: 05/26/19 08:43 Dose: 5 mg Amoxicillin/Clavulanate Potassium (Augmentin 875 Mg/125 Mg) 1 tab PO BID [facility] Last Admin: 05/26/19 08:43 Dose: 1 tab Lipase/Protease/Amylase (Creon Dr 12,000 Units) 6 cap PO TIDMEALS [facility] Last Admin: 05/26/19 07:26 Dose: 6 cap Calcium Carbonate (Caltrate 600+D 1500 Mg-400 Units) 2 tab PO BID [facility] Last Admin: 05/26/19 08:42 Dose: 2 tab Dextrose/Water (Dextrose 50% In Water) 25 - 50 ml IVPUSH ASDIRECTED PRN PRN Reason: HYPOGLYCEMIA Last Admin: 05/23/19 03:40 Dose: 50 ml Duloxetine HCl (Cymbalta) 60 mg PO DAILY [facility] Last Admin: 05/26/19 08:43 Dose: 60 mg Ferrous Sulfate (Ferrous Sulfate) 325 mg PO BIDMEALS [facility] Last Admin: 05/26/19 08:43 Dose: 325 mg Folic Acid (Folic Acid) 1 mg PO DAILY [facility] Last Admin: 05/26/19 08:43 Dose: 1 mg Gabapentin (Neurontin) 300 mg PO BEDTIME [facility] Last Admin: 05/25/19 21:44 Dose: 300 mg Gabapentin (Neurontin) 800 mg PO TID [facility] Last Admin: 05/26/19 08:44 Dose: 800 mg Insulin Glargine (Lantus Solostar) 20 units SUBCUT DAILY [facility] Last Admin: 05/26/19 08:46 Dose: Not Given Insulin Human Lispro (Humalog) 0 unit SUBCUT QIDACANDBED [facility]; Protocol Last Admin: 05/26/19 07:33 Dose: Not Given Lactobacillus Rhamnosus (Culturelle) 1 cap PO BID [facility] Magnesium Hydroxide (Milk Of Magnesia) 30 ml PO Q12H PRN PRN Reason: Constipation Magnesium Oxide (Magnesium Oxide) 400 mg PO BID [facility] Last Admin: 05/26/19 08:44 Dose: 400 mg Melatonin (Melatonin) 9 mg PO BEDTIME [facility] Last Admin: 05/25/19 21:44 Dose: 9 mg Ondansetron HCl (Zofran Odt) 4 mg PO Q6H PRN PRN Reason: Nausea able to take PO Last Admin: 05/26/19 04:23 Dose: 4 mg Ondansetron HCl (Zofran) 4 mg IV Q6H PRN PRN Reason: Nausea/Vomiting Last Admin: 05/25/19 14:33 Dose: 4 mg Oxycodone HCl (Oxycodone) 5 mg PO Q4H PRN PRN Reason: Pain Pantoprazole Sodium (Protonix) 40 mg PO ACBREAKFAST [facility] Last Admin: 05/26/19 07:28 Dose: 40 mg Senna/Docusate Sodium (Senna Plus) 1 tab PO BID PRN PRN Reason: Constipation Thiamine HCl (Vitamin B-1) 100 mg PO DAILY [facility] Last Admin: 05/26/19 08:43 Dose: 100 mg Triamcinolone Acetonide (Triamcinolone Acetonide 0.1% Oint) 0 gm TOP BID PRN PRN Reason: Other Last Admin: 05/25/19 21:49 Dose: 1 applicful Discontinued Medications Hydrocodone Bitart/Acetaminophen ([place] 325-5 Mg) 1 - 2 tab PO Q4H PRN PRN Reason: Pain Last Admin: 05/24/19 08:05 Dose: 2 tab Dextrose/Water (Dextrose 50% In Water) 50 ml IVPUSH ONETIME ONE Stop: 05/22/19 11:12 Last Admin: 05/22/19 11:20 Dose: 50 ml Dextrose/Water (Dextrose 50% In Water) Confirm Administered Dose 50 ml .ROUTE .STK-MED ONE Stop: 05/22/19 13:15 Last Admin: 05/22/19 13:27 Dose: Not Given Dextrose/Water (Dextrose 50% In Water) 50 ml IVPUSH ONETIME ONE Stop: 05/22/19 13:19 Last Admin: 05/22/19 13:18 Dose: 50 ml Dextrose/Water (Dextrose 50% In Water) 50 ml IVPUSH ONETIME ONE Stop: 05/22/19 14:46 Last Admin: 05/22/19 14:50 Dose: 50 ml Dextrose/Water (Dextrose 50% In Water) 25 ml IVPUSH ONETIME ONE Stop: 05/22/19 15:53 Last Admin: 05/22/19 16:02 Dose: 25 ml Dextrose/Water (Dextrose 50% In Water) 25 ml IVPUSH ONETIME ONE Stop: 05/22/19 17:24 Last Admin: 05/22/19 17:58 Dose: 25 ml Dextrose/Water (Dextrose 50% In Water) 50 ml IVPUSH ONETIME [facility] Stop: 05/22/19 19:21 Last Admin: 05/22/19 19:25 Dose: 50 ml Dextrose/Water (Dextrose 50% In Water) Confirm Administered Dose 50 ml .ROUTE .STK-MED ONE Stop: 05/22/19 19:23 Last Admin: 05/22/19 19:25 Dose: Not Given Dextrose/Water (Dextrose 50% In Water) 25 ml IVPUSH ONETIME [facility] Stop: 05/22/19 21:11 Last Admin: 05/22/19 21:14 Dose: 25 ml Furosemide (Lasix) 20 mg IVPUSH NOW ONE Stop: 05/24/19 10:01 Last Admin: 05/24/19 10:23 Dose: 20 mg Furosemide (Lasix) 20 mg IVPUSH NOW ONE Stop: 05/25/19 09:58 Last Admin: 05/25/19 11:10 Dose: 20 mg Hydromorphone HCl (Dilaudid) 1 mg IVPUSH ONETIME ONE Stop: 05/21/19 00:11 Last Admin: 05/21/19 00:30 Dose: 1 mg Hydromorphone HCl (Dilaudid) 0.5 mg IVPUSH ONETIME ONE Stop: 05/21/19 01:41 Last Admin: 05/21/19 01:50 Dose: 0.5 mg Hydromorphone HCl (Dilaudid) 1 mg IVPUSH Q2H PRN PRN Reason: Pain (severe 7-10) Last Admin: 05/24/19 04:58 Dose: 1 mg Lactated Ringer's (Ringers, Lactated) 1,000 mls @ 1,000 mls/hr IV BOLUS ONE Stop: 05/21/19 01:04 Last Admin: 05/21/19 00:30 Dose: 1,000 mls/hr Potassium Chloride 20 meq/ (Premix) 100 mls @ 50 mls/hr IV ONETIME ONE Stop: 05/21/19 02:51 Last Admin: 05/21/19 01:19 Dose: 50 mls/hr Sodium Chloride (Normal Saline) 1,000 mls @ 150 mls/hr IV ASDIRECTED [facility] Last Admin: 05/21/19 01:50 Dose: 150 mls/hr Magnesium Sulfate 2 gm/ (Dextrose/Water) 104 mls @ 100 mls/hr IV ONETIME ONE Stop: 05/21/19 04:14 Last Admin: 05/21/19 03:55 Dose: 100 mls/hr Potassium Chloride/Sodium Chloride (Normal Saline With 20 Meq Kcl) 1,000 mls @ 125 mls/hr IV ASDIRECTED [facility] Potassium Chloride/Sodium Chloride (Normal Saline With 20 Meq Kcl) 1,000 mls @ 125 mls/hr IV ASDIRECTED [facility] Last Admin: 05/21/19 15:37 Dose: 125 mls/hr Potassium Chloride/Dextrose/Sod Cl (D5 1/2 Ns W/ 20 Meq/L Kcl) 1,000 mls @ 75 mls/hr IV ASDIRECTED [facility] Last Admin: 05/22/19 09:39 Dose: 75 mls/hr Sodium Chloride (Normal Saline) 100 mls @ 4 mls/sec IV ASDIRECTED STA Stop: 05/22/19 04:48 Last Admin: 05/22/19 05:12 Dose: 4 mls/sec Piperacillin Sod/Tazobactam (Sod 3.375 gm/ Sodium Chloride) 50 mls @ 100 mls/ hr IV Q6H [facility] Last Admin: 05/22/19 06:37 Dose: 100 mls/hr Piperacillin/Tazobactam/ (Dextrose 3.375 gm/ Premix) 50 mls @ 100 mls/hr IV Q6H [facility] Last Admin: 05/25/19 05:40 Dose: 100 mls/hr Lactated Ringer's (Ringers, Lactated) 1,000 mls @ 999 mls/hr IV ASDIRECTED [facility] Last Admin: 05/22/19 17:59 Dose: 999 mls/hr Dextrose/Lactated Ringer's (Dextrose 5%-Lactated Ringers) 1,000 mls @ 125 mls/ hr IV ASDIRECTED [facility] Last Admin: 05/23/19 07:36 Dose: 125 mls/hr Lactated Ringer's (Ringers, Lactated) 1,000 mls @ 999 mls/hr IV ASDIRECTED [facility] Magnesium Sulfate 2 gm/ Premix 50 mls @ 25 mls/hr IV Q6H [facility] Stop: 05/23/19 16:59 Last Admin: 05/23/19 15:06 Dose: 25 mls/hr Dextrose/Lactated Ringer's (Dextrose 5%-Lactated Ringers) 1,000 mls @ 75 mls/ hr IV ASDIRECTED [facility] Last Admin: 05/24/19 08:18 Dose: 75 mls/hr Dextrose/Lactated Ringer's (Dextrose 5%-Lactated Ringers) 1,000 mls @ 25 mls/ hr IV ASDIRECTED [facility] Calcium Gluconate 2 gm/ Sodium (Chloride) 120 mls @ 100 mls/hr IV ONETIME ONE Stop: 05/25/19 11:11 Last Admin: 05/25/19 09:55 Dose: 100 mls/hr Insulin Glargine (Lantus Solostar) 20 units SUBCUT DAILY [facility] Last Admin: 05/22/19 09:50 Dose: 20 units Insulin Glargine (Lantus Solostar) 10 units SUBCUT DAILY [facility] Last Admin: 05/25/19 08:35 Dose: 20 units Insulin Human Lispro (Humalog) 0 unit SUBCUT QIDACANDBED [facility]; Protocol Last Admin: 05/21/19 11:54 Dose: 6 units Insulin Human Lispro (Humalog) 6 unit SUBCUT ONETIME ONE Stop: 05/21/19 03:22 Last Admin: 05/21/19 03:30 Dose: 6 unit Insulin Human Regular (Humulin R) 20 unit SUBCUT ONETIME ONE Stop: 05/21/19 00:48 Last Admin: 05/21/19 01:12 Dose: 20 units Iopamidol (Isovue-370 (76%)) 100 ml IV . DIRECTED [facility] Stop: 05/22/19 04:48 Last Admin: 05/22/19 05:11 Dose: 100 ml Lidocaine HCl (Xylocaine-Mpf 1%) Confirm Administered Dose 5 ml .ROUTE .STK-MED ONE Stop: 05/21/19 01:23 Last Admin: 05/21/19 01:33 Dose: 5 ml Lorazepam (Ativan) 0.5 mg IVPUSH Q4H PRN PRN Reason: Nausea/Vomiting Last Admin: 05/24/19 08:04 Dose: 0.5 mg Lorazepam (Ativan) 0 mg PO ASDIRECTED [facility]; Protocol Last Admin: 05/21/19 03:30 Dose: 2 mg Lorazepam (Ativan) 0 mg IV ASDIRECTED [facility]; Protocol Last Admin: 05/22/19 04:00 Dose: 2 mg Lorazepam (Ativan) Confirm Administered Dose 2 mg .ROUTE .STK-MED ONE Stop: 05/21/19 07:04 Last Admin: 05/21/19 19:11 Dose: Not Given Melatonin (Melatonin) 9 mg PO BEDTIME [facility] Methylprednisolone Sodium Succinate (Solu-Medrol) 40 mg IVPUSH Q8H [facility] Last Admin: 05/24/19 01:46 Dose: 40 mg Oxycodone HCl (Oxycodone) 10 mg PO Q4H PRN PRN Reason: Pain Last Admin: 05/25/19 08:17 Dose: 10 mg Oxycodone HCl (Oxycodone) 5 mg PO Q4H PRN PRN Reason: Pain Last Admin: 05/25/19 15:29 Dose: 5 mg Oxycodone HCl (Oxycodone) 5 - 10 mg PO Q4H PRN PRN Reason: Pain Last Admin: 05/26/19 08:44 Dose: 10 mg Potassium Chloride (Potassium Chloride) 40 meq PO ONETIME ONE Stop: 05/21/19 00:55 Last Admin: 05/21/19 01:15 Dose: 40 meq Propranolol HCl (Inderal) 20 mg PO TID [facility] Last Admin: 05/25/19 08:28 Dose: 20 mg Thiamine HCl (Vitamin B-1) 100 mg PO ONETIME ONE Stop: 05/21/19 00:55 Last Admin: 05/21/19 01:15 Dose: 100 mg - Exam Quality Assessment: Supplemental Oxygen, DVT Prophylaxis General: Alert, Oriented, Cooperative, No Acute Distress Lungs: Clear to Auscultation, Normal Respiratory Effort Cardiovascular: Regular Rate, Regular Rhythm, No Murmurs GI/Abdominal Exam: Soft, Non-Tender, No Organomegaly, No Distention Extremities: Non-Tender, Pedal Edema Sepsis Event Note - Evaluation Sepsis Screening Result: No Definite Risk - Focused Exam Vital Signs: Vital Signs Temp Pulse Resp BP BP Pulse Ox Pulse Ox 05/26/19 10:42 98.2 F 107 H 16 96/63 91 L 05/26/19 08:43 114/59 L 05/26/19 07:00 98.4 F 83 16 114/59 L 92 L 05/26/19 06:59 91 L 05/26/19 02:52 99.1 F 83 14 125/84 91 L 05/26/19 01:12 94 L 05/26/19 00:00 90 L 05/25/19 23:00 98.1 F 80 16 134/77 90 L Date Exam was Performed: 05/26/19 Time Exam was Performed: 10:49 - Problem List Review Problem List Initiated/Reviewed/Updated: Yes - My Orders Last 24 Hours: My Active Orders 05/25/19 09:55 Patient Status [ADT] Routine 05/25/19 10:00 Amoxicillin/Clavulanate K [Augmentin 875 MG/125 MG] 1 tab PO BID Calcium Carbonate/Vitamin D3 [Caltrate 600+D 1500 MG-400 Units] 2 tab PO BID 05/25/19 10:03 Consult to Physical Therapy [PT Evaluation and Treatment] [CONS] Routine 05/26/19 10:38 oxyCODONE 5 mg PO Q4H PRN 05/26/19 10:39 Discontinue Telemetry Monitoring [Cardiac Monitoring Discontinue] [RC] Click to Edit 05/26/19 10:45 Lactobacillus Rhamnosus GG [Culturelle] 1 cap PO BID 05/26/19 10:48 Furosemide [Lasix] 20 mg IVPUSH NOW ONE 05/26/19 11:30 GLUCOSE POC LAB TO COLLECT [POC] QIDACANDBED 05/26/19 16:30 GLUCOSE POC LAB TO COLLECT [POC] QIDACANDBED 05/26/19 21:00 GLUCOSE POC LAB TO COLLECT [POC] QIDACANDBED - Plan Plan:: ASSESSMENT AND PLAN Acute alcohol withdrawal syndrome-resolved -Continue gabapentin -Melatonin at bedtime -Supplement thiamine and folate Aspiration pneumonia/sepsis-no further evidence of active infection -Cultures pending Hypoxic respiratory failure-improved, does continue to require supplemental oxygen 2 L/min via nasal cannula. Oxygen saturation today on room air while at rest was 87%. He will require discharged home with supplemental oxygen for at least the next month or 2. -Supplemental oxygen as needed -Nebulizer therapy as needed Insulin-dependent diabetes mellitus with hyperglycemia -4 times daily glucometers -Lantus 20 units subcu daily -High-dose sliding scale insulin Acute on chronic pancreatitis -Pain control -Soft diet Hypokalemia-resolved Chronic anemia-level low but stable. -Continue iron supplement Maintenance issues - - DVT prophylaxis -mechanical - GI prophylaxis -PPI - Nutrition -n.p.o. until his pain settles down - Toussaint catheter -not indicated CODE STATUS -full code Admission justification -this patient will be admitted for inpatient services and is medically appropriate meeting medical necessity for inpatient admission as outlined in my documentation. I reasonably expect the patient will require inpatient services that span a period time over 2 midnights. I reasonably expect this patient to be discharged or transferred within 96 hours [facility]. Disposition -I would anticipate discharge home after the hospital stay Primary care physician -Dorie FLEMING
[2019-05-26] MEDS ORDERED: Furosemide 20 MG/2 ML VIAL IVPUSH ONE (11:00)
[2019-05-26] MEDS: Triamcinolone Acetonide 0.1% Oint 15 GM Tube TOP PRN (11:43)
[2019-05-26] MEDS: Lactobacillus Rhamnosus GG (Probiotic) Cap PO SCH ×2 (11:45→20:55)
[2019-05-26] MEDS: Gabapentin 300 MG Cap PO SCH (20:55)
[2019-05-26] MEDS: Melatonin 3 MG Tab PO SCH (20:56)
[2019-05-27] MEDS: oxyCODONE 5 MG Tab PO PRN ×3 (02:07→13:35)
[2019-05-27] MEDS: Amylase/Lipase/Protease 12,000 Unit Cap.CR PO SCH ×2 (08:26→11:52)
[2019-05-27] MEDS: DULoxetine 30 MG Cap PO SCH (08:27)
[2019-05-27] MEDS: Amoxicillin/Clavulanate K 875-125 MG Tab PO SCH (08:27)
[2019-05-27] MEDS: Gabapentin 400 MG Cap PO SCH ×2 (08:27→13:35)
[2019-05-27] MEDS: Pantoprazole 40 MG Tab.CR PO SCH (08:27)
[2019-05-27] MEDS: Folic Acid 1 MG Tab PO SCH (08:27)
[2019-05-27] MEDS: Calcium Carbonate/Vitamin D3 1500 MG-400 Units Tab PO SCH (08:27)
[2019-05-27] MEDS: amLODIPine 5 MG Tab PO SCH (08:27)
[2019-05-27] MEDS: Lactobacillus Rhamnosus GG (Probiotic) Cap PO SCH (08:27)
[2019-05-27] MEDS: Magnesium Oxide 400 MG Tab PO SCH (08:27)
[2019-05-27] MEDS: Ferrous Sulfate 325 MG Tab PO SCH (08:27)
[2019-05-27] MEDS: Thiamine 100 MG Tab PO SCH (08:27)
[2019-05-27] MEDS: Insulin Lispro 100 Unit/ML 3 ML KwikPen SUBCUT SCH ×2 (08:32→11:52)
[2019-05-27] MEDS: Triamcinolone Acetonide 0.1% Oint 15 GM Tube TOP PRN (08:36)
[2019-05-27] MEDS: Ondansetron 4 MG Tab.DIS PO PRN (08:36)
[2019-05-27] MEDS: Insulin Glargine,Human Rec. Analog 100 Units/ML 3 ML Pen SUBCUT SCH (08:38)
--- NOTE | 2019-05-27 09:43 | PCM.DCSUM1 ---
Discharge Summary - Hospital Course Brief History: Mr. Munguia is a 54-year-old gentleman who was admitted through the emergency department with abdominal pain and nausea as well as alcohol intoxication and developing alcohol withdrawal. - Discharge Data Discharge Date: 05/27/19 Discharge Disposition: Home, W Home Health Agency 06 Condition: Fair - Referral to Home Health Date of Face to Face Encounter: 05/27/19 Reason for Homebound Status: Weakness, hypoxia Primary Care Physician: PCP None Skilled Need: Generalized weakness - Discharge Diagnosis/Problem(s) (1) Hypoxia SNOMED Code(s): 439576479 ICD Code: R09.02 - HYPOXEMIA Status: Acute Current Visit: Yes (2) Aspiration pneumonia SNOMED Code(s): 413628335 ICD Code: J69.0 - PNEUMONITIS DUE TO INHALATION OF FOOD AND VOMIT Status: Acute Current Visit: Yes (3) Chronic anemia SNOMED Code(s): 180127728 ICD Code: D64.9 - ANEMIA, UNSPECIFIED Status: Acute Current Visit: Yes (4) Alcohol intoxication SNOMED Code(s): 51401718 ICD Code: F10.929 - ALCOHOL USE, UNSPECIFIED WITH INTOXICATION, UNSPECIFIED Status: Acute Current Visit: Yes Qualifiers: Complication of substance-induced condition: with unspecified complication Qualified Code(s): F10.929 - Alcohol use, unspecified with intoxication, unspecified (5) Alcohol withdrawal syndrome SNOMED Code(s): 338704790 ICD Code: F10.239 - ALCOHOL DEPENDENCE WITH WITHDRAWAL, UNSPECIFIED Status : Acute Current Visit: Yes Qualifiers: Complication of substance-induced condition: with unspecified complication Qualified Code(s): F10.239 - Alcohol dependence with withdrawal, unspecified - Patient Summary/Data Consults: Consultations 05/25/19 10:03 Consult to Physical Therapy [PT Evaluation and Treatment] [CONS] Routine Please Evaluate and Treat. PT Reason for Consult: weakness This query below is only for informational purposes and is not editable. Admission Diagnosis/Problem: Alcohol withdrawal syndrome Hospital Course: Mr. Munguia scented to the emergency room with acute right upper quadrant abdominal pain. He reports that he had been feeling well up until this morning when he developed acute worsening of his chronic right upper quadrant abdominal pain. He describes progression from his usual level of 2-4 out of 10 pain up to 10 out of 10 pain. This was a severe sharp pain that radiates from the right upper quadrant to the back. Pain remains fairly steady with no obvious triggers to make it worse. Pain did wax and wane some but did remain fairly severe throughout the day. He did not have anything available to take at home to help with the pain. Despite having severe 10 out of 10 pain much of the day he says that his appetite was good and he was able to eat steak for supper. He reports that he had 2 margaritas. He has not had any nausea or vomiting. No diarrhea. He does feel weak, especially in the legs and had to crawl to his neighbor's apartment for help this evening. He denies alcohol use other than the 2 margaritas this evening. He does endorse feeling very shaky and is obviously tremulous. Work-up in the emergency room revealed multiple electrolyte abnormalities with hypernatremia and hypokalemia. He also has a significant elevation of his AST and mild elevation of ALT. He is very tremulous and there is concern for alcohol withdrawal syndrome. Alcohol level is 150. He also has severe hyperglycemia with a blood sugar of more than 600. He will be admitted to the intensive care unit for management of suspected alcohol withdrawal as well as his hyperglycemia and electrolyte abnormalities and pain management. On admission he was given IV fluids for hydration and started on alcohol withdrawal protocol. Electrolyte abnormalities were corrected with supplemental potassium as well as IV fluids. Glucose levels were managed with subcutaneous insulin and frequent glucometers. Unfortunately shortly after admission he developed an episode of aspiration with respiratory compromise and hypoxia. CT scan did show evidence of pulmonary infiltrates that were not present on admission. He was managed with supplemental oxygen and then noninvasive positive pressure ventilation. Antibiotic therapy was initiated with Zosyn and he was also treated with short course of IV Solu- Medrol. Hospitalization was complicated by hypoglycemia and doses of insulin were decreased. He slowly improved as far as his respiratory status with no further evidence of active infection. He will be discharged home with an additional 3 days of oral antibiotic therapy with Augmentin. Oxygenation improved during hospitalization, but at the time of discharge he continued to require some supplemental oxygen. He will be discharged home with oxygen 2 L/ min via nasal cannula. On the day of discharge he did have documented hypoxia with a oxygen saturation of 84% on room air while at rest. Activity will be as tolerated and he will resume his usual diet. Follow-up appointment will be scheduled with his primary care provider within 1 week. Home oxygen will be arranged for him and he will also have home care with home physical therapy and Occupational Therapy. - Patient Instructions Diet: Usual Diet as Tolerated Activity: As Tolerated Other/Special Instructions: Please schedule follow-up appointment with primary care provider within 1 week. Please discharged home with home oxygen 2 L/min via nasal cannula. Please arrange for home care services with home physical therapy and Occupational Therapy. - Discharge Plan *PRESCRIPTION DRUG MONITORING PROGRAM REVIEWED*: No *COPY OF PRESCRIPTION DRUG MONITORING REPORT IN PATIENT FABIOLA: No Prescriptions/Med Rec: Amoxicillin/Clavulanate K [Augmentin 875-125 MG] 1 tab PO BID #6 tablet Lactobacillus Rhamnosus GG [Culturelle] 1 cap PO BID #60 cap Home Medications: Home Meds Insulin Glarg,Human.Rec.Analog [Lantus] 20 unit SUBCUT QAM 06/10/17 [History] Gabapentin [Neurontin] 300 mg PO BEDTIME 08/10/18 [History] Gabapentin [Neurontin] 800 mg PO TID 08/10/18 [History] Omeprazole 40 mg PO ACBREAKFAST 04/17/19 [History] Amitriptyline [Elavil] 25 mg PO BEDTIME PRN 05/05/19 [History] Amylase/Lipase/Protease [Shawna MATTHEWS 24,000 Unit] 3 cap PO TIDMEALS 05/05/19 [ History] DULoxetine [Cymbalta] 60 mg PO DAILY 05/05/19 [History] Folic Acid 1 mg PO DAILY 05/05/19 [History] Furosemide [Lasix] 20 mg PO DAILY PRN 05/05/19 [History] Insulin Aspart [NovoLOG] 0 unit SUBCUT WITHMEALSANDBED 05/05/19 [History] Magnesium Chloride [Mag-64] 128 mg PO BID 05/05/19 [History] Melatonin/Pyridoxine HCl (B6) [Melatonin 5 mg Tablet] 1 each PO BEDTIME PRN [History] Thiamine [Vitamin B-1] 100 mg PO DAILY 05/05/19 [History] amLODIPine [Norvasc] 5 mg PO DAILY 05/05/19 [History] diphenhydrAMINE [Benadryl] 25 mg PO BEDTIME PRN 05/05/19 [History] Ferrous Sulfate 325 mg PO BIDAC #60 tablet 05/07/19 [Rx] Amoxicillin/Clavulanate K [Augmentin 875-125 MG] 1 tab PO BID #6 tablet [Rx] Lactobacillus Rhamnosus GG [Culturelle] 1 cap PO BID #60 cap 05/27/19 [Rx] Oxygen Therapy Mode: Nasal Cannula Oxygen Flow Rate (L/min): 2 Maintain SpO2% greater than: 90 - Discharge Summary/Plan Comment DC Time >30 min.: No - Patient Data Vitals - Most Recent: Last Vital Signs Temp 99.6 F 05/27/19 07:00 Pulse 95 05/27/19 07:00 Resp 16 05/27/19 07:00 BP 114/68 05/27/19 08:27 Pulse Ox 89 L 05/27/19 07:00 Weight - Most Recent: 180 lb 14.4 oz I&O - Last 24 hours: Intake & Output 05/26/19 05/27/19 05/27/19 22:59 06:59 14:59 Intake Total 1196 Output Total 300 900 Balance 896 -900 Med Orders - Current: Current Medications Albuterol (Proventil Neb Soln) 2.5 mg NEB Q4H PRN PRN Reason: Shortness Of Breath/wheezing Last Admin: 05/22/19 04:10 Dose: 2.5 mg Amlodipine Besylate (Norvasc) 5 mg PO DAILY [facility] Last Admin: 05/27/19 08:27 Dose: 5 mg Amoxicillin/Clavulanate Potassium (Augmentin 875 Mg/125 Mg) 1 tab PO BID [facility] Last Admin: 05/27/19 08:27 Dose: 1 tab Lipase/Protease/Amylase (Creon Dr 12,000 Units) 6 cap PO TIDMEALS [facility] Last Admin: 05/27/19 08:26 Dose: 6 cap Calcium Carbonate (Caltrate 600+D 1500 Mg-400 Units) 2 tab PO BID [facility] Last Admin: 05/27/19 08:27 Dose: 2 tab Dextrose/Water (Dextrose 50% In Water) 25 - 50 ml IVPUSH ASDIRECTED PRN PRN Reason: HYPOGLYCEMIA Last Admin: 05/23/19 03:40 Dose: 50 ml Duloxetine HCl (Cymbalta) 60 mg PO DAILY [facility] Last Admin: 05/27/19 08:27 Dose: 60 mg Ferrous Sulfate (Ferrous Sulfate) 325 mg PO BIDMEALS [facility] Last Admin: 05/27/19 08:27 Dose: 325 mg Folic Acid (Folic Acid) 1 mg PO DAILY [facility] Last Admin: 05/27/19 08:27 Dose: 1 mg Gabapentin (Neurontin) 300 mg PO BEDTIME [facility] Last Admin: 05/26/19 20:55 Dose: 300 mg Gabapentin (Neurontin) 800 mg PO TID [facility] Last Admin: 05/27/19 08:27 Dose: 800 mg Insulin Glargine (Lantus Solostar) 20 units SUBCUT DAILY [facility] Last Admin: 05/27/19 08:38 Dose: Not Given Insulin Human Lispro (Humalog) 0 unit SUBCUT QIDACANDBED [facility]; Protocol Last Admin: 05/27/19 08:32 Dose: 2 units Lactobacillus Rhamnosus (Culturelle) 1 cap PO BID [facility] Last Admin: 05/27/19 08:27 Dose: 1 cap Magnesium Hydroxide (Milk Of Magnesia) 30 ml PO Q12H PRN PRN Reason: Constipation Magnesium Oxide (Magnesium Oxide) 400 mg PO BID [facility] Last Admin: 05/27/19 08:27 Dose: 400 mg Melatonin (Melatonin) 9 mg PO BEDTIME [facility] Last Admin: 05/26/19 20:56 Dose: 9 mg Ondansetron HCl (Zofran Odt) 4 mg PO Q6H PRN PRN Reason: Nausea able to take PO Last Admin: 05/27/19 08:36 Dose: 4 mg Ondansetron HCl (Zofran) 4 mg IV Q6H PRN PRN Reason: Nausea/Vomiting Last Admin: 05/25/19 14:33 Dose: 4 mg Oxycodone HCl (Oxycodone) 5 mg PO Q4H PRN PRN Reason: Pain Last Admin: 05/27/19 08:35 Dose: 5 mg Pantoprazole Sodium (Protonix) 40 mg PO ACBREAKFAST [facility] Last Admin: 05/27/19 08:27 Dose: 40 mg Senna/Docusate Sodium (Senna Plus) 1 tab PO BID PRN PRN Reason: Constipation Thiamine HCl (Vitamin B-1) 100 mg PO DAILY [facility] Last Admin: 05/27/19 08:27 Dose: 100 mg Triamcinolone Acetonide (Triamcinolone Acetonide 0.1% Oint) 0 gm TOP BID PRN PRN Reason: Other Last Admin: 05/27/19 08:36 Dose: 1 applicful Discontinued Medications Hydrocodone Bitart/Acetaminophen ([place] 325-5 Mg) 1 - 2 tab PO Q4H PRN PRN Reason: Pain Last Admin: 05/24/19 08:05 Dose: 2 tab Dextrose/Water (Dextrose 50% In Water) 50 ml IVPUSH ONETIME ONE Stop: 05/22/19 11:12 Last Admin: 05/22/19 11:20 Dose: 50 ml Dextrose/Water (Dextrose 50% In Water) Confirm Administered Dose 50 ml .ROUTE .STK-MED ONE Stop: 05/22/19 13:15 Last Admin: 05/22/19 13:27 Dose: Not Given Dextrose/Water (Dextrose 50% In Water) 50 ml IVPUSH ONETIME ONE Stop: 05/22/19 13:19 Last Admin: 05/22/19 13:18 Dose: 50 ml Dextrose/Water (Dextrose 50% In Water) 50 ml IVPUSH ONETIME ONE Stop: 05/22/19 14:46 Last Admin: 05/22/19 14:50 Dose: 50 ml Dextrose/Water (Dextrose 50% In Water) 25 ml IVPUSH ONETIME ONE Stop: 05/22/19 15:53 Last Admin: 05/22/19 16:02 Dose: 25 ml Dextrose/Water (Dextrose 50% In Water) 25 ml IVPUSH ONETIME ONE Stop: 05/22/19 17:24 Last Admin: 05/22/19 17:58 Dose: 25 ml Dextrose/Water (Dextrose 50% In Water) 50 ml IVPUSH ONETIME STA Stop: 05/22/19 19:21 Last Admin: 05/22/19 19:25 Dose: 50 ml Dextrose/Water (Dextrose 50% In Water) Confirm Administered Dose 50 ml .ROUTE .STK-MED ONE Stop: 05/22/19 19:23 Last Admin: 05/22/19 19:25 Dose: Not Given Dextrose/Water (Dextrose 50% In Water) 25 ml IVPUSH ONETIME STA Stop: 05/22/19 21:11 Last Admin: 05/22/19 21:14 Dose: 25 ml Furosemide (Lasix) 20 mg IVPUSH NOW ONE Stop: 05/24/19 10:01 Last Admin: 05/24/19 10:23 Dose: 20 mg Furosemide (Lasix) 20 mg IVPUSH NOW ONE Stop: 05/25/19 09:58 Last Admin: 05/25/19 11:10 Dose: 20 mg Furosemide (Lasix) 20 mg IVPUSH NOW ONE Stop: 05/26/19 11:01 Last Admin: 05/26/19 11:52 Dose: 20 mg Hydromorphone HCl (Dilaudid) 1 mg IVPUSH ONETIME ONE Stop: 05/21/19 00:11 Last Admin: 05/21/19 00:30 Dose: 1 mg Hydromorphone HCl (Dilaudid) 0.5 mg IVPUSH ONETIME ONE Stop: 05/21/19 01:41 Last Admin: 05/21/19 01:50 Dose: 0.5 mg Hydromorphone HCl (Dilaudid) 1 mg IVPUSH Q2H PRN PRN Reason: Pain (severe 7-10) Last Admin: 05/24/19 04:58 Dose: 1 mg Lactated Ringer's (Ringers, Lactated) 1,000 mls @ 1,000 mls/hr IV BOLUS ONE Stop: 05/21/19 01:04 Last Admin: 05/21/19 00:30 Dose: 1,000 mls/hr Potassium Chloride 20 meq/ (Premix) 100 mls @ 50 mls/hr IV ONETIME ONE Stop: 05/21/19 02:51 Last Admin: 05/21/19 01:19 Dose: 50 mls/hr Sodium Chloride (Normal Saline) 1,000 mls @ 150 mls/hr IV ASDIRECTED [facility] Last Admin: 05/21/19 01:50 Dose: 150 mls/hr Magnesium Sulfate 2 gm/ (Dextrose/Water) 104 mls @ 100 mls/hr IV ONETIME ONE Stop: 05/21/19 04:14 Last Admin: 05/21/19 03:55 Dose: 100 mls/hr Potassium Chloride/Sodium Chloride (Normal Saline With 20 Meq Kcl) 1,000 mls @ 125 mls/hr IV ASDIRECTED [facility] Potassium Chloride/Sodium Chloride (Normal Saline With 20 Meq Kcl) 1,000 mls @ 125 mls/hr IV ASDIRECTED [facility] Last Admin: 05/21/19 15:37 Dose: 125 mls/hr Potassium Chloride/Dextrose/Sod Cl (D5 1/2 Ns W/ 20 Meq/L Kcl) 1,000 mls @ 75 mls/hr IV ASDIRECTED [facility] Last Admin: 05/22/19 09:39 Dose: 75 mls/hr Sodium Chloride (Normal Saline) 100 mls @ 4 mls/sec IV ASDIRECTED STA Stop: 05/22/19 04:48 Last Admin: 05/22/19 05:12 Dose: 4 mls/sec Piperacillin Sod/Tazobactam (Sod 3.375 gm/ Sodium Chloride) 50 mls @ 100 mls/ hr IV Q6H [facility] Last Admin: 05/22/19 06:37 Dose: 100 mls/hr Piperacillin/Tazobactam/ (Dextrose 3.375 gm/ Premix) 50 mls @ 100 mls/hr IV Q6H [facility] Last Admin: 05/25/19 05:40 Dose: 100 mls/hr Lactated Ringer's (Ringers, Lactated) 1,000 mls @ 999 mls/hr IV ASDIRECTED [facility] Last Admin: 05/22/19 17:59 Dose: 999 mls/hr Dextrose/Lactated Ringer's (Dextrose 5%-Lactated Ringers) 1,000 mls @ 125 mls/ hr IV ASDIRECTED [facility] Last Admin: 05/23/19 07:36 Dose: 125 mls/hr Lactated Ringer's (Ringers, Lactated) 1,000 mls @ 999 mls/hr IV ASDIRECTED [facility] Magnesium Sulfate 2 gm/ Premix 50 mls @ 25 mls/hr IV Q6H [facility] Stop: 05/23/19 16:59 Last Admin: 05/23/19 15:06 Dose: 25 mls/hr Dextrose/Lactated Ringer's (Dextrose 5%-Lactated Ringers) 1,000 mls @ 75 mls/ hr IV ASDIRECTED [facility] Last Admin: 05/24/19 08:18 Dose: 75 mls/hr Dextrose/Lactated Ringer's (Dextrose 5%-Lactated Ringers) 1,000 mls @ 25 mls/ hr IV ASDIRECTED [facility] Calcium Gluconate 2 gm/ Sodium (Chloride) 120 mls @ 100 mls/hr IV ONETIME ONE Stop: 05/25/19 11:11 Last Admin: 05/25/19 09:55 Dose: 100 mls/hr Insulin Glargine (Lantus Solostar) 20 units SUBCUT DAILY [facility] Last Admin: 05/22/19 09:50 Dose: 20 units Insulin Glargine (Lantus Solostar) 10 units SUBCUT DAILY [facility] Last Admin: 05/25/19 08:35 Dose: 20 units Insulin Human Lispro (Humalog) 0 unit SUBCUT QIDACANDBED [facility]; Protocol Last Admin: 05/21/19 11:54 Dose: 6 units Insulin Human Lispro (Humalog) 6 unit SUBCUT ONETIME ONE Stop: 05/21/19 03:22 Last Admin: 05/21/19 03:30 Dose: 6 unit Insulin Human Regular (Humulin R) 20 unit SUBCUT ONETIME ONE Stop: 05/21/19 00:48 Last Admin: 05/21/19 01:12 Dose: 20 units Iopamidol (Isovue-370 (76%)) 100 ml IV . DIRECTED STA Stop: 05/22/19 04:48 Last Admin: 05/22/19 05:11 Dose: 100 ml Lidocaine HCl (Xylocaine-Mpf 1%) Confirm Administered Dose 5 ml .ROUTE .STK-MED ONE Stop: 05/21/19 01:23 Last Admin: 05/21/19 01:33 Dose: 5 ml Lorazepam (Ativan) 0.5 mg IVPUSH Q4H PRN PRN Reason: Nausea/Vomiting Last Admin: 05/24/19 08:04 Dose: 0.5 mg Lorazepam (Ativan) 0 mg PO ASDIRECTED [facility]; Protocol Last Admin: 05/21/19 03:30 Dose: 2 mg Lorazepam (Ativan) 0 mg IV ASDIRECTED [facility]; Protocol Last Admin: 05/22/19 04:00 Dose: 2 mg Lorazepam (Ativan) Confirm Administered Dose 2 mg .ROUTE .STK-MED ONE Stop: 05/21/19 07:04 Last Admin: 05/21/19 19:11 Dose: Not Given Melatonin (Melatonin) 9 mg PO BEDTIME [facility] Methylprednisolone Sodium Succinate (Solu-Medrol) 40 mg IVPUSH Q8H [facility] Last Admin: 05/24/19 01:46 Dose: 40 mg Oxycodone HCl (Oxycodone) 10 mg PO Q4H PRN PRN Reason: Pain Last Admin: 05/25/19 08:17 Dose: 10 mg Oxycodone HCl (Oxycodone) 5 mg PO Q4H PRN PRN Reason: Pain Last Admin: 05/25/19 15:29 Dose: 5 mg Oxycodone HCl (Oxycodone) 5 - 10 mg PO Q4H PRN PRN Reason: Pain Last Admin: 05/26/19 08:44 Dose: 10 mg Potassium Chloride (Potassium Chloride) 40 meq PO ONETIME ONE Stop: 05/21/19 00:55 Last Admin: 05/21/19 01:15 Dose: 40 meq Propranolol HCl (Inderal) 20 mg PO TID [facility] Last Admin: 05/25/19 08:28 Dose: 20 mg Thiamine HCl (Vitamin B-1) 100 mg PO ONETIME ONE Stop: 05/21/19 00:55 Last Admin: 05/21/19 01:15 Dose: 100 mg - Exam General: Reports: Alert, Oriented, Cooperative, No Acute Distress Lungs: Reports: Clear to Auscultation, Normal Respiratory Effort, Decreased Breath Sounds Cardiovascular: Reports: Regular Rate, Regular Rhythm, No Murmurs GI/Abdominal Exam: Soft, No Organomegaly, Tender. No: Distended, Guarding, Rigid, Rebound
== END 2019-05-27 14:30 | disposition home health service (06) | DRG 896 ==
LOC: JP.ED 23:32 → JP.ICU 05-21 02:45 → UNDODISIN 05-21 03:12 → JP.MS 05-25 13:33
PROVIDERS: ADMIT Internal Medicine; ATTEND Hospitalist
DX: F10.239 Alcohol dependence with withdrawal, unspecified (principal); K85.20 Alcohol induced acute pancreatitis without necrosis or infection; J69.0 Pneumonitis due to inhalation of food and vomit; J96.91 Respiratory failure, unspecified with hypoxia; K86.0 Alcohol-induced chronic pancreatitis; F10.229 Alcohol dependence with intoxication, unspecified; Y90.6 Blood alcohol level of 120-199 mg/100 ml; E87.6 Hypokalemia; K70.10 Alcoholic hepatitis without ascites; F10.288 Alcohol dependence with other alcohol-induced disorder; D64.9 Anemia, unspecified; I25.10 Atherosclerotic heart disease of native coronary artery without angina pectoris; E11.42 Type 2 diabetes mellitus with diabetic polyneuropathy; F17.200 Nicotine dependence, unspecified, uncomplicated; E11.65 Type 2 diabetes mellitus with hyperglycemia; Z88.6 Allergy status to analgesic agent; Z79.4 Long term (current) use of insulin; Z79.899 Other long term (current) drug therapy; I25.2 Old myocardial infarction; Z95.5 Presence of coronary angioplasty implant and graft
CPT/HCPCS: 36415; 36600; 71275; 80048; 80053; 80307; 81001; 82330; 82803; 82962; 83690; 83735; 85025; 85027; 94640; 94660; 94762; 96361; 96365; 96375; 96376; 97110-GP; 97161-GP; 99285-25; A9270-GY; J0610; J1170; J1815; J1815-GY; J1940; J2001; J2060; J2405; J2543; J2920; J3475; J3480; J7030; J7050; J7060; J7120; J7121; Q9967

== ENCOUNTER 2019-07-05 05:02 | Emergency (ER) | payer MEDICARE, MEDICAID ==
--- NOTE | 2019-07-05 05:50 | EDM.PDOC ---
ED HPI GENERAL MEDICAL PROBLEM - General Chief Complaint: General Stated Complaint: DIZZY Time Seen by Provider: 07/05/19 05:30 Source of Information: Reports: Patient History Limitations: Reports: No Limitations - History of Present Illness INITIAL COMMENTS - FREE TEXT/NARRATIVE: 54-year-old male brought in for evaluation of weakness and dizziness, along with watery diarrhea for the past 4 days. He was discharged from [facility] in [place] just under 2 weeks ago with a GI bleed where he received 4 units of RBC transfusions. He was supposed to follow-up with a seed cleaner operator in [place] over the next 1 to 2 weeks but he never went. He is here today because he is so weak and dizzy especially when standing and he continues to have his right upper quadrant abdominal pain. He said he has been sober for 2 months, however when he was here on 05/20 which is 6 weeks ago his blood alcohol was 0.125. He is asking for something for pain. On arrival his vitals are stable, blood pressure 118/89 lying down and pulse at 99. Onset: Unknown/Unsure Associated Symptoms: Reports: Malaise, Weakness, Other (Persistent dizziness, especially when standing). Denies: Chest Pain Right Abdomen Pain Score (Numeric/FACES): 8 - Related Data Allergies Allergy/AdvReac Type Severity Reaction Status Date / Time ibuprofen AdvReac Mild Bleeding Verified 07/05/19 05:25 Home Meds: Home Meds Insulin Glarg,Human.Rec.Analog [Lantus] 20 unit SUBCUT QAM 06/10/17 [History] Gabapentin [Neurontin] 300 mg PO BEDTIME 08/10/18 [History] Gabapentin [Neurontin] 800 mg PO TID 08/10/18 [History] Omeprazole 40 mg PO ACBREAKFAST 04/17/19 [History] Amitriptyline [Elavil] 25 mg PO BEDTIME PRN 05/05/19 [History] Amylase/Lipase/Protease [Shawna MATTHEWS 24,000 Unit] 3 cap PO TIDMEALS 05/05/19 [ History] DULoxetine [Cymbalta] 60 mg PO DAILY 05/05/19 [History] Folic Acid 1 mg PO DAILY 05/05/19 [History] Furosemide [Lasix] 20 mg PO DAILY PRN 05/05/19 [History] Insulin Aspart [NovoLOG] 0 unit SUBCUT WITHMEALSANDBED 05/05/19 [History] Magnesium Chloride [Mag-64] 128 mg PO BID 05/05/19 [History] Melatonin/Pyridoxine HCl (B6) [Melatonin 5 mg Tablet] 1 each PO BEDTIME PRN [History] Thiamine [Vitamin B-1] 100 mg PO DAILY 05/05/19 [History] amLODIPine [Norvasc] 5 mg PO DAILY 05/05/19 [History] Ferrous Sulfate 325 mg PO BIDAC #60 tablet 05/07/19 [Rx] Amoxicillin/Clavulanate K [Augmentin 875-125 MG] 1 tab PO BID #6 tablet [Rx] Lactobacillus Rhamnosus GG [Culturelle] 1 cap PO BID #60 cap 05/27/19 [Rx] Acamprosate [Campral] 333 mg PO DAILY 07/05/19 [History] Glucagon,Human Recombinant [Glucagon Emergency Kit] 1 mg IM DAILY 07/05/19 [ History] Propranolol [Inderal] 20 mg PO Q8H 07/05/19 [History] Triamcinolone Acetonide [Kenalog 0.1% Crm] 1 dose TOP DAILY 07/05/19 [History] Past Medical History HEENT History: Reports: Impaired Vision Cardiovascular History: Reports: CAD, Hypertension, [place], Stents Gastrointestinal History: Reports: Cirrhosis, GI Bleed, Pancreatitis, Other ( See Below) Other Gastrointestinal History: barrets esophageous, esophageal varisies Genitourinary History: Reports: Diabetic Nephropathy Musculoskeletal History: Reports: Arthritis Neurological History: Reports: Neuropathy, Diabetic, Seizure Psychiatric History: Reports: Addiction, Depression Endocrine/Metabolic History: Reports: Diabetes, Type I Hematologic History: Reports: Anemia, Blood Transfusion(s) Oncologic (Cancer) History: Reports: Renal Dermatologic History: Reports: Eczema, Other (See Below) Other Dermatologic History: rash on arm - Infectious Disease History Infectious Disease History: Reports: Chicken Pox, Measles - Past Surgical History Head Surgeries/Procedures: Reports: None HEENT Surgical History: Reports: None Cardiovascular Surgical History: Reports: Coronary Artery Stent GI Surgical History: Reports: Cholecystectomy, Colonoscopy, EGD, Small Bowel, Other (See Below) Other GI Surgeries/Procedures: spleenectomy Male Surgical History: Reports: Other (See Below) Other Male Surgeries/Procedures: partial nephrectomy Endocrine Surgical History: Reports: None Neurological Surgical History: Reports: None Musculoskeletal Surgical History: Reports: None Oncologic Surgical History: Reports: None Dermatological Surgical History: Reports: None Social & Family History - Family History Family Medical History: Noncontributory - Tobacco Use Smoking Status *Q: Current Every Day Smoker Years of Tobacco use: 2 Packs/Tins Daily: 2 - Caffeine Use Caffeine Use: Reports: Coffee Other Caffeine Use: 2-3 cups per day Caffeine Use Comment: couple cups per day - Recreational Drug Use Recreational Drug Use: No - Living Situation & Occupation Living situation: Reports: Single ( from of 30 years, recent moved to [facility] from [place], [place].) ED ROS GENERAL - Review of Systems Review Of Systems: See Below Constitutional: Reports: Malaise, Decreased Appetite. Denies: Fever, Chills HEENT: Denies: Vision Change Respiratory: Denies: Shortness of Breath Cardiovascular: Denies: Chest Pain GI/Abdominal: Reports: Abdominal Pain (Chronic recurring right upper quadrant pain) Skin: Reports: Pallor Psychiatric: Reports: Depression ED EXAM, GENERAL - Physical Exam Exam: See Below Exam Limited By: No Limitations General Appearance: Alert, No Apparent Distress Eye Exam: Bilateral Eye: EOMI, PERRL Head: Atraumatic Respiratory/Chest: No Respiratory Distress, Lungs Clear Cardiovascular: Regular Rate, Rhythm GI/Abdominal: Tender (Significant palpation tenderness anywhere across the abdomen especially the right upper quadrant). No: Soft Extremities: Pedal Edema (Patient does have symmetric significant pitting edema of the ankles and feet but only to mid tib-fib area, not anasarca) Neurological: Alert, Oriented, No Motor/Sensory Deficits, Other (Generally weak but no asymmetry) Psychiatric: Flat Affect Skin Exam: Warm, Dry Course - Vital Signs Last Recorded V/S: Last Vital Signs Temp 98.6 F 07/05/19 05:33 Pulse 93 07/05/19 05:33 Resp 12 07/05/19 05:33 BP 118/91 H 07/05/19 05:33 Pulse Ox 92 L 07/05/19 05:33 - Orders/Labs/Meds Labs: Laboratory Tests 07/05/19 07/05/19 07/05/19 Range/Units 06:10 06:10 06:10 WBC 7.7 (4.5-11.0) K/uL RBC 3.01 L (4.30-5.90) M/uL Hgb 10.0 L (12.0-15.0) g/dL Hct 28.1 L (40.0-54.0) % MCV 93 (80-98) fL MCH 33 H (27-31) pg MCHC 36 (32-36) % Plt Count (150-400) K/uL Neut % (Auto) 67 H (36-66) % Lymph % (Auto) 20 L (24-44) % [place] % (Auto) 11 H (2-6) % Eos % (Auto) 1 L (2-4) % Baso % (Auto) 1 (0-1) % Sodium 129 L (140-148) mmol/L Potassium 3.2 L (3.6-5.2) mmol/L Chloride 97 L (100-108) mmol/L Carbon Dioxide 21 (21-32) mmol/L Anion Gap 14.2 H (5.0-14.0) mmol/L BUN 7 (7-18) mg/dL Creatinine 1.0 D (0.8-1.3) mg/dL Est Cr Clr Drug Dosing 74.97 mL/min Estimated GFR (MDRD) > 60 (>60) Glucose 369 H (74-106) mg/dL Calcium 7.0 L (8.5-10.1) mg/dL Total Bilirubin 0.6 (0.2-1.0) mg/dL AST 48 H (15-37) U/L ALT 27 (12-78) U/L Alkaline Phosphatase 148 H (46-116) U/L Total Protein 4.9 L (6.4-8.2) g/dL Albumin 1.2 L (3.4-5.0) g/dL Globulin 3.7 H (2.3-3.5) g/dL Albumin/Globulin Ratio 0.3 L (1.2-2.2) Amylase 32 (25-115) U/L Lipase 23 L (73-393) U/L Ethyl Alcohol 4 mg/dL Meds: Medications Discontinued Medications Generic Name Dose Route Start Last Admin Trade Name Freq PRN Reason Stop Dose Admin Sodium Chloride 500 mls @ 1,000 mls/hr 07/05/19 06:00 Normal Saline IV ASDIRECTED BORA Insulin Human Regular 6 unit 07/05/19 06:58 07/05/19 07:15 Humulin R SUBCUT 07/05/19 06:59 Not Given ONETIME ONE - Re-Assessments/Exams Free Text/Narrative Re-Assessment/Exam: 07/05/19 06:50 CBC, CMP, amylase and lipase were obtained and an IV was attempted to give a 500 cc normal saline bolus. CBC returned reassuring with a normal white count and hemoglobin 10.0 which is actually fairly good for him. 07/05/19 06:51 Platelets did clump but they appear adequate so he has no thrombocytopenia on this visit. CMP is still pending, care turned over to Dr. Webber. I have was placed on the toilet to collect any diarrheal stool but the patient was unable to first hour he was in the emergency room to provide a sample. He also proved to be extremely difficult to start an IV. Anesthesia will likely have to be consulted. CMP returned also reassuring with a normal creatinine and GFR. His glucose is over 300 because he did not take his insulin this morning. He had several reasons that he is not taking his medications as prescribed as well. I offered him 5 units of subcutaneous insulin and then he can recheck his glucose when he gets home as I find nothing needing admission. He became angry he was not getting anything from pain and refused the insulin and left. I also told him he had a small amount of alcohol which also angered him because he said he has not drank anything for weeks. He really needs to go to [place] with his gastroenterology to get his work-up completed. Departure - Departure Time of Disposition: 07:35 Disposition: Home, Self-Care 01 Clinical Impression: Chronic abdominal pain Diarrhea Qualifiers: Diarrhea type: unspecified type Qualified Code(s): R19.7 - Diarrhea, unspecified - Discharge Information Instructions: Diarrhea, Adult Referrals: PCP,None [Primary Care Provider] - Forms: ED Department Discharge Care Plan Goals: Continue your medications as prescribed, get some support stockings for your feet for the swelling, and arrange your consultation with gastroenterology in [place] as recommended by your hospital physicians. Avoid alcohol at all times. Sepsis Event Note - Evaluation Sepsis Screening Result: No Definite Risk - Focused Exam Date Exam was Performed: 07/05/19 Time Exam was Performed: 17:33
[2019-07-05] MEDS ORDERED: Sodium Chloride 0.9% 500 ML IV SCH (06:00)
[2019-07-05] MEDS ORDERED: Insulin Regular, Human 100 Units/ML 3 ML Vial SUBCUT ONE (06:58)
== END 2019-07-05 07:20 | disposition home or self-care (01) ==
LOC: JP.ED 05:02
DX: R10.11 Right upper quadrant pain (principal); R19.7 Diarrhea, unspecified; I25.10 Atherosclerotic heart disease of native coronary artery without angina pectoris; I10 Essential (primary) hypertension; I25.2 Old myocardial infarction; M19.90 Unspecified osteoarthritis, unspecified site; E10.21 Type 1 diabetes mellitus with diabetic nephropathy; F17.210 Nicotine dependence, cigarettes, uncomplicated; E10.40 Type 1 diabetes mellitus with diabetic neuropathy, unspecified; Z79.899 Other long term (current) drug therapy; Z88.6 Allergy status to analgesic agent
CPT/HCPCS: 36415; 80053; 80307; 82150; 83690; 85025; 99283; 99284

== ENCOUNTER 2019-11-15 13:36 | Emergency (ER) | payer MEDICARE, MEDICAID ==
[2019-11-15] MEDS ORDERED: HYDROmorphone 0.5 MG/0.5 ML Syringe IVPUSH ONE ×4 (14:12→17:45)
--- NOTE | 2019-11-15 14:18 | EDM.PDOC ---
ED HPI GENERAL MEDICAL PROBLEM - General Chief Complaint: Neurological Problem Stated Complaint: MEDICAL VIA [facility]TH Time Seen by Provider: 11/15/19 14:12 Source of Information: Reports: Patient, EMS, Old Records History Limitations: Reports: No Limitations - History of Present Illness INITIAL COMMENTS - FREE TEXT/NARRATIVE: 54 yo male on insulin for diabetes was out in a boat alone fishing today when he recognized by how he felt that he was getting low blood sugar. He ate 2 "Ho- Ho's" and didn't feel better so he flagged down some other fisherman and they gave him some Mtn Dew. Shortly after he drank this he had a self-limiting seizure. EMS arrived later and he was post-ictal acting(mildly confused) with a BS of just over 100. En route he became more alert and no additional interventions were given. Bautista says he's had seizures with low BS before. He also mentions that he usually gets transient, but pretty severe RUQ abdominal pain after his low BS spells. He has this pain now as his only residual sx from this low BS event, but it is starting to get better. Onset: Today, Sudden Onset Date: 11/15/19 Duration: Minutes:, Improving Location: Reports: Generalized Quality: Reports: Ache (RUQ pain) Severity: Moderate Improves with: Reports: Medication (Dilaudid usually helps) Worsens with: Reports: Other (low BS spells) Context: Reports: Other (See HPI) Associated Symptoms: Reports: Diaphoresis, Seizure Treatments FLOOR BROKER: Reports: Other (see below) (calories before EMS arrival) Right Chest Pain Score (Numeric/FACES): 9 - Related Data Allergies Allergy/AdvReac Type Severity Reaction Status Date / Time ibuprofen AdvReac Mild Bleeding Verified 07/05/19 05:25 Home Meds: Home Meds Insulin Glarg,Human.Rec.Analog [Lantus] 20 unit SUBCUT QAM 06/10/17 [History] Gabapentin [Neurontin] 300 mg PO BEDTIME 08/10/18 [History] Gabapentin [Neurontin] 800 mg PO TID 08/10/18 [History] Omeprazole 40 mg PO ACBREAKFAST 04/17/19 [History] Amitriptyline [Elavil] 25 mg PO BEDTIME PRN 05/05/19 [History] Amylase/Lipase/Protease [Creon DR 24,000 Unit] 3 cap PO TIDMEALS PRN 05/05/19 [History] Folic Acid 1 mg PO DAILY 05/05/19 [History] Furosemide [Lasix] 20 mg PO DAILY PRN 05/05/19 [History] Insulin Aspart [NovoLOG] 0 unit SUBCUT WITHMEALSANDBED 05/05/19 [History] Magnesium Chloride [Mag-64] 128 mg PO BID 05/05/19 [History] Melatonin/Pyridoxine HCl (B6) [Melatonin 5 mg Tablet] 1 each PO BEDTIME PRN 05/05/19 [History] Thiamine [Vitamin B-1] 100 mg PO DAILY 05/05/19 [History] Ferrous Sulfate 325 mg PO BIDAC #60 tablet 05/07/19 [Rx] Lactobacillus Rhamnosus GG [Culturelle] 1 cap PO BID #60 cap 05/27/19 [Rx] Acamprosate [Campral] 333 mg PO DAILY 07/05/19 [History] Glucagon,Human Recombinant [Glucagon Emergency Kit] 1 mg IM ASDIRECTED PRN 07/05/19 [History] Propranolol [Inderal] 20 mg PO Q8H 07/05/19 [History] Triamcinolone Acetonide [Kenalog 0.1% Crm] 1 dose TOP DAILY 07/05/19 [History] Past Medical History HEENT History: Reports: Impaired Vision Cardiovascular History: Reports: CAD, Hypertension, [place], Stents Gastrointestinal History: Reports: Cirrhosis, GI Bleed, Pancreatitis, Other (See Below) Other Gastrointestinal History: barrets esophageous, esophageal varisies Genitourinary History: Reports: Diabetic Nephropathy Musculoskeletal History: Reports: Arthritis Neurological History: Reports: Neuropathy, Diabetic, Seizure Psychiatric History: Reports: Addiction, Depression Endocrine/Metabolic History: Reports: Diabetes, Type I Hematologic History: Reports: Anemia, Blood Transfusion(s) Oncologic (Cancer) History: Reports: Renal Dermatologic History: Reports: Eczema, Other (See Below) Other Dermatologic History: rash on arm - Infectious Disease History Infectious Disease History: Reports: Chicken Pox, Measles - Past Surgical History Head Surgeries/Procedures: Reports: None HEENT Surgical History: Reports: None Cardiovascular Surgical History: Reports: Coronary Artery Stent GI Surgical History: Reports: Cholecystectomy, Colonoscopy, EGD, Small Bowel, Other (See Below) Other GI Surgeries/Procedures: spleenectomy Male Surgical History: Reports: Other (See Below) Other Male Surgeries/Procedures: partial nephrectomy Endocrine Surgical History: Reports: None Neurological Surgical History: Reports: None Musculoskeletal Surgical History: Reports: None Oncologic Surgical History: Reports: None Dermatological Surgical History: Reports: None Social & Family History - Family History Family Medical History: Noncontributory - Caffeine Use Caffeine Use: Reports: Coffee Other Caffeine Use: 2-3 cups per day Caffeine Use Comment: couple cups per day - Living Situation & Occupation Living situation: Reports: Single ( from of 30 years, recent moved to [facility] from [facility]) ED ROS GENERAL - Review of Systems Review Of Systems: See Below Constitutional: Reports: Diaphoresis (resolved before arrival) HEENT: Reports: No Symptoms Respiratory: Reports: No Symptoms Cardiovascular: Reports: No Symptoms GI/Abdominal: Reports: No Symptoms : Reports: No Symptoms Musculoskeletal: Reports: No Symptoms Skin: Reports: Diaphoresis (transient) Neurological: Reports: Seizure (self-limited) - Physical Exam Exam: See Below Exam Limited By: No Limitations General Appearance: Alert, WD/WN, No Apparent Distress Eye Exam: Right Eye: Papilledema, Bilateral Eye: Normal Inspection Ears: Normal External Exam, Normal Canal, Hearing Grossly Normal Nose: Normal Inspection, No Blood Throat/Mouth: Normal Inspection, Normal Lips, Normal Oropharynx, Normal Voice, No Airway Compromise Head Exam: Atraumatic, Normocephalic Neck: Normal Inspection Respiratory/Chest: No Respiratory Distress, Lungs Clear, Normal Breath Sounds, No Accessory Muscle Use Cardiovascular: Regular Rate, Rhythm, No Edema GI/Abdominal: Normal Bowel Sounds, Soft, No Distention, Tender (RUQ). No: Non- Tender Neuro Exam (Abbreviated): Alert, Oriented, CN II-XII Intact, Normal Cognition, No Motor/Sensory Deficits. No: Confused Back Exam: Normal Inspection. No: CVA Tenderness (R), CVA Tenderness (L) Extremities: Normal Inspection, Normal Range of Motion, Non-Tender, No Pedal Edema Psychiatric: Normal Affect, Normal Mood Skin Exam: Warm, Dry, Intact, Normal Color, No Rash Course - Vital Signs Last Recorded V/S: Last Vital Signs Temp 36.5 C 11/15/19 13:59 Pulse 68 11/15/19 15:12 Resp 14 11/15/19 15:12 BP 98/72 11/15/19 15:12 Pulse Ox 100 11/15/19 15:12 - Orders/Labs/Meds Orders: Active Orders 24 hr Category Date Time Status Potassium Chloride Med 11/15/19 15:21 Once 20 meq PO ONETIME ONE Labs: Laboratory Tests 11/15/19 Range/Units 14:17 Sodium 137 L (140-148) mmol/L Potassium 3.6 (3.6-5.2) mmol/L Chloride 102 (100-108) mmol/L Carbon Dioxide 24 (21-32) mmol/L Anion Gap 14.6 H (5.0-14.0) mmol/L BUN 10 (7-18) mg/dL Creatinine 0.9 (0.8-1.3) mg/dL Est Cr Clr Drug Dosing 80.32 mL/min Estimated GFR (MDRD) > 60 (>60) Glucose 81 (74-106) mg/dL Calcium 8.3 L D (8.5-10.1) mg/dL Total Bilirubin 0.4 (0.2-1.0) mg/dL AST 36 (15-37) U/L ALT 34 (12-78) U/L Alkaline Phosphatase 117 H (46-116) U/L Total Protein 7.1 (6.4-8.2) g/dL Albumin 2.7 L (3.4-5.0) g/dL Globulin 4.4 H (2.3-3.5) g/dL Albumin/Globulin Ratio 0.6 L (1.2-2.2) Meds: Medications Discontinued Medications Generic Name Dose Route Start Last Admin Trade Name Freq PRN Reason Stop Dose Admin Hydromorphone HCl 0.25 mg 11/15/19 14:12 Dilaudid IVPUSH 11/15/19 14:13 ONETIME ONE Hydromorphone HCl 0.25 mg 11/15/19 14:32 11/15/19 14:45 Dilaudid IVPUSH 11/15/19 14:33 0.25 mg ONETIME ONE Administration Hydromorphone HCl 0.25 mg 11/15/19 15:01 11/15/19 15:19 Dilaudid IVPUSH 11/15/19 15:02 0.25 mg ONETIME ONE Administration Departure - Departure Time of Disposition: 15:35 Disposition: Home, Self-Care 01 Condition: Good Clinical Impression: Hypoglycemia, Observed seizure-like activity - Discharge Information *PRESCRIPTION DRUG MONITORING PROGRAM REVIEWED*: Not Applicable *COPY OF PRESCRIPTION DRUG MONITORING REPORT IN PATIENT FABIOLA: Not Applicable Instructions: Preventing Hypoglycemia Referrals: PCP,None [Primary Care Provider] - Forms: ED Department Discharge Additional Instructions: Follow up with your provider for recheck kristian. Return as needed. Sepsis Event Note (ED) - Evaluation Sepsis Screening Result: No Definite Risk - Focused Exam Vital Signs: Vital Signs Temp Pulse Resp BP Pulse Ox 11/15/19 15:12 68 14 98/72 100 11/15/19 13:59 36.5 C 70 14 107/73 100 11/15/19 13:54 36.5 C 70 14 107/73 100 - My Orders Last 24 Hours: My Active Orders 11/15/19 15:21 Potassium Chloride 20 meq PO ONETIME ONE - Assessment/Plan Last 24 Hours: My Active Orders 11/15/19 15:21 Potassium Chloride 20 meq PO ONETIME ONE
[2019-11-15] MEDS ORDERED: Potassium Chloride 10 MEQ Cap.ER PO ONE (15:21)
[2019-11-15] MEDS ORDERED: Ketorolac 30 MG/ML SDV IVPUSH ONE (15:48)
[2019-11-15] MEDS ORDERED: Sodium Chloride 0.9% 10 ML Syringe FLUSH ONE (15:53)
[2019-11-15] MEDS ORDERED: Potassium Chloride 10 MEQ Cap.ER ONE (15:59)
[2019-11-15] MEDS ORDERED: Iopamidol 612 MG/ML 100 ML Bottle IV SCH (16:00)
[2019-11-15] MEDS ORDERED: 50% Dextrose in Water 50 ML Syringe IVPUSH ONE (17:22)
--- NOTE | 2019-11-15 17:34 | CRLCT ---
INDICATION: Right upper quadrant abdomen pain. TECHNIQUE: CT abdomen and pelvis acquired with 92 cc Isovue IV contrast. COMPARISON: April 17, 2019. FINDINGS: Lower chest: Unremarkable. Liver: Diffuse hepatic steatosis again demonstrated. No focal lesion. A metallic object in the right lobe is unchanged. Gallbladder and bile ducts: Status post cholecystectomy. No biliary dilatation. Pancreas: Unchanged postoperative changes from a distal pancreatectomy. Punctate calcifications consistent with chronic pancreatitis are stable. No acute abnormality. Spleen: Status post splenectomy. Adrenal glands: Unremarkable. No nodules. Kidneys: Unremarkable. No masses, stones, or hydronephrosis. GI tract: Extensive fold thickening in the stomach is unchanged. There is moderate fluid-filled distention involving much of the small bowel with fluid levels. Distal ileum and colon are normal in caliber and appearance. Normal appendix. Vasculature: Aortic atherosclerosis without aneurysm. Portal vein is patent. Mesenteric arteries are patent. Lymph nodes: No lymphadenopathy. Omentum/Peritoneum/Abdominal Wall: Unremarkable. No sign of mass or infiltration. No free air or significant free fluid. Pelvis: Unremarkable. Bones: Unremarkable for age. IMPRESSION: Incomplete small bowel obstruction pattern is present. No transition point visualized. Adhesive disease is suspected as the cause for obstruction. No other acute findings or significant changes from the prior exam. Dictated by Rufino Brenner MD @ 11/15/2019 5:32:36 PM Please note that all CT scans at this facility use dose modulation, iterative reconstruction, and/or weight-based dosing when appropriate to reduce radiation dose to as low as reasonably achievable. Dictated by: Rufino Brenner MD @ 11/15/2019 17:32:39 (Electronically Signed)
== END 2019-11-15 19:18 | disposition home or self-care (01) ==
LOC: JP.ED 13:36
DX: E10.649 Type 1 diabetes mellitus with hypoglycemia without coma (principal); R25.9 Unspecified abnormal involuntary movements; I25.10 Atherosclerotic heart disease of native coronary artery without angina pectoris; I10 Essential (primary) hypertension; E10.21 Type 1 diabetes mellitus with diabetic nephropathy; F32.9 Major depressive disorder, single episode, unspecified; I25.2 Old myocardial infarction; Z88.6 Allergy status to analgesic agent; Z79.4 Long term (current) use of insulin; Z95.5 Presence of coronary angioplasty implant and graft; Z79.899 Other long term (current) drug therapy
CPT/HCPCS: 36415; 74177; 80053; 82962; 83690; 85027; 96374; 96375; 96376; 99285; A9270; J1170; J7050; Q9967; 99284